=== PATIENT | female | born 1950 ===

== ENCOUNTER 2020-01-11 13:10 | Outpatient (REF) | payer MEDICARE, SELFPAY ==
[2020-01-11 13:39] LABS: Total Volume 24 Hour Urine 1875 mL
[2020-01-11 14:39] LABS: Creatinine, mg/dL 53.92
[2020-01-12 22:46] LABS: Calcium, 24 Hr Urine 158 mg/24 h; Calcium/Creatinine Ratio 158 mg/g creat (30-275); Creatinine 24Hr Urine 0.99 g/24 h (0.50-2.15)
== END 2020-01-11 13:11 | disposition home or self-care (01) ==
LOC: HO.LNP 13:10
PROVIDERS: Visit Provider Internal Medicine
DX: E21.3 Hyperparathyroidism, unspecified (principal); E55.9 Vitamin D deficiency, unspecified; E83.52 Hypercalcemia
CPT/HCPCS: 82340; 82570

== ENCOUNTER 2020-02-06 11:54 | Outpatient (REF) | payer MEDICARE, SELFPAY ==
--- NOTE | 2020-02-06 11:59 | MM_ITS ---
EXAMINATION: MM SCREENING DIGITAL BREAST TOMOSYNTHESIS, BILATERAL CLINICAL INFORMATION: Screening. Asymptomatic. The lifetime risk of breast cancer based on the Tyrer-Cuzick Model is 2.6%. COMPARISON: Mammography: January 31, 2019 and studies dating back to October 01, 2011 TECHNIQUE: Digital breast tomosynthesis is performed in both the craniocaudal and mediolateral oblique views along with computer-aided detection (CAD). Synthesized 2D images are generated from the tomosynthesis. FINDINGS: There are scattered areas of fibroglandular density (ACR BI-RADS breast composition Category b). There are no significant masses, abnormal calcifications, or other abnormalities. MM/MM tomosynthesis screening BI IMPRESSION: There are no significant changes from prior study. ASSESSMENT: BI-RADS 1: Negative RECOMMENDATION: Routine annual mammography screening. This patient's information was entered into a reminder system with a target due date for their next mammogram.
== END 2020-02-06 11:55 | disposition home or self-care (01) ==
LOC: HO.MAMMO 11:54
PROVIDERS: Visit Provider Internal Medicine
DX: Z12.31 Encounter for screening mammogram for malignant neoplasm of breast (principal)
CPT/HCPCS: 77063; 77067

== ENCOUNTER → 2020-03-20 09:55 | Outpatient (BNVA) | payer MEDICARE, SELFPAY | PROVIDERS: PCP Internal Medicine; Visit Provider Internal Medicine | DX: C73 Malignant neoplasm of thyroid gland (principal); E20.9 Hypoparathyroidism, unspecified; E55.9 Vitamin D deficiency, unspecified; Z79.4 Long term (current) use of insulin; Z79.899 Other long term (current) drug therapy | CPT/HCPCS: Q3014 ==

== ENCOUNTER 2020-04-08 13:31 | Outpatient (REF) | payer MEDICARE, SELFPAY ==
[2020-04-08 15:00] LABS: Albumin Level 4.4 g/dL (3.5-5.0); Calcium 8.3 mg/dL (8.4-10.2); Estimated Glomerular Filt Rate 56; Phosphorus 3.9 mg/dL (2.7-4.5)
[2020-04-08 15:27] LABS: Vitamin D 25-OH Total 59.3 ng/mL (>30)
[2020-04-09 18:33] LABS: Calcium (PTHI) 8.6 mg/dL (8.6-10.4); PTHI 12 pg/mL (14-64)
== END 2020-04-08 13:32 | disposition home or self-care (01) ==
LOC: HO.LAB 13:31
PROVIDERS: PCP Internal Medicine; Visit Provider Internal Medicine
DX: E55.9 Vitamin D deficiency, unspecified (principal); E20.9 Hypoparathyroidism, unspecified
CPT/HCPCS: 82040; 82306; 82310; 82565; 83970; 84100

== ENCOUNTER → 2020-04-10 09:38 | Outpatient (BNVA) | payer MEDICARE, SELFPAY | PROVIDERS: PCP Internal Medicine; Visit Provider Internal Medicine | DX: E20.9 Hypoparathyroidism, unspecified (principal); C73 Malignant neoplasm of thyroid gland; E55.9 Vitamin D deficiency, unspecified; F17.200 Nicotine dependence, unspecified, uncomplicated; Z71.6 Tobacco abuse counseling | CPT/HCPCS: Q3014 ==

== ENCOUNTER 2020-04-15 10:11 | Outpatient (REF) | payer MEDICARE, SELFPAY ==
[2020-04-15 11:19] LABS: Albumin Level 4.4 g/dL (3.5-5.0); Calcium 8.4 mg/dL (8.4-10.2)
[2020-04-16 17:28] LABS: Calcium (PTHI) 9.1 mg/dL (8.6-10.4); PTHI 16 pg/mL (14-64)
== END 2020-04-15 10:12 | disposition home or self-care (01) ==
LOC: HO.LAB 10:11
PROVIDERS: PCP Internal Medicine; Visit Provider Internal Medicine
DX: E20.9 Hypoparathyroidism, unspecified (principal)
CPT/HCPCS: 36415; 82040; 82310; 83970

== ENCOUNTER → 2020-04-16 11:41 | Outpatient (BNVA) | payer MEDICARE, SELFPAY | PROVIDERS: PCP Internal Medicine; Visit Provider Internal Medicine | DX: Z13.89 Encounter for screening for other disorder (principal) | CPT/HCPCS: Q3014 ==

== ENCOUNTER 2020-04-24 10:16 | Outpatient (REF) | payer MEDICARE, SELFPAY ==
[2020-04-24 11:53] LABS: Albumin Level 4.7 g/dL (3.5-5.0)
[2020-04-24 12:20] LABS: Free T4 (Free Thyroxine) 0.94 ng/dL (0.71-1.85); Thyroid Stimulating Hormone 9.24 uIU/mL (0.32-4.0)
[2020-04-25 16:52] LABS: Calcium (PTHI) 9.2 mg/dL (8.6-10.4); PTHI 12 pg/mL (14-64)
== END 2020-04-24 10:17 | disposition home or self-care (01) ==
LOC: HO.LAB 10:16
PROVIDERS: PCP Internal Medicine; Visit Provider Internal Medicine
DX: E89.0 Postprocedural hypothyroidism (principal); E20.9 Hypoparathyroidism, unspecified
CPT/HCPCS: 36415; 82040; 82310; 83970; 84100; 84439; 84443

== ENCOUNTER 2020-05-06 12:33 | Outpatient (REF) | payer MEDICARE, SELFPAY ==
[2020-05-06 14:57] LABS: Albumin Level 4.4 g/dL (3.5-5.0); Calcium 8.7 mg/dL (8.4-10.2)
[2020-05-07 15:52] LABS: Calcium (PTHI) 8.5 mg/dL (8.6-10.4); PTHI 14 pg/mL (14-64)
== END 2020-05-06 12:34 | disposition home or self-care (01) ==
LOC: HO.LAB 12:33
PROVIDERS: PCP Internal Medicine; Visit Provider Internal Medicine
DX: E20.9 Hypoparathyroidism, unspecified (principal); E89.0 Postprocedural hypothyroidism; E55.9 Vitamin D deficiency, unspecified
CPT/HCPCS: 36415; 82040; 82310; 83970

== ENCOUNTER 2020-05-13 10:00 | Outpatient (REF) | payer MEDICARE, SELFPAY ==
[2020-05-13 10:58] LABS: Albumin Level 4.5 g/dL (3.5-5.0); Calcium 8.7 mg/dL (8.4-10.2)
[2020-05-14 13:32] LABS: Calcium (PTHI) 8.8 mg/dL (8.6-10.4); PTHI 16 pg/mL (14-64)
== END 2020-05-13 10:01 | disposition home or self-care (01) ==
LOC: HO.LAB 10:00
PROVIDERS: PCP Internal Medicine; Visit Provider Internal Medicine
DX: E20.9 Hypoparathyroidism, unspecified (principal)
CPT/HCPCS: 36415; 82040; 82310; 83970

== ENCOUNTER 2020-05-16 07:27 | Day surgery (SDC) | payer MEDICARE, SELFPAY ==
--- NOTE | 2020-05-14 14:37 | HO.ANESPROP2 ---
Documented by User: Jamila Alma 05/14/20 14:41 HPI - Anesthesia Eval Consult details Narrative: 70yo F for Upper Endoscopy and Colonoscopy Chronic opioids PMFSH Past Medical History Medical History Arthritis Diabetes GERD (gastroesophageal reflux disease) History of back pain History of diverticulosis Hyperlipidemia Hypertension Hypoparathyroidism Postoperative hypothyroidism Smoker Thyroid cancer Vitamin D deficiency Family History Family History Father Diabetes Hypertension Mother Diabetes Hypertension Surgical History Surgical History History of carpal tunnel surgery of right wrist History of thyroid surgery Hx of bladder repair surgery Hx of cholecystectomy Hx of colonoscopy Hx of hemorrhoidectomy Hx of hysterectomy with oophorectomy Social History Social History Are you a primary direct care counselor to a significant other at home: No Do you presently have visiting nurse or other home services: No Smoking Status: Current every day smoker Packs Per Day: 0.5 Cigarettes Per Day: 10.0 Years Smoked: 40 Smoked in Last 30 Days: Yes Patient Interested in Nicotine Replacement: No Patient Given Instructions on How to Stop Smoking: Yes Date Education Initiated: 05/12/20 Use of substances other than those prescribed or required for medical reasons: No Have you been hit, kicked, punched, or otherwise hurt by someone within the past year? If so, by whom?: No Advance Directives: No Advance Directives Information Provided: No Advance Directives on File: No Recently lost weight without trying: No Meds Allergies Allergy/AdvReac Type Severity Reaction Status Date / Time metformin Allergy Unknown diarrhea Verified 04/16/20 13:08 Home Medications Medication Instructions Recorded Confirmed Type atorvastatin 20 mg tablet 20 mg PO DAILY 03/20/20 05/12/20 History blood sugar diagnostic #10 ea 03/20/20 04/16/20 History fluticasone propionate 50 1 - 2 spray INTRANASAL DAILY PRN 03/20/20 05/12/20 History mcg/actuation nasal spray,suspension hydrochlorothiazide 25 mg tablet 25 mg PO DAILY 03/20/20 05/12/20 History moexipril 15 mg tablet 15 mg PO DAILY 03/20/20 05/12/20 History omeprazole 20 mg capsule,delayed 20 mg PO DAILY 03/20/20 05/12/20 History release oxycodone-acetaminophen 5 mg-325 1 tab PO Q6H PRN 03/20/20 05/16/20 History mg tablet sennosides 8.6 mg tablet [id number]? mg PO Q12H PRN 03/20/20 05/12/20 History verapamil 300 mg capsule 24hr 300 mg PO BEDTIME 03/20/20 05/12/[address],ext.release calcium citrate 250 mg 1 tab PO TID 04/10/20 05/12/20 History calcium-vitamin D3 5 mcg (200 unit) tablet insulin glargine 100 unit/mL 74 unit SUBCUT QPM ml 04/10/20 05/16/20 History subcutaneous solution zolpidem 1 tab PO DAILY 05/12/20 05/12/20 History Aspirin Childrens 81 DAILY 05/16/20 History Fish Oil 1,000 BID 05/16/20 History Exam Exam Date and Time: May 14, 2020 1437 Height,Weight and Vital Signs: Height 54 ft Weight 63.049 kg Pertinent Lab Results Pertinent Lab Results: Laboratory Tests 12/01/19 01/09/20 04/08/20 14:35 14:53 13:40 WBC 16.3 H Hgb 15.0 Hct 43.7 Plt Count 228 Sodium 138 Potassium 3.9 Chloride 105 BUN 17 H Creatinine 0.97 Laboratory Tests 04/24/20 05/06/20 05/13/20 10:30 13:58 10:20 Calcium 8.7 8.7 TSH 9.24 H Free T4 0.94 PTH Intact Calcium (PTH Intact) 05/13/20 10:20 Calcium TSH Free T4 PTH Intact 16 Calcium (PTH Intact) 8.8 Assessment and Plan Assessment Anesthesia Assessment: Chart Reviewed Documented by User: Ras Shell MD 05/16/20 08:23 [facility] Past Medical History Medical History Arthritis Diabetes GERD (gastroesophageal reflux disease) History of back pain History of diverticulosis Hyperlipidemia Hypertension Hypoparathyroidism Postoperative hypothyroidism Smoker Thyroid cancer Vitamin D deficiency Family History Family History Father Diabetes Hypertension Mother Diabetes Hypertension Surgical History Surgical History History of carpal tunnel surgery of right wrist History of thyroid surgery Hx of bladder repair surgery Hx of cholecystectomy Hx of colonoscopy Hx of hemorrhoidectomy Hx of hysterectomy with oophorectomy Social History Social History Are you a primary direct care counselor to a significant other at home: No Do you presently have visiting nurse or other home services: No Smoking Status: Current every day smoker Packs Per Day: 0.5 Cigarettes Per Day: 10.0 Years Smoked: 40 Smoked in Last 30 Days: Yes Patient Interested in Nicotine Replacement: No Patient Given Instructions on How to Stop Smoking: Yes Date Education Initiated: 05/12/20 Use of substances other than those prescribed or required for medical reasons: No Have you been hit, kicked, punched, or otherwise hurt by someone within the past year? If so, by whom?: No Advance Directives: No Advance Directives Information Provided: No Advance Directives on File: No Recently lost weight without trying: No Meds Allergies Allergy/AdvReac Type Severity Reaction Status Date / Time metformin Allergy Unknown diarrhea Verified 04/16/20 13:08 Home Medications Medication Instructions Recorded Confirmed Type atorvastatin 20 mg tablet 20 mg PO DAILY 03/20/20 05/12/20 History blood sugar diagnostic #10 ea 03/20/20 04/16/20 History fluticasone propionate 50 1 - 2 spray INTRANASAL DAILY PRN 03/20/20 05/12/20 History mcg/actuation nasal spray,suspension hydrochlorothiazide 25 mg tablet 25 mg PO DAILY 03/20/20 05/12/20 History moexipril 15 mg tablet 15 mg PO DAILY 03/20/20 05/12/20 History omeprazole 20 mg capsule,delayed 20 mg PO DAILY 03/20/20 05/12/20 History release oxycodone-acetaminophen 5 mg-325 1 tab PO Q6H PRN 03/20/20 05/16/20 History mg tablet sennosides 8.6 mg tablet [id number]? mg PO Q12H PRN 03/20/20 05/12/20 History verapamil 300 mg capsule 24hr 300 mg PO BEDTIME 03/20/20 05/12/[address],ext.release calcium citrate 250 mg 1 tab PO TID 04/10/20 05/12/20 History calcium-vitamin D3 5 mcg (200 unit) tablet insulin glargine 100 unit/mL 74 unit SUBCUT QPM ml 04/10/20 05/16/20 History subcutaneous solution zolpidem 1 tab PO DAILY 05/12/20 05/12/20 History Aspirin Childrens 81 DAILY 05/16/20 History Fish Oil 1,000 BID 05/16/20 History Assessment and Plan Assessment Anesthesia Assessment: Anesthesia Plan Discussed and Chart Reviewed Final Anesthetic Review NPO: Yes ASA Class: II Final Preanesthetic Review: No Changes in Pt Med Stat, Meds/Allgs Chart Reviewed, Consent Obtained/Reviewed and Anes Risks/Benef Reviewed Patient Risk: Intermediate Procedure Risk: Low Anesthetic Plan Disposition: Standard PACU
[2020-05-16 07:54] VITALS: BP 138/71; PULSE 74; RESP 16; TEMP 36.2; O2SAT 97
[2020-05-16 08:02] LABS: Glucose, Whole Blood 166 mg/dL (60-115)
[2020-05-16] MEDS: Lactated Ringers 1,000 ML 100 ML IVCONT (08:04)
[2020-05-16 09:32] VITALS: BP 83/48; PULSE 71; RESP 18; TEMP 36.8; O2SAT 99
--- NOTE | 2020-05-16 09:39 | PM.OP ---
Brief Operative Note Date of Service: 05/16/20 Pre-op diagnosis: GERD, Screening Post-op diagnosis: other (Hiatal hernia, ? gastric polyp, colon polyp) Procedure: EGD with biopsies and Colonoscopy to the cecum with snare polypectomy Surgeon: Jesus Lacey Anesthesia: MAC Estimated blood loss (mL): 3.0 Pathology: other (A. EG Junction at 35cm B. Gastric antrum, R/O polyp C. Polyp at 15cm) Condition: stable Disposition: PACU
[2020-05-16 09:45] VITALS: BP 90/53; PULSE 62; RESP 16; TEMP 36.8; O2SAT 99
--- NOTE | 2020-05-16 09:57 | HO.POSTANES ---
Post Anesthesia Evaluation Post Anesthesia Evaluation Vital Signs: Vital Signs Temp Pulse Resp BP Pulse Ox 05/16/20 09:45 98.2 F 62 16 90/53 L 99 05/16/20 09:32 98.2 F 71 18 83/48 L 99 05/16/20 07:54 97.1 F 74 16 138/71 97 Anesthesia: Monitored Mental Status: Awake Pain Control: Satisfactory Nausea/Vomiting: None Hydration: Adequate Anesthesia-Related Issues: No Anes. Related Issues
--- NOTE | 2020-05-16 10:04 | OP_ITS ---
SURGEON: Jesus Lacey MD INDICATIONS: The patient presents for evaluation of gastroesophageal reflux, personal history of tubular adenoma of the colon, and colorectal cancer screening. Full consent has been obtained from her for this, including risks of bleeding and perforation. PREOPERATIVE DIAGNOSIS: POSTOPERATIVE DIAGNOSIS: PROCEDURE PERFORMED: Esophagogastroduodenoscopy with biopsies and colonoscopy to the cecum with snare polypectomy. ESTIMATED BLOOD LOSS: COMPLICATIONS: ANESTHESIA: Monitored anesthesia care. ASSISTANTS: SPECIMENS: PREOPERATIVE DIAGNOSES: Gastroesophageal reflux, colorectal cancer screening, and personal history of tubular adenoma of the colon. POSTOPERATIVE DIAGNOSES: Gastroesophageal reflux, colorectal cancer screening, and personal history of tubular adenoma of the colon, hiatal hernia, question of gastric polyp, colon polyp, diverticulosis and internal hemorrhoids. DESCRIPTION OF PROCEDURE: The patient was placed in the left lateral decubitus position. The Olympus video gastroscope was passed in the posterior oropharynx and upper esophagus under direct vision. The scope was passed slowly into the distal esophagus. The gastroesophageal junction appeared at 35 cm. There was some slight irregularity consistent with reflux, but no definitive evidence of Gamez's esophagus. There was no esophagitis. There was a small hiatal hernia. The scope was advanced to pylorus and duodenum cannulated the descending portion. The duodenum including the bulb was carefully inspected and appeared normal without mass or ulceration. The scope was withdrawn back in the stomach. The gastric antrum and body appeared normal other than a very questionable area in the gastric antrum along the greater curvature raising a suspicion of an approximately 12 mm polyp. Biopsies were obtained. The scope was retroflexed visualizing the proximal stomach carefully, which appeared normal, without any sign of mass or ulceration. The scope was straightened. Scope was withdrawn back into the esophagus. Biopsies were obtained at the EG junction at 35 cm. Proximal to this, the esophageal mucosa appeared normal. The scope was withdrawn from the patient. She was turned around for colonoscopy. The digital rectal exam revealed no abnormalities. The Olympus video pediatric colonoscope was entered into the rectum and advanced easily to the cecum. Once in the cecum, I did identify normal-appearing cecal pouch with appendiceal orifice and a normal-appearing ileocecal valve. The entire cecum and ileocecal valve appeared normal. The scope was slowly withdrawn assessing all mucosal surfaces carefully. Preparation for the most part was very good, although there were some small areas of liquid and semi-solid stool, which were irrigated and suctioned away as best as possible. At 15 cm, was an approximately 8 mm polyp on a short stalk, which was snared and recovered by suction. The polypectomy site appeared clean, without any sign of residual polyp nor bleeding. I did not visualize any other polyps, colitis, nor angiodysplasia. There was a moderate amount of sigmoid diverticulosis. In the rectum, scope was retroflexed visualizing internal hemorrhoids, but no other pathology. The rectal mucosa appeared normal. The scope was straightened out and withdrawn from the patient. She tolerated both procedures well and was returned to recovery area in stable condition. IMPRESSION: 1. Small colon polyp, status post snare polypectomy. 2. Diverticulosis. 3. Internal hemorrhoids. 4. Hiatal hernia. 5. Rule out gastric polyp. PLAN: The results of the biopsies will be checked. I would recommend a repeat colonoscopy in 5 years. She was advised not to use any aspirin nor NSAIDs for 1 week. She will continue her omeprazole. She will otherwise see me on a p.r.n. basis. If the gastric polyp happens to show anything such as adenoma, then we would need to repeat the endoscopy. If Helicobacter pylori is present on the gastric biopsies, I would not necessarily treat that and she is otherwise asymptomatic. MD MARJAN Torrez/JESUS / [id number]
== END 2020-05-16 10:25 | disposition home or self-care (01) ==
PROVIDERS: PCP Internal Medicine; Visit Provider Internal Medicine
PROC: (CPT 45385; principal; 2020-05-16 08:30)
DX: Z12.11 Encounter for screening for malignant neoplasm of colon (principal); K63.5 Polyp of colon; K57.30 Diverticulosis of large intestine without perforation or abscess without bleeding; K64.8 Other hemorrhoids; Z86.010 Personal history of colon polyps; K21.9 Gastro-esophageal reflux disease without esophagitis; K44.9 Diaphragmatic hernia without obstruction or gangrene; I10 Essential (primary) hypertension; E11.9 Type 2 diabetes mellitus without complications; Z79.4 Long term (current) use of insulin; Z79.899 Other long term (current) drug therapy; Z80.0 Family history of malignant neoplasm of digestive organs
CPT/HCPCS: 45385; 43239; 82947; 88305; 88342

== ENCOUNTER 2020-07-04 13:15 | Outpatient (REF) | payer MEDICARE, SELFPAY ==
[2020-07-04 14:39] LABS: Albumin Level 4.4 g/dL (3.5-5.0); Calcium 8.5 mg/dL (8.4-10.2)
[2020-07-04 15:06] LABS: Vitamin D 25-OH Total 41.2 ng/mL (>30)
[2020-07-08 17:37] LABS: Calcium (PTHI) 8.7 mg/dL (8.6-10.4); PTHI 12 pg/mL (14-64)
== END 2020-07-04 13:16 | disposition home or self-care (01) ==
LOC: HO.LAB 13:15
PROVIDERS: PCP Internal Medicine; Visit Provider Internal Medicine
DX: E20.9 Hypoparathyroidism, unspecified (principal); E55.9 Vitamin D deficiency, unspecified
CPT/HCPCS: 36415; 82040; 82306; 82310; 83970

== ENCOUNTER 2020-07-07 09:04 | Outpatient (REF) | payer MEDICARE, SELFPAY ==
[2020-07-07 16:28] LABS: Albumin Level 4.5 g/dL (3.5-5.0); Calcium 8.8 mg/dL (8.4-10.2); Estimated Glomerular Filt Rate > 60; Phosphorus 4.3 mg/dL (2.7-4.5)
[2020-07-07 17:32] LABS: Free T4 (Free Thyroxine) 1.18 ng/dL (0.71-1.85); Vitamin D 25-OH Total 43.6 ng/mL (>30)
[2020-07-08 17:37] LABS: PTHI 15 pg/mL (14-64)
[2020-07-08 17:57] LABS: Thyroglobulin 0.2 ng/mL; Thyroglobulin Antibodies 1 IU/mL (< or = 1)
== END 2020-07-07 09:05 | disposition home or self-care (01) ==
LOC: HO.LAB 09:04
PROVIDERS: PCP Internal Medicine; Visit Provider Internal Medicine
DX: C73 Malignant neoplasm of thyroid gland (principal); E55.9 Vitamin D deficiency, unspecified; E87.6 Hypokalemia; E20.9 Hypoparathyroidism, unspecified
CPT/HCPCS: 36415; 82040; 82306; 82310; 82565; 83970; 84100; 84432; 84439; 84443; 86800; Q3014

== ENCOUNTER → 2020-09-01 09:03 | Outpatient (BNVA) | payer MEDICARE, SELFPAY | PROVIDERS: PCP Internal Medicine; Visit Provider Internal Medicine | CPT/HCPCS: Q3014 ==

== ENCOUNTER 2020-09-11 12:48 | Outpatient (REF) | payer MEDICARE, SELFPAY ==
[2020-09-11 14:33] LABS: Albumin Level 4.1 g/dL (3.5-5.0); Calcium 8.5 mg/dL (8.4-10.2); Estimated Glomerular Filt Rate > 60; Phosphorus 3.8 mg/dL (2.7-4.5)
[2020-09-11 15:05] LABS: Free T4 (Free Thyroxine) 1.14 ng/dL (0.71-1.85); Thyroid Stimulating Hormone 1.06 uIU/mL (0.32-4.0); Vitamin D 25-OH Total 41.5 ng/mL (>30)
[2020-09-12 18:56] LABS: Calcium (PTHI) 8.4 mg/dL (8.6-10.4); PTHI 13 pg/mL (14-64); Thyroglobulin Antibodies 1 IU/mL (< or = 1)
[2020-09-15 06:32] LABS: Thyroglobulin Antibody <1 IU/mL (<=1); Thyroglobulin Level 0.2 ng/mL
== END 2020-09-11 12:49 | disposition home or self-care (01) ==
LOC: HO.LAB 12:48
PROVIDERS: PCP Internal Medicine; Visit Provider Internal Medicine
DX: E20.9 Hypoparathyroidism, unspecified (principal); C73 Malignant neoplasm of thyroid gland; E55.9 Vitamin D deficiency, unspecified
CPT/HCPCS: 36415; 82040; 82306; 82310; 82565; 83970; 84100; 84432; 84439; 84443; 86800

== ENCOUNTER 2020-09-26 07:01 | Outpatient (REF) | payer MEDICARE, SELFPAY ==
[2020-09-26 07:47] LABS: MANUAL DIFF FLAG NO
[2020-09-26 07:53] LABS: Basophils Absolute Auto 0.1 X10*3/uL (0.0-0.2); Basophils Percent Auto 0.7 % (0-2); Eosinophils Absolute Auto 0.4 X10*3/uL (0.0-0.4); Eosinophils Percent Auto 3.9 % (0-4); Hematocrit 42.2 % (37-47); Imm Gran Abs Auto 0.07 X10*3/uL (0.00-0.03); Imm Gran Pct Auto 0.7 % (0.0-0.4); Lymphocytes Absolute Auto 2.4 X10*3/uL (1.2-4.9); Lymphocytes Percent Auto 25.1 % (20-40); Mean Corpuscular HGB Conc 33.2 g/dl (31.0-35.0); Mean Corpuscular Hemoglobin 30.8 pg (27.0-33.0); Mean Corpuscular Volume 92.7 fL (80-98); Mean Platelet Volume 12.2 fL (9.4-12.3); Monocytes Absolute Auto 0.8 X10*3/uL (0.1-1.2); Monocytes Percent Auto 8.2 % (2-11); Neutrophils Absolute Auto 5.9 X10*3/uL (2.0-8.3); Neutrophils Percent Auto 61.4 % (45-73); Platelet Count 207 X10*3/uL (160-400); Red Blood Count 4.55 X10*6/uL (4.20-5.50); Red Cell Distribution Width 15.9 % (11.0-16.0); White Blood Count 9.6 X10*3/uL (4.8-10.8)
[2020-09-26 08:03] LABS: Albumin Level 4.5 g/dL (3.5-5.0); Calcium 8.7 mg/dL (8.4-10.2)
[2020-09-26 08:08] LABS: Creatinine Urine 108.14 mg/dL; Microalbum/Creatinine Ratio Ur 7.3 ug/mg cr
[2020-09-26 08:11] LABS: Anion Gap 15 (12-20); Blood Urea Nitrogen 22 mg/dL (9-16); Calcium 8.6 mg/dL (8.4-10.2); Carbon Dioxide 27 mmol/L (22-29); Chloride 104 mmol/L (96-108); Cholesterol 122 mg/dL; Estimated Glomerular Filt Rate > 60; Glucose Random 132 mg/dL (60-115); HDL Cholesterol 40 mg/dL; LDL Cholesterol Calculated 58 mg/dl; Potassium 3.9 mmol/L (3.3-5.1); Sodium 142 mmol/L (135-145); Triglycerides 122 mg/dL
[2020-09-30 09:36] LABS: Calcium (PTHI) 8.7 mg/dL (8.6-10.4); PTHI 16 pg/mL (14-64)
== END 2020-09-26 07:02 | disposition home or self-care (01) ==
LOC: HO.LAB 07:01
PROVIDERS: Absent Provider Internal Medicine; PCP Internal Medicine; Visit Provider Internal Medicine
DX: I10 Essential (primary) hypertension (principal); E20.9 Hypoparathyroidism, unspecified; C73 Malignant neoplasm of thyroid gland; E11.9 Type 2 diabetes mellitus without complications
CPT/HCPCS: 36415; 80048; 80061; 82040; 82043; 82310; 83970; 85025

== ENCOUNTER → 2020-10-27 08:51 | Outpatient (BNVA) | payer MEDICARE, SELFPAY | PROVIDERS: PCP Internal Medicine; Visit Provider Internal Medicine | DX: C73 Malignant neoplasm of thyroid gland (principal) | CPT/HCPCS: 96372; J3240 ==

== ENCOUNTER → 2020-10-28 08:57 | Outpatient (BNVA) | payer MEDICARE, SELFPAY | PROVIDERS: PCP Internal Medicine; Visit Provider Internal Medicine Endocrinology, Diabetes & Metabolism | DX: C73 Malignant neoplasm of thyroid gland (principal) | CPT/HCPCS: 96372; J3240 ==

== ENCOUNTER 2020-10-29 07:01 | Outpatient (REF) | payer MEDICARE, SELFPAY ==
[2020-10-29 08:22] LABS: Thyroid Stimulating Hormone > 100.00 uIU/mL (0.32-4.0)
[2020-10-30 10:03] LABS: Thyroglobulin 0.4 ng/mL; Thyroglobulin Antibodies <1 IU/mL (< or = 1)
== END 2020-10-29 07:02 | disposition home or self-care (01) ==
LOC: HO.LAB 07:01
PROVIDERS: PCP Internal Medicine; Visit Provider Internal Medicine
DX: Z13.89 Encounter for screening for other disorder (principal)
CPT/HCPCS: 36415; 84432; 84443; 86800

== ENCOUNTER 2020-10-29 07:04 | Outpatient (REF) | payer MEDICARE, SELFPAY | END 2020-10-29 07:05 | disposition home or self-care (01) | LOC: HO.LAB 07:04 | PROVIDERS: PCP Internal Medicine; Visit Provider Internal Medicine | DX: Z20.822 Contact with and (suspected) exposure to COVID-19 (principal) | CPT/HCPCS: 36415; 84432; 84443; 86800; C9803; U0003; U0005 ==

== ENCOUNTER 2020-10-31 06:31 | Outpatient (REF) | payer MEDICARE, SELFPAY ==
[2020-10-31 08:18] LABS: Thyroid Stimulating Hormone 23.84 uIU/mL (0.32-4.0)
[2020-11-01 10:02] LABS: Thyroglobulin 0.4 ng/mL; Thyroglobulin Antibodies 1 IU/mL (< or = 1)
== END 2020-10-31 06:32 | disposition home or self-care (01) ==
LOC: HO.LAB 06:31
PROVIDERS: PCP Internal Medicine; Visit Provider Internal Medicine
DX: Z85.850 Personal history of malignant neoplasm of thyroid (principal)
CPT/HCPCS: 36415; 84432; 84443; 86800

== ENCOUNTER 2020-11-03 10:52 | Outpatient (REF) | payer MEDICARE, SELFPAY ==
[2020-11-03 12:31] LABS: Alanine Aminotransferase 18 U/L (0-31); Albumin Level 4.4 g/dL (3.5-5.0); Alkaline Phosphatase 79 U/L (39-117); Anion Gap 13 (12-20); Aspartate Amino Transferase 20 U/L (5-31); Bilirubin Total 0.7 mg/dL (0.0-1.0); Blood Urea Nitrogen 24 mg/dL (9-16); Calcium 8.9 mg/dL (8.4-10.2); Carbon Dioxide 27 mmol/L (22-29); Chloride 104 mmol/L (96-108); Estimated Glomerular Filt Rate > 60; Glucose Random 192 mg/dL (60-115); Phosphorus 4.4 mg/dL (2.7-4.5); Potassium 3.9 mmol/L (3.3-5.1); Sodium 140 mmol/L (135-145); Total Protein 7.2 g/dL (6.5-8.0)
[2020-11-03 12:54] LABS: Free T4 (Free Thyroxine) 1.13 ng/dL (0.71-1.85); Thyroid Stimulating Hormone 2.14 uIU/mL (0.32-4.0); Vitamin D 25-OH Total 43.2 ng/mL (>30)
[2020-11-04 13:31] LABS: PTHI 17 pg/mL (14-64)
== END 2020-11-03 10:53 | disposition home or self-care (01) ==
LOC: HO.LAB 10:52
PROVIDERS: PCP Internal Medicine; Visit Provider Internal Medicine
DX: E20.9 Hypoparathyroidism, unspecified (principal); C73 Malignant neoplasm of thyroid gland; E55.9 Vitamin D deficiency, unspecified; E89.0 Postprocedural hypothyroidism; Z85.850 Personal history of malignant neoplasm of thyroid
CPT/HCPCS: 36415; 80053; 82306; 83970; 84100; 84439; 84443; 99212

== ENCOUNTER 2020-12-12 14:23 | Outpatient (REF) | payer MEDICARE, SELFPAY ==
[2020-12-12 15:58] LABS: Free T4 (Free Thyroxine) 1.37 ng/dL (0.71-1.85); Thyroid Stimulating Hormone 0.19 uIU/mL (0.32-4.0)
== END 2020-12-12 14:24 | disposition home or self-care (01) ==
LOC: HO.LAB 14:23
PROVIDERS: PCP Internal Medicine; Visit Provider Internal Medicine
DX: Z85.850 Personal history of malignant neoplasm of thyroid (principal)
CPT/HCPCS: 36415; 84439; 84443

== ENCOUNTER 2021-02-02 10:11 | Outpatient (REF) | payer MEDICARE, SELFPAY ==
[2021-02-02 11:26] LABS: Free T4 (Free Thyroxine) 1.16 ng/dL (0.71-1.85); Thyroid Stimulating Hormone 1.06 uIU/mL (0.32-4.0)
== END 2021-02-02 10:12 | disposition home or self-care (01) ==
LOC: HO.LAB 10:11
PROVIDERS: PCP Internal Medicine; Visit Provider Internal Medicine
DX: E89.0 Postprocedural hypothyroidism (principal)
CPT/HCPCS: 36415; 84439; 84443

== ENCOUNTER 2021-07-22 14:08 | Outpatient (REF) | payer MEDICARE, SELFPAY ==
--- NOTE | ~2021-07-22 | MM_ITS ---
EXAMINATION: MM SCREENING DIGITAL BREAST TOMOSYNTHESIS, BILATERAL CLINICAL INFORMATION: Screening. Asymptomatic. The lifetime risk of breast cancer based on the Tyrer-Cuzick Model is 2%. COMPARISON: Mammography: 02/06/2020, 01/31/2019, 01/26/2018 TECHNIQUE: Digital breast tomosynthesis is performed in both the craniocaudal and mediolateral oblique views along with computer-aided detection (CAD). Synthesized 2D images are generated from the tomosynthesis. FINDINGS: There are scattered areas of fibroglandular density (ACR BI-RADS breast composition Category b). There are no significant masses, abnormal calcifications, or other abnormalities. Parenchymal pattern is similar to prior studies. The axilla and skin contours are unremarkable. MM/MM tomosynthesis screening BI IMPRESSION: No mammographic evidence of malignancy. ASSESSMENT: BI-RADS 1: Negative RECOMMENDATION: Routine annual mammography screening. This patient's information was entered into a reminder system with a target due date for their next mammogram.
== END 2021-07-22 14:09 | disposition home or self-care (01) ==
LOC: HO.MAMMO 14:08
PROVIDERS: Visit Provider Internal Medicine
DX: Z12.31 Encounter for screening mammogram for malignant neoplasm of breast (principal)
CPT/HCPCS: 77063; 77067

== ENCOUNTER 2021-07-23 06:41 | Outpatient (REF) | payer MEDICARE, SELFPAY ==
[2021-07-23 06:59] LABS: MANUAL DIFF FLAG NO
[2021-07-23 07:32] LABS: Basophils Absolute Auto 0.1 X10*3/uL (0.0-0.2); Basophils Percent Auto 0.6 % (0-2); Eosinophils Absolute Auto 0.3 X10*3/uL (0.0-0.4); Eosinophils Percent Auto 2.4 % (0-4); Hematocrit 38.7 % (37.0-47.0); Hemoglobin 12.8 g/dl (12.0-16.0); Imm Gran Abs Auto 0.06 X10*3/uL (0.00-0.03); Imm Gran Pct Auto 0.6 % (0.0-0.4); Lymphocytes Absolute Auto 2.7 X10*3/uL (1.2-4.9); Lymphocytes Percent Auto 26.5 % (20-40); Mean Corpuscular HGB Conc 33.1 g/dl (31.0-35.0); Mean Corpuscular Hemoglobin 30.5 pg (27.0-33.0); Mean Corpuscular Volume 92.4 fL (80.0-98.0); Mean Platelet Volume 12.7 fL (9.4-12.3); Monocytes Absolute Auto 0.6 X10*3/uL (0.1-1.2); Monocytes Percent Auto 6.2 % (2-11); Neutrophils Absolute Auto 6.5 x10*3/uL (2.0-8.3); Neutrophils Percent Auto 63.7 % (45-73); Platelet Count 225 X10*3/uL (160-400); Red Blood Count 4.19 X10*6/uL (4.20-5.50); Red Cell Distribution Width 15.8 % (11.0-16.0); White Blood Count 10.3 X10*3/uL (4.8-10.8)
[2021-07-23 08:04] LABS: Alanine Aminotransferase 28 U/L (0-31); Alkaline Phosphatase 80 U/L (39-117); Anion Gap 13 (12-20); Aspartate Amino Transferase 22 U/L (5-31); Bilirubin Total 0.7 mg/dL (0.0-1.0); Blood Urea Nitrogen 22 mg/dL (9-16); Calcium 8.5 mg/dL (8.4-10.2); Carbon Dioxide 26 mmol/L (22-29); Chloride 103 mmol/L (96-108); Cholesterol 151 mg/dL; Estimated Glomerular Filt Rate > 60; Glucose Random 208 mg/dL (60-115); HDL Cholesterol 28 mg/dL; Potassium 3.7 mmol/L (3.3-5.1); Sodium 138 mmol/L (135-145); Total Protein 6.6 g/dL (6.5-8.0); Triglycerides 491 mg/dL
[2021-07-23 08:10] LABS: HIV AB/AG Nonreactive (Nonreactive); HIV Num 1 0.04 S/CO (0.00-0.99)
[2021-07-23 08:11] LABS: ~Hepatitis C Antibody Nonreactive (Nonreactive)
[2021-07-23 08:13] LABS: Lactate Dehydrogenase 243 U/L (122-220); Thyroid Stimulating Hormone 0.44 uIU/mL (0.32-4.0)
[2021-07-23 08:16] LABS: Erythrocyte Sedimentation Rate 7 MM/HR (0-20)
[2021-07-23 14:28] LABS: Appearance Urine CLOUDY; Color Urine YELLOW; Glucose Urine UA NEG (NEG); Leukocyte Esterase Urine 3+ (NEG); Nitrite Urine NEG (NEG); Specific Gravity - Urine 1.025 (1.005-1.025); Urine Blood NEG (NEG); Urine Ketones 5 MG/DL (NEG); Urine Protein TRACE MG/DL (NEG-TRACE)
[2021-07-23 15:06] LABS: Squamous Epithelial Cell Urine 4+ /LPF
[2021-07-23 15:26] LABS: Bacteria Urine 1+ /LPF
== END 2021-07-23 06:42 | disposition home or self-care (01) ==
LOC: HO.LAB 06:41
PROVIDERS: PCP Internal Medicine; Visit Provider Internal Medicine
DX: Z11.4 Encounter for screening for human immunodeficiency virus [HIV] (principal); E20.8 Other hypoparathyroidism; R63.4 Abnormal weight loss
CPT/HCPCS: 36415; 80053; 80061; 81001; 83615; 84439; 84443; 85025; 85652; 86803; 87389

== ENCOUNTER 2021-07-24 12:42 | Outpatient (REF) | payer MEDICARE, SELFPAY ==
--- NOTE | ~2021-07-24 | CT_ITS ---
EXAMINATION: CT CHEST SCREENING CLINICAL INFORMATION: Current smoker. 1 ppd. 61.235 kg. 20 + pack years. COMPARISON: 11/07/2019 TECHNIQUE: Multidetector volumetric CT imaging of the chest is performed without contrast using low-dose technique. Additional 2-D coronal and sagittal reformatted images and axial 3-D maximum intensity projection (MIP) images are generated on the CT workstation. This CT examination was performed using dose optimization techniques as appropriate, variously including the following: *Automated exposure control *Adjustment of mA and/or kV according to patient size (this includes techniques or standardized protocols for targeted exams where dose is matched to indication/reason for exam; i.e. extremities or head) *Use of iterative reconstruction technique DLP: 44 mGy-cm FINDINGS: LUNGS: 2 mm subpleural left upper lobe nodule is unchanged (4:193 compare prior 4:190). 2 mm pleural-based nodule in the right lower lobe along the major fissure is unchanged (4:251 compare prior 4:259). No new or worrisome lung nodule is seen. MEDIASTINUM: The mediastinum is unremarkable. PLEURA: There is no pleural effusion. No pleural mass or thickening. AXILLA: No lymphadenopathy. UPPER ABDOMEN: Status post cholecystectomy. OSSEOUS STRUCTURES: Unremarkable. CT/CT lung screening IMPRESSION: Two tiny lung nodules stable in appearance. ASSESSMENT: Lung-RADS category 2: Benign RECOMMENDATION: Routine annual low-dose CT screening in 12 months. Fleischner guidelines were followed.
== END 2021-07-24 12:43 | disposition home or self-care (01) ==
LOC: HO.CT 12:42
PROVIDERS: Visit Provider Physician Assistant Medical
DX: Z12.2 Encounter for screening for malignant neoplasm of respiratory organs (principal); Z87.891 Personal history of nicotine dependence
CPT/HCPCS: 71271

== ENCOUNTER 2021-09-10 10:42 | Outpatient (REF) | payer MEDICARE, SELFPAY ==
[2021-09-10 10:55] LABS: MANUAL DIFF FLAG NO
[2021-09-10 11:25] LABS: Basophils Absolute Auto 0.1 X10*3/uL (0.0-0.2); Basophils Percent Auto 0.8 % (0-2); Eosinophils Absolute Auto 0.4 X10*3/uL (0.0-0.4); Eosinophils Percent Auto 3.9 % (0-4); Hematocrit 38.6 % (37.0-47.0); Imm Gran Abs Auto 0.08 X10*3/uL (0.00-0.03); Imm Gran Pct Auto 0.8 % (0.0-0.4); Lymphocytes Absolute Auto 2.3 X10*3/uL (1.2-4.9); Lymphocytes Percent Auto 22.6 % (20-40); Mean Corpuscular HGB Conc 33.7 g/dl (31.0-35.0); Mean Corpuscular Hemoglobin 30.7 pg (27.0-33.0); Mean Platelet Volume 12.7 fL (9.4-12.3); Monocytes Absolute Auto 0.7 X10*3/uL (0.1-1.2); Monocytes Percent Auto 6.4 % (2-11); Neutrophils Absolute Auto 6.7 x10*3/uL (2.0-8.3); Neutrophils Percent Auto 65.5 % (45-73); Platelet Count 217 X10*3/uL (160-400); Red Blood Count 4.24 X10*6/uL (4.20-5.50); Red Cell Distribution Width 15.7 % (11.0-16.0); White Blood Count 10.2 X10*3/uL (4.8-10.8)
[2021-09-10 11:51] LABS: Lactate Dehydrogenase 292 U/L (122-220)
[2021-09-11 16:11] LABS: Blood Urea Nitrogen 16 mg/dL (9-16); Estimated Glomerular Filt Rate > 60
== END 2021-09-10 10:43 | disposition home or self-care (01) ==
LOC: HO.LAB 10:42
PROVIDERS: PCP Internal Medicine; Visit Provider Internal Medicine
DX: R10.32 Left lower quadrant pain (principal); R63.4 Abnormal weight loss
CPT/HCPCS: 36415; 82565; 83615; 84520; 85025

== ENCOUNTER 2021-10-30 14:47 | Outpatient (REF) | payer MEDICARE, SELFPAY ==
[2021-10-30 15:39] LABS: Blood Urea Nitrogen 16 mg/dL (9-16); Estimated Glomerular Filt Rate > 60
[2021-10-30 15:42] LABS: Alanine Aminotransferase 30 U/L (0-31); Albumin Level 4.5 g/dL (3.5-5.0); Alkaline Phosphatase 92 U/L (39-117); Anion Gap 15 (12-20); Aspartate Amino Transferase 26 U/L (5-31); Bilirubin Total 0.8 mg/dL (0.0-1.0); Blood Urea Nitrogen 16 mg/dL (9-16); Calcium 8.5 mg/dL (8.4-10.2); Carbon Dioxide 24 mmol/L (22-29); Chloride 100 mmol/L (96-108); Estimated Glomerular Filt Rate > 60; Glucose Random 231 mg/dL (60-115); Phosphorus 4.2 mg/dL (2.7-4.5); Potassium 3.8 mmol/L (3.3-5.1); Sodium 135 mmol/L (135-145); Total Protein 7.2 g/dL (6.5-8.0)
[2021-10-30 16:03] LABS: Free T4 (Free Thyroxine) 1.39 ng/dL (0.71-1.85); Thyroid Stimulating Hormone 0.05 uIU/mL (0.32-4.0); Vitamin D 25-OH Total 45.2 ng/mL (>30)
[2021-11-02 16:32] LABS: Thyroglobulin <0.1 ng/mL; Thyroglobulin Antibodies <1 IU/mL (< or = 1)
[2021-11-03 15:52] LABS: Calcium (PTHI) 8.4 mg/dL (8.6-10.4); PTHI 27 pg/mL (16-77)
== END 2021-10-30 14:48 | disposition home or self-care (01) ==
LOC: HO.LAB 14:47
PROVIDERS: Absent Provider Internal Medicine; PCP Internal Medicine; Visit Provider Internal Medicine
DX: E20.9 Hypoparathyroidism, unspecified (principal); E55.9 Vitamin D deficiency, unspecified; R10.32 Left lower quadrant pain; Z85.850 Personal history of malignant neoplasm of thyroid
CPT/HCPCS: 36415; 80053; 82306; 82565; 83970; 84100; 84432; 84439; 84443; 84520; 86800

== ENCOUNTER → 2021-11-04 14:29 | Outpatient (BNVA) | payer MEDICARE, SELFPAY | PROVIDERS: PCP Internal Medicine; Visit Provider Internal Medicine | DX: C73 Malignant neoplasm of thyroid gland (principal); E20.9 Hypoparathyroidism, unspecified; E55.9 Vitamin D deficiency, unspecified; E89.0 Postprocedural hypothyroidism; Z79.899 Other long term (current) drug therapy | CPT/HCPCS: 99212 ==

== ENCOUNTER 2021-11-06 07:40 | Outpatient (REF) | payer MEDICARE, SELFPAY ==
--- NOTE | ~2021-11-06 | CT_ITS ---
EXAMINATION: CT ABDOMEN AND PELVIS WITH CONTRAST CLINICAL INFORMATION: Diverticulosis. Left lower quadrant pain. COMPARISON: Previous CT of the abdomen and pelvis November 2019 TECHNIQUE: Multidetector volumetric images were obtained from the superior aspect of the liver through the pubic symphysis following administration 85 mL of Omnipaque 350 intravenous contrast. Sagittal and coronal reformatted images were obtained on the technologist's workstation. Oral contrast: Yes This CT examination was performed using dose optimization techniques as appropriate, variously including the following: *Automated exposure control *Adjustment of mA and/or kV according to patient size (this includes techniques or standardized protocols for targeted exams where dose is matched to indication/reason for exam; i.e. extremities or head) *Use of iterative reconstruction technique DLP: 281 mGy-cm FINDINGS: LUNG BASES: The visualized lung bases are unremarkable. LIVER, GALLBLADDER, AND BILIARY TREE: The liver is normal in size, shape and attenuation. There is a small probable cyst in the peripheral left lobe measuring 5 mm axial image 13 series 3 and central left lobe axial image 15 series 3. There is increased enhancement in the peripheral right lobe for example axial image 26 series 3. This is similar to previous exams and again may be related to a small shunt. There is mild intrahepatic extrahepatic biliary duct dilatation. This is similar to previous exams and probably related to postcholecystectomy. PANCREAS: Unremarkable. SPLEEN: Unremarkable. ADRENAL GLANDS: Unremarkable. KIDNEYS AND URETERS: There are small bilateral low-attenuation renal lesions. These are too small to definitively characterize but probably represent small cysts. BLADDER: Unremarkable. GASTROINTESTINAL TRACT: There is diverticulosis of the colon. No evidence of diverticulitis is seen. On large bowel is otherwise unremarkable. The appendix is normal. There may be fold thickening of the stomach. ABDOMINAL WALL: No significant hernia is appreciated. LYMPH NODES: Normal. VASCULAR: There is evidence of atherosclerotic disease. PELVIC VISCERA: Unremarkable. OSSEOUS STRUCTURES: There are degenerative changes of the spine. CT/CT abdomen pelvis w con IMPRESSION: Diverticulosis. No evidence of diverticulitis. Probable liver and bilateral renal cysts. Mild intrahepatic extrahepatic biliary duct dilatation that is stable from previous exams and may be normal postcholecystectomy. Question fold thickening of the stomach. Fleischner guidelines were followed.
[2021-11-06] MEDS: iohexoL 350 MG/ML 100 ML INFUS..BTL IV (10:19)
[2021-11-06] MEDS: Barium Sulfate Oral (Mocha) 450 ML ORAL.SUSP 900 ML PO (10:21)
== END 2021-11-06 07:41 | disposition home or self-care (01) ==
LOC: HO.CT 07:40
PROVIDERS: PCP Internal Medicine; Visit Provider Internal Medicine
DX: Z13.89 Encounter for screening for other disorder (principal)
CPT/HCPCS: 74177; Q9967

== ENCOUNTER 2021-11-06 10:02 | Outpatient (REF) | payer MEDICARE, SELFPAY ==
[2021-11-06 11:05] LABS: COVID-19 Test Negative (Negative); IDNOW Serial# 08D9AD1C
== END 2021-11-06 10:03 | disposition home or self-care (01) ==
LOC: HO.LAB 10:02
PROVIDERS: Visit Provider Internal Medicine
DX: Z20.822 Contact with and (suspected) exposure to COVID-19 (principal)
CPT/HCPCS: 74177; 87635; C9803; Q9967

== ENCOUNTER 2021-11-09 09:00 | Outpatient (RCR) | payer MEDICARE, SELFPAY | END 2021-11-09 10:11 | disposition home or self-care (01) | LOC: HO.PT 09:00 | PROVIDERS: PCP Internal Medicine; Visit Provider Internal Medicine | DX: M54.50 Low back pain, unspecified (principal) | CPT/HCPCS: 97110; 97140; 97161 ==

== ENCOUNTER 2021-12-15 13:21 | Outpatient (REF) | payer MEDICARE, SELFPAY ==
[2021-12-15 15:14] LABS: Albumin Level 4.5 g/dL (3.5-5.0); Calcium 8.7 mg/dL (8.4-10.2); Phosphorus 4.4 mg/dL (2.7-4.5)
[2021-12-15 15:29] LABS: Free T4 (Free Thyroxine) 1.26 ng/dL (0.71-1.85); Thyroid Stimulating Hormone 0.62 uIU/mL (0.32-4.0); Vitamin D 25-OH Total 52.1 ng/mL (>30)
[2021-12-16 14:46] LABS: Calcium (PTHI) 8.9 mg/dL (8.6-10.4); PTHI 16 pg/mL (16-77)
[2021-12-16 17:21] LABS: Thyroglobulin <0.1 ng/mL; Thyroglobulin Antibodies <1 IU/mL (< or = 1)
== END 2021-12-15 13:22 | disposition home or self-care (01) ==
LOC: HO.LAB 13:21
PROVIDERS: PCP Internal Medicine; Visit Provider Internal Medicine
DX: E89.0 Postprocedural hypothyroidism (principal); E55.9 Vitamin D deficiency, unspecified
CPT/HCPCS: 36415; 82040; 82306; 82310; 83970; 84100; 84432; 84439; 84443; 86800

== ENCOUNTER 2022-03-22 14:19 | Outpatient (REF) | payer MEDICARE, SELFPAY ==
--- NOTE | ~2022-03-22 | US_ITS ---
EXAMINATION: US SOFT TISSUE HEAD/NECK CLINICAL INFORMATION: Personal history of malignant neoplasm of thyroid. COMPARISON: US-guided thyroid biopsy 12/27/2019. Ultrasound thyroid 10/02/2019. CT soft tissue neck with contrast 08/22/2019. TECHNIQUE: Linear transducer grayscale and color Doppler examination of the thyroid bed and surrounding soft tissue. FINDINGS: Bilateral neck lymph nodes are normal in size and morphology without cortical thickening. US/US soft tiss head and/or neck IMPRESSION: 1. Bilateral neck lymph nodes are normal in size and morphology without cortical thickening.
== END 2022-03-22 14:20 | disposition home or self-care (01) ==
LOC: HO.US 14:19
PROVIDERS: Visit Provider Internal Medicine
DX: Z85.850 Personal history of malignant neoplasm of thyroid (principal)
CPT/HCPCS: 76536

== ENCOUNTER 2022-08-13 13:55 | Outpatient (REF) | payer MEDICARE, SELFPAY ==
--- NOTE | ~2022-08-13 | CT_ITS ---
EXAMINATION: CT CHEST SCREENING CLINICAL INFORMATION: Nicotine dependance, cigarettes, uncomplicated. COMPARISON: CT lung screening of 07/30/2021. TECHNIQUE: Multidetector volumetric CT imaging of the chest is performed without contrast using low dose technique. Additional 2D coronal and sagittal reformatted images and axial 3D maximum intensity projection (MIP) images are generated on the CT workstation. This CT examination was performed using dose optimization techniques as appropriate, variously including the following: *Automated exposure control *Adjustment of mA and/or kV according to patient size (this includes techniques or standardized protocols for targeted exams where dose is matched to indication/reason for exam; i.e. extremities or head) *Use of iterative reconstruction technique DLP: 39 mGy-cm FINDINGS: LUNGS: Again visualized is a 2 mm subpleural nodule left upper lobe 194/6, 2 mm pleural-based nodule in the right lower lobe along the major fissure, axial image 260/6. No additional nodule seen. There are mild atelectatic changes right middle lobe. The lungs are expanded and clear of acute pneumonic consolidation. MEDIASTINUM: The thyroid lobes are unremarkable. The central trachea and the bronchi are widely patent. Heart size and the great vessels are normal caliber. Small shotty lymph nodes seen in the precarinal and pretracheal space. There is no pericardial effusion. CORONARY ARTERY CALCIFICATION: None visualized on this study. PLEURA: There is no pleural effusion. No pleural mass or thickening. AXILLA: Small shotty lymph nodes are seen in bilateral axilla. The chest wall is unremarkable. UPPER ABDOMEN: Visualized liver, spleen, pancreas and bilateral adrenal glands unremarkable. The gallbladder has been removed. OSSEOUS STRUCTURES: No aggressive lytic or sclerotic process seen. There is mild ventral spondylosis mid dorsal spine. No aggressive lytic or sclerotic process seen. CT/CT lung screening IMPRESSION: Stable bilateral pulmonary nodules. No new nodules seen. ASSESSMENT: Lung-RADS category 2: Benign. RECOMMENDATION: Low dose annual CT chest.
== END 2022-08-13 13:56 | disposition home or self-care (01) ==
LOC: HO.CT 13:55
PROVIDERS: PCP Internal Medicine; Visit Provider Physician Assistant Medical
DX: Z12.2 Encounter for screening for malignant neoplasm of respiratory organs (principal); F17.210 Nicotine dependence, cigarettes, uncomplicated
CPT/HCPCS: 71271

== ENCOUNTER 2022-08-26 14:36 | Outpatient (REF) | payer MEDICARE, SELFPAY ==
--- NOTE | ~2022-08-26 | XR_ITS ---
EXAMINATION: XR LUMBOSACRAL SPINE WITH OBLIQUES CLINICAL INFORMATION: Back pain. COMPARISON: CT abdomen and pelvis 11/06/2021 TECHNIQUE: Lumbar spine is imaged in 6 views including oblique projections. FINDINGS: There is normal lumbar segmentation with 5 nonrib-bearing lumbar vertebrae of normal height and normal lumbar lordosis. There is no vertebral compression, visible fracture, spondylolisthesis, destructive process. There are degenerative disc changes at L2-L3 with disc narrowing and anterior vertebral spurring. Facet degeneration is present at L5-S1. Borderline posterior vertebral spurring L4-L5 without disc narrowing. Oblique views show no spondylolysis. The SI joints and visualized sacrum are unremarkable. XR/XR lumbar spine 4V min IMPRESSION: - Degenerative disc changes L2-L3. Facet degenerative changes L5-S1. - No vertebral compression, spondylolisthesis, or spondylolysis.
== END 2022-08-26 14:37 | disposition home or self-care (01) ==
LOC: HO.HHCX 14:36
PROVIDERS: Visit Provider Internal Medicine
DX: M54.50 Low back pain, unspecified (principal)
CPT/HCPCS: 72110

== ENCOUNTER 2022-08-27 06:50 | Outpatient (REF) | payer MEDICARE, SELFPAY ==
[2022-08-27 07:16] LABS: MANUAL DIFF FLAG NO
[2022-08-27 07:28] LABS: Basophils Absolute Auto 0.1 X10*3/uL (0.0-0.2); Basophils Percent Auto 0.7 % (0-2); Eosinophils Absolute Auto 0.3 X10*3/uL (0.0-0.4); Eosinophils Percent Auto 2.8 % (0-4); Hemoglobin 13.4 g/dl (12.0-16.0); Imm Gran Abs Auto 0.06 X10*3/uL (0.00-0.03); Imm Gran Pct Auto 0.6 % (0.0-0.4); Lymphocytes Absolute Auto 2.6 X10*3/uL (1.2-4.9); Lymphocytes Percent Auto 26.2 % (20-40); Mean Corpuscular HGB Conc 33.5 g/dl (31.0-35.0); Mean Corpuscular Hemoglobin 31.4 pg (27.0-33.0); Mean Corpuscular Volume 93.7 fL (80.0-98.0); Mean Platelet Volume 12.3 fL (9.4-12.3); Monocytes Absolute Auto 0.7 X10*3/uL (0.1-1.2); Monocytes Percent Auto 6.7 % (2-11); Neutrophils Absolute Auto 6.2 x10*3/uL (2.0-8.3); Platelet Count 215 X10*3/uL (160-400); Red Blood Count 4.27 X10*6/uL (4.20-5.50); Red Cell Distribution Width 15.6 % (11.0-16.0); White Blood Count 9.9 X10*3/uL (4.8-10.8)
[2022-08-27 08:01] LABS: Alanine Aminotransferase 26 U/L (0-31); Albumin Level 4.1 g/dL (3.5-5.0); Alkaline Phosphatase 71 U/L (39-117); Anion Gap 12 (12-20); Aspartate Amino Transferase 22 U/L (5-31); Bilirubin Direct 0.2 mg/dL (0.0-0.5); Bilirubin Total 0.9 mg/dL (0.0-1.0); Blood Urea Nitrogen 15 mg/dL (9-16); Calcium 8.5 mg/dL (8.4-10.2); Carbon Dioxide 28 mmol/L (22-29); Chloride 108 mmol/L (96-108); Cholesterol 115 mg/dL; Estimated Glomerular Filt Rate > 60; Glucose Random 108 mg/dL (60-115); HDL Cholesterol 35 mg/dL; LDL Cholesterol Calculated 61 mg/dl; Phosphorus 4.2 mg/dL (2.7-4.5); Potassium 3.5 mmol/L (3.3-5.1); Sodium 144 mmol/L (135-145); Total Protein 6.5 g/dL (6.5-8.0); Triglycerides 96 mg/dL
[2022-08-27 08:06] LABS: Albumin Level 4.2 g/dL (3.5-5.0); Calcium 8.6 mg/dL (8.4-10.2)
[2022-08-27 08:17] LABS: TSH reflex Free T4 3.66 uIU/mL (0.32-4.0); Thyroid Stimulating Hormone 3.66 uIU/mL (0.32-4.0)
[2022-08-27 09:02] LABS: Creatinine Urine 111.31 mg/dL; Microalbum/Creatinine Ratio Ur 10.7 ug/mg cr
[2022-08-27 10:28] LABS: Reflex LDLD? No
[2022-08-30 15:54] LABS: Calcium (PTHI) 8.6 mg/dL (8.6-10.4); PTHI 12 pg/mL (16-77)
[2022-08-30 17:39] LABS: Thyroglobulin Antibodies 1 IU/mL (< or = 1)
[2022-09-05 09:46] LABS: Other Ref Test - Misc SEE COMMENTS
== END 2022-08-27 06:51 | disposition home or self-care (01) ==
LOC: HO.LAB 06:50
PROVIDERS: Absent Provider Internal Medicine; PCP Internal Medicine; Visit Provider Internal Medicine
DX: E11.9 Type 2 diabetes mellitus without complications (principal); E55.9 Vitamin D deficiency, unspecified; E20.9 Hypoparathyroidism, unspecified; Z79.4 Long term (current) use of insulin; Z85.850 Personal history of malignant neoplasm of thyroid
CPT/HCPCS: 36415; 80048; 80061; 80076; 82040; 82043; 82306; 82310; 83970; 84100; 84432; 84443; 85025; 86800

== ENCOUNTER → 2022-08-30 10:57 | Outpatient (BNVA) | payer MEDICARE, SELFPAY | PROVIDERS: PCP Internal Medicine; Visit Provider Internal Medicine | DX: C73 Malignant neoplasm of thyroid gland (principal); E89.2 Postprocedural hypoparathyroidism; E55.9 Vitamin D deficiency, unspecified; E89.0 Postprocedural hypothyroidism; Z79.899 Other long term (current) drug therapy | CPT/HCPCS: 99212 ==

== ENCOUNTER 2022-09-16 09:30 | Outpatient (REF) | payer MEDICARE, SELFPAY ==
--- NOTE | ~2022-09-16 | MM_ITS ---
EXAMINATION: MM SCREENING DIGITAL BREAST TOMOSYNTHESIS, BILATERAL CLINICAL INFORMATION: Screening. Asymptomatic. The lifetime risk of breast cancer based on the Tyrer-Cuzick Model is under 5%. COMPARISON: Mammography: 07/22/2021, 02/06/2020, 01/31/2019, 01/26/2018, 01/10/2017 TECHNIQUE: Digital breast tomosynthesis is performed in both the craniocaudal and mediolateral oblique views along with computer-aided detection (CAD). Synthesized 2D images are generated from the tomosynthesis. FINDINGS: There are scattered areas of fibroglandular density (ACR BI-RADS breast composition Category b). There are no significant masses, abnormal calcifications, or other abnormalities. There are scattered minor bilateral asymmetries similar to prior studies. No developing density or architectural abnormality. The axilla and skin contours are unremarkable. MM/MM tomosynthesis screening BI IMPRESSION: No mammographic evidence of malignancy. ASSESSMENT: BI-RADS 2: Benign RECOMMENDATION: Routine annual mammography screening. This patient's information was entered into a reminder system with a target due date for their next mammogram.
== END 2022-09-16 09:31 | disposition home or self-care (01) ==
LOC: HO.MAMMO 09:30
PROVIDERS: PCP Internal Medicine; Visit Provider Internal Medicine
DX: Z12.31 Encounter for screening mammogram for malignant neoplasm of breast (principal)
CPT/HCPCS: 77063; 77067

== ENCOUNTER 2022-12-28 12:28 | Outpatient (REF) | payer MEDICARE, SELFPAY ==
[2022-12-28 16:07] LABS: Alanine Aminotransferase 24 U/L (0-31); Albumin Level 4.1 g/dL (3.5-5.0); Alkaline Phosphatase 82 U/L (39-117); Anion Gap 13 (12-20); Aspartate Amino Transferase 20 U/L (5-31); Bilirubin Total 0.7 mg/dL (0.0-1.0); Blood Urea Nitrogen 17 mg/dL (9-16); Calcium 8.5 mg/dL (8.4-10.2); Carbon Dioxide 26 mmol/L (22-29); Chloride 106 mmol/L (96-108); Estimated Glomerular Filt Rate > 60; Glucose Random 170 mg/dL (60-115); Phosphorus 4.3 mg/dL (2.7-4.5); Potassium 3.5 mmol/L (3.3-5.1); Sodium 141 mmol/L (135-145); Total Protein 6.9 g/dL (6.5-8.0)
[2022-12-28 16:13] LABS: Free T4 (Free Thyroxine) 1.17 ng/dL (0.71-1.85); Thyroid Stimulating Hormone 0.04 uIU/mL (0.32-4.0); Vitamin D 25-OH Total 40.8 ng/mL (>30)
[2022-12-29 17:58] LABS: Calcium (PTHI) 8.4 mg/dL (8.6-10.4); PTHI 11 pg/mL (16-77)
[2022-12-31 05:39] LABS: Thyroglobulin Antibody <1 IU/mL (<=1); Thyroglobulin Level <0.1 ng/mL
== END 2022-12-28 12:29 | disposition home or self-care (01) ==
LOC: HO.LAB 12:28
PROVIDERS: PCP Internal Medicine; Visit Provider Internal Medicine
DX: E20.9 Hypoparathyroidism, unspecified (principal); E89.0 Postprocedural hypothyroidism; E55.9 Vitamin D deficiency, unspecified; Z85.850 Personal history of malignant neoplasm of thyroid
CPT/HCPCS: 36415; 80053; 82306; 83970; 84100; 84432; 84439; 84443; 86800

== ENCOUNTER 2023-02-01 08:53 | Outpatient (REF) | payer MEDICARE, SELFPAY ==
--- NOTE | ~2023-02-01 | CT_ITS ---
EXAMINATION: CT ABDOMEN AND PELVIS WITH CONTRAST CLINICAL INFORMATION: 73-year-old female with severe lower abdominal pain COMPARISON: 11/06/2021 TECHNIQUE: Multidetector volumetric images were obtained from the superior aspect of the liver through the pubic symphysis following administration 85 mL of Omnipaque 350 intravenous contrast. Oral contrast was administered. This CT examination was performed using dose optimization techniques as appropriate, variously including the following: *Automated exposure control *Adjustment of mA and/or kV according to patient size (this includes techniques or standardized protocols for targeted exams where dose is matched to indication/reason for exam; i.e. extremities or head) *Use of iterative reconstruction technique DLP: 274 mGy-cm FINDINGS: LUNG BASES: The visualized lung bases are unremarkable. LIVER, GALLBLADDER, AND BILIARY TREE: The liver is normal in size, shape, and attenuation. There are a few very small low-attenuation lesions in the left lobe of the liver most likely cysts, too small to characterize and very mild intrahepatic biliary dilatation. No focal hepatic lesion or biliary ductal dilatation is present. Gallbladder is surgically absent. PANCREAS: Unremarkable. SPLEEN: Spleen is mildly enlarged measuring 13 cm. ADRENAL GLANDS: Unremarkable. KIDNEYS AND URETERS: The kidneys are normal in size, shape, and attenuation. No hydronephrosis, hydroureter, or calculi seen. No perinephric stranding. BLADDER: Unremarkable. . GASTROINTESTINAL TRACT: The small and large bowel are unremarkable except of diverticulosis in the sigmoid colon without diverticulitis. The appendix is unremarkable. ABDOMINAL WALL: No significant hernia is appreciated. LYMPH NODES: Normal. VASCULAR: Unremarkable. PELVIC VISCERA: Patient is status post hysterectomy. OSSEOUS STRUCTURES: Unremarkable. CT/CT abdomen pelvis w IV con IMPRESSION: No explanation for severe lower abdominal pain. Diverticulosis without diverticulitis. Status post cholecystectomy and hysterectomy. Fleischner guidelines were followed.
[2023-02-01] MEDS: Barium Sulfate Oral (Berry) 450 ML ORAL.SUSP 900 ML PO (11:19)
[2023-02-01] MEDS: iohexoL 350 MG/ML 100 ML INFUS..BTL IV (11:20)
[2023-02-01 12:25] LABS: Creatinine POC 0.5 mg/dL (0.5-1.4); GFR POC 60
== END 2023-02-01 08:54 | disposition home or self-care (01) ==
LOC: HO.CT 08:53
PROVIDERS: PCP Internal Medicine; Visit Provider Internal Medicine
DX: R10.30 Lower abdominal pain, unspecified (principal)
CPT/HCPCS: 74177; 82565; Q9967

== ENCOUNTER 2023-02-15 12:13 | Outpatient (REF) | payer MEDICARE, SELFPAY ==
[2023-02-15 14:31] LABS: Free T4 (Free Thyroxine) 1.22 ng/dL (0.71-1.85); Thyroid Stimulating Hormone 0.15 uIU/mL (0.32-4.0)
== END 2023-02-15 12:14 | disposition home or self-care (01) ==
LOC: HO.LAB 12:13
PROVIDERS: Visit Provider Internal Medicine Endocrinology, Diabetes & Metabolism
DX: C73 Malignant neoplasm of thyroid gland (principal)
CPT/HCPCS: 36415; 84439; 84443

== ENCOUNTER 2023-02-23 14:58 | Outpatient (AMB) | payer MEDICARE, SELFPAY ==
[2023-02-23 14:59] VITALS: BP 112/68; PULSE 74; BMI 21.9
--- NOTE | 2023-02-23 14:59 | A.OFFVIS_ITS ---
Intake Vital Signs 02/23/23 14:59 Height 5 ft 4 in Weight 127 lb 13.89 oz BMI 21.9 BP 112/68 Blood Pressure Location Lt brachial Position Sitting Pulse 74 Pulse Source Pulse Oximeter Intake Visit Reasons: F/Up thyroid cancer/LVM Intake Note: Patient present today for Thyroid cancer follow up visit. 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 Accompanied by: Self / Same As Patient Allergies metformin Allergy (Unknown, Verified 08/30/22 11:01) diarrhea Medication List - Last Reconciled 02/23/23 by Jesus Nguyen MD amitriptyline 25 mg PO BEDTIME [Aspirin Childrens 81 DAILY] atorvastatin 20 mg PO DAILY blood sugar diagnostic As directed calcium citrate-vitamin D3 250 mg-5 mcg (200 unit) 1 tab PO TID [Fish Oil 1,000 BID] hydrochlorothiazide 25 mg PO DAILY insulin glargine 74 units subcut QPM levothyroxine 125 mcg PO .qod 30 days levothyroxine 137 mcg PO .qod 30 days moexipril 15 mg PO DAILY omeprazole 20 mg PO DAILY verapamil ER 300 mg PO BEDTIME HPI HPI Comments History of Present Illness Details 72 YO F with PMHx T2DM who is seen in F/U for Papillary Thyroid cancer, 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 [id number]. She also has postsurgical hypoparathyroidism which has since resolved. Earlier in 2019 she noticed a lump on the R side of the neck that was bothersome to her. This prompted her PCP to order a CT scan of the neck. This revealed a multinodular thyroid. She then was ordered for a dedicated Thyroid US 10/02/2019 which revealed multiple bilateral thyroid nodules. She was subsequently referred to Endocrinology. She underwent FNA biopsy of the RUP 1.6 cm nodule 12/27/2019 with cytology suspicious for papillary thyroid cancer (bethesda category V). She undwerwent a total thyroidectomy 03/10/2020 with official surgical path revealing a 1.4 cm focus of papillary thyroid cancer. There was no angio or lymphatic invasion identified. 0/1 lymph nodes positive for metastatic thyroid cancer. She was started on Levothyroxine postoperatively, and remains on 137 mcg PO daily. alt with 125 ug She underwent a thyrogen stimulated WBS with labs. 10/29/2020 TSH ?100 with TG 0.4 and negative TG antibodies. WBS revealed only physiologic uptake. She unfortunately had removal of 2 parathyroid glands at the time of surgery and has had postoperative hypoparathyroidism. She was started on Calcitriol 0.25 mcg PO daily, but this was stopped soon after. She is also taking Calcium citrate 650 mg 1 tabs BID. Labs reveal Calcium normal. She does report some paresthesias, but otherwise reports feeling well. US Head and Neck: 03/22/2022 FINDINGS: Bilateral neck lymph nodes are normal in size and morphology without cortical thickening. Labs: Laboratory Tests 12/15/21 12/15/21 08/27/22 13:54 13:54 07:14 Albumin 25-OH Vitamin D To cathy TSH 3.66 Thyroglobulin <0.1 L PTH Intact 16 Calcium (PTH Intac t) 8.9 Thyroglobulin Anti body <1 08/27/22 07:14 Albumin 4.2 25-OH Vitamin D To cathy 46.0 TSH Thyroglobulin PTH Intact Calcium (PTH Intac t) Thyroglobulin Anti body PFSH Medical History Arthritis Diabetes GERD (gastroesophageal reflux disease) History of back pain History of diverticulosis History of thyroid cancer Hyperlipidemia Hypertension Hypoparathyroidism Nicotine dependence, cigarettes, uncomplicated Postoperative hypothyroidism Thyroid cancer Vitamin D deficiency Surgical History History of carpal tunnel surgery of right wrist Hx of bladder repair surgery Hx of cholecystectomy Hx of colonoscopy Hx of hemorrhoidectomy Hx of hysterectomy with oophorectomy Hx of thyroidectomy Family History Father Diabetes Hypertension Mother Hypertension Diabetes Social History Are you a primary transition of care specialist to a significant other at home: No Do you presently have visiting nurse or other home services: No Patient Tobacco Use Status: Current everyday Tobacco user Cigarette Packs Per Day: 0.5 Cigarettes Per Day: 10.0 Years Smoked: 40 Physical Exam Const Other: Healed scar status post thyroidectomy. Assessment & Plan Assessment & Plan (1) History of thyroid cancer: Code(s): Z85.850 - Personal history of malignant neoplasm of thyroid Plan: This 73-year-old female with a history of 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 [id number].. She is currently replaced on 137 mcg alt with 125 levothyroxine.. She appears clinically euthyroid but TSH is slightly suppressed. And thyroglobulin is undetectable With decrease levothyroxine to 125 mcg recheck TSH and free T4 in 6 weeks time with goal of keeping TSH in low normal range. Could consider repeating neck ultrasound and thyroglobulin in 1 year Orders: Orders Thyroid Stimulating Hormone 6 Weeks Z85.850 - Personal history of malignant neoplasm of thyroid Free T4 (Free Thyroxine) 6 Weeks Z85.850 - Personal history of malignant neoplasm of thyroid Medications: Changed From levothyroxine Alternate 112 mcg 125 micrograms 125 mcg PO .qod 30 days 14 tabs 5RF To levothyroxine Alternate 112 mcg 125 micrograms 125 mcg PO DAILY 90 days 90 tabs 4RF Discontinued levothyroxine Discontinued Reason: Doctor's Order 137 mcg PO .qod 30 days 14 tabs 3RF E55.9 - Vitamin D deficiency, unspecified Coding Level of Care Code Est Pt Level 3 (40123) Diagnoses History of thyroid cancer Z85.850
== END 2023-02-23 15:43 | disposition home or self-care (01) ==
PROVIDERS: PCP Internal Medicine; Visit Provider Internal Medicine Endocrinology, Diabetes & Metabolism
DX: Z85.850 Personal history of malignant neoplasm of thyroid (principal)
CPT/HCPCS: 99213

== ENCOUNTER → 2023-02-23 14:58 | Outpatient (BNVA) | payer MEDICARE, SELFPAY | PROVIDERS: PCP Internal Medicine; Visit Provider Internal Medicine Endocrinology, Diabetes & Metabolism | DX: Z85.850 Personal history of malignant neoplasm of thyroid (principal) | CPT/HCPCS: 99212 ==

== ENCOUNTER 2023-04-08 09:48 | Outpatient (REF) | payer MEDICARE, SELFPAY ==
[2023-04-08 12:34] LABS: Free T4 (Free Thyroxine) 1.14 ng/dL (0.71-1.85); Thyroid Stimulating Hormone 1.22 uIU/mL (0.32-4.0)
== END 2023-04-08 09:49 | disposition home or self-care (01) ==
LOC: HO.LAB 09:48
PROVIDERS: PCP Internal Medicine; Visit Provider Internal Medicine Endocrinology, Diabetes & Metabolism
DX: Z85.850 Personal history of malignant neoplasm of thyroid (principal)
CPT/HCPCS: 36415; 84439; 84443

== ENCOUNTER 2023-06-20 11:40 | Outpatient (REF) | payer MEDICARE, SELFPAY ==
--- NOTE | ~2023-06-20 | XR_ITS ---
EXAMINATION: XR CHEST CLINICAL INFORMATION: Cough for one week. History of cigarette smoking. COMPARISON: CXR from 10/10/2017. Chest CT from 08/13/2022. TECHNIQUE: 2 views of the chest were obtained. FINDINGS: Lungs are well expanded and clear. The airway richard appear to be slightly accentuated in this patient with underlying chronic emphysematous disease. No acute findings. No evidence of pulmonary consolidation or pleural effusion. Cardiac silhouette is normal in size. There is atherosclerotic calcification of the aorta. The hilar contours are normal. The visualized bones are intact. Cholecystectomy clips in the right upper quadrant of the abdomen. XR/XR chest 2V IMPRESSION: No evidence of pneumonia.
== END 2023-06-20 11:41 | disposition home or self-care (01) ==
LOC: HO.HHCX 11:40
PROVIDERS: Visit Provider Internal Medicine
DX: R05.1 Acute cough (principal); F17.200 Nicotine dependence, unspecified, uncomplicated
CPT/HCPCS: 71046

== ENCOUNTER 2023-08-30 09:20 | Outpatient (REF) | payer MEDICARE, SELFPAY ==
[2023-08-30 10:50] LABS: Free T4 (Free Thyroxine) 1.17 ng/dL (0.71-1.85); Thyroid Stimulating Hormone 0.83 uIU/mL (0.32-4.0)
[2023-08-31 18:13] LABS: Thyroglobulin <0.1 ng/mL
== END 2023-08-30 09:21 | disposition home or self-care (01) ==
LOC: HO.LAB 09:20
PROVIDERS: PCP Internal Medicine; Visit Provider Internal Medicine Endocrinology, Diabetes & Metabolism
DX: C73 Malignant neoplasm of thyroid gland (principal)
CPT/HCPCS: 36415; 84432; 84439; 84443

== ENCOUNTER 2023-09-01 09:55 | Outpatient (REF) | payer MEDICARE, SELFPAY ==
--- NOTE | ~2023-09-01 | XR_ITS ---
EXAMINATION: XR HIP, RIGHT CLINICAL INFORMATION: Hip pain COMPARISON: None available. TECHNIQUE: Two views of the right hip. FINDINGS: Anatomic alignment. Mild hip joint space loss. No acute fracture or dislocation. Visualized in the pelvis is intact. No suspicious soft tissue calcification. XR/XR hip RT min 2V IMPRESSION: Mild right hip arthritis.
== END 2023-09-01 09:56 | disposition home or self-care (01) ==
LOC: HO.HHCX 09:55
PROVIDERS: Visit Provider Internal Medicine
DX: M25.551 Pain in right hip (principal)
CPT/HCPCS: 73502

== ENCOUNTER 2023-09-06 08:20 | Outpatient (AMB) | payer MEDICARE, SELFPAY ==
[2023-09-06 08:27] VITALS: BP 120/62; PULSE 80; BMI 22.4
--- NOTE | 2023-09-06 08:27 | A.OFFVIS_ITS ---
Vital Signs 09/06/23 08:27 Height 5 ft 4 in Weight 130 lb 11.746 oz BMI 22.4 BP 120/62 Blood Pressure Location Lt brachial Position Sitting Pulse 80 Pulse Source Pulse Oximeter Intake Visit Reasons: F/Up thyroid cancer Intake Note: Patient presents today for Thyroid Cancer follow up. 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 Accompanied by: Self / Same As Patient Allergies metformin Allergy (Unknown, Verified 09/06/23 08:31) diarrhea Medication List - Last Reconciled 09/06/23 by Jesus Nguyen MD amitriptyline 25 mg PO BEDTIME [Aspirin Childrens 81 DAILY] atorvastatin 20 mg PO DAILY blood sugar diagnostic As directed calcium citrate-vitamin D3 250 mg-5 mcg (200 unit) 1 tab PO TID [Fish Oil 1,000 BID] hydrochlorothiazide 25 mg PO DAILY insulin glargine 74 units subcut QPM levothyroxine 125 mcg PO DAILY moexipril 15 mg PO DAILY omeprazole 20 mg PO DAILY verapamil ER 300 mg PO BEDTIME HPI Comments Details: 73 YO F with PMHx T2DM who is seen in F/U for Papillary Thyroid cancer, 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 [id number]. She also has postsurgical hypoparathyroidism which has since resolved. Earlier in 2019 she noticed a lump on the R side of the neck that was b othersome to her. This prompted her PCP to order a CT scan of the neck. This revealed a multinodular thyroid. She then was ordered for a dedicated Thyroid US 10/02/2019 which revealed multiple bilateral thyroid nodules. She was subsequently referred to Endocrinology. She underwent FNA biopsy of the RUP 1.6 cm nodule 12/27/2019 with cytology suspicious for papillary thyroid cancer (bethesda category V). She undwerwent a total thyroidectomy 03/10/2020 with official surgical path revealing a 1.4 cm focus of papillary thyroid cancer. There was no angio or lymphatic invasion identified. 0/1 lymph nodes positive for metastatic thyroid cancer. She was started on Levothyroxine postoperatively, and remains on 137 mcg PO daily. alt with 125 ug She underwent a thyrogen stimulated WBS with labs. 10/29/2020 TSH ?100 with TG 0.4 and negative TG antibodies. WBS revealed only physiologic uptake. She unfortunately had removal of 2 parathyroid glands at the time of surgery and has had postoperative hypoparathyroidism. She was started on Calcitriol 0.25 mcg PO daily, but this was stopped soon after. She is also taking Calcium citrate 650 mg 1 tabs BID. Labs reveal Calcium normal. She does report some paresthesias, but otherwise reports feeling well. US Head and Neck: 03/22/2022 FINDINGS: Bilateral neck lymph nodes are normal in size and morphology without cortical thickening. Labs: Laboratory Tests 12/15/21 12/15/21 08/27/22 13:54 13:54 07:14 Albumin 25-OH Vitamin D Total TSH 3.66 Thyroglobulin <0.1 L PTH Intact 16 Calcium (PTH Intact) 8.9 Thyroglobulin Antibody <1 08/27/22 07:14 Albumin 4.2 25-OH Vitamin D Total 46.0 TSH Thyroglobulin PTH Intact Calcium (PTH Intact) Thyroglobulin Antibody [facility] Medical History (Updated 08/29/23 @ 14:27 by Cherelle Nguyen PA-C) Nicotine dependence, cigarettes, uncomplicated History of thyroid cancer GERD (gastroesophageal reflux disease) History of back pain Hyperlipidemia Arthritis History of diverticulosis Hypertension Diabetes Postoperative hypothyroidism Vitamin D deficiency Hypoparathyroidism Thyroid cancer Surgical History Hx of thyroidectomy History of carpal tunnel surgery of right wrist Hx of bladder repair surgery Hx of colonoscopy Hx of cholecystectomy Hx of hemorrhoidectomy Hx of hysterectomy with oophorectomy Family History Father Diabetes Hypertension Mother Hypertension Diabetes Social History Are you a primary primary health care nurse to a significant other at home: No Do you presently have visiting nurse or other home services: No Patient Tobacco Use Status: Current everyday Tobacco user Cigarette Packs Per Day: 0.5 Cigarettes Per Day: 10.0 Years Smoked: 40 Physical Exam Const Other: Healed scar status post thyroidectomy. Assessment & Plan Assessment & Plan (1) History of thyroid cancer: Code(s): Z85.850 - Personal history of malignant neoplasm of thyroid Category: Medical Plan: This 73-year-old female with a history of 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 [id number].. She is currently replaced on 137 mcg alt with 125 levothyroxine.. She appears clinically and biochemically euthyroid And thyroglobulin is undetectable Will repeat neck ultrasound. Otherwise continue current management Coding Level of Care Code Est Pt Level 3 (76031) Diagnoses History of thyroid cancer Z85.850
== END 2023-09-06 08:38 | disposition home or self-care (01) ==
PROVIDERS: PCP Internal Medicine; Visit Provider Internal Medicine Endocrinology, Diabetes & Metabolism
DX: Z85.850 Personal history of malignant neoplasm of thyroid (principal)
CPT/HCPCS: 99213

== ENCOUNTER → 2023-09-06 08:20 | Outpatient (BNVA) | payer MEDICARE, SELFPAY | PROVIDERS: PCP Internal Medicine; Visit Provider Internal Medicine Endocrinology, Diabetes & Metabolism | DX: Z85.850 Personal history of malignant neoplasm of thyroid (principal) | CPT/HCPCS: 99212 ==

== ENCOUNTER 2023-09-15 12:33 | Outpatient (REF) | payer MEDICARE, SELFPAY ==
--- NOTE | ~2023-09-15 | US_ITS ---
EXAMINATION: US SOFT TISSUE NECK CLINICAL INFORMATION: Malignant neoplasm of thyroid status post thyroidectomy. COMPARISON: None available. TECHNIQUE: Ultrasound of the neck soft tissues is performed with high-frequency walls-scale imaging and color Doppler. FINDINGS: THYROID BED: Prior thyroidectomy. No residual thyroid tissue demonstrated in the thyroid bed. No cystic or solid nodules demonstrated in the thyroid bed. RIGHT NECK SOFT TISSUES: Scattered architecturally normal nodes are present. The nodes show normal fatty hilus, normal cortical thickness, and no cystic change or calcification. No abnormal color flow. The largest nodes are as follows: Level IB: 0.6 x 0.5 x 0.5 cm. Round in appearance (abnormal). Level IB: 1.5 x 0.6 x 0.7 cm. Normal jacqueline architecture. Level IB: 0.9 x 0.2 x 0.6 cm (previously 0.7 x 0.5 x 0.4). Normal jacqueline architecture. LEFT NECK SOFT TISSUES: Scattered architecturally normal nodes are present. The nodes show normal fatty hilus, normal cortical thickness, and no cystic change or calcification. No abnormal color flow. The largest nodes are as follows: Level IV: 1.4 x 0.5 x 0.8 cm (previously 1.3 x 0.4 x 0.6). Normal jacqueline architecture. Level VB: 0.7 x 0.5 x 0.5 cm. Abnormal in appearance with absent charity, round shape and some cystic changes. US/US soft tiss head and/or neck IMPRESSION: 1. Status post thyroidectomy with no residual thyroid tissue or nodules in the thyroid bed. 2. Bilateral cervical nodes are present. Some of these are abnormal in appearance as described above. Percutaneous ultrasound-guided biopsy can be considered if warranted.
== END 2023-09-15 12:34 | disposition home or self-care (01) ==
LOC: HO.US 12:33
PROVIDERS: PCP Internal Medicine; Visit Provider Internal Medicine Endocrinology, Diabetes & Metabolism
DX: C73 Malignant neoplasm of thyroid gland (principal)
CPT/HCPCS: 76536

== ENCOUNTER 2023-09-19 09:38 | Outpatient (REF) | payer MEDICARE, SELFPAY | END 2023-09-19 09:39 | disposition home or self-care (01) | LOC: HO.MAMMO 09:38 | PROVIDERS: PCP Internal Medicine; Visit Provider Internal Medicine | DX: Z12.31 Encounter for screening mammogram for malignant neoplasm of breast (principal) | CPT/HCPCS: 77063; 77067 ==

== ENCOUNTER → 2023-09-19 09:45 | Outpatient (BNV) | payer MEDICARE, SELFPAY | PROVIDERS: PCP Internal Medicine; Visit Provider Radiology Diagnostic Radiology | DX: Z12.31 Encounter for screening mammogram for malignant neoplasm of breast (principal) | CPT/HCPCS: 77063; 77067 ==

== ENCOUNTER 2023-10-10 16:16 | Outpatient (REF) | payer MEDICARE, SELFPAY ==
--- NOTE | ~2023-10-10 | CT_ITS ---
EXAMINATION: CT LOW-DOSE SCREENING CHEST WITHOUT CONTRAST CLINICAL INFORMATION: Nicotine dependence, cigarettes, uncomplicated. The patient is a current smoker with a 50 pack-year history of smoking. COMPARISON: Multiple prior CT scans of the chest, the most recent of which is dated 08/13/2022 and the most remote of which is dated 09/08/2018. TECHNIQUE: Multidetector volumetric CT imaging of the chest is performed on a Siemens SOMATOM Definition scanner without contrast using low dose technique. Additional 2D coronal and sagittal reformatted images and axial 3D maximum intensity projection (MIP) images are generated on the CT workstation. This CT examination was performed using dose optimization techniques as appropriate, variously including the following: *Automated exposure control. *Adjustment of mA and/or kV according to patient size (this includes techniques or standardized protocols for targeted exams where dose is matched to indication/reason for exam; i.e. extremities or head). *Use of iterative reconstruction technique. TOTAL EXAM DLP: 34 mGy-cm CTDIvol: 1.13 mGy FINDINGS: PULMONARY NODULES: No suspicious pulmonary nodules. A couple of 2 mm micronodules are unchanged. LUNGS: Lungs bilaterally symmetrically expanded. There is mild emphysema and bronchial thickening. No effusion or pneumothorax. Central airways patent. MEDIASTINUM: No mediastinal, hilar or axillary adenopathy or free fluid collection. CORONARY ARTERY CALCIFICATION: None visualized on this study. THYROID GLAND: Thyroid is poorly seen, if present. CARDIOVASCULAR STRUCTURES: Aortic and heart size normal. No pericardial effusion. CHEST WALL/AXILLA: Unremarkable. UPPER ABDOMEN: Spleen is mildly enlarged at 12.9 cm. Status post cholecystectomy. Included portions of the solid organs in the upper abdomen otherwise unremarkable on noncontrast imaging. OSSEOUS STRUCTURES: No suspicious focal findings. CT/CT lung screening IMPRESSION: 1. No evidence of pulmonary malignancy. 2. Mild emphysema and bronchial thickening. 3. Mild splenomegaly. ASSESSMENT: 1. Lung-RADS Category 2: Benign appearance or behavior of nodules. N/A. 2. Lung-RADS Category S: Negative. There are no clinically significant or potentially clinically significant findings not related to the lungs requiring urgent additional evaluation. RECOMMENDATION: Continued routine annual low-dose CT lung screening in 1 year is recommended. An order for CT CHEST LOW DOSE CANCER SCREENING ([id number]) can be placed.
== END 2023-10-10 16:17 | disposition home or self-care (01) ==
LOC: HO.CT 16:16
PROVIDERS: PCP Internal Medicine; Visit Provider Physician Assistant Medical
DX: Z12.2 Encounter for screening for malignant neoplasm of respiratory organs (principal); F17.210 Nicotine dependence, cigarettes, uncomplicated
CPT/HCPCS: 71271

== ENCOUNTER 2023-12-27 15:13 | Outpatient (REF) | payer MEDICARE, SELFPAY ==
[2023-12-27 17:56] LABS: Albumin Level 4.4 g/dL (3.5-5.0); Calcium 8.4 mg/dL (8.4-10.2)
[2023-12-27 18:19] LABS: Free T4 (Free Thyroxine) 1.03 ng/dL (0.71-1.85); Thyroid Stimulating Hormone 1.91 uIU/mL (0.32-4.0)
[2023-12-28 05:40] LABS: Parathyroid Hormone Intact 25.2 pg/mL (8.7-77.1)
[2023-12-29 07:02] LABS: Thyroglobulin <0.1 ng/mL; Thyroglobulin Antibodies <1 IU/mL (< or = 1)
[2023-12-31 18:39] LABS: Thyroglobulin Antibody <1 IU/mL (<=1); Thyroglobulin Level <0.1 ng/mL
== END 2023-12-27 15:14 | disposition home or self-care (01) ==
LOC: HO.LAB 15:13
PROVIDERS: PCP Internal Medicine; Visit Provider Student in an Organized Health Care Education/Training Program
DX: C73 Malignant neoplasm of thyroid gland (principal); E20.9 Hypoparathyroidism, unspecified; E11.9 Type 2 diabetes mellitus without complications; E89.0 Postprocedural hypothyroidism
CPT/HCPCS: 36415; 82040; 82310; 83970; 84432; 84439; 84443; 86800; 99212

== ENCOUNTER 2023-12-27 15:13 | Outpatient (AMB) | payer MEDICARE, SELFPAY ==
[2023-12-27 15:15] VITALS: BP 112/66; PULSE 71; BMI 20.7
--- NOTE | 2023-12-27 15:15 | MHC.OFFVIS ---
Vital Signs 12/27/23 15:15 Height 5 ft 4 in Weight 120 lb 5.958 oz BMI 20.7 BP 112/66 Blood Pressure Location Lt brachial Position Sitting Pulse 71 Pulse Source Pulse Oximeter Intake Visit Reasons: Thyroid Cancer Intake Note: Patient present today for thyroid cancer office visit. Industrial Rehabilitation Consultant Required: No Accompanied by: Self / Same As Patient Allergies metformin Allergy (Unknown, Verified 12/27/23 15:25) diarrhea Medication List - Last Reconciled 12/27/23 by Agata Maier MD amitriptyline 25 mg PO BEDTIME [Aspirin Childrens 81 DAILY] atorvastatin 20 mg PO DAILY blood sugar diagnostic As directed calcium citrate-vitamin D3 250 mg-5 mcg (200 unit) 1 tab PO TID [Fish Oil 1,000 BID] hydrochlorothiazide 25 mg PO DAILY insulin glargine 74 units subcut QPM levothyroxine 125 mcg PO DAILY moexipril 15 mg PO DAILY omeprazole 20 mg PO DAILY verapamil ER 300 mg PO BEDTIME HPI Comments Details: 73-year-old female with past medical history significant for type 2 diabetes, papillary thyroid cancer with a 1.4 cm focus with no angio or lymphatic invasion, АЛЕКСАНДР initial low risk of recurrence, AJCC stage I (pT1b N0 MX), who is currently АЛЕКСАНДР indeterminate response to therapy coming in today for follow up for thyroid cancer. She was previously following with Dr. Morales and then subsequently saw Dr. Nguyen, last visit August 2023. History of PTC in detail 2019: Noticed a lump on the right side of the neck, prompted primary care physician to order a CT scan of the neck which showed multinodular thyroid 10/02/2019 ultrasound thyroid revealed multiple bilateral thyroid nodules 12/27/2019: FNA right upper pole nodule 1.6 cm nodule resulted as suspicious for papillary thyroid cancer ([place] category 5) 03/10/2020: Total thyroidectomy with pathology showing 1.4 cm focus of PTC. No angio or lymphatic invasion. 0/1 lymph nodes positive for metastatic thyroid cancer. AJCC stage I, pT1b N0 MX. Unfortunately had removal of 2 parathyroid glands during the surgery with development of postoperative hypoparathyroidism with subsequently resolved. 10/29/2020: Whole-body scan showed physiologic uptake. TSH 100, TG 0.4, TG antibody negative 03/22/2022: Ultrasound neck showed bilateral neck lymph nodes which were normal in size and morphology without any cortical thickening 09/2023: Ultrasound neck showed right level 1B lymph node which is round in appearance measuring 0.6 cm, other level 1B lymph nodes that are normal in appearance. Also showed left level 4 lymph node measuring 1.4 cm, normal in appearance, and a 0.7 cm level 5 b lymph node, which has some cystic changes and absent charity. Patient denies any compressive symptoms. She is currently on levothyroxine 125 mcg daily. Takes it appropriately. He is adherent to therapy. Reporting loose stools, lost 10 lbs in the last few months. reports intermittent palpitations. Most recent labs from August 2023 showed TSH of 0.83, with free T4 of 1.17, non stimulated TG remains undetectable, with negative TG antibody. Review of systems Constitutional: no fevers, chills HEENT: no changes in vision Cardiac: No chest pain, discomfort , has intermittent palpitations. Pulmonary: No SOB GI:loose stools Physical exam General: sitting comfortably in no acute distress HEENT: normocephalic/atraumatic, moist oral mucosa Neck: supple, symmetrical, no palpable lymph nodes or masses , no dorsocervical or supraclavicular fat pads Cardiac: normal heart sounds Pulm: normal breath sounds B/L, no added breath sounds Abd: not distended, no tenderness Extremities: no edema, no signs of myxedema Neuro: AAO x3, Speech: normal, no facial droop, moving all 4 extremities [facility] Medical History (Updated 08/29/23 @ 14:27 by Cherelle Nguyen PA-C) Nicotine dependence, cigarettes, uncomplicated History of thyroid cancer GERD (gastroesophageal reflux disease) History of back pain Hyperlipidemia Arthritis History of diverticulosis Hypertension Diabetes Postoperative hypothyroidism Vitamin D deficiency Hypoparathyroidism Thyroid cancer Surgical History Hx of thyroidectomy History of carpal tunnel surgery of right wrist Hx of bladder repair surgery Hx of colonoscopy Hx of cholecystectomy Hx of hemorrhoidectomy Hx of hysterectomy with oophorectomy Family History Father Diabetes Hypertension Mother Hypertension Diabetes Social History Are you a primary care clinician to a significant other at home: No Do you presently have visiting nurse or other home services: No Patient Tobacco Use Status: Current everyday Tobacco user Cigarette Packs Per Day: 0.5 Cigarettes Per Day: 10.0 Years Smoked: 40 Physical Exam Vital Signs: Last Vital Signs Pulse 71 12/27/23 15:15 BP 112/66 12/27/23 15:15 BMI result Body Mass Index 20.7 Results Reviewed Results Reviewed: Laboratory Tests 12/19/19 01/09/20 04/24/20 11:32 14:53 10:30 Calcium Albumin 25-OH Vitamin D Total Free T4 1.09 0.94 TSH Total T3 113.1 TSH 3rd Generation 0.64 0.54 Thyroglobulin PTH Intact Calcium (PTH Intact) 07/07/20 09/11/20 09/26/20 14:50 12:08 07:20 Calcium Albumin 4.1 4.5 25-OH Vitamin D Total Free T4 1.18 1.14 TSH 2.70 1.06 Total T3 TSH 3rd Generation Thyroglobulin 0.2 L 0.2 H PTH Intact Calcium (PTH Intact) 10/29/20 10/31/20 11/03/20 07:10 06:35 11:44 Calcium Albumin 4.4 25-OH Vitamin D Total Free T4 1.13 TSH > 100.00 H 23.84 H 2.14 Total T3 TSH 3rd Generation Thyroglobulin 0.4 L 0.4 L PTH Intact Calcium (PTH Intact) 12/12/20 02/02/21 07/23/21 14:36 10:25 06:58 Calcium 8.5 Albumin 4.0 25-OH Vitamin D Total Free T4 1.37 1.16 1.10 TSH 0.19 L 1.06 0.44 Total T3 TSH 3rd Generation Thyroglobulin PTH Intact Calcium (PTH Intact) 10/30/21 12/15/21 08/27/22 15:02 13:54 07:14 Calcium 8.5 8.7 Albumin 4.5 4.5 4.1 25-OH Vitamin D Total 46.0 Free T4 1.39 1.26 TSH 0.05 L 0.62 Total T3 TSH 3rd Generation Thyroglobulin <0.1 L <0.1 L PTH Intact 27 16 Calcium (PTH Intact) 8.9 08/27/22 08/27/22 12/28/22 07:14 07:14 12:35 Calcium 8.5 8.6 8.5 Albumin 4.2 4.1 25-OH Vitamin D Total 40.8 Free T4 1.17 TSH 3.66 0.04 L Total T3 TSH 3rd Generation Thyroglobulin <0.1 PTH Intact 12 L 11 L Calcium (PTH Intact) 8.6 8.4 L 02/15/23 04/08/23 08/30/23 12:57 10:55 09:36 Calcium Albumin 25-OH Vitamin D Total Free T4 1.22 1.14 1.17 TSH 0.15 L 1.22 0.83 Total T3 TSH 3rd Generation Thyroglobulin <0.1 L PTH Intact Calcium (PTH Intact) US SOFT TISSUE NECK 10/02 I reviewed the images myself, and agree with the normal appearance of all the lymph nodes except the level 5B 1 which is round, without a hilar CLINICAL INFORMATION: Malignant neoplasm of thyroid status post thyroidectomy. COMPARISON: None available. TECHNIQUE: Ultrasound of the neck soft tissues is performed with high-frequency walls-scale imaging and color Doppler. FINDINGS: THYROID BED: Prior thyroidectomy. No residual thyroid tissue demonstrated in the thyroid bed. No cystic or solid nodules demonstrated in the thyroid bed. RIGHT NECK SOFT TISSUES: Scattered architecturally normal nodes are present. The nodes show normal fatty hilus, normal cortical thickness, and no cystic change or calcification. No abnormal color flow. The largest nodes are as follows: Level IB: 0.6 x 0.5 x 0.5 cm. Round in appearance (abnormal). Level IB: 1.5 x 0.6 x 0.7 cm. Normal jacqueline architecture. Level IB: 0.9 x 0.2 x 0.6 cm (previously 0.7 x 0.5 x 0.4). Normal jacqueline architecture. LEFT NECK SOFT TISSUES: Scattered architecturally normal nodes are present. The nodes show normal fatty hilus, normal cortical thickness, and no cystic change or calcification. No abnormal color flow. The largest nodes are as follows: Level IV: 1.4 x 0.5 x 0.8 cm (previously 1.3 x 0.4 x 0.6). Normal jacqueline architecture. Level VB: 0.7 x 0.5 x 0.5 cm. Abnormal in appearance with absent charity, round shape and some cystic changes. US/US soft tiss head and/or neck IMPRESSION: 1. Status post thyroidectomy with no residual thyroid tissue or nodules in the thyroid bed. 2. Bilateral cervical nodes are present. Some of these are abnormal in appearance as described above. Percutaneous ultrasound-guided biopsy can be considered if warranted. US SOFT TISSUE HEAD/NECK 04/01 CLINICAL INFORMATION: Personal history of malignant neoplasm of thyroid. COMPARISON: US-guided thyroid biopsy 12/27/2019. Ultrasound thyroid 10/02/2019. CT soft tissue neck with contrast 08/22/2019. TECHNIQUE: Linear transducer grayscale and color Doppler examination of the thyroid bed and surrounding soft tissue. FINDINGS: Bilateral neck lymph nodes are normal in size and morphology without cortical thickening. US/US soft tiss head and/or neck IMPRESSION: 1. Bilateral neck lymph nodes are normal in size and morphology without cortical thickening. Assessment & Plan Assessment & Plan (1) History of thyroid cancer: Code(s): Z85.850 - Personal history of malignant neoplasm of thyroid Category: Medical Plan: 73-year-old female with past medical history significant for type 2 diabetes, papillary thyroid cancer with a 1.4 cm focus with no angio or lymphatic invasion, АЛЕКСАНДР initial low risk of recurrence, AJCC stage I (pT1b N0 MX), who is currently АЛЕКСАНДР indeterminate response to therapy . She had a whole-body scan in 2020 which did not show any abnormal uptake, her stimulated TG with TSH of 100, was 0.4 with negative TG antibody. Subsequently she has also had ultrasound of the neck, which did not show any concerning findings up until September 2023 when she was noted to have a level 5B lymph node measuring 0.7 cm, which did not have a normal hilum, was cystic in appearance, circular. Hence we would classify her as АЛЕКСАНДР indeterminate response to therapy. At this time the lymph node is not sizable, I will repeat her ultrasound in March 2024 which would be 6 months from the last 1 to see if this lymph node is enlarged or resolved. If it is sizable at that time, we could consider biopsy. We could also consider repeating a whole-body scan with a stimulated thyroglobulin if lymph nodes appear suspicious. Her non stimulated TG remains undetectable with last labs from August 2023. She is currently on levothyroxine 125 mcg daily. Her TSH from August 2023 was 0.83. Goal TSH is 0.1-0.5 based on indeterminate response to therapy. I would like to increase her levothyroxine to 137 mcg daily but prior to doing that since she does have some possible symptoms of hyperthyroidism we will repeat her thyroid function testing 1st. In indeterminate response, 15% to 20% we will have structural disease identified during follow-up, however in the remainder of the nonspecific changes are either stable or resolved, less than 1% have disease specific Plan: -ordered TSH, free T4, TG and TG antibodies for now -goal TSH 0.1-0.5 -continue levothyroxine 125 mcg daily -repeat ultrasound ordered for March 2024 plan for follow up in 04/2024 (2) Postoperative hypothyroidism: Code(s): E89.0 - Postprocedural hypothyroidism Category: Medical Plan: She is currently on levothyroxine 125 mcg daily. Her TSH from August 2023 was 0.83. Goal TSH is 0.1-0.5 based on indeterminate response to therapy. I would like to increase her levothyroxine to 137 mcg daily but prior to doing that since she does have some possible symptoms of hyperthyroidism we will repeat her thyroid function testing 1st. Plan: -ordered TSH, free T4, TG and TG antibodies for now -goal TSH 0.1-0.5 -continue levothyroxine 125 mcg daily Plan I spent 30 minutes in reviewing the record, seeing the patient and documenting in the medical record. Orders: Orders Thyroid Stimulating Hormone Today C73 - Malignant neoplasm of thyroid gland, E89.0 - Postprocedural hypothyroidism Thyroglobulin Today C73 - Malignant neoplasm of thyroid gland, E89.0 - Postprocedural hypothyroidism Thyroglobulin Antibodies Today C73 - Malignant neoplasm of thyroid gland, E89.0 - Postprocedural hypothyroidism Thyroglobulin Tumor Marker Today C73 - Malignant neoplasm of thyroid gland, E89.0 - Postprocedural hypothyroidism Free T4 (Free Thyroxine) Today C73 - Malignant neoplasm of thyroid gland, E89.0 - Postprocedural hypothyroidism Calcium Today E20.9 - Hypoparathyroidism, unspecified Albumin Level Today E20.9 - Hypoparathyroidism, unspecified Parathyroid Hormone Intact Today E20.9 - Hypoparathyroidism, unspecified US soft tiss head and/or neck 03/12/24 C73 - Malignant neoplasm of thyroid gland Patient Instructions: Do blood work now We will call you with results Do ultrasound in March 2024 and follow up with me in April 2024 Coding Level of Care Code Est Pt Level 4 (45109) Complex EM visit Add On G2211 Diagnoses History of thyroid cancer Z85.850 Postoperative hypothyroidism E89.0 Time Spent (min) 30
== END 2023-12-27 16:01 | disposition home or self-care (01) ==
PROVIDERS: PCP Internal Medicine; Visit Provider Student in an Organized Health Care Education/Training Program
DX: Z85.850 Personal history of malignant neoplasm of thyroid (principal); E89.0 Postprocedural hypothyroidism
CPT/HCPCS: 99214; G2211

== ENCOUNTER 2024-01-03 14:31 | Outpatient (REF) | payer MEDICARE, SELFPAY ==
--- NOTE | ~2024-01-03 | XR_ITS ---
EXAMINATION: Bilateral shoulder series CLINICAL INFORMATION: Bilateral shoulder pain COMPARISON: X-ray of the right shoulder November 2019 TECHNIQUE: 4 views of each shoulder FINDINGS: Right shoulder: There is mild osteoarthritis of the acromioclavicular joint unchanged. Mild osteoarthritis of glenohumeral joint unchanged. Surrounding bones and soft tissues unremarkable. Left shoulder: Mild osteoarthritis of the acromioclavicular joint. Glenohumeral joint: Normal. Surrounding soft tissues unremarkable. XR/XR shoulder LT min 2V IMPRESSION: RIGHT SHOULDER: Mild osteoarthritis of the acromioclavicular joint and glenohumeral joint unchanged. LEFT SHOULDER: Mild osteoarthritis of the acromioclavicular joint.. Electronically signed by: Yayo Joy MD 01/03/2024 04:07 PM EDT RP
--- NOTE | ~2024-01-03 | XR_ITS ---
EXAMINATION: Bilateral shoulder series CLINICAL INFORMATION: Bilateral shoulder pain COMPARISON: X-ray of the right shoulder November 2019 TECHNIQUE: 4 views of each shoulder FINDINGS: Right shoulder: There is mild osteoarthritis of the acromioclavicular joint unchanged. Mild osteoarthritis of glenohumeral joint unchanged. Surrounding bones and soft tissues unremarkable. Left shoulder: Mild osteoarthritis of the acromioclavicular joint. Glenohumeral joint: Normal. Surrounding soft tissues unremarkable. XR/XR shoulder RT min 2V IMPRESSION: RIGHT SHOULDER: Mild osteoarthritis of the acromioclavicular joint and glenohumeral joint unchanged. LEFT SHOULDER: Mild osteoarthritis of the acromioclavicular joint.. Electronically signed by: Yayo Joy MD 01/03/2024 04:07 PM EDT RP
== END 2024-01-03 14:32 | disposition home or self-care (01) ==
LOC: HO.HHCX 14:31
PROVIDERS: Visit Provider Internal Medicine
DX: M25.511 Pain in right shoulder (principal); M25.512 Pain in left shoulder
CPT/HCPCS: 73030

== ENCOUNTER 2024-02-29 11:50 | Outpatient (REF) | payer MEDICARE, SELFPAY ==
[2024-02-29 13:02] LABS: Free T4 (Free Thyroxine) 1.31 ng/dL (0.71-1.85); Thyroid Stimulating Hormone 0.19 uIU/mL (0.32-4.0)
== END 2024-02-29 11:51 | disposition home or self-care (01) ==
LOC: HO.LAB 11:50
PROVIDERS: PCP Internal Medicine; Visit Provider Student in an Organized Health Care Education/Training Program
DX: Z85.850 Personal history of malignant neoplasm of thyroid (principal); E89.0 Postprocedural hypothyroidism
CPT/HCPCS: 36415; 84439; 84443

== ENCOUNTER 2024-03-12 12:58 | Outpatient (REF) | payer MEDICARE, SELFPAY | END 2024-03-12 12:59 | disposition home or self-care (01) | LOC: HO.US 12:58 | PROVIDERS: PCP Internal Medicine; Visit Provider Student in an Organized Health Care Education/Training Program | DX: C73 Malignant neoplasm of thyroid gland (principal) | CPT/HCPCS: 76536 ==

== ENCOUNTER → 2024-03-12 13:00 | Outpatient (BNV) | payer MEDICARE, SELFPAY | PROVIDERS: PCP Internal Medicine; Visit Provider Radiology Diagnostic Radiology | DX: C73 Malignant neoplasm of thyroid gland (principal) | CPT/HCPCS: 76536 ==

== ENCOUNTER 2024-04-25 13:14 | Outpatient (AMB) | payer MEDICARE, SELFPAY ==
[2024-04-25 13:16] VITALS: BP 140/78; PULSE 61; BMI 22.1
--- NOTE | 2024-04-25 13:16 | A.OFFVIS_ITS ---
Vital Signs 3 04/25/24 13:16 Height 5 ft 4 in Weight 128 lb 11.999 oz BMI 22.1 BP 140/78 H Blood Pressure Location Lt brachial Position Sitting Pulse 61 Pulse Source Pulse Oximeter Intake Visit Reasons: Thyroid Cancer Intake Note: Patient present today for Thyroid Cancer office visit. Wood Box Maker Required: No Accompanied by: Self / Same As Patient Allergies metformin Allergy (Unknown, Verified 04/25/24 13:21) diarrhea HPI Comments Details: 73-year-old female with past medical history significant for type 2 diabetes, papillary thyroid cancer with a 1.4 cm focus with no angio or lymphatic invasion, АЛЕКСАНДР initial low risk of recurrence, AJCC stage I (pT1b N0 MX), who is currently АЛЕКСАНДР indeterminate response to therapy coming in today for follow up for thyroid cancer. She was previously following with Dr. Morales and then subsequently saw Dr. Nguyen, last visit August 2023. History of PTC in detail 2019: Noticed a lump on the right side of the neck, prompted primary care physician to order a CT scan of the neck which showed multinodular thyroid 10/02/2019 ultrasound thyroid revealed multiple bilateral thyroid nodules 12/27/2019: FNA right upper pole nodule 1.6 cm nodule resulted as suspicious for papillary thyroid cancer ([facility] category 5) 03/10/2020: Total thyroidectomy with pathology showing 1.4 cm focus of PTC. No angio or lymphatic invasion. 0/1 lymph nodes positive for metastatic thyroid cancer. AJCC stage I, pT1b N0 MX. Unfortunately had removal of 2 parathyroid glands during the surgery with development of postoperative hypoparathyroidism with subsequently resolved. 10/29/2020: Whole-body scan showed physiologic uptake. TSH 100, TG 0.4, TG antibody negative 03/22/2022: Ultrasound neck showed bilateral neck lymph nodes which were normal in size and morphology without any cortical thickening August 2023 showed TSH of 0.83, with free T4 of 1.17, non stimulated TG remains undetectable, with negative TG antibody. 09/2023: Ultrasound neck showed right level 1B lymph node which is round in appearance measuring 0.6 cm, other level 1B lymph nodes that are normal in appearance. Also showed left level 4 lymph node measuring 1.4 cm, normal in appearance, and a 0.7 cm level 5 b lymph node, which has some cystic changes and absent charity. Interval history 12/27/2023: Labs showed TSH of 1.91, free T4 1.03, thyroglobulin less than 0.1, TG antibody undetectable 12/27/2023: Levothyroxine increased to 137 mcg daily from 125 mcg daily -02/29/2024: Repeat labs showed TSH of 0.19, free T4 1.3 03/12/2024: Ultrasound neck, I reviewed the images myself which shows more slowly normal-appearing bilateral lymph nodes, a left round cystic lymph node measuring 4 X 4 X 4 mm without the hilum which is reported to be at the level 4. When I reviewed the images, this appears to me to be the same lymph node that was previously reported at level 5B in September 2023 with measurements of 7 X 5 X 4 mm. Given this is smaller in size this is reassuring. Currenlty having a viral URI. Continues to smoke smokes about a pack per day . Patient denies any compressive symptoms. She is currently on levothyroxine 137 mcg daily. Takes it appropriately. She is adherent to therapy. Reporting loose stools which is chronic, gained back 8 lbs, , denies palpitations and tremors. Review of systems Constitutional: no fevers, chills HEENT: no changes in vision Cardiac: No chest pain, discomfort , has intermittent palpitations. Pulmonary: No SOB GI:loose stools Physical exam General: sitting comfortably in no acute distress HEENT: normocephalic/atraumatic, moist oral mucosa Neck: supple, symmetrical, no palpable lymph nodes or masses , no dorsocervical or supraclavicular fat pads Cardiac: normal heart sounds Pulm: normal breath sounds B/L, no added breath sounds Abd: not distended, no tenderness Extremities: no edema, no signs of myxedema Neuro: AAO x3, Speech: normal, no facial droop, moving all 4 extremities Laboratory Tests 12/19/19 01/09/20 04/24/20 11:32 14:53 10:30 Calcium Albumin 25-OH Vitamin D Total Free T4 1.09 0.94 TSH Total T3 113.1 TSH 3rd Generation 0.64 0.54 Thyroglobulin PTH Intact Calcium (PTH Intact) Thyroglobulin Antibody 07/07/20 09/11/20 09/26/20 14:50 12:08 07:20 Calcium Albumin 4.1 4.5 25-OH Vitamin D Total Free T4 1.18 1.14 TSH 2.70 1.06 Total T3 TSH 3rd Generation Thyroglobulin 0.2 L 0.2 H PTH Intact Calcium (PTH Intact) Thyroglobulin Antibody 10/29/20 10/31/20 11/03/20 07:10 06:35 11:44 Calcium Albumin 4.4 25-OH Vitamin D Total Free T4 1.13 TSH > 100.00 H 23.84 H 2.14 Total T3 TSH 3rd Generation Thyroglobulin 0.4 L 0.4 L PTH Intact Calcium (PTH Intact) Thyroglobulin Antibody 12/12/20 02/02/21 07/23/21 14:36 10:25 06:58 Calcium 8.5 Albumin 4.0 25-OH Vitamin D Total Free T4 1.37 1.16 1.10 TSH 0.19 L 1.06 0.44 Total T3 TSH 3rd Generation Thyroglobulin PTH Intact Calcium (PTH Intact) Thyroglobulin Antibody 10/30/21 12/15/21 08/27/22 15:02 13:54 07:14 Calcium 8.5 8.7 Albumin 4.5 4.5 4.1 25-OH Vitamin D Total 46.0 Free T4 1.39 1.26 TSH 0.05 L 0.62 Total T3 TSH 3rd Generation Thyroglobulin <0.1 L <0.1 L PTH Intact 27 16 Calcium (PTH Intact) 8.9 Thyroglobulin Antibody 08/27/22 08/27/22 12/28/22 07:14 07:14 12:35 Calcium 8.5 8.6 8.5 Albumin 4.2 4.1 25-OH Vitamin D Total 40.8 Free T4 1.17 TSH 3.66 0.04 L Total T3 TSH 3rd Generation Thyroglobulin <0.1 PTH Intact 12 L 11 L Calcium (PTH Intact) 8.6 8.4 L Thyroglobulin Antibody <1 02/15/23 04/08/23 08/30/23 12:57 10:55 09:36 Calcium Albumin 25-OH Vitamin D Total Free T4 1.22 1.14 1.17 TSH 0.15 L 1.22 0.83 Total T3 TSH 3rd Generation Thyroglobulin <0.1 L PTH Intact Calcium (PTH Intact) Thyroglobulin Antibody 12/27/23 02/29/24 16:16 12:07 Calcium 8.4 Albumin 4.4 25-OH Vitamin D Total Free T4 1.03 1.31 TSH 1.91 0.19 L Total T3 TSH 3rd Generation Thyroglobulin <0.1 PTH Intact 25.2 Calcium (PTH Intact) Thyroglobulin Antibody <1 EXAMINATION: US HEAD NECK SOFT 03/12/24 HISTORY: C73 - Malignant neoplasm of thyroid gland COMPARISON: Comparison is made with the prior examination dated 09/15/2023. FINDINGS: Sonographic examination of the soft tissues of the neck was performed. The patient is status post thyroidectomy. No residual thyroid tissue is identified in the thyroid bed. Multiple normal appearing lymph nodes are identified in the neck as described below: Right level III lymph node measuring 9 x 4 x 8 mm Right level VA lymph node measuring 6 x 3 x 5 mm Left level II lymph node measuring 7 x 4 x 14 mm Left level IV lymph node measuring 8 x 3 x 6 mm Left level VB lymph node measuring 4 x 4 by 4 mm. There is an abnormal appearing left level IV lymph node measuring 4 x 4 x 4 mm which is round, without a discernible hilum. US/US soft tiss head and/or neck IMPRESSION: No mass or residual tissue is seen in the thyroid bed. Multiple normal-appearing lymph nodes are identified. There is one abnormal left level IV lymph node measuring 4 mm which is round, without a discernible hilum. This appears amenable to ultrasound-guided fine-needle aspiration, if desired. US SOFT TISSUE NECK 10/02 I reviewed the images myself, and agree with the normal appearance of all the lymph nodes except the level 5B 1 which is round, without a hilar CLINICAL INFORMATION: Malignant neoplasm of thyroid status post thyroidectomy. COMPARISON: None available. TECHNIQUE: Ultrasound of the neck soft tissues is performed with high-frequency walls-scale imaging and color Doppler. FINDINGS: THYROID BED: Prior thyroidectomy. No residual thyroid tissue demonstrated in the thyroid bed. No cystic or solid nodules demonstrated in the thyroid bed. RIGHT NECK SOFT TISSUES: Scattered architecturally normal nodes are present. The nodes show normal fatty hilus, normal cortical thickness, and no cystic change or calcification. No abnormal color flow. The largest nodes are as follows: Level IB: 0.6 x 0.5 x 0.5 cm. Round in appearance (abnormal). Level IB: 1.5 x 0.6 x 0.7 cm. Normal jacqueline architecture. Level IB: 0.9 x 0.2 x 0.6 cm (previously 0.7 x 0.5 x 0.4). Normal jacqueline architecture. LEFT NECK SOFT TISSUES: Scattered architecturally normal nodes are present. The nodes show normal fatty hilus, normal cortical thickness, and no cystic change or calcification. No abnormal color flow. The largest nodes are as follows: Level IV: 1.4 x 0.5 x 0.8 cm (previously 1.3 x 0.4 x 0.6). Normal jacqueline architecture. Level VB: 0.7 x 0.5 x 0.5 cm. Abnormal in appearance with absent charity, round shape and some cystic changes. US/US soft tiss head and/or neck IMPRESSION: 1. Status post thyroidectomy with no residual thyroid tissue or nodules in the thyroid bed. 2. Bilateral cervical nodes are present. Some of these are abnormal in appearance as described above. Percutaneous ultrasound-guided biopsy can be considered if warranted. US SOFT TISSUE HEAD/NECK 04/01 CLINICAL INFORMATION: Personal history of malignant neoplasm of thyroid. COMPARISON: US-guided thyroid biopsy 12/27/2019. Ultrasound thyroid 10/02/2019. CT soft tissue neck with contrast 08/22/2019. TECHNIQUE: Linear transducer grayscale and color Doppler examination of the thyroid bed and surrounding soft tissue. FINDINGS: Bilateral neck lymph nodes are normal in size and morphology without cortical thickening. US/US soft tiss head and/or neck IMPRESSION: 1. Bilateral neck lymph nodes are normal in size and morphology without cortical thickening. [facility] Medical History (Updated 08/29/23 @ 14:27 by Cherelle Nguyen PA-C) Nicotine dependence, cigarettes, uncomplicated History of thyroid cancer GERD (gastroesophageal reflux disease) History of back pain Hyperlipidemia Arthritis History of diverticulosis Hypertension Diabetes Postoperative hypothyroidism Vitamin D deficiency Hypoparathyroidism Thyroid cancer Surgical History Hx of thyroidectomy History of carpal tunnel surgery of right wrist Hx of bladder repair surgery Hx of colonoscopy Hx of cholecystectomy Hx of hemorrhoidectomy Hx of hysterectomy with oophorectomy Family History Father Diabetes Hypertension Mother Hypertension Diabetes Social History Are you a primary home care and home health aides teacher to a significant other at home: No Do you presently have visiting nurse or other home services: No Patient Tobacco Use Status: Current everyday Tobacco user Cigarette Packs Per Day: 0.5 Cigarettes Per Day: 10.0 Years Smoked: 40 Physical Exam Vital Signs: Last Vital Signs Pulse 61 04/25/24 13:16 BP 140/78 H 04/25/24 13:16 BMI result Body Mass Index 22.1 Assessment & Plan Assessment & Plan (1) History of thyroid cancer: Code(s): Z85.850 - Personal history of malignant neoplasm of thyroid Category: Medical Plan: 73-year-old female with past medical history significant for type 2 diabetes, papillary thyroid cancer with a 1.4 cm focus with no angio or lymphatic invasion, АЛЕКСАНДР initial low risk of recurrence, AJCC stage I (pT1b N0 MX), who is currently АЛЕКСАНДР indeterminate response to therapy . She had a whole-body scan in 2020 which did not show any abnormal uptake, her stimulated TG with TSH of 100, was 0.4 with negative TG antibody. Subsequently she has also had ultrasound of the neck, which did not show any concerning findings up until September 2023 when she was noted to have a level 5B lymph node measuring 0.7 cm, which did not have a normal hilum, was cystic in appearance, circular. Repeated Ultrasound neck March 2024, I reviewed the images myself which shows more slowly normal- appearing bilateral lymph nodes, a left round cystic lymph node measuring 4 X 4 X 4 mm without the hilum which is reported to be at the level 4. When I reviewed the images, this appears to me to be the same lymph node that was previously reported at level 5B in September 2023 with measurements of 7 X 5 X 4 mm. Given this is smaller in size this is reassuring. We will watch this for now. We will plan to repeat an ultrasound in 6 months which will be sometime around September 2024. She is going for vacation that time menses were be back in October or November 2024. Her non stimulated TG remains undetectable with last labs from December 2023. She is currently on levothyroxine 137 mcg daily. Goal TSH is 0.1-0.5 based on indeterminate response to therapy. In indeterminate response, 15% to 20% we will have structural disease identified during follow-up, however in the remainder of the nonspecific changes are either stable or resolved, less than 1% have disease specific Plan: -ordered TSH, free T4, TG and TG antibodies for October 2024 -goal TSH 0.1-0.5 -continue levothyroxine 137 mcg daily -repeat ultrasound ordered for October 2024 plan for follow up in 11/2024 (2) Postoperative hypothyroidism: Code(s): E89.0 - Postprocedural hypothyroidism Category: Medical Plan: She is currently on levothyroxine 137 mcg daily. Goal TSH is 0.1-0.5 based on indeterminate response to therapy. Plan: -ordered TSH, free T4, TG and TG antibodies next for October 2024 -goal TSH 0.1-0.5 -continue levothyroxine 137 mcg daily Plan I spent 30 minutes in reviewing the record, seeing the patient and documenting in the medical record. Orders: Orders 2 Thyroid Stimulating Hormone 6 Months E89.0 - Postprocedural hypothyroidism, Z85.850 - Personal history of malignant neoplasm of thyroid Thyroglobulin 6 Months E89.0 - Postprocedural hypothyroidism, Z85.850 - Personal history of malignant neoplasm of thyroid Thyroglobulin Antibodies 6 Months E89.0 - Postprocedural hypothyroidism, Z85.850 - Personal history of malignant neoplasm of thyroid Thyroglobulin Tumor Marker 6 Months E89.0 - Postprocedural hypothyroidism, Z85.850 - Personal history of malignant neoplasm of thyroid Free T4 (Free Thyroxine) 6 Months E89.0 - Postprocedural hypothyroidism, Z85.850 - Personal history of malignant neoplasm of thyroid US soft tiss head and/or neck 7 Months E89.0 - Postprocedural hypothyroidism, Z85.850 - Personal history of malignant neoplasm of thyroid Medications: Refilled 2 levothyroxine (Synthroid) 137 mcg PO DAILY 30 tabs 9RF Patient Instructions: Continue levothyroxine 137 mcg daily Do blood work October 2024 Do Us thyroid end October or beginning November 2024 Follow up end November 2024 Coding Level of Care Code Est Pt Level 4 (51588) Complex EM visit Add On G2211 Diagnoses History of thyroid cancer Z85.850 Postoperative hypothyroidism E89.0 Time Spent (min) 30
== END 2024-04-25 14:06 | disposition home or self-care (01) ==
PROVIDERS: PCP Internal Medicine; Visit Provider Student in an Organized Health Care Education/Training Program
DX: Z85.850 Personal history of malignant neoplasm of thyroid (principal); E89.0 Postprocedural hypothyroidism
CPT/HCPCS: 99214; G2211

== ENCOUNTER → 2024-04-25 13:14 | Outpatient (BNVA) | payer MEDICARE, SELFPAY | PROVIDERS: PCP Internal Medicine; Visit Provider Student in an Organized Health Care Education/Training Program | DX: E11.9 Type 2 diabetes mellitus without complications (principal); E89.0 Postprocedural hypothyroidism; Z85.850 Personal history of malignant neoplasm of thyroid | CPT/HCPCS: 99212 ==

== ENCOUNTER 2024-04-27 09:31 | Outpatient (REF) | payer MEDICARE, SELFPAY ==
[2024-04-27 11:15] LABS: Albumin Level 4.2 g/dL (3.5-5.0); Alkaline Phosphatase 88 U/L (39-117); Anion Gap 11 (12-20); Aspartate Amino Transferase 42 U/L (5-31); Bilirubin Total 0.9 mg/dL (0.0-1.0); Blood Urea Nitrogen 19 mg/dL (9-16); Calcium 8.4 mg/dL (8.4-10.2); Carbon Dioxide 26 mmol/L (22-29); Chloride 107 mmol/L (96-108); Cholesterol 107 mg/dL (<200); Estimated Glomerular Filt Rate > 60; Glucose Random 126 mg/dL (60-115); HDL Cholesterol 30 mg/dL (>40); LDL Cholesterol Calculated 23 mg/dL (<100); Potassium 3.4 mmol/L (3.3-5.1); Sodium 141 mmol/L (135-145); Total Protein 7.6 g/dL (6.5-8.0); Triglycerides 273 mg/dL (<150)
[2024-04-27 11:30] LABS: Alanine Aminotransferase 28 U/L (0-31)
[2024-04-27 11:33] LABS: Creatinine Urine 77.61 mg/dL; Microalbum/Creatinine Ratio Ur 11.5 ug/mg cr (<30)
== END 2024-04-27 09:32 | disposition home or self-care (01) ==
LOC: HO.LAB 09:31
PROVIDERS: PCP Internal Medicine; Visit Provider Internal Medicine
DX: E11.9 Type 2 diabetes mellitus without complications (principal); I10 Essential (primary) hypertension; E78.2 Mixed hyperlipidemia; Z79.4 Long term (current) use of insulin
CPT/HCPCS: 36415; 80053; 80061; 82043; 82570

== ENCOUNTER 2024-10-15 08:50 | Outpatient (REF) | payer MEDICARE, SELFPAY ==
--- NOTE | ~2024-10-15 | MM_ITS ---
EXAMINATION: MM SCREENING DIGITAL BREAST TOMOSYNTHESIS, BILATERAL CLINICAL INFORMATION: Screening. Asymptomatic. COMPARISON: Mammography: Comparison is made with available priors TECHNIQUE: Digital breast mammography with tomosynthesis is performed in both the craniocaudal and mediolateral oblique views along with computer-aided detection (CAD). FINDINGS: There are scattered areas of fibroglandular density (ACR BI-RADS breast composition Category b). There are no significant masses, abnormal calcifications, or other abnormalities. MM/MM tomosynthesis screening BI IMPRESSION: No mammographic evidence of malignancy. ASSESSMENT: BI-RADS BI-RADS 1 - Negative RECOMMENDATION: Routine annual mammography screening. 1 year F/U This examination should not preclude the clinical evaluation of a suspicious palpable abnormality. This patient's information was entered into a reminder system with a target due date for their next mammogram. Electronically signed by: Nely Humphries DO 10/24/2024 09:00 PM EDDustin
--- OUTSIDE RECORDS SUMMARY | 2024-10-15 09:03 | XMS_ITS | Patient Health Record ---
Author Organization [facility] Address [address] [place] [address] Care Team Providers Care First Front Ventilator Name Role Phone Stefani Guardado MD, Dharmesh Primary Care Provide r Unavailable Jesus Lacey Unavailable [phone] Allergies Allergen (clinical drug ingredient) Drug/Non Drug Allergy documented on EMR Reaction Allergy Type Onset Date Status metformin Metformin HCl gi issues Drug Allergy Act bouchra Reason For Referral No Information Medications Medication SIG (Take, Route, Frequency, Duration) Notes Start Date End Date Status Fish Oil 500 MG 1 capsule Orally Twi ce a day for 30 day(s) Active Aspirin 81 81 MG 1 tablet Orally Once a day for 30 day(s) Active Dicyclomine HCl 10 MG 1 or 2 capsules Or ally Every 6 hours as needed for lower abdominal cramps and discomfort for 30 day(s) 02/15/2023 Active Atorvastatin Calcium 20 MG TK 1 T PO QD Oral for 90 Active Lantus 100 UNIT/ML ADMINISTER 74 UNITS UNDER THE SKIN 1 TIME Subcutaneous for 40 Active Omeprazole 20 MG 1 capsule 30 minutes before morning meal Orally Once a day for 30 day(s) Active Levothyroxine Sodium 100 MCG TAKE 1 TABL ET BY MOUTH EVERY DAY Oral for 30 Active Vitamin C 500 MG as directed Orally Active Probiotic 1-250 BILLION-MG as directed O rally once a day Active Multivitamin Adult A ctive Verapamil HCl ER 300 MG TK 1 C PO QD HS Oral for 90 Active hydroCHLOROthiazide 25 MG TK 1 T PO QD O ral for 90 Active Calcitriol 0.25 MCG TAKE ONE CAPSULE BY MOUTH EVERY DAY Oral for 10 Active Moexipril HCl 15 MG TAKE 1 TABLET BY NICO TH EVERY DAY Oral for 90 Active Immunizations Vaccine Route Administration Date Status Comme nts Influenza Unknown 12/11/2019 Administered Social History Tobacco Use: Social History Observation Description Date Details (start date - stop date) Current Smoker NA - NA Tobacco Use/Smoking Question Answer Notes Patient is a current smoker How often do you smoke cigarettes? every day How many cigarettes a day do you smoke? 21-30 Alcohol Screen Question Answer Notes Did you have a drink contain ing alcohol in the past year? Yes How often did you have a dri nk containing alcohol in the past year? Never (0 point) How many drinks did you have on a typical day when you were drinking in the past year? 1 or 2 drinks (0 point) How often did you have 6 or more drinks on one occasion in the past year? Never (0 point) Points 0 Interpretation Negative Section Notes: Nonsmoker > 10 yrs; no sig a lcohol Smoker 1/2-1 ppd; no sig alc ohol Smoker 1/2-1 ppd; no sig alc ohol Problems Problem Type SNOMED Code ICD Code Onset Dates Problem Status W/U Status Risk Notes Problem Screening for malignant neoplasm of colon (608347377) Encounter for screening for malignant neoplasm of colon (Z12.11) Active confirmed Problem History of adenomatous polyp of colon (298305861) History of adenomatous polyp of colon (Z86.010) Active confirmed Problem Diverticular disease of colon (955573241) Diverticulosis (K57.90) Active confirmed Problem 450697977 Gastroesophageal reflux disease without esophagitis (K21.9) Active confirmed Problem Gastroesophageal reflux disease (054811780) GERD (gastroesophageal reflux disease) (K21.9) Active confirmed Problem 24807708 Irritable bowel syndrome with both constipation and diarrhea (K58.2) Active confirmed Plan Of Treatment Future Test Test Name Order Date UPPER GI ENDOSCOPY 04/24/2020 COLONOSCOPY 04/24/2020 Insurance Providers Payer Name Payer Address Payer Phone Subscriber Number Group Number Insured Name Patient Relationship to Insured Coverage Start Date Coverage End Date MEDICARE OF [place] [address] [place] [id number] AYDE GOULD Self - patient is the insured MED[employer] ATT[employer] CLAIMS [address] [place] [address] [id number] AYDE GOULD Self - patient is the insured Medical (General) History Medical History History ICD Code IDDM Hypertension Tubular adenomas removed in [address] Samson; colonoscopy in 04/2015 with hyperplastic polyps-Dr. Samson Denies DE,CVA,Lung disease,renal disease Diverticulosis-Rx'd with ant ibiotics in 12/2019 for ? diverticulitis-had a neg. CT in 11/2019; descending colon diverticulitis [place] [address] scan Back pain Hyperlipidemia Arthritis Thyroid cancer 02/2020-complete thyroide ctomy Colonoscopy in May of 2020 with onl y a hyperplastic polyp removed GERD-upper endoscopy in 2020 with a small hiatal hernia, but no significant esophagitis, Gamez's esophagus, nor H. pylori Surgical History Surgery Date(Month/Year) Hysterectomy and right oopherectomy Hemorrhoidectomy [facility] Thyroidectomy as above 02/2020 Right carpal tunnel
--- OUTSIDE RECORDS SUMMARY | 2024-10-15 09:03 | XMS_ITS | Encounter Summary ---
Author Organization [facility] Address [address] [facility] [address] [place] [address] Care Team Providers Care Glove Turner Name Role Phone Dharmesh Lentz MD Primary Care Provide r Reason for Visit * Reason Onset Date Comments Med Refill 10/07/2023 Encounter Details Date Type Department Care Team ([facility] st Contact Info) Description 10/07/2023 Telephone [facility] [address] [place] [address] Dharmesh Lentz MD [address] [place] [address] Med Refill Social History Tobacco Use Types Packs/Day Years Used Date Smoking Tobacco: Every Day Cigarettes Passive Smoke Exposure: Current Smokeless Tobacco: Never Depression Answer Date Recorded Patient Health Questionnaire-9 Score 2 09/01/2023 Patient Health Questionnaire-9 Score 2 09/01/2023 Last PHQ-9: Questionnaire Data Not on file 0 09/01/2023 Housing Stability Answer Date Recorded What is your housing situation today? I have azar sullivan 09/01/[address] you li ve. Do you have problems with any of the following? None of the above 09/01/2023 Food Insecurity Answer Date Recorded Within the past 12 months, y ou worried that your food would run out before you got money to buy more: Never True 09/01/2023 Within the past 12 months,th e food you bought just didn't last and you didn't have enough money to get more: Never True Transportation Answer Date Recorded In the past 12 months, has l ack of transportation kept you from medical appts, meetings, work or from getting things needed for daily living? No 09/01/2023 Utilities Answer Date Recorded In the past 12 months, has t he electric, gas, oil or water company threatened to shut off services in your home? No 09/01/2023 Depression Answer Date Recorded Patient Health Questionnaire-2 Score 0 09/01/2023 Comments Unknown Sex and Gender Information Value Date Recorded Sex Assigned at Female 02/08/2022 10:17 AM EDT Legal Sex Female 10:17 AM EDT Gender Identity Female 02/08/2022 10:17 AM EDT Sexual Orientation Straight 02/08/2022 10 :17 AM EDT documented as of this encounter Miscellaneous Notes * Telephone Encounter - Millie Westbrook LPN - 10/07/2023 11:49 AM EDT Medication was sent to [facility] #[id number] on 09/01/23 with 1 refill. * Telephone Encounter - Carlton Hoffmann - 10/07/2023 11:46 AM EDT TC from pt requesting medication refill. Medications needing refill: naproxen (Naprosyn) 500 MG tablet To be sent to: [facility] #[id number] documented in this encounter Plan of Treatment Not on file documented as of this encounter Visit Diagnoses Not on filedocumented in this encounter Additional Health Concerns Assessment Noted Time PHQ-9 Depression Total Score: 2 09/01/19 9:16 AM EDT documented as of this encounter Care Teams Glove Turner Relationship Specialty Start Date End Date Dharmesh Lentz MD [address] [place] [id number] PCP - General Internal Medicine 11/22/13 documented as of this encounter
== END 2024-10-15 08:51 | disposition home or self-care (01) ==
LOC: HO.MAMMO 08:50
PROVIDERS: PCP Internal Medicine; Visit Provider Internal Medicine
DX: Z12.31 Encounter for screening mammogram for malignant neoplasm of breast (principal)
CPT/HCPCS: 77063; 77067

== ENCOUNTER → 2024-10-15 09:15 | Outpatient (BNV) | payer MEDICARE, SELFPAY | PROVIDERS: PCP Internal Medicine; Visit Provider Internal Medicine | DX: Z12.31 Encounter for screening mammogram for malignant neoplasm of breast (principal) | CPT/HCPCS: 77063; 77067 ==

== ENCOUNTER 2024-11-22 12:55 | Outpatient (REF) | payer MEDICARE, SELFPAY ==
--- NOTE | ~2024-11-22 | US_ITS ---
US HEAD NECK SOFT TISSUE COMPARISON: Ultrasound of the head and neck on March 12, 2024 HISTORY: Z85.850 - Personal history of malignant neoplasm of thyroid. Status post thyroidectomy in February 2020. According to the technologist notes, it was difficult to directly compare with the prior ultrasound study. FINDINGS: Multiple normal-appearing neck lymph nodes as follows: Level IA midline: 0.9 x 0.4 x 0.7 cm Right level II: 1.3 x 0.3 x 0.5 cm and 0.7 x 0.3 x 0.5 cm Right level III: 1.5 x 0.4 x 0.7 cm Left level II: 1.3 x 0.4 x 0.4 cm and 0.4 x 0.3 x 0.3 cm Previously seen abnormal appearing left level IV round lymph node could not be seen on today's survey. US/US soft tiss head and/or neck IMPRESSION: 1. Multiple bilateral normal appearing neck lymph nodes as described above. 2. Previously seen right left level IV round lymph node could not be seen on today's survey. Electronically signed by: Dion Pedroza MD 11/22/2024 02:28 PM EDT
--- OUTSIDE RECORDS SUMMARY | 2024-11-22 13:40 | XMS_ITS | Encounter Summary ---
Author Organization [facility] Address [address] [facility] [address] [place] [address] Care Team Providers Care Basin Finish Operator Tig Welder Name Role Phone Dharmesh Lentz MD Primary Care Provide r Reason for Visit * Reason Onset Date Comments Med Refill 10/07/2023 Encounter Details Date Type Department Care Team ([facility] st Contact Info) Description 10/07/2023 Telephone [facility] [address] [place] [address] Dharmesh Lentz MD [address] [place] [address] Med Refill Social History Tobacco Use Types [...] 11:49 AM EDT Medication was sent to [id number] on 09/01/23 with 1 refill. * Telephone Encounter - Carlton Hoffmann - 10/07/2023 11:46 AM EDT TC from pt requesting medication refill. Medications needing refill: naproxen (Naprosyn) 500 MG tablet To be sent to: [id number] documented in this encounter Plan of Treatment Upcoming Encounters Date Type Department Care Team (Late st Contact Info) Description 12/20/2024 11:30 AM EDT Office Visit [facility] [address] [place] [address] Dharmesh Lentz MD [address] [place], [place] [phone] documented as of this encounter Visit Diagnoses Not on filedocumented in this encounter Additional Health Concerns Assessment Noted Time PHQ-9 Depression Total Score: 2 05/23/20 24 9:16 AM EDT documented as of this encounter Care Teams Basin Finish Operator Tig Welder Relationship Specialty Start Date End Date Dharmesh Lentz MD [address] [place] [address] PCP - General Internal Medicine 11/22/13 documented as of this encounter
--- OUTSIDE RECORDS SUMMARY | 2024-11-22 13:41 | XMS_ITS | Patient Health Record ---
Author Organization [facility] Address [address] [place] [address] Care Team Providers Care Alterations Sewer Name Role Phone Stefani Guardado MD, Dharmesh Primary Care Provide r Unavailable Jesus Lacey Unavailable [phone] Allergies Allergen (clinical drug ingredient) Drug/Non Drug [...] Problem Screening for malignant neoplasm of colon (282219158) Encounter for screening for malignant neoplasm of colon (Z12.11) Active confirmed Problem History of adenomatous polyp of colon (482496355) History of adenomatous polyp of colon (Z86.010) Active confirmed Problem Diverticular disease of colon (785951481) Diverticulosis (K57.90) Active confirmed Problem 115781529 Gastroesophageal reflux disease without esophagitis (K21.9) Active confirmed Problem Gastroesophageal reflux disease (573465223) GERD (gastroesophageal reflux disease) (K21.9) Active confirmed Problem 55616575 Irritable bowel syndrome with both constipation and diarrhea (K58.2) Active confirmed Plan Of Treatment Future Test Test Name Order Date UPPER GI ENDOSCOPY 04/24/2020 COLONOSCOPY 04/24/2020 Insurance Providers Payer Name Payer Address Payer Phone Subscriber Number Group Number Insured Name Patient Relationship to Insured Coverage Start Date Coverage End Date MEDICARE OF [place] [address] [place] [address] [phone] [id number] AYDE GOULD Self - patient is the insured [employer] ATT[employer] CLAIMS [address] [place] [address] [id number] AYDE GOULD Self - patient is the insured Medical (General) History Medical History History ICD Code IDDM Hypertension Tubular adenomas removed in [address] Samson; colonoscopy in 04/2015 with hyperplastic polyps-Dr. Samson Denies [place],CVA,Lung disease,renal disease Diverticulosis-Rx'd with ant ibiotics in [...]
== END 2024-11-22 12:56 | disposition home or self-care (01) ==
LOC: HO.US 12:55
PROVIDERS: PCP Internal Medicine; Visit Provider Student in an Organized Health Care Education/Training Program
DX: E89.0 Postprocedural hypothyroidism (principal); Z85.850 Personal history of malignant neoplasm of thyroid
CPT/HCPCS: 76536

== ENCOUNTER → 2024-11-22 12:57 | Outpatient (BNV) | payer MEDICARE, SELFPAY | PROVIDERS: PCP Internal Medicine; Visit Provider Radiology Body Imaging | DX: Z85.850 Personal history of malignant neoplasm of thyroid (principal) | CPT/HCPCS: 76536 ==

== ENCOUNTER 2024-11-30 14:34 | Outpatient (REF) | payer MEDICARE, SELFPAY ==
--- OUTSIDE RECORDS SUMMARY | 2024-11-30 14:37 | XMS_ITS | Patient Health Record ---
Author Organization [facility] Address [address] [place] [address] Care Team Providers Care Central Office Supervisor Name Role Phone Stefani Guardado MD, Dharmesh Primary Care Provide r Unavailable Jesus Lacey Unavailable [phone] Allergies Allergen (clinical drug ingredient) Drug/Non Drug [...] Problem Screening for malignant neoplasm of colon (154077898) Encounter for screening for malignant neoplasm of colon (Z12.11) Active confirmed Problem History of adenomatous polyp of colon (473243185) History of adenomatous polyp of colon (Z86.010) Active confirmed Problem Diverticular disease of colon (362252498) Diverticulosis (K57.90) Active confirmed Problem 488955588 Gastroesophageal reflux disease without esophagitis (K21.9) Active confirmed Problem Gastroesophageal reflux disease (023151330) GERD (gastroesophageal reflux disease) (K21.9) Active confirmed Problem 39577564 Irritable bowel syndrome with both constipation and diarrhea (K58.2) Active confirmed Plan Of Treatment Future Test Test Name Order Date UPPER GI ENDOSCOPY 04/24/2020 COLONOSCOPY 04/24/2020 Insurance Providers Payer Name Payer Address Payer Phone Subscriber Number Group Number Insured Name Patient Relationship to Insured Coverage Start Date Coverage End Date MEDICARE OF [place] [address] [place] [address] [id number] AYDE GOULD Self - patient is the insured MED[employer] ATT[employer] CLAIMS [address] [place] [address] [phone] [id number] AYDE GOULD Self - patient is the insured Medical (General) History Medical History History ICD Code IDDM Hypertension Tubular adenomas removed in [address] Samson; colonoscopy in 04/2015 with hyperplastic polyps-Dr. Samson Denies [place],CVA,Lung disease,renal disease Diverticulosis-Rx'd with ant ibiotics in [...]
[2024-11-30 16:48] LABS: Free T4 (Free Thyroxine) 1.32 ng/dL (0.71-1.85); Thyroid Stimulating Hormone 0.04 uIU/mL (0.32-4.0)
[2024-12-03 19:18] LABS: Thyroglobulin Antibodies <1 IU/mL (< or = 1)
[2024-12-04 19:29] LABS: Thyroglobulin <0.1 ng/mL
== END 2024-11-30 14:35 | disposition home or self-care (01) ==
LOC: HO.LAB 14:34
PROVIDERS: PCP Internal Medicine; Visit Provider Student in an Organized Health Care Education/Training Program
DX: E89.0 Postprocedural hypothyroidism (principal); Z85.850 Personal history of malignant neoplasm of thyroid
CPT/HCPCS: 36415; 84432; 84439; 84443; 86800

== ENCOUNTER 2024-12-06 10:48 | Outpatient (AMB) | payer MEDICARE, SELFPAY ==
[2024-12-06 10:50] VITALS: BP 130/68; PULSE 68; O2SAT 98; BMI 21.6
--- NOTE | 2024-12-06 10:50 | A.OFFVIS_ITS ---
Vital Signs 3 12/06/24 10:50 Height 5 ft 4 in Weight 125 lb 10.616 oz BMI 21.6 BP 130/68 Blood Pressure Location Lt brachial Position Sitting Pulse 68 Pulse Source Pulse Oximeter Pulse Oximetry (%) 98 Oxygen Delivery Method Room Air Intake Visit Reasons: Thyroid cancer Intake Note: Patient present today for Thyroid cancer office visit. Fountain Brush Assembler Required: No Accompanied by: Self / Same As Patient Allergies metformin Allergy (Unknown, Verified 12/06/24 10:53) diarrhea Medication List - Last Reconciled 12/06/24 by Agata Maier MD [Aspirin Childrens 81 DAILY] atorvastatin 20 mg PO DAILY blood sugar diagnostic As directed calcium citrate-vitamin D3 250 mg-5 mcg (200 unit) 1 tab PO TID enalapril maleate 10 mg PO DAILY [Fish Oil 1,000 BID] hydrochlorothiazide 25 mg PO DAILY insulin glargine 74 units subcut QPM levothyroxine (Synthroid) 137 mcg PO DAILY omeprazole 20 mg PO DAILY verapamil ER 300 mg PO BEDTIME HPI Comments Details: 73-year-old female with past medical history significant for type 2 diabetes, papillary thyroid cancer status post total thyroidectomy 03/10/2020 with a 1.4 cm focus with no angio or lymphatic invasion, АЛЕКСАНДР initial low risk of recurrence, AJCC stage I (pT1b N0 MX), who is currently АЛЕКСАНДР excellent response to therapy coming in today for follow up for thyroid cancer. History of PTC in detail 2019: Noticed a lump on the right side of the neck, prompted primary care physician to order a CT scan of the neck which showed multinodular thyroid 10/02/2019 ultrasound thyroid revealed multiple bilateral thyroid nodules 12/27/2019: FNA right upper pole nodule 1.6 cm nodule resulted as suspicious for papillary thyroid cancer (Alta category 5) 03/10/2020: Total thyroidectomy with pathology showing 1.4 cm focus of PTC. No angio or lymphatic invasion. 0/1 lymph nodes positive for metastatic thyroid cancer. AJCC stage I, pT1b N0 MX. Unfortunately had removal of 2 parathyroid glands during the surgery with development of postoperative hypoparathyroidism with subsequently resolved. 10/29/2020: Whole-body scan showed physiologic uptake. TSH 100, TG 0.4, TG antibody negative 03/22/2022: Ultrasound neck showed bilateral neck lymph nodes which were normal in size and morphology without any cortical thickening August 2023 showed TSH of 0.83, with free T4 of 1.17, non stimulated TG remains undetectable, with negative TG antibody. 09/2023: Ultrasound neck showed right level 1B lymph node which is round in appearance measuring 0.6 cm, other level 1B lymph nodes that are normal in appearance. Also showed left level 4 lymph node measuring 1.4 cm, normal in appearance, and a 0.7 cm level 5 b lymph node, which has some cystic changes and absent charity. 12/27/2023: Labs showed TSH of 1.91, free T4 1.03, thyroglobulin less than 0.1, TG antibody undetectable 12/27/2023: Levothyroxine increased to 137 mcg daily from 125 mcg daily -02/29/2024: Repeat labs showed TSH of 0.19, free T4 1.3 03/12/2024: Ultrasound neck, I reviewed the images myself which shows more slowly normal-appearing bilateral lymph nodes, a left round cystic lymph node measuring 4 X 4 X 4 mm without the hilum which is reported to be at the level 4. When I reviewed the images, this appears to me to be the same lymph node that was previously reported at level 5B in September 2023 with measurements of 7 X 5 X 4 mm. Given this is smaller in size this is reassuring. Interval history 11/22/24: Ultrasound neck showed normal-appearing lymph nodes bilaterally. The previously abnormal left level 4 lymph node could not be visualized. 11/30/2024: TSH 0.04, free T4 1.32, TG less than 0.1, TG antibody less than 1 Patient denies any compressive symptoms. She is currently on levothyroxine 137 mcg daily. Takes it appropriately. She is adherent to therapy. Reporting loose stools which is chronic, gained back 8 lbs, , denies palpitations and tremors. Physical exam General: sitting comfortably in no acute distress HEENT: normocephalic/atraumatic, moist oral mucosa Neck: supple, symmetrical, no palpable lymph nodes or masses , no dorsocervical or supraclavicular fat pads Cardiac: normal heart sounds Pulm: normal breath sounds B/L, no added breath sounds Abd: not distended, no tenderness Extremities: no edema, no signs of myxedema Neuro: AAO x3, Speech: normal, no facial droop, moving all 4 extremities Laboratory Tests 12/19/19 01/09/20 04/24/20 11:32 14:53 10:30 Calcium Albumin 25-OH Vitamin D Total Free T4 1.09 0.94 TSH Total T3 113.1 TSH 3rd Generation 0.64 0.54 Thyroglobulin PTH Intact Calcium (PTH Intact) Thyroglobulin Antibody 07/07/20 09/11/20 09/26/20 14:50 12:08 07:20 Calcium Albumin 4.1 4.5 25-OH Vitamin D Total Free T4 1.18 1.14 TSH 2.70 1.06 Total T3 TSH 3rd Generation Thyroglobulin 0.2 L 0.2 H PTH Intact Calcium (PTH Intact) Thyroglobulin Antibody 10/29/20 10/31/20 11/03/20 07:10 06:35 11:44 Calcium Albumin 4.4 25-OH Vitamin D Total Free T4 1.13 TSH > 100.00 H 23.84 H 2.14 Total T3 TSH 3rd Generation Thyroglobulin 0.4 L 0.4 L PTH Intact Calcium (PTH Intact) Thyroglobulin Antibody 12/12/20 02/02/21 07/23/21 14:36 10:25 06:58 Calcium 8.5 Albumin 4.0 25-OH Vitamin D Total Free T4 1.37 1.16 1.10 TSH 0.19 L 1.06 0.44 Total T3 TSH 3rd Generation Thyroglobulin PTH Intact Calcium (PTH Intact) Thyroglobulin Antibody 10/30/21 12/15/21 08/27/22 15:02 13:54 07:14 Calcium 8.5 8.7 Albumin 4.5 4.5 4.1 25-OH Vitamin D Total 46.0 Free T4 1.39 1.26 TSH 0.05 L 0.62 Total T3 TSH 3rd Generation Thyroglobulin <0.1 L <0.1 L PTH Intact 27 16 Calcium (PTH Intact) 8.9 Thyroglobulin Antibody 08/27/22 08/27/22 12/28/22 07:14 07:14 12:35 Calcium 8.5 8.6 8.5 Albumin 4.2 4.1 25-OH Vitamin D Total 40.8 Free T4 1.17 TSH 3.66 0.04 L Total T3 TSH 3rd Generation Thyroglobulin <0.1 PTH Intact 12 L 11 L Calcium (PTH Intact) 8.6 8.4 L Thyroglobulin Antibody <1 02/15/23 04/08/23 08/30/23 12:57 10:55 09:36 Calcium Albumin 25-OH Vitamin D Total Free T4 1.22 1.14 1.17 TSH 0.15 L 1.22 0.83 Total T3 TSH 3rd Generation Thyroglobulin <0.1 L PTH Intact Calcium (PTH Intact) Thyroglobulin Antibody 12/27/23 02/29/24 16:16 12:07 Calcium 8.4 Albumin 4.4 25-OH Vitamin D Total Free T4 1.03 1.31 TSH 1.91 0.19 L Total T3 TSH 3rd Generation Thyroglobulin <0.1 PTH Intact 25.2 Calcium (PTH Intact) Thyroglobulin Antibody <1 Laboratory Tests 11/30/24 11/30/24 14:43 14:44 TSH 0.04 L Free T4 1.32 Thyroglobulin <0.1 L Thyroglobulin Antibody <1 US HEAD NECK SOFT TISSUE 11/22/24 COMPARISON: Ultrasound of the head and neck on March 12, 2024 HISTORY: Z85.850 - Personal history of malignant neoplasm of thyroid. Status post thyroidectomy in February 2020. According to the technologist notes, it was difficult to directly compare with the prior ultrasound study. FINDINGS: Multiple normal-appearing neck lymph nodes as follows: Level IA midline: 0.9 x 0.4 x 0.7 cm Right level II: 1.3 x 0.3 x 0.5 cm and 0.7 x 0.3 x 0.5 cm Right level III: 1.5 x 0.4 x 0.7 cm Left level II: 1.3 x 0.4 x 0.4 cm and 0.4 x 0.3 x 0.3 cm Previously seen abnormal appearing left level IV round lymph node could not be seen on today's survey. US/US soft tiss head and/or neck IMPRESSION: 1. Multiple bilateral normal appearing neck lymph nodes as described above. 2. Previously seen right left level IV round lymph node could not be seen on today's survey. Electronically signed by: Dion Pedroza MD 11/22/2024 02:28 PM EDT RP EXAMINATION: US HEAD NECK SOFT 03/12/24 HISTORY: C73 - Malignant neoplasm of thyroid gland COMPARISON: Comparison is made with the prior examination dated 09/15/2023. FINDINGS: Sonographic examination of the soft tissues of the neck was performed. The patient is status post thyroidectomy. No residual thyroid tissue is identified in the thyroid bed. Multiple normal appearing lymph nodes are identified in the neck as described below: Right level III lymph node measuring 9 x 4 x 8 mm Right level VA lymph node measuring 6 x 3 x 5 mm Left level II lymph node measuring 7 x 4 x 14 mm Left level IV lymph node measuring 8 x 3 x 6 mm Left level VB lymph node measuring 4 x 4 by 4 mm. There is an abnormal appearing left level IV lymph node measuring 4 x 4 x 4 mm which is round, without a discernible hilum. US/US soft tiss head and/or neck IMPRESSION: No mass or residual tissue is seen in the thyroid bed. Multiple normal-appearing lymph nodes are identified. There is one abnormal left level IV lymph node measuring 4 mm which is round, without a discernible hilum. This appears amenable to ultrasound-guided fine-needle aspiration, if desired. US SOFT TISSUE NECK 10/02 I reviewed the images myself, and agree with the normal appearance of all the lymph nodes except the level 5B 1 which is round, without a hilar CLINICAL INFORMATION: Malignant neoplasm of thyroid status post thyroidectomy. COMPARISON: None available. TECHNIQUE: Ultrasound of the neck soft tissues is performed with high-frequency walls-scale imaging and color Doppler. FINDINGS: THYROID BED: Prior thyroidectomy. No residual thyroid tissue demonstrated in the thyroid bed. No cystic or solid nodules demonstrated in the thyroid bed. RIGHT NECK SOFT TISSUES: Scattered architecturally normal nodes are present. The nodes show normal fatty hilus, normal cortical thickness, and no cystic change or calcification. No abnormal color flow. The largest nodes are as follows: Level IB: 0.6 x 0.5 x 0.5 cm. Round in appearance (abnormal). Level IB: 1.5 x 0.6 x 0.7 cm. Normal jacqueline architecture. Level IB: 0.9 x 0.2 x 0.6 cm (previously 0.7 x 0.5 x 0.4). Normal jacqueline architecture. LEFT NECK SOFT TISSUES: Scattered architecturally normal nodes are present. The nodes show normal fatty hilus, normal cortical thickness, and no cystic change or calcification. No abnormal color flow. The largest nodes are as follows: Level IV: 1.4 x 0.5 x 0.8 cm (previously 1.3 x 0.4 x 0.6). Normal jacqueline architecture. Level VB: 0.7 x 0.5 x 0.5 cm. Abnormal in appearance with absent charity, round shape and some cystic changes. US/US soft tiss head and/or neck IMPRESSION: 1. Status post thyroidectomy with no residual thyroid tissue or nodules in the thyroid bed. 2. Bilateral cervical nodes are present. Some of these are abnormal in appearance as described above. Percutaneous ultrasound-guided biopsy can be considered if warranted. US SOFT TISSUE HEAD/NECK 04/01 CLINICAL INFORMATION: Personal history of malignant neoplasm of thyroid. COMPARISON: US-guided thyroid biopsy 12/27/2019. Ultrasound thyroid 10/02/2019. CT soft tissue neck with contrast 08/22/2019. TECHNIQUE: Linear transducer grayscale and color Doppler examination of the thyroid bed and surrounding soft tissue. FINDINGS: Bilateral neck lymph nodes are normal in size and morphology without cortical thickening. US/US soft tiss head and/or neck IMPRESSION: 1. Bilateral neck lymph nodes are normal in size and morphology without cortical thickening. [facility] Medical History (Updated 08/29/23 @ 14:27 by Cherelle Nguyen PA-C) Nicotine dependence, cigarettes, uncomplicated History of thyroid cancer GERD (gastroesophageal reflux disease) History of back pain Hyperlipidemia Arthritis History of diverticulosis Hypertension Diabetes Postoperative hypothyroidism Vitamin D deficiency Hypoparathyroidism Thyroid cancer Surgical History Hx of thyroidectomy History of carpal tunnel surgery of right wrist Hx of bladder repair surgery Hx of colonoscopy Hx of cholecystectomy Hx of hemorrhoidectomy Hx of hysterectomy with oophorectomy Family History Father Diabetes Hypertension Mother Hypertension Diabetes Social History Are you a primary insurance healthcare consultant to a significant other at home: No Do you presently have visiting nurse or other home services: No Patient Tobacco Use Status: Current everyday Tobacco user Cigarette Packs Per Day: 0.5 Cigarettes Per Day: 10.0 Years Smoked: 40 Physical Exam Vital Signs: Last Vital Signs Pulse 68 12/06/24 10:50 BP 130/68 12/06/24 10:50 Pulse Ox 98 12/06/24 10:50 Oxygen Delivery Method Room Air 12/06/24 10:50 BMI result Body Mass Index 21.6 Assessment & Plan Assessment & Plan (1) History of thyroid cancer: Code(s): Z85.850 - Personal history of malignant neoplasm of thyroid Category: Medical Plan: 73-year-old female with past medical history significant for type 2 diabetes, papillary thyroid cancer status post total thyroidectomy 03/10/2020 with a 1.4 cm focus with no angio or lymphatic invasion, АЛЕКСАНДР initial low risk of recurrence, AJCC stage I (pT1b N0 MX), who is currently АЛЕКСАНДР excellent response to therapy . She had a whole-body scan in 2020 which did not show any abnormal uptake, her stimulated TG with TSH of 100, was 0.4 with negative TG antibody. Subsequently she has also had ultrasound of the neck, which did not show any concerning findings up until September 2023 when she was noted to have a level 5B lymph node measuring 0.7 cm, which did not have a normal hilum, was cystic in appearance, circular. Repeated Ultrasound neck March 2024, I reviewed the images myself which shows more slowly normal-appearing bilateral lymph nodes, a left round cystic lymph node measuring 4 X 4 X 4 mm without the hilum which is reported to be at the level 4. When I reviewed the images, this appears to me to be the same lymph node that was previously reported at level 5B in September 2023 with measurements of 7 X 5 X 4 mm. Given this was smaller in size this is reassuring. This time most recent ultrasound done November 2024 shows normal-appearing lymph nodes. The abnormal left level 4 lymph node not visualized anymore. 11/30/2024: TSH 0.04, free T4 1.32, TG less than 0.1, TG antibody less than 1 She is currently on levothyroxine 137 mcg daily. Based on normal ultrasound findings and undetectable TG levels, we can liberalize her TSH to be between 0.5-2 with considering her АЛЕКСАНДР excellent response to therapy. Plan: -reduce levothyroxine to 125 mcg daily -ordered TSH, free T4, to be done in 6 weeks -goal TSH 0.5-2 -next tumor markers would be due prior to follow up in November 2025 -we will plan to space the ultrasound by 2 years so think about doing it in November 2026 (2) Postoperative hypothyroidism: Code(s): E89.0 - Postprocedural hypothyroidism Category: Medical Plan: 11/30/2024: TSH 0.04, free T4 1.32, TG less than 0.1, TG antibody less than 1 She is currently on levothyroxine 137 mcg daily. Based on normal ultrasound findings and undetectable TG levels, we can liberalize her TSH to be between 0.5-2 with considering her АЛЕКСАНДР excellent response to therapy. Plan: -reduce levothyroxine to 125 mcg daily -ordered TSH, free T4, to be done in 6 weeks -goal TSH 0.5-2 Plan I spent 30 minutes in reviewing the record, seeing the patient and documenting in the medical record. Orders: Orders 2 Free T4 (Free Thyroxine) 6 Weeks E89.0 - Postprocedural hypothyroidism, Z85.850 - Personal history of malignant neoplasm of thyroid Thyroid Stimulating Hormone 6 Weeks E89.0 - Postprocedural hypothyroidism, Z85.850 - Personal history of malignant neoplasm of thyroid Medications: New 2 levothyroxine (Synthroid) 125 mcg PO DAILY 30 tabs 7RF Discontinued 2 levothyroxine (Synthroid) Discontinued Reason: Doctor's Order 137 mcg PO DAILY 30 tabs 9RF Patient Instructions: Reduce levothyroxine to 125 mcg daily Do blood work in 6 weeks ,we will reach out with results Follow up in November 2025 Coding Level of Care Code Est Pt Level 4 (70722) Complex EM visit Add On G2211 Diagnoses History of thyroid cancer Z85.850 Postoperative hypothyroidism E89.0 Time Spent (min) 30
--- OUTSIDE RECORDS SUMMARY | 2024-12-06 12:17 | XMS_ITS | Encounter Summary ---
Author Organization [employer] Address [address] [facility] [address] [place] [address] Care Team Providers Care Premium Representative Name Role Phone Dharmesh Lentz MD Primary Care Provide r Encounter Details Date Type Department Care Team (Late st Contact Info) Description 08/12/2022 Abstract [facility] [address] [place] [id number] Dharmesh Lentz MD [address] [place] [address] [phone] Social History Tobacco Use Types Packs/Day Years Used Date Smoking Tobacco: Never Assessed Comments Unknown Sex and Gender Information Value Date Recorded Sex Assigned at Female 02/08/2022 10:17 AM EDT Legal Sex Female 10:17 AM EDT Gender Identity Female 02/08/2022 10:17 AM EDT Sexual Orientation Straight 02/08/2022 10 :17 AM EDT documented as of this encounter Plan of Treatment Upcoming Encounters Date Type Department Care Team (Late st Contact Info) Description 12/20/2024 11:30 AM EDT Office Visit [facility] [address] [place] [address] [phone] Dharmesh Lentz MD [address] [place], [place] [phone] documented as of this encounter Procedures Procedure Name Priority Date/Time Associated Diagnosis Comments HM COLONOSCOPY Routine 05/16/2020 documented in this encounter Results * Colonoscopy (05/16/2020) Colonoscopy Normal Normal 05/16/2020 Diamond Levin - 05/16/2020 8:51 AM EST Recommended 5 year follow up us Historical Provider [facility] Edited Result - Final documented in this encounter Visit Diagnoses Not on filedocumented in this encounter Care Teams Premium Representative Relationship Specialty Start Date End Date Dharmesh Lentz MD [address] [place] [id number] PCP - General Internal Medicine 11/22/13 documented as of this encounter
--- OUTSIDE RECORDS SUMMARY | 2024-12-06 12:17 | XMS_ITS | Clinical Summary ---
Author Organization [employer] Address [address] [place] [address] Care Team Providers Care Payroll Technician Name Role Phone Dharmesh Lentz MD Primary Care Provide r Allergies Active Allergy Reactions Criticality Noted Date Comments Metformin 11/15/2011 Other reaction(s): severe diarrhea Medications FreeStyle lancetsIndication s:Type 2 diabetes mellitus without complication, with long-term current use of insulin (CMS/[facility]) Use 3 times a day 100 each 11 022 Active omega-3 (Fish Oil) 500 MG capsule 2 times daily. Activ e Ascorbic Acid (Vitamin C) 500 MG capsule as directed Active aspirin (ASPIR) 81 MG EC tablet daily. 014 Active Diclofenac Sodium 1 % gelIndications:Ri ght hip pain Apply BID right hip or affected area 50 g 024 Active hydroCHLOROthiazi de (HYDRODiuril) 25 MG tablet TAKE 1 TABLET(25 MG) BY MOUTH DAILY 90 tablet 1 025 Active insulin glargine (Basaglar KwikPen) 100 UNIT/ML penIndications:Ty pe 2 diabetes mellitus without complication, with long-term current use of insulin (CMS/[facility]) Inject 74 Units under the skin at bedtime. 27 mL 3 025 Active verapamil ER (Verelan PM) 300 MG 24 hr capsuleIndication s:Primary hypertension TAKE 1 CAPSULE(300 MG) BY MOUTH AT BEDTIME. DO NOT CRUSH OR CHEW 90 capsule 1 025 Active naproxen (Naprosyn) 500 MG tabletIndications :Chronic neck pain TAKE 1 TABLET BY MOUTH TWICE DAILY WITH FOOD NEEDED FOR PAIN 30 tablet 3 025 Active glucose blood (FREESTYLE LITE) test stripIndications: Type 2 diabetes mellitus without complication, unspecified whether nursing home insulin use ([facility]) apply 1 unit by intradermal route 3 times every day 150 each 11 025 Active omeprazole (PriLOSEC) [address] capsuleIndication s:Gastroesophagea l reflux disease without esophagitis Take 1 capsule (20 mg) by mouth before breakfast. Do not crush or chew.TAKE 1 CAPSULE(20 MG) BY MOUTH IN THE MORNING. DO NOT CRUSH OR CHEW 90 capsule 1 025 Active atorvastatin (Lipitor) 20 MG tabletIndications :Mixed hyperlipidemia TAKE 1 TABLET(20 MG) BY MOUTH IN THE MORNING 90 tablet 1 025 Active enalapril (Vasotec) 5 MG tabletIndications :Primary hypertension Take 1 tablet (5 mg) by mouth Once per day. 30 tablet 6 025 2025 Active atorvastatin (Lipitor) 20 MG tabletIndications :Mixed hyperlipidemia TAKE 1 TABLET(20 MG) BY MOUTH IN THE MORNING 90 tablet 1 025 2024 Discontinued enalapril (Vasotec) 5 MG tabletIndications :Primary hypertension Take 1 tablet (5 mg) by mouth Once per day. 30 tablet 6 025 2024 Discontinued(R eorder (will not trigger notification to Pharmacy)) Active Problems Problem Noted Date Diagnosed Date Irritable bowel syndrome wit h both constipation and diarrhea 10/23/2024 Fractured dental mu-ism with loss of materi al 03/01/2024 Generalized gingival recession 02/07/2024 Unspecified lesions of oral mucosa 02/07/2024 Bilateral shoulder pain 01/03/2024 Assessment & Plan (01/03/2024 1:42 PM EDT): Pt with c/o bilateral shoulder pain x 1 month. Pt reports heavy lifting with groceries Right hip pain 09/01/2023 Assessment & Plan (01/03/2024 1:40 PM EDT): Patient with previous c/o new onset of right sided hip pain, intensity 8/10 radiates to her right leg and foot. Only associated with walking. No Hx of trauma. Pt unable to walk more than 2 blocks Etiology ? Plain films right hip showed mild hip arthritis Declines PT eval due to inability to keep the appointments referred to Ortho. Pt tells me she did not go because the pain went away completely Assessment & Plan (09/01/2023 9:52 AM EDT): Patient with c/o new onset of right sided hip pain, intensity 8/10 radiates to her right leg and foot. Only associated with walking. No Hx of trauma. Pt unable to walk more than 2 blocks Etiology ? Plan: Plain films right hip, Declines PT eval due to inability to keep the appointments will refer to Ortho Lower abdominal pain 12/30/2022 Assessment & Plan (02/22/2023 2:49 PM EST): Patient with previous c/o intermittent lower abdominal pain, when severe 10/10 radiates to her epigastrium. Associated with diarrhea. No nausea no vomiting, no melena Pt has a hx of diverticulosis and diverticulitis. CT/CT abdomen pelvis w IV contrast showed 01/2023 IMPRESSION: No explanation for severe lower abdominal pain. Diverticulosis without diverticulitis. Status post cholecystectomy and hysterectomy. Pt was seen by Dr. Lacey 02/15/2023. He is concerned about IBS, recommended Metamucil Assessment & Plan (12/30/2022 1:16 PM EDT): Patient with c/o intermittent lower abdominal pain, when severe 10/10 radiates to her epigastrium. Associated with diarrhea. No nausea no vomiting, no melena Pt has a hx of diverticulosis and diverticulitis. Plan: Gastroenterology referral Primary insomnia 08/26/2022 Assessment & Plan (08/26/2022 12:55 PM EDT): Pt with insomnia, sleeping no more than 4 hours at a time Had tried sleep hygiene habits and Trazodone with no good results Pt was switched to Rozerem 8 mg po qhs with no benefit Now on Zolpidem 10 mg po qhs doing well as of today Chronic neck pain 08/26/2022 Assessment & Plan (08/26/2022 12:57 PM EDT): Pt is here for f/u Pt initially described the pain as radiating to her left side of her head as a shooting pain at times. Initial work up included an x-ray of her C-spine showed: Cervical spondylosis and foraminal impingement on the left at C5 and C6. Given this i had recommended an MRI of the C-Spine.This was done on 10/13/2014 and showed: mild cervical spondylosis mild narrowing of the right C4 and left C6 Lab work included Initial work up included an CHAMP, CBC w/diff, General Chem Profile, Random, Sed rate and Urinalysis. She was seen at [facility], they recommended to start with PT and may recommend injections or further imaging if need be. Her Rheumatoid factor was elevated and I recommended an evaluation by a vision specialist Dr Dodson who she saw pt c/o bilateral arm numbness and intermittent weakness. High concern for cervical radiculopathy. I recommended to go back to [facility] for f/u . She was seen and underwent cervical facet injections with good results Acquired vascular malformation of liver 08/27/19 Assessment & Plan (09/01/2023 9:19 AM EDT): While undergoing an evaluation to r/o nephrolithiasis pt had a CT of her abdomen and pelvis on 08/17/2012 that showed: Unclear the significant of this finding . On exam no evidence of jaundice. Most recent blood work from 01/26/2012 showed no hyperbilirubinemia. Pt was referred to a GI specialist (Dr Lacey) to evaluate this ? need further imaging or work up as well as to comment on the significance of this finding. Pt was seen on 03/06/2013 Dr Lacey thought this was an incidental finding and likely congenital and no further work up or imaging was recommended. She was also seen at [facility] on 10/30/2012 and they recommended she be seen by Surgeon (Dr Espino) who saw pt on 11/06/2012 and was unsure as to what the clinical significance of this would be but he was going to review the exam with the radiologist at [facility] and was going to get back to the pt after that. Assessment & Plan (08/26/2022 12:58 PM EDT): While undergoing an evaluation to r/o nephrolithiasis pt had a CT of her abdomen and pelvis on 08/17/2012 that showed: Unclear the significant of this finding . On exam no evidence of jaundice. Most recent blood work from 01/26/2012 showed no hyperbilirubinemia. Pt was referred to a GI specialist (Dr Lacey) to evaluate this ? need further imaging or work up as well as to comment on the significance of this finding. Pt was seen on 03/06/2013 Dr Lacey thought this was an incidental finding and likely congenital and no further work up or imaging was recommended. She was also seen at [facility] on 10/30/2012 and they recommended she be seen by Surgeon (Dr Espino) who saw pt on 11/06/2012 and was unsure as to what the clinical significance of this would be but he was going to review the exam with the radiologist at [facility] and was going to get back to the pt after that. Preventative health care 08/26/2022 Assessment & Plan (01/03/2024 1:31 PM EDT): Mammogram: 09/19/2023 was negative. Pap Smear: 03/13/2010 s/p Hysterectomy Colonoscopy: 05/16/2020 Dr Lacey showed colon polyp and diverticulosis Assessment & Plan (02/22/2023 2:46 PM EST): Mammogram: 09/16/2022 was negative. Pap Smear: 03/13/2010 s/p Hysterectomy Colonoscopy: 05/16/2020 Dr Lacey showed colon polyp and diverticulosis Assessment & Plan (08/26/2022 1:01 PM EDT): Mammogram: 07/24/2021 was negative. Pap Smear: 03/13/2010 s/p Hysterectomy Colonoscopy: 05/16/2020 Dr Lacey showed colon polyp and diverticulosis Acute right-sided low back pain without sciatica 08/26/2022 Assessment & Plan (12/30/2022 12:55 PM EDT): Pt here for a follow up Last visit presented with new onset of right sided low back pain initially was 10/10, subsequently down to 5/10 No radiation. She denies any injury Exam back then was unremarkable I ordered Plain films of LS spine showed: Degenerative disc changes L2-L3. Facet degenerative changes L5-S1. No vertebral compression, spondylolisthesis, or spondylolysis. Assessment & Plan (08/26/2022 2:01 PM EDT): Pt with new onset of right sided low back pain initially was 10/10, now down to 5/10 No radiation. She denies any injury Exam unremarkable Plan: Plain films of LS spine f/u if no improvement might need PT Multinodular goiter 08/20/2022 Malignant tumor of thyroid gland 08/20/2022 Assessment & Plan (04/03/2024 10:18 AM EST): Previously pt was found to have incidental finding on neck CT of thyroid nodules Underwent thyroid US showed: 1. Homogeneous thyroid parenchyma with normal vascularity. 2. Multiple bilateral thyroid nodules. The largest is on the right measuring up to 1.6 cm with heterogeneous parenchyma, smooth margins, calcifications, and Doppler detectable vascular flow. Pt was seen by Endocrinology underwent FNA that was suspicious for papillary thyroid carcinoma Pt is now s/p total thyroidectomy 03/10/2020. she was started on Levothyroxine postoperatively and remains on 137 mcg PO daily. 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 she was on calcitriol buit this was stopped soon after. Repeat US 10/08/2023 showed: IMPRESSION: 1. Status post thyroidectomy with no residual thyroid tissue or nodules in the thyroid bed. 2. Bilateral cervical nodes are present. Some of these are abnormal in appearance as described above. Percutaneous ultrasound-guided biopsy can be considered if warranted. Pt will continue to follow with Endocrinology. Last seen by Dr. Nguyen 12/27/2023 He recommended to repeat US in March and increase Levothyroxine to 137 mcg once he has results of TFTs Assessment & Plan (01/03/2024 1:33 PM EDT): Previously pt was found to have incidental finding on neck CT of thyroid nodules Underwent thyroid US showed: 1. Homogeneous thyroid parenchyma with normal vascularity. 2. Multiple bilateral thyroid nodules. The largest is on the right measuring up to 1.6 cm with heterogeneous parenchyma, smooth margins, calcifications, and Doppler detectable vascular flow. Pt was seen by Endocrinology underwent FNA that was suspicious for papillary thyroid carcinoma Pt is now s/p total thyroidectomy 03/10/2020. she was started on Levothyroxine postoperatively and remains on 137 mcg PO daily. 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 she was on calcitriol buit this was stopped soon after. Repeat US 10/08/2023 showed: IMPRESSION: 1. Status post thyroidectomy with no residual thyroid tissue or nodules in the thyroid bed. 2. Bilateral cervical nodes are present. Some of these are abnormal in appearance as described above. Percutaneous ultrasound-guided biopsy can be considered if warranted. Pt will continue to follow with Endocrinology. Last seen by Dr. Nguyen 12/27/2023 He recommended to increase Levothyroxine to 137 mcg Assessment & Plan (09/01/2023 9:14 AM EDT): Previously pt was found to have incidental finding on neck CT of thyroid nodules Underwent thyroid US showed: 1. Homogeneous thyroid parenchyma with normal vascularity. 2. Multiple bilateral thyroid nodules. The largest is on the right measuring up to 1.6 cm with heterogeneous parenchyma, smooth margins, calcifications, and Doppler detectable vascular flow. Pt was seen by Endocrinology underwent FNA that was suspicious for papillary thyroid carcinoma Pt is now s/p total thyroidectomy 03/10/2020. she was started on Levothyroxine postoperatively and remains on 137 mcg PO daily. 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 she was on calcitriol buit this was stopped soon after. Pt will continue to follow with Endocrinology. Last seen 02/23/2023. He recommended to alternate Levothyroxine 112 to 125mcg Assessment & Plan (02/22/2023 2:45 PM EST): Previously pt was found to have incidental finding on neck CT of thyroid nodules Underwent thyroid US showed: 1. Homogeneous thyroid parenchyma with normal vascularity. 2. Multiple bilateral thyroid nodules. The largest is on the right measuring up to 1.6 cm with heterogeneous parenchyma, smooth margins, calcifications, and Doppler detectable vascular flow. Pt was seen by Endocrinology underwent FNA that was suspicious for papillary thyroid carcinoma Pt is now s/p total thyroidectomy 03/10/2020. she was started on Levothyroxine postoperatively and remains on 137 mcg PO daily. 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 she was on calcitriol buit this was stopped soon after. Pt will continue to follow with Endocrinology. Last seen 08/30/2022, has a follow up tomorrow 02/23/2023 Assessment & Plan (12/30/2022 12:58 PM EDT): Previously pt was found to have incidental finding on neck CT of thyroid nodules Underwent thyroid US showed: 1. Homogeneous thyroid parenchyma with normal vascularity. 2. Multiple bilateral thyroid nodules. The largest is on the right measuring up to 1.6 cm with heterogeneous parenchyma, smooth margins, calcifications, and Doppler detectable vascular flow. Pt was seen by Endocrinology underwent FNA that was suspicious for papillary thyroid carcinoma Pt is now s/p total thyroidectomy 03/10/2020. she was started on Levothyroxine postoperatively and remains on 137 mcg PO daily. 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 she was on calcitriol buit this was stopped soon after. Pt will continue to follow with Endocrinology. Last seen 08/30/2022 Assessment & Plan (08/26/2022 12:52 PM EDT): Previously pt was found to have incidental finding on neck CT of thyroid nodules Underwent thyroid US showed: 1. Homogeneous thyroid parenchyma with normal vascularity. 2. Multiple bilateral thyroid nodules. The largest is on the right measuring up to 1.6 cm with heterogeneous parenchyma, smooth margins, calcifications, and Doppler detectable vascular flow. Pt was seen by Endocrinology underwent FNA that was suspicious for papillary thyroid carcinoma Pt is now s/p total thyroidectomy 03/10/2020. she was started on Levothyroxine postoperatively and remains on 137 mcg PO daily. Pathology showed: Papillary thyroid cancer 1.4 cm with no angio or lymphatic invasion, [id number], she unfortunately had removal of 2 parathyroid glands at the time of the surgery and also has post surgical hypoparathyroidism . she was on calcitriol buit this was stopped soon after. Pt will continue to follow with Endocrinology. Hypoparathyroidism 08/20/2022 Assessment & Plan (09/01/2023 9:15 AM EDT): No longer on Calcitriol, this was as a result of Total Thyroidectomy TFTs \12/28/2022 on Levothyroxine 112 mcg alternating with 125 mcg PO daily. lowered by Endocrinology, last seen with dr Nguyen 02/23/2023 Assessment & Plan (12/30/2022 1:24 PM EDT): No longer on Calcitriol, this was as a result of Total Thyroidectomy TFTs \12/28/2022 on Levothyroxine 137 mcg alternating with 125 mcg PO daily. lowered by Endocrinology has appointment with dr Nguyen 02/23/2023 Assessment & Plan (08/26/2022 12:50 PM EDT): No longer on Calcitriol, this was as a result of Total Thyroidectomy TFTs 07/23/2021 wnl on [id number] mcg PO daily. lowered by Endocrinology Smoker 08/15/2018 Assessment & Plan (01/03/2024 1:31 PM EDT): Pt still smoking, she has smoked for over 20 years. Pt currently smoking 1/2 ppd. Low dose screening CT 10/10/2023 showed: IMPRESSION: 1. No evidence of pulmonary malignancy. 2. Mild emphysema and bronchial thickening. 3. Mild splenomegaly. Assessment & Plan (09/01/2023 9:44 AM EDT): Pt still smoking, she has smoked for over 20 years. Pt currently smoking 1/2 ppd. Low dose screening CT 08/13/2022 showed stable bilateral pulmonary nodules Assessment & Plan (08/26/2022 12:54 PM EDT): Pt still smoking, she has smoked for over 20 years. Pt currently smoking 1 ppd. Low dose screening CT 08/13/2022 showed stable bilateral pulmonary nodules Carpal tunnel syndrome 01/28/2015 Diverticular disease 01/12/2012 Assessment & Plan (08/26/2022 12:59 PM EDT): Pt currently not complaining with Hx of diverticulosis and diverticulitis in the past, on exam tenderness over her LLQ. CBC, ESR, Normal CT of her abdomen and pelvis to r/o acute diverticulitis was negative 11/06/2021 Type 2 diabetes mellitus 08/25/2011 Assessment & Plan (04/03/2024 10:56 AM EST): Pt is here for a f/u visit A1c 04/03/2024: 6.4 She is on a regimen of: Lantus 74 units sc q pm. Off Actos. Pt developed diarrhea even with a low dose of Metformin of 2 tabs po q pm. Eye exam was last done on: 01/21/2020 Microalbumin checked on: 09/26/2020 was: 8 Pt on an ARB. Foot check risk of zero Pt reports compliance with Asa 81 mg po daily. For now I have recommended to continue current regimen Pt advised to: adhere to diabetic diet check your blood sugars regularly check your feet on a daily basis Assessment & Plan (01/03/2024 1:35 PM EDT): Pt is here for a f/u visit A1c 01/03/2024: 6.4 She is on a regimen of: Lantus 74 units sc q pm. Off Actos. Pt developed diarrhea even with a low dose of Metformin of 2 tabs po q pm. Eye exam was last done on: 01/21/2020 Microalbumin checked on: 09/26/2020 was: 8 Pt on an ARB. Foot check risk of zero Pt reports compliance with Asa 81 mg po daily. For now I have recommended to continue current regimen Pt advised to: adhere to diabetic diet check your blood sugars regularly check your feet on a daily basis Assessment & Plan (09/01/2023 9:18 AM EDT): Pt is here for a f/u visit A1c 09/01/2023: 6.9 from 7.4 She is on a regimen of: Lantus 74 units sc q pm. Off Actos. Pt developed diarrhea even with a low dose of Metformin of 2 tabs po q pm. Eye exam was last done on: 01/21/2020 Microalbumin checked on: 09/26/2020 was: 8 Pt on an ARB. Foot check risk of zero Pt reports compliance with Asa 81 mg po daily. For now I have recommended to continue current regimen Pt advised to: adhere to diabetic diet check your blood sugars regularly check your feet on a daily basis Assessment & Plan (02/22/2023 2:57 PM EST): Pt is here for a f/u visit A1c higher that previous one Pt tells me she knows she has been eating bad She is on a regimen of: Lantus 74 units sc q pm. Off Actos. Pt developed diarrhea even with a low dose of Metformin of 2 tabs po q pm. Hgb A1c on 02/22/2023 was 7.4 Eye exam was last done on: 01/21/2020 Microalbumin checked on: 09/26/2020 was: 8 Pt on an ARB. Foot check risk of zero Pt reports compliance with Asa 81 mg po daily. For now I have recommended to continue current regimen Pt advised to: adhere to diabetic diet check your blood sugars regularly check your feet on a daily basis Assessment & Plan (12/30/2022 12:52 PM EDT): Pt is here for a f/u visit DM remains controlled She is on a regimen of: Lantus 74 units sc q pm. Off Actos. Pt developed diarrhea even with a low dose of Metformin of 2 tabs po q pm. Hgb A1c on 08/26/2022 was 6.5 Eye exam was last done on: 01/21/2020 Microalbumin checked on: 09/26/2020 was: 8 Pt on an ARB. Foot check risk of zero Pt reports compliance with Asa 81 mg po daily. For now I have recommended to continue current regimen Pt advised to: adhere to diabetic diet check your blood sugars regularly check your feet on a daily basis Assessment & Plan (08/26/2022 1:29 PM EDT): Pt is here for a f/u visit DM remains controlled She is on a regimen of: Lantus 74 units sc q pm. Off Actos. Pt developed diarrhea even with a low dose of Metformin of 2 tabs po q pm. Hgb A1c on 08/26/2022 was 6.5 Eye exam was last done on: 01/21/2020 Microalbumin checked on: 09/26/2020 was: 8 Pt on an ARB. Foot check risk of zero Pt reports compliance with Asa 81 mg po daily. For now I have recommended to continue current regimen Pt advised to: adhere to diabetic diet check your blood sugars regularly check your feet on a daily basis Allergic rhinitis 08/25/2011 Osteopenia 06/09/2009 Tubular adenoma 09/14/2006 Hypertension 04/[birth year]/1959 Assessment & Plan (04/03/2024 10:29 AM EST): Pt here for a f/u BP controlled She is on a regimen of: Enalapril 5 mg po daily, Verelan PM 300 mg po q pm and Hctz 25 mg po daily Most recent electrolytes, Bun and Creatinine done on: Lab Results Component Value Date NA 141 12/28/2022 NA 144 08/27/2022 K 3.5 12/28/2022 K 3.5 08/27/2022 CL 106 12/28/2022 CL 108 08/27/2022 BUN 17 (H) 12/28/2022 BUN 15 08/27/2022 CREATININE 0.5 02/01/2023 CREATININE 0.79 12/28/2022 were wnl. Will repeat. patient advised to adhere to a low sodium diet, encouraged about medication compliance, counseled about weight loss Plan: Continue current regimen Follow up with me in 4 months Assessment & Plan (01/03/2024 1:52 PM EDT): Pt here for a f/u BP slightly up due to Moexipril on back order She is on a regimen of: Moexipril 15 mg po daily, Verelan PM 300 mg po q pm and Hctz 25 mg po daily Most recent electrolytes, Bun and Creatinine done on: December 2022 were wnl. Will repeat. patient advised to adhere to a low sodium diet, encouraged about medication compliance, counseled about weight loss Plan: DC Univasc. Start Enalapril 5 mg po daily. Follow up with RN in 1 month and if BP elevated will increase enalapril to 10 mg . Follow up with me in 3 months Assessment & Plan (09/01/2023 9:50 AM EDT): Pt here for a f/u BP slightly up pt did not take her meds this morning. She is on a regimen of: Moexipril 15 mg po daily, Verelan PM 300 mg po q pm and Hctz 25 mg po daily Most recent electrolytes, Bun and Creatinine done on: 12/28/2022 were wnl. Will repeat. patient advised to adhere to a low sodium diet, encouraged about medication compliance, counseled about weight loss Plan: continue current regimen Assessment & Plan (12/30/2022 12:50 PM EDT): Pt here for a f/u BP controlled She is on a regimen of: Moexipril 15 mg po daily, Verelan PM 300 mg po q pm and Hctz 25 mg po daily Most recent electrolytes, Bun and Creatinine done on: 12/28/2022 were wnl. patient advised to adhere to a low sodium diet, encouraged about medication compliance, counseled about weight loss Plan: continue current regimen Assessment & Plan (08/26/2022 1:30 PM EDT): Pt here for a f/u BP controlled She is on a regimen of: Moexipril 15 mg po daily, Verelan PM 300 mg po q pm and Hctz 25 mg po daily Most recent electrolytes, Bun and Creatinine done on: 10/30/2021 were wnl. Will repeat patient advised to adhere to a low sodium diet, encouraged about medication compliance, counseled about weight loss Plan: continue current regimen Hyperlipidemia 04/11/1961 Assessment & Plan (04/03/2024 10:27 AM EST): Patient with elevated lipids. Most recent lipid profile from: Lab Results Component Value Date TRIG 96 08/27/2022 CHOL 115 08/27/2022 LDLCHOLCAL 61 08/27/2022 HDL 35 08/27/2022 08/27/2022 shows a total cholesterol of: 115 triglycerides of: 96 HDL of: 35 and LDL 61 Currently on a regimen of: Atorvastatin 20 mg po daily. and Fish Oil 1000 mg po TID Plan: Continue with current regimen. Repeat Lipid profile advised to try to adhere to a low cholesterol diet, counseled and educated about diet Assessment & Plan (09/01/2023 9:13 AM EDT): Patient with elevated lipids. Most recent lipid profile from: 08/27/2022 shows a total cholesterol of: 115 triglycerides of: 96 HDL of: 35 and LDL 61 Currently on a regimen of: Atorvastatin 20 mg po daily. and Fish Oil 1000 mg po TID Plan: Continue with current regimen. Repeat Lipid profile advised to try to adhere to a low cholesterol diet, counseled and educated about diet Assessment & Plan (12/30/2022 12:53 PM EDT): Patient with elevated lipids. Most recent lipid profile from: 08/27/2022 shows a total cholesterol of: 115 triglycerides of: 96 HDL of: 35 and LDL 61 Currently on a regimen of: Atorvastatin 20 mg po daily. and Fish Oil 1000 mg po TID Plan: Continue with current regimen advised to try to adhere to a low cholesterol diet, counseled and educated about diet Assessment & Plan (08/26/2022 12:49 PM EDT): Patient with elevated lipids. Most recent lipid profile from: 07/23/2021 shows a total cholesterol of: 151 triglycerides of: 491 HDL of: 28 and LDL TNP due to high trigs Currently on a regimen of: Atorvastatin 20 mg po daily. and Fish Oil 1000 mg po TID Plan: Repeat Lipid profile prior to next visit advised to try to adhere to a low cholesterol diet, counseled and educated about diet Gastroesophageal reflux disease 04/11/1961 Resolved Problems Problem Noted Date Diagnosed Date Resolved Date Dental calculus 02/07/2024 10/23/2024 Acute cough 09/01/2023 10/23/2024 Assessment & Plan (09/01/2023 9:51 AM EDT): Dry, Intermittent Discussed need to quit smoking Pt requesting a refill of Guaifenesin Pt in the contemplative stage Robitussin sent Pt already enrolled in low dose CT scan, last one 08/2022 Depressive disorder 04/11/1961 10/24/19 25 Assessment & Plan (02/22/2023 2:56 PM EST): Mild, mainly manifested by insomnia, pt tells me she has tried Elavil from her with good results Discussed potential side effects Plan: Start Elavil 25 mg po qhs Encounters Date Type Department Care Team Description 11/30/2024 Orders Only GENERIC EXTERNAL DATA DEPARTMENT Provider, Generic External Data 11/22/2024 Orders Only [facility] External Provider, [facility] 11/13/2024 Refill [facility] [address] [place] [address] Dharmesh Lentz MD Primary hypertension 11/08/2024 9:45 AM EDT Office Visit [facility] [address] [place] [phone] Camilla Campbell MD Chronic pain of both shoulders (Primary Dx) 11/08/2024 Travel 11/06/2024 1:15 PM EDT Office Visit [facility] [address] [place] [phone] Carlota House MD Chronic pain of both shoulders (Primary Dx) 11/06/2024 Refill [facility] [address] [place] [phone] Dharmesh Lentz MD Mixed hyperlipidemia 11/06/2024 Travel 11/05/2024 9:45 AM EDT Office Visit [facility] [address] [place] [phone] Camilla Campbell MD Chronic pain of both shoulders (Primary Dx) 11/05/2024 Travel 11/01/2024 9:15 AM EDT Office Visit [facility] [address] [facility] [place] [address] Camilla Campbell MD Chronic pain of both shoulders (Primary Dx) 11/01/2024 Travel 10/31/2024 Refill [facility] [address] [facility] [place] [address] Kenzie Jett ANP Type 2 diabetes mellitus without complication, unspecified whether nursing home insulin use ([facility]); Gastroesophageal reflux disease without esophagitis 10/30/2024 9:15 AM EDT Office Visit [facility] [address] [facility] [place] [address] Camilla Campbell MD Chronic pain of both shoulders (Primary Dx) 10/30/2024 Travel 10/29/2024 9:45 AM EDT Office Visit [facility] [address] [place] [address] Camilla Campbell MD Chronic pain of both shoulders (Primary Dx) 10/29/2024 Travel 10/25/2024 9:45 AM EDT Office Visit [facility] [address] [place] [address] Camilla Campbell MD Chronic pain of both shoulders (Primary Dx) 10/25/2024 Travel 10/23/2024 1:30 PM EDT Office Visit [facility] [address] [place] [address] Carlota House MD Chronic pain of both shoulders (Primary Dx) 10/23/2024 Travel 10/22/2024 9:00 AM EDT Office Visit [facility] [address] [place] [address] Camilla Campbell MD Chronic pain of both shoulders (Primary Dx) 10/22/2024 Travel 10/18/2024 9:15 AM EDT Office Visit [facility] [address] [facility] [place] [address] Camilla Campbell MD Chronic pain of both shoulders (Primary Dx) 10/18/2024 Travel 10/17/2024 Refill [facility] [address] [place] [address] Dharmesh Lentz MD Chronic neck pain 10/15/2024 Orders Only [facility] [address] [place] [address] Dharmesh Lentz MD 10/01/2024 Refill [facility] [address] [place] [address] Dharmesh Lentz MD Primary hypertension from Last 3 Months Immunizations Immunization Administration Dates Next Due Influenza High-dose Quadriva lent Preservative Free 12/30/2022,01/20/2021 Influenza Quadrivalent Adjuvanted 01/27/2020 Influenza injectable quadriv alent IIV4 with preservative 01/28/2015 Influenza injectable quadriv alent preservative free 12/29/2021,03/30/2016 Influenza, High Dose Seasona l, Preservative Free 01/03/2024,02/22/2019,01/11/2017 Influenza, IIV3, injectable 12/11/2019, 4 Influenza, Split (incl. angel fied surface antigen) 01/04/2013,01/12/2012 Pneumococcal Conjugate PCV 13 06/17/2016 Pneumococcal Polysaccharide PPSV23 09/19/2013 TD (adult), 2 Lf tetanus tox oid, preservative free, adsorbed 09/17/2011 Tdap 12/29/2021 Tetanus Toxoid, Unspecified 09/17/2011 Zoster, Recombinant 05/03/2023,12/30/2022 Zoster, live 04/24/2015 Social History Tobacco Use Types Packs/Day Years Used Date Smoking Tobacco: Every Day Cigarettes Passive Smoke Exposure: Current Smokeless Tobacco: Never Tobacco Cessation:Ready to Q uit: Not Asked; Counseling Given: Not Answered Depression Answer Date Recorded Patient Health Questionnaire-9 [...] Recorded Patient Health Questionnaire-2 Score 0 09/01/2023 Internet Access Answer Date Recorded Internet Access Q1 Yes 12/27/2023 Internet Access Q2 Not on file 12/27/2023 Comments Unknown Sex and Gender Information Value Date Recorded Sex Assigned at Female 02/08/2022 10:17 AM EDT Legal Sex Female 10:17 AM EDT Gender Identity Female 02/08/2022 10:17 AM EDT Sexual Orientation Straight 02/08/2022 10 :17 AM EDT Last Filed Vital Signs Vital Sign Reading Time Taken Comments Blood Pressure 136/74 04/03/2024 10:14 AM EST Pulse 70 04/03/2024 10:14 AM EST Temperature 36.8 C (98.2 F) 04/03/2024 10:14 AM EST Respiratory Rate 20 04/03/2024 10:14 AM EST Oxygen Saturation 98% 02/03/2024 9:31 AM EDT Inhaled Oxygen Concentration - - Weight 59.2 kg (130 lb 9.6 oz) 04/03/2024 10:14 AM EST Height 162.6 cm (5' 4 ) 04/03/2024 10:14 AM EST Body Mass Index 22.42 04/03/2024 10:14 AM EST Plan of Treatment Upcoming Encounters Date Type Department Care Team (Late st Contact Info) Description 12/20/2024 11:30 AM EDT Office Visit [facility] [address] [place], [place] [phone] Dharmesh Lentz MD [address] [place] [address] Health Maintenance Due Date Last Done Comments Diabetes: Foot Exam 01/24/1958 Eye Exam 01/24/1958 Hepatitis A Vaccines (1 of 2 - Risk 2-dose series) 01/24/1967 Hepatitis B Vaccines (1 of 3 - Risk 3-dose series) 2008 RSV Patients and Patients Aged 60 years or older (1 - 1-dose 75+ series) 01/24/2023 COVID-19 Vaccine ( - season) 2023 07/03/2020, 06/05/2020 Dental Oral Exam 08/08/2024 02/07/2024, , 08/03/2011, Additional history exists Dental Prophylaxis 08/08/2024 02/07/2024, 1 05/12/2013, 08/13/2013, Additional history exists Depression Screening 08/31/2024 09/01/2023, 09/01/19 SDOH Screening 08/31/2024 09/01/2023 Diabetes: Hemoglobin A1C 10/02/2024 024, 01/03/2024, 09/01/2023, Additional history exists Influenza Vaccine (#1) 2024 , 12/30/2022, 12/29/2021, Additional history exists Dental X-Ray: Bitewings 02/07/2025 02/07/20 24, 01/29/2013, 08/03/2011, Additional history exists Alcohol/Substance Use Screening 04/03/2025 04/03/2024 Diabetes: Urine Protein Screening 04/27/2025 04/27/2024, 08/27/2022, 09/26/2020 Lipid Panel 04/27/2025 04/27/2024, 08/09, 07/23/2021, Additional history exists Mammogram 10/15/2025 10/15/2024, 09/09, 09/16/2022, Additional history exists Tobacco Screening 11/06/2025 11/06/2024 Dental X-Ray: Full Mouth 02/07/2027 02/07/2024, 04/2009 DTaP/Tdap/Td Vaccines (2 - Td or Tdap) 12/30/2031 12/29/2021, 09/17/2011, 09/17/2011 Pneumococcal Vaccine: 50+ Years Completed 06/17/2016, 09/19/2013 Colonoscopy Discontinued 05/16/2020 Colorectal Cancer Screening Discontinued Hepatitis C Screening Completed 07/23/2021 Zoster Vaccines Completed 05/03/2023, 12/11, 04/24/2015 CT Colonography Discontinued FIT DNA/Cologuard Discontinued FIT Discontinued FOBT Discontinued HIB Vaccines Aged Out No longer eligi ble based on patient's age to complete this topic HPV Vaccines Aged Out No longer eligi ble based on patient's age to complete this topic IPV Vaccines Aged Out No longer eligi ble based on patient's age to complete this topic Meningococcal B Vaccine Aged Out No l onger eligible based on patient's age to complete this topic Meningococcal Vaccine Aged Out No marika vinnie eligible based on patient's age to complete this topic RSV under 20 months Aged Out No longe r eligible based on patient's age to complete this topic Rotavirus Vaccines Aged Out No longer eligible based on patient's age to complete this topic Sigmoidoscopy Discontinued Procedures Procedure Name Priority Date/Time Associated Diagnosis Comments TSH Routine 11/30/2024 2:44 PM EDT T4, FREE Routine 11/30/2024 2:44 PM EDT THYROGLOBULIN, LC/MS/MS Routine 11/30/2024 2:43 PM EDT THYROGLOBULIN ANTIBODIES Routine 11/30/2024 2:43 PM EDT THYROGLOBULIN, TUMOR MARKER W/REFLEX Routine 11/30/2024 2:43 PM EDT US HEAD NECK SOFT TISSUE Routine 11/22/2024 1:07 PM EDT BI MAMMOGRAM SCREENING TOMOSYNTHESIS BILATERAL Routine 10/15/2024 8:55 AM EDT LIPID PANEL, STANDARD Routine 04/27/2024 9:56 AM EST Mixed hyperlipidemia ALBUMIN, RANDOM URINE W/CREATININE Routine 04/27/2024 9:54 AM EST Type 2 diabetes mellitus without complication, with long-term current use of insulin ([facility]) POCT GLYCATED HEMOGLOBIN, TOTAL Routine 04/03/2024 10:42 AM EST Type 2 diabetes mellitus without complication, with long-term current use of insulin ([facility]) PROPHYLAXIS - ADULT Routine 02/07/2024 9 :00 AM EDT Dental calculus Generalized gingival recession INTRAORAL - COMPLETE SERIES OF RADIOGRAPHIC IMAGES Routine 02/07/2024 9:00 AM EDT Dental calculus Generalized gingival recession PERIODIC ORAL EVALUATION - ESTABLISHED PATIENT Routine 02/07/2024 9:00 AM EDT ZZZ HISTORICAL HEPATITIS C ANTIBODY RFLX Routine 07/23/2021 6:58 AM EDT HM COLONOSCOPY Routine 05/16/2020 from Last 3 Months or Most Recently Relevant to Health Maintenance Results * (ABNORMAL) TSH (11/30/2024 2:44 PM EDT) Thyroid Stimulating Hormone 0.04(L) 0.32 - 4.0 uIU/mL [facility] Comment:TSH 3rd Generation ( [facility]) 11/30/2024 2:44 PM EDT 11/30/2024 2:44 PM EDT us Generic External Data Provider LAB BLOOD ORDERAB LES Final Result [facility] [address] [place] [phone] * T4, Free (11/30/2024 2:44 PM EDT) Free T4 (Free Thyroxine) 1.32 0.71 - 1.85 ng/dL [facility] 11/30/2024 2:44 PM EDT 11/30/2024 2:44 PM EDT us Generic External Data Provider LAB BLOOD ORDERAB LES Final Result Performing Organization Address City/[facility]/ZIP Co de Phone Number [facility] [address] [place] [phone] * (ABNORMAL) Thyroglobulin, LC/MS/MS (11/30/2024 2:43 PM EDT) Thyroglobulin, LC/MS/MS <0.1(A) ng/mL [facility] Comment:Reference Range: Int act Thyroid 2.8-40.9 Athyrotic <0.1 Note: Abnormal flagging is based on the reference interval for patients with intact thyroid.This test was performed using the [employer] Coulterchemiluminescent method. Values obtained fromdifferent assay methods cannot be usedinterchangeably. Thyroglobulin levels, regardlessof value, should not be interpreted as absoluteevidence of the presence or absence of disease. Thyroglobulin Comment See Below [facility] Comment:Thyroglobulin antibo dies (TGAB) interfere withthyroglobulin (TG) assays; therefore, TGAB assayshould always be performed in conjunction with aTG assay.For additional information, please refer tohttp://education.Quantivo/faq/PHB231(This link is being provided for informational/educational purposes only.)THIS TEST WAS PERFORMED AT:[facility] [place] [id number] GUIDRY MD 11/30/2024 2:43 PM EDT 11/30/2024 2:43 PM EDT us Generic External Data Provider LAB BLOOD ORDERAB LES Final Result [facility] [address] [place] [phone] * Thyroblobulin, Tumor Marker w/Reflex (11/30/2024 2:43 PM EDT) Thyroglobulin Antibody <1 <=1 IU/mL [facility] Comment:This Thyroglobulin a ntibody test was performedusing the [employer] [place] Chemiluminescent method.Values obtained from different assay methods cannot beused interchangeably. Thyroglobulin antibody levels,regardless of value, should not be interpreted asabsolute evidence of the presence or absence ofdisease. Thyroglobulin, LC/MS/MS TNP [facility] Thyroglobulin Level <0.1 ng/mL [facility] Comment:Reference Range: Ath yrotic: <0.1 ng/mLReference range applies to differentiated thyroidcancer patients following treatment. The presence ofmeasurable thyroglobulin indicates the presence ofthyroglobulin-producing thyroid tissue. Clinicalcorrelation is advised.This Thyroglobulin test was performed using theHealthQx Chemiluminescent method. Valuesobtained from different assay methods cannot beused interchangeably. Thyroglobulin levels, regardlessof value, should not be interpreted as absoluteevidence of the presence or absence of disease.THIS TEST WAS PERFORMED AT:[id number] [place] [address]PDTAMDNWENDY CANO MD,PHD 11/30/2024 2:43 PM EDT 11/30/2024 2:43 PM EDT Generic External Data Provider LAB BLOOD ORDERAB LES Final Result Performing Organization Address [facility] Co de Phone Number [facility] [address] [place] [phone] * Thyroglobulin Antibodies (11/30/2024 2:43 PM EDT) Thyroglobulin Antibodies <1 < or = 1 IU/mL [facility] Comment:THIS TEST WAS PERFOR MED AT:[facility] [address] [phone] GUIDRY MD 11/30/2024 2:43 PM EDT 11/30/2024 2:43 PM EDT us Generic External Data Provider LAB BLOOD ORDERAB LES Final Result Performing Organization Address City/[facility]/ZIP Co de Phone Number [facility] [address] [place] [phone] * US Head Neck Soft Tissue (11/22/2024 1:07 PM EDT) Anatomical Region Laterality Modality Head, Neck Ultrasound 11/22/2024 1:07 PM EDT Narrative 11/22/2024 2:31 PM EDT [address] [address] Ultrasound Report Signed Patient: Zeina Ramírez MR#: [id number] : 1950 Acct:[id number] Age/Sex: 74 / F ADM Date: 11/22/24 Loc: HO.US Attending Dr: Agata Maier MD Ordering Physician: Agata Maier MD Date of Service: 11/22/24 Procedure(s): US soft tiss head and/or neck Accession Number(s): [id number] cc: Dharmesh Luther MD; Agata Maier MD US HEAD NECK SOFT TISSUE COMPARISON: Ultrasound of the head and neck on March 12, 2024 HISTORY: Z85.850 - Personal history of malignant neoplasm of thyroid. Status post thyroidectomy in February 2020. According to the technologist notes, it was difficult to directly compare with the prior ultrasound study. FINDINGS: Multiple normal-appearing neck lymph nodes as follows: Level IA midline: 0.9 x 0.4 x 0.7 cm Right level II: 1.3 x 0.3 x 0.5 cm and 0.7 x 0.3 x 0.5 cm Right level III: 1.5 x 0.4 x 0.7 cm Left level II: 1.3 x 0.4 x 0.4 cm and 0.4 x 0.3 x 0.3 cm Previously seen abnormal appearing left level IV round lymph node could not be seen on today's survey. US/US soft tiss head and/or neck IMPRESSION: 1. Multiple bilateral normal appearing neck lymph nodes as described above. 2. Previously seen right left level IV round lymph node could not be seen on today's survey. Electronically signed by: Dion Pedroza MD 11/22/2024 02:28 PM EDT RP Dictated By: Dion Pedroza MD Signed By: <Electronically signed by Dion Pedroza MD in OV> 11/22/24 1428 DD/ 1307 TD/TT: 11/22/24 1315 Brake Shoe Rebuilder: Procedure Note Donotuseinterpreter, Image - 11/22/[address] [address] Ultrasound Report Signed Patient: Adonis RamírezR#: [id number] : 8Acct:[id number] Age/Sex: 74 / FADM Date: 11/22/24 Loc: HO.US Attending Dr: Agata Maier MD Ordering Physician: Agata Maier MD Date of Service: 11/22/24 Procedure(s): US soft tiss head and/or neck Accession Number(s): [id number] cc: Dharmesh Luther MD; Agata Maier MD US HEAD NECK SOFT TISSUE COMPARISON: Ultrasound of the head and neck on March 12, 2024 HISTORY: Z85.850 - Personal history of malignant neoplasm of thyroid. Status post thyroidectomy in February 2020. According to the technologist notes, it was difficult to directly compare with the prior ultrasound study. FINDINGS: Multiple normal-appearing neck lymph nodes as follows: Level IA midline: 0.9 x 0.4 x 0.7 cm Right level II: 1.3 x 0.3 x 0.5 cm and 0.7 x 0.3 x 0.5 cm Right level III: 1.5 x 0.4 x 0.7 cm Left level II: 1.3 x 0.4 x 0.4 cm and 0.4 x 0.3 x 0.3 cm Previously seen abnormal appearing left level IV round lymph node could not be seen on today's survey. US/US soft tiss head and/or neck IMPRESSION: 1. Multiple bilateral normal appearing neck lymph nodes as described above. 2. Previously seen right left level IV round lymph node could not be seen on today's survey. Electronically signed by: Dion Pedroza MD 11/22/2024 02:28 PM EDT Dictated By: Dion Pedroza MD Signed By: <Electronically signed by Dion Pedroza MD in OV> 11/22/24 1428 DD/ 1307 TD/TT: 11/22/24 1315 Brake Shoe Rebuilder: us [facility] External Provider IMG US PROCEDURES Final Result * BI Mammogram Screening Tomosynthesis Bilateral (10/15/2024 8:55 AM EDT) Anatomical Region Laterality Modality Breast Bilateral Mammography 10/15/2024 8:55 AM EDT Narrative 10/24/2024 9:03 PM EDT [address] [place] [address] Mammography Report Signed Patient: Zeina Ramírez MR#: [id number] : 1950 Acct:[id number] Age/Sex: 74 / F ADM Date: 10/15/24 Loc: HO.MAMMO Attending Dr: Dharmesh Luther MD Ordering Physician: Dharmesh Luther MD Resu lts: 1Negative Date of Service: 10/15/24 Follow Up: 1 Year From Orig ina Mammogram Procedure(s): MM tomosynthesis screening BI Accession Number(s): [id number] cc: Dharmesh Luther MD EXAMINATION: MM SCREENING DIGITAL BREAST TOMOSYNTHESIS, BILATERAL CLINICAL INFORMATION: Screening. Asymptomatic. COMPARISON: Mammography: Comparison is made with available priors TECHNIQUE: Digital breast mammography with tomosynthesis is performed in both the craniocaudal and mediolateral oblique views along with computer-aided detection (CAD). FINDINGS: There are scattered areas of fibroglandular density (ACR BI-RADS breast composition Category b). There are no significant masses, abnormal calcifications, or other abnormalities. MM/MM tomosynthesis screening BI IMPRESSION: No mammographic evidence of malignancy. ASSESSMENT: BI-RADS BI-RADS 1 - Negative RECOMMENDATION: Routine annual mammography screening. 1 year F/U This examination should not preclude the clinical evaluation of a suspicious palpable abnormality. This patient's information was entered into a reminder system with a target due date for their next mammogram. Electronically signed by: Nely Humphries DO 10/24/2024 09:00 PM EDT RP Dictated By: Nely Humphries DO Signed By: <Electronically signed by Nely Humphries DO in OV> 10/24/24 2100 DD/ 0855 TD/TT: 10/15/24 0910 Brake Shoe Rebuilder: Procedure Note Donotuseinterpreter, Image - [facility] [address] [place] [address] Mammography Report Signed Patient: Taylor Ramírez#: [id number] : 8Acct:[id number] Age/Sex: 74 / FADM Date: 10/15/24 Loc: HO.MAMMO Attending Dr: Dharmesh Luther MD Ordering Physician: Dharmesh Luther MDResu lts: 1Negative Date of Service: 10/15/24Follow Up: 1 Year From Orig inal Mammogram Procedure(s): MM tomosynthesis screening BI Accession Number(s): [id number] cc: Dharmesh Luther MD EXAMINATION: MM SCREENING DIGITAL BREAST TOMOSYNTHESIS, BILATERAL CLINICAL INFORMATION: Screening. Asymptomatic. COMPARISON: Mammography: Comparison is made with available priors TECHNIQUE: Digital breast mammography with tomosynthesis is performed in both the craniocaudal and mediolateral oblique views along with computer-aided detection (CAD). FINDINGS: There are scattered areas of fibroglandular density (ACR BI-RADS breast composition Category b). There are no significant masses, abnormal calcifications, or other abnormalities. MM/MM tomosynthesis screening BI IMPRESSION: No mammographic evidence of malignancy. ASSESSMENT: BI-RADS BI-RADS 1 - Negative RECOMMENDATION: Routine annual mammography screening. 1 year F/U This examination should not preclude the clinical evaluation of a suspicious palpable abnormality. This patient's information was entered into a reminder system with a target due date for their next mammogram. Electronically signed by: Nely Humphries DO 10/24/2024 09:00 PM EDT Dictated By: Nely Humphries DO Signed By: <Electronically signed by Nely Humphries DO in OV> 10/24/24 2100 DD/ 0855 TD/TT: 10/15/24 0910 Brake Shoe Rebuilder: Dharmesh Guardado MD IMG BI PROCEDURES Maximilian noel Result - Final * (ABNORMAL) Lipid Panel, Standard (04/27/2024 9:56 AM EST) Triglycerides 273(H) <150 mg/dL [facility] Comment:Desirable Triglyceri de: less than 150 mg/dLBorderline High Triglyceride 150-199 mg/dLHigh Triglyceride: 200-499 mg/dLVery High Triglyceride: greater than or equal to 5OO mg/dL Cholesterol 107 <200 mg/dL [facility] Comment:Desirable Cholestero l: less than 200 mg/dLBorderline High Cholesterol: 200-239 mg/dLHigh Cholesterol: greater than 239 mg/dL LDL Cholesterol Calculated 23 <100 mg/dL [facility] Comment:Desirable LDL: less than 100 mg/dLNear Optimal/Above Optimal LDL: 110- 129 mg/dLBorderline High LDL: 130-159 mg/dLHigh LDL: 160-189 mg/dLVery High LDL: greater than or equal to 190 mg/dL HDL Cholesterol 30(L) >40 mg/dL [facility] Comment:Desirable HDL: great er than 40 mg/dL Note: This HDL assay may give artificially low results in patients with liver disease. Blood Venous blood specimen / Unknown 04/27/2024 9:56 AM EST 04/27/2024 9:56 AM EST Dharmesh Guardado MD LAB BLOOD ORDERABLES Final Result [facility] [address] [place] [phone] * Albumin, Random Urine W/Creatinine (04/27/2024 9:54 AM EST) Creatinine, Urine 77.61 mg/dL [facility] Microalbumin Urine 9.0 mg/L [facility] Microalbum Creatinine Ratio Ur 11.5 <30 ug/mg cr [facility] Comment:Albumin/Creatinine R atio Reference Ranges: Normal: < 30 ug/mg creatinine Microalbuminuria: 30 - 300 ug/mg creatinineClinical Albuminuria: > 300 ug/mg creatinine Urine (Urine, Random) 04/27/2024 9:54 AM EST 04/27/2024 10:39 AM EST Dharmesh Guardado MD LAB URINE ORDERABLES Final Result [facility] [address] [place] [phone] * (ABNORMAL) POCT HGB A1C (04/03/2024 10:42 AM EST) Hemoglobin A1C 6.4(A) 4.0 - 6.0 % QC Media Lot # [id number] Lot# Expiration Date Blood 04/03/2024 10:4 2 AM EST us Dharmesh Guardado MD POINT OF CARE TEST EN TER/EDIT ORDERABLES Final Result * HEPATITIS C ANTIBODY RFLX (07/23/2021 6:58 AM EDT) Hepatitis C Antibody Nonreactive Nonreactive [facility] Comment: Antibodies to HCV not detected; does not exclude early acute HCV infection. 07/23/2021 6:58 AM EDT us Dharmesh Guardado MD HISTORICAL/NON ORDERA BLE LABS Final Result [facility] [address] [place] [address], * Colonoscopy (05/16/2020) Colonoscopy Normal Normal 05/16/2020 Diamond Levin - 05/16/2020 8:51 AM EST Recommended 5 year follow up us Historical Provider MD HEALTH MAINTENANCE Edited Result - Final from Last 3 Months or Most Recently Relevant to Health Maintenance Insurance MEDICARE Member Subscriber Plan / Payer (Ef fective 2022-Present) Name:Zeina Ramírez Member ID:[id number] Relation to Subscriber:Self Name:Zeina Ramírez Subscriber ID:[id number] Payer ID:STATE Group ID:Not on file Type:Medicare Address: [facility] [address] [address] [facility] MEDEX CARE Care Teams Payroll Technician Relationship Specialty Start Date End Date Dharmesh Lentz MD [address] [place] [phone] PCP - General Internal Medicine 11/22/13
--- OUTSIDE RECORDS SUMMARY | 2024-12-06 12:17 | XMS_ITS | Encounter Summary ---
Author Organization [employer] Address [address] [facility] [address] [place] [address] Care Team Providers Care Associate Web Developer Name Role Phone Dharmesh Lentz MD Primary Care Provide r Reason for Visit * Reason Onset Date Comments Med Refill 10/07/2023 Encounter Details Date Type Department Care Team ([facility] st Contact Info) Description 10/07/2023 Telephone [facility] MEDICINE [address] [place] [address] Dharmesh Lentz MD [address] [place] [address] Med Refill Social History Tobacco Use Types [...] 11:49 AM EDT Medication was sent to [facility] #[id number] on 09/01/23 with 1 refill. * Telephone Encounter - Carlton Hoffmann - 10/07/2023 11:46 AM EDT TC from pt requesting medication refill. Medications needing refill: naproxen (Naprosyn) 500 MG tablet To be sent to: [id number] documented in this encounter Plan of Treatment Upcoming Encounters Date Type Department Care Team (Late st Contact Info) Description 12/20/2024 11:30 AM EDT Office Visit [facility] MED[facility]INE [address] [place] [address] Dharmesh Lentz MD [address] [place], [place] [phone] documented as of this encounter Visit Diagnoses Not on filedocumented in this encounter Additional Health Concerns Assessment Noted Time PHQ-9 Depression Total Score: 2 05/23/20 24 9:16 AM EDT documented as of this encounter Care Teams Associate Web Developer Relationship Specialty Start Date End Date Dharmesh Lentz MD [address] [place] [address] PCP - General Internal Medicine 11/22/13 documented as of this encounter
--- OUTSIDE RECORDS SUMMARY | 2024-12-06 12:17 | XMS_ITS | Encounter Summary ---
Author Organization [employer] Address 75 [facility] [address] [place] [address] Care Team Providers Care Shoemaking Finisher Name Role Phone Dharmesh Lentz MD Primary Care Provide r Reason for Visit * Reason Comments Med Refill Encounter Details Date Type Department Care Team (Late st Contact Info) Description 10/28/2022 Refill [facility] MED[facility] [address] [place] [phone] Maria Esther Case MD [address] [place] [address] Social History Tobacco Use Types Packs/Day Years Used Date Smoking Tobacco: Every Day Cigarettes Passive Smoke Exposure: Current Smokeless Tobacco: Never Depression Answer Date Recorded Patient Health Questionnaire-9 Score 6 08/26/2022 Depression Answer Date Recorded Patient Health Questionnaire-2 Score 1 08/26/2022 Comments Unknown Sex and Gender Information Value [...] Description 12/20/2024 11:30 AM EDT Office Visit [facility] [address] [place] [address] [phone] Dharmesh Lentz MD [address] [place], [place] [phone] documented as of this encounter Visit Diagnoses Not on filedocumented in this encounter Additional Health Concerns Assessment Noted Time PHQ-9 Depression Total Score: 6 08/27/19 23 1:26 PM EDT documented as of this encounter Care Teams Shoemaking Finisher Relationship Specialty Start Date End Date Dharmesh Lentz MD 230 [place] [address] PCP - General Internal Medicine 11/22/13 documented as of this encounter
--- OUTSIDE RECORDS SUMMARY | 2024-12-06 12:17 | XMS_ITS | Encounter Summary ---
Author Organization [employer] Address 75 [facility] [address] [address] Care Team Providers Care Network/Telecom Engineer Name Role Phone Dharmesh Lentz MD Primary Care Provide r Reason for Visit * Reason Comments Med Refill Encounter Details Date Type Department Care Team (Late st Contact Info) Description 09/02/2022 Refill [facility] MEDICINE [address] [place] [address] Dharmesh Lentz MD [address] [place] [address] Social History Tobacco Use Types Packs/Day Years [...] Orientation Straight 02/08/2022 10 :17 AM EDT COVID-19 Exposure Response Date Recorded In the last 10 days, have yo u been in contact with someone who was confirmed or suspected to have Coronavirus/COVID-19? No / Unsure 08/26/2022 1:02 PM EDT documented as of this encounter Plan of Treatment Upcoming Encounters Date Type Department Care Team (Late st Contact Info) Description 12/20/2024 11:30 AM EDT Office Visit [facility] [address] [facility] [place] [address] Dharmesh Lentz MD [address] [place] [address] documented as of this encounter Visit Diagnoses Not on filedocumented in this encounter Additional Health Concerns Assessment Noted Time PHQ-9 Depression Total Score: 6 08/27/19 23 1:26 PM EDT documented as of this encounter Care Teams Network/Telecom Engineer Relationship Specialty Start Date End Date Dharmesh Lentz MD [address] [facility] [place] [address] PCP - General Internal Medicine 11/22/13 documented as of this encounter
--- OUTSIDE RECORDS SUMMARY | 2024-12-06 12:18 | XMS_ITS | Encounter Summary ---
Author Organization [employer] Address [address] [facility] [address], [place] [address] Care Team Providers Care Open Pit Quarry Supervisor Name Role Phone Dharmesh Lentz MD Primary Care Provide r Reason for Visit * Reason Comments Med Refill Encounter Details Date Type Department Care Team (Late st Contact Info) Description 10/16/2022 Refill [facility] MED[facility]INE [address] [place] [address] Dharmesh Lentz MD [address] [place] [address] [phone] Social History Tobacco Use Types Packs/Day Years [...] 12/20/2024 11:30 AM EDT Office Visit [facility] [address] [place] [address] Dharmesh Lentz MD [address] [place] [address] documented as of this encounter Visit Diagnoses Not on filedocumented in this encounter Additional Health Concerns Assessment Noted Time PHQ-9 Depression Total Score: 6 08/27/19 23 1:26 PM EDT documented as of this encounter Care Teams Open Pit Quarry Supervisor Relationship Specialty Start Date End Date Dharmesh Lentz MD 230 [place] [address] PCP - General Internal Medicine 11/22/13 documented as of this encounter
--- OUTSIDE RECORDS SUMMARY | 2024-12-06 12:18 | XMS_ITS | Encounter Summary ---
Author Organization [employer] Address [address] [facility] [address] [place] [address] Care Team Providers Care Predatory Animal Hunter Name Role Phone Dharmesh Lentz MD Primary Care Provide r Reason for Visit * Reason Onset Date Comments Med Refill 05/01/2024 Encounter Details Date Type Department Care Team ([facility] st Contact Info) Description 05/01/2024 Telephone [facility] MEDICINE [address] [place] [address] Dharmesh Lentz MD [address] [place] [address] Med Refill Social History Tobacco Use Types [...] Telephone Encounter - Millie Westbrook LPN - 05/01/2024 8:22 AM EST Medication was sent to [facility] #[id number] on 04/03/24 #30 with 3 refills. * Telephone Encounter - Angelo Paris - 05/01/2024 8:12 AM EST TC from pt requesting medication refill. Medications needing refill : enalapril (Vasotec) 5 MG tablet To be sent to: [id number] - [place] - [address] [place] [address] AT [facility] documented in this encounter Plan of Treatment Upcoming Encounters Date Type Department Care Team (Late st Contact Info) Description 12/20/2024 11:30 AM EDT Office Visit [facility] MEDICINE [address] [place] [address] Dharmesh Lentz MD [address] [place] [address] documented as of this encounter Visit Diagnoses Not on filedocumented in this encounter Additional Health Concerns Assessment Noted Time PHQ-9 Depression Total Score: 2 09/01/19 24 9:16 AM EDT documented as of this encounter Care Teams Predatory Animal Hunter Relationship Specialty Start Date End Date Dharmesh Lentz MD [address] [place] [address] PCP - General Internal Medicine 11/22/13 documented as of this encounter
--- OUTSIDE RECORDS SUMMARY | 2024-12-06 12:18 | XMS_ITS | Encounter Summary ---
Author Organization [employer] Address [address] [facility] [address] [place] [address] Care Team Providers Care Sign Maintenance Name Role Phone Dharmesh Lentz MD Primary Care Provide r Reason for Visit * Reason Comments Med Refill Encounter Details Date Type Department Care Team ([facility] st Contact Info) Description 08/31/2022 Refill [facility] MEDICINE [address] [place] [address] Dharmesh Lentz MD [address] [place] [address] Social History Tobacco Use Types Packs/Day Years [...] PM EDT documented as of this encounter Miscellaneous Notes * Telephone Encounter - Magda Us RN - 09/01/2022 10:18 AM EDT ----- Message from Dharmesh Guardado MD sent at 08/31/2022 4:22 PM EDT ----- Please let patient know that her most recent blood work was unremarkable Her x-ray of the lumbar spine showed degenerative changes in her spine, but no vertebral compression fractures documented in this encounter Plan of Treatment Upcoming Encounters Date Type Department Care Team (Late st Contact Info) Description 12/20/2024 11:30 AM EDT Office Visit [facility] MEDICINE [address] [place] [address] Dharmesh Lentz MD [address] [place] [address] documented as of this encounter Visit Diagnoses Not on filedocumented in this encounter Additional Health Concerns Assessment Noted Time PHQ-9 Depression Total Score: 6 08/27/19 23 1:26 PM EDT documented as of this encounter Care Teams Sign Maintenance Relationship Specialty Start Date End Date Dharmesh Lentz MD [address] [place] [address] PCP - General Internal Medicine 11/22/13 documented as of this encounter
--- OUTSIDE RECORDS SUMMARY | 2024-12-06 12:18 | XMS_ITS | Patient Health Record ---
Author Organization [facility] Address [address] [place] [address] Care Team Providers Care Rounding Machine Tender Name Role Phone Stefani Guardado MD, Dharmesh Primary Care Provide r Unavailable Jesus Lacey Unavailable [phone] Allergies Allergen (clinical drug ingredient) Drug/Non Drug [...] Problem Screening for malignant neoplasm of colon (134023232) Encounter for screening for malignant neoplasm of colon (Z12.11) Active confirmed Problem History of adenomatous polyp of colon (006961690) History of adenomatous polyp of colon (Z86.010) Active confirmed Problem Diverticular disease of colon (398931058) Diverticulosis (K57.90) Active confirmed Problem 942160502 Gastroesophageal reflux disease without esophagitis (K21.9) Active confirmed Problem Gastroesophageal reflux disease (342582920) GERD (gastroesophageal reflux disease) (K21.9) Active confirmed Problem 85203240 Irritable bowel syndrome with both constipation and diarrhea (K58.2) Active confirmed Plan Of Treatment Future Test Test Name Order Date UPPER GI ENDOSCOPY 04/24/2020 COLONOSCOPY 04/24/2020 Insurance Providers Payer Name Payer Address Payer Phone Subscriber Number Group Number Insured Name Patient Relationship to Insured Coverage Start Date Coverage End Date MEDICARE OF [place] [address] [place] [address] [phone] [id number] AYDE GOULD Self - patient is the insured MED[employer] ATTN CLAIMS [address] [place] [address] [phone] [id number] AYDE GOULD Self - patient is the insured Medical (General) History Medical History History ICD Code IDDM Hypertension Tubular adenomas removed in [address] Samson; colonoscopy in 04/2015 with hyperplastic polyps-Dr. Samson Denies [place],CVA,Lung disease,renal disease Diverticulosis-Rx'd with ant ibiotics in [...]
--- OUTSIDE RECORDS SUMMARY | 2024-12-06 12:18 | XMS_ITS | Encounter Summary ---
Author Organization [employer] Address 75 [facility] [address] [place] [address] Care Team Providers Care Shore Working Supervisor Name Role Phone Dharmesh Lentz MD Primary Care Provide r Reason for Visit * Reason Onset Date Comments Prior Authorization 02/24/2023 Encounter Details Date Type Department Care Team ([facility] st Contact Info) Description 02/24/[address] [facility] MEDICINE [address] [place] [address] Dharmesh Lentz MD [address] [place] [address] Prior Authorization Social History Tobacco Use Types Packs/Day Years Used Date Smoking Tobacco: Every Day Cigarettes Passive Smoke Exposure: Current Smokeless Tobacco: Never Depression Answer Date Recorded Patient Health Questionnaire-9 Score 6 08/26/2022 Housing Stability Answer Date Recorded What is your housing situation today? I have azar sullivan 01/24/[address] you li ve. Do you have problems with any of the following? None of the above 01/24/2023 Food Insecurity Answer Date Recorded Within the past 12 months, y ou worried that your food would run out before you got money to buy more: Never True 01/24/2023 Within the past 12 months,th e food you bought just didn't last and you didn't have enough money to get more: Never True Transportation Answer Date Recorded In the past 12 months, has l ack of transportation kept you from medical appts, meetings, work or from getting things needed for daily living? No 01/24/2023 Utilities Answer Date Recorded In the past 12 months, has t he electric, gas, oil or water company threatened to shut off services in your home? No 01/24/2023 Depression Answer Date Recorded Patient Health Questionnaire-2 Score 1 08/26/2022 Comments Unknown Sex and Gender Information Value Date Recorded Sex Assigned at Female 02/08/2022 10:17 AM EDT Legal Sex Female 10:17 AM EDT Gender Identity Female 02/08/2022 10:17 AM EDT Sexual Orientation Straight 02/08/2022 10 :17 AM EDT documented as of this encounter Miscellaneous Notes * Telephone Encounter - Jake Guardado - 02/24/2023 10:48 AM EST Tc from patient requesting a prior authorization from PCP for amitriptyline (Elavil) 25 MG tablet. documented in this encounter Plan of Treatment Upcoming Encounters Date Type Department Care Team (Late st Contact Info) Description 12/20/2024 11:30 AM EDT Office Visit [facility] MEDICINE [address] [place] [address] Dharmesh Lentz MD [address] [place] [address] documented as of this encounter Visit Diagnoses Not on filedocumented in this encounter Additional Health Concerns Assessment Noted Time PHQ-9 Depression Total Score: 6 08/27/19 23 1:26 PM EDT documented as of this encounter Care Teams Shore Working Supervisor Relationship Specialty Start Date End Date Dharmesh Lentz MD [address] [place] [address] PCP - General Internal Medicine 11/22/13 documented as of this encounter
== END 2024-12-06 11:08 | disposition home or self-care (01) ==
LOC: HO.ENCR 10:49
PROVIDERS: PCP Internal Medicine; Visit Provider Student in an Organized Health Care Education/Training Program
DX: Z85.850 Personal history of malignant neoplasm of thyroid (principal); E89.0 Postprocedural hypothyroidism
CPT/HCPCS: 99214; G2211

== ENCOUNTER → 2024-12-06 10:48 | Outpatient (BNVA) | payer MEDICARE, SELFPAY | PROVIDERS: PCP Internal Medicine; Visit Provider Student in an Organized Health Care Education/Training Program | DX: E89.0 Postprocedural hypothyroidism (principal); Z85.850 Personal history of malignant neoplasm of thyroid | CPT/HCPCS: 99212 ==

== ENCOUNTER 2024-12-20 12:15 | Outpatient (REF) | payer MEDICARE, SELFPAY ==
--- NOTE | ~2024-12-20 | XR_ITS ---
EXAMINATION: XR HIP 2 OR MORE VIEWS RIGHT HISTORY: right sided low back pain and right hip pain COMPARISON: Comparison is made with the prior examination dated 08/29/2023. FINDINGS: Two views of the right hip are submitted. Osseous mineralization is normal. There is no fracture or dislocation. There is mild joint space narrowing. The soft tissues are unremarkable. XR/XR hip RT min 2V IMPRESSION: Mild joint space narrowing. Electronically signed by: Jesus Douglass MD 12/20/2024 12:51 PM EDT
--- NOTE | ~2024-12-20 | XR_ITS ---
EXAMINATION: XR LUMBOSACRAL SPINE CLINICAL INFORMATION: right sided low back pain and right hip pain COMPARISON: August 26, 2022 TECHNIQUE: Three views of the lumbosacral spine. FINDINGS: Surgical clips in right upper quadrant likely are present prior cholecystectomy. Moderate atherosclerotic ossifications are present in the distal abdominal aorta and common iliac arteries. There are 5 nonrib-bearing lumbar segment. Vertebral body height is preserved with compared to the prior. Mild disc space narrowing is noted at L1-2 and L2-3. Endplate osteophyte are present anteriorly at L2-3, L3-4, and posteriorly at L4-5. Facet sclerosis is seen at L4-5 and L5-S1. XR/XR lumbar spine 2-3V IMPRESSION: No acute abnormality. Multilevel degenerative changes, stable. Atherosclerotic disease. Electronically signed by: Tony Pimentel MD 12/20/2024 12:54 PM EDT
--- OUTSIDE RECORDS SUMMARY | 2024-12-20 11:30 | XMS_ITS | Encounter Summary ---
Author Organization [email or web address] Address [address] [facility] [address] [place] [address] Care Team Providers Care Pocket Secretary Assembler Name Role Phone Dharmesh Lentz MD Primary Care Provide r Reason for Referral * Consultation (Routine) - Pending Review Specialty Diagnoses / Procedures Referred By Contac t Referred To Contact Orthopaedic Surgery Diagnoses Right hip pain Dharmesh Lentz MD [address] [place] [address] Phone: tel: fax: Referral ID Status Reason Start Date Expiration Date Visits Requested Visits Authorized [id number] Pending Review Specialty Services Required 12/20/2024 12/20/2025 1 1 * Consultation (Routine) - Closed Specialty Diagnoses / Procedures Referred By Contbrianda t Referred To Contact Physical Therapy Diagnoses Right hip pain Acute right-sided low back pain without sciatica Dharmesh Lentz MD [address] [place] [address] Phone: tel: fax: [facility] Physical Therapy [address] [place], [place] Phone: tel: fax: Referral ID Status Reason Start Date Expiration Date V isits Requested Visits Authorized [id number] Closed Specialty Services Required 12/20/2024 12/20/2025 1 1 Reason for Visit * Reason Comments Follow-up HTN Encounter Details Date Type Department Care Team ([facility] st Contact Info) Description 12/20/2024 11:30 AM EDT Office Visit [facility] [address] [facility] [place] [address] Dharmesh Lentz MD [address] [place] [address] Type 2 diabetes mellitus without complication, with long-term current use of insulin (CMS/HCC) (Primary Dx); Primary hypertension; Mixed hyperlipidemia; Malignant tumor of thyroid gland (CMS/HCC); Acute right-sided low back pain without sciatica; Right hip pain; Preventative health care Social History Tobacco Use Types Packs/Day Years Used Date Smoking Tobacco: Every Day Cigarettes Passive Smoke Exposure: Current Smokeless Tobacco: Never Depression Answer Date Recorded Patient Health Questionnaire-9 Score 2 09/01/2023 Patient Health Questionnaire-9 Score 2 09/01/2023 Last PHQ-9: Questionnaire Data Not on file 0 09/01/2023 Housing Stability Answer Date Recorded What is your housing situation today? I have azar laurie 12/13/[address] you li ve. Do you have problems with any of the following? None of the above 12/13/2024 Food Insecurity Answer Date Recorded Within the past 12 months, y ou worried that your food would run out before you got money to buy more: Never True 12/13/2024 Within the past 12 months,th e food you bought just didn't last and you didn't have enough money to get more: Never True 07/2024 Transportation Answer Date Recorded In the past 12 months, has l ack of transportation kept you from medical appts, meetings, work or from getting things needed for daily living? No 12/13/2024 Utilities Answer Date Recorded In the past 12 months, has t he electric, gas, oil or water company threatened to shut off services in your home? No 12/13/2024 Depression Answer Date Recorded Patient Health Questionnaire-2 [...] AM EDT documented as of this encounter Last Filed Vital Signs Vital Sign Reading Time Taken Comments Blood Pressure 130/62 12/20/2024 11:32 AM EDT Pulse 74 12/20/2024 11:32 AM EDT Temperature 37.2 C (98.9 F) 12/20/2024 11:32 AM EDT Respiratory Rate 20 12/20/2024 11:32 AM EDT Oxygen Saturation 98% 12/20/2024 11:32 AM EDT Inhaled Oxygen Concentration - - Weight 57.4 kg (126 lb 9.6 oz) 12/20/2024 11:32 AM EDT Height 162.6 cm (5' 4 ) 12/20/2024 11:32 AM EDT Body Mass Index 21.73 12/20/2024 11:32 AM EDT documented in this encounter Progress Notes * Dharmesh Guardado MD - 12/20/2024 11:30 AM EDT SUBJECTIVE Zeina Ramírez is a 74 y.o. female who presents for Follow-up (HTN). Zeina Ramírez, 74 years Fatigue and Weakness - Reports feeling tired and lacking energy for several weeks prior to visit - Pushes herself to complete daily activities despite fatigue - Describes decreased flexibility compared to previous years - Appetite has decreased with age, now eats less than before Right Hip and Leg Discomfort - Discomfort in right hip for several weeks, described as a sensation rather than pain - Discomfort radiates from right hip down to the back of the right knee - Symptoms are intermittent, not constant - Previous similar episode in August 2023, with pain radiating from back to hip and lower area, resolved spontaneously without follow-up - History of right hip arthritis noted in imaging from August 2022 - Receives massages for relief - Uses naproxen and Tylenol as needed for pain - Has notes and instructions from prior physical therapy sessions, performs exercises at home during severe episodes - Reports decreased flexibility compared to previous years Misc - Reports receiving influenza and respiratory syndrome vaccines in August 2024 - Recent normal mammogram performed two months ago Diabetes She presents for her follow-up diabetic visit. She has type 2 diabetes mellitus. Pertinent negatives for hypoglycemia include no headaches. Pertinent negatives for diabetes include no chest pain. Hypertension This is a chronic problem. Pertinent negatives include no chest pain, headaches or shortness of breath. Review of Systems Constitutional: Negative for fever. HENT: Negative for sore throat. Respiratory: Negative for cough and shortness of breath. Cardiovascular: Negative for chest pain. Gastrointestinal: Negative for abdominal pain. Neurological: Negative for headaches. Allergies[1] OBJECTIVE Vitals: 12/20/24 1132 BP: 130/62 BP Location: Left arm Patient Position: Sitting BP Cuff Size: Adult Pulse: 74 Resp: 20 Temp: 98.9 ??F (37.2 ??C) TempSrc: Oral SpO2: 98% Weight: 126 lb 9.6 oz (57.4 kg) Height: 5' 4 (1.626 m) Physical Exam Vitals reviewed. Constitutional: Appearance: Normal appearance. HENT: Head: Normocephalic and atraumatic. Right Ear: External ear normal. Left Ear: External ear normal. Nose: Nose normal. Mouth/Throat: Mouth: Mucous membranes are moist. Eyes: Conjunctiva/sclera: Conjunctivae normal. Cardiovascular: Rate and Rhythm: Normal rate and regular rhythm. Pulmonary: Effort: Pulmonary effort is normal. Breath sounds: Normal breath sounds. Musculoskeletal: Lumbar back: Spasms present. Right lower leg: Normal. Left lower leg: Normal. Skin: General: Skin is warm. Neurological: Mental Status: She is alert. Mental status is at baseline. Assessment/Plan Problem List Items Addressed This Visit Type 2 diabetes mellitus ([facility]) - Primary Pt is here for a f/u visit A1c 12/20/2024: 6.8 She is on a regimen of: Lantus [...] check your feet on a daily basis Relevant Orders CBC auto differential Comprehensive Metabolic Panel POCT glucose manually resulted (Completed) POCT glycosylated hemoglobin (Hgb A1c) (Completed) Hypertension Pt here for a f/u BP controlled She is on a regimen of: Enalapril 5 mg po daily, Verelan PM 300 mg po q pm and Hctz 25 mg po daily Most recent electrolytes, Bun and Creatinine done on: Lab Results Component Value Date NA 141 04/27/2024 NA 141 12/28/2022 K 3.4 04/27/2024 K 3.5 12/28/2022 CL 107 04/27/2024 CL 106 12/28/2022 BUN 19 (H) 04/27/2024 BUN 17 (H) 12/28/2022 CREATININE 0.73 04/27/2024 CREATININE 0.5 02/01/2023 were wnl. Will repeat. patient advised to adhere to a low sodium diet, encouraged about medication compliance, counseled about weight loss Plan: Continue current regimen Follow up with me in 4 months Relevant Medications hydroCHLOROthiazide (HYDRODiuril) 25 MG tablet Hyperlipidemia Patient with elevated lipids. Most recent lipid profile from: Lab Results Component Value Date TRIG 273 (H) 04/27/2024 TRIG 96 08/27/2022 CHOL 107 04/27/2024 CHOL 115 08/27/2022 LDLCHOLCAL 23 04/27/2024 LDLCHOLCAL 61 08/27/2022 HDL 30 (L) 04/27/2024 HDL 35 08/27/2022 Currently on a regimen of: Atorvastatin 20 mg po daily. and Fish Oil 1000 mg po TID Plan: Continue with current regimen. Repeat Lipid profile advised to try to adhere to a low cholesterol diet, counseled and educated about diet Relevant Orders Lipid Panel, Standard Malignant tumor of thyroid gland (CMS/HCC) Previously pt was found to have incidental [...] cm with no angio or lymphatic invasion, [id number], she unfortunately had removal of 2 parathyroid [...] continue to follow with Endocrinology. Last seen 11/30/2024 He recommended to continue Levothyroxine lowered to 125 mcg PO daily Acute right-sided low back pain without sciatica Pt here for a follow up Previously she had c/o right sided low back pain She denies any injury Exam back then was unremarkable Plain films of LS spine showed: Degenerative disc changes L2-L3. Facet degenerative changes L5-S1. No vertebral compression, spondylolisthesis, or spondylolysis. Today she describes the pain primarily around her right hip and into her posterior leg Suggestive of Sciatica Pt already taking NSAIDS. On exam she has full ROM Plan: Repeat plain films . Continue NSAIDS. PT evaluation 2 month f/u Relevant Orders XR Hip 2 or 3 Views Right (Completed) XR Lumbar Spine 2-3 Views (Completed) Referral to Physical Therapy Right hip pain Patient with recurrent right sided hip pain, radiates to her right leg and foot. Only associated with walking. No Hx of trauma. Previous work up included Plain films right hip showed mild hip arthritis . Today she is agreeable for a PT eval d Previously she was referred to Ortho. Pt told me she did not go because the pain went away completely. Given recurrence will update plain films, and refer back to PT, and will refer to Ortho 2 months follow up Relevant Orders XR Hip 2 or 3 Views Right (Completed) XR Lumbar Spine 2-3 Views (Completed) Referral to Physical Therapy Referral to Orthopaedic Surgery Preventative health care Mammogram: 10/15/2024 was negative. Pap Smear: 03/13/2010 s/p Hysterectomy Colonoscopy: 05/16/2020 Dr Lacey showed colon polyp and diverticulosis This note was drafted using [employer] technology. The patient/patient's guardian has been informed and has consented to the use of this technology: Yes Future Appointments Date Time Provider Department Center 02/21/2025 11:15 AM Dharmesh Guardado MD MEDICINE [facility] [1] Allergies Allergen Reactions Metformin Other reaction(s): severe diarrhea documented in this encounter Miscellaneous Notes * Assessment & Plan Note - Dharmesh Guardado MD - 12/20/2024 3:54 PM EDT Associated Problem(s): Acute right-sided low back pain without sciatica Pt here for a follow up Previously she had c/o right sided low back pain She denies any injury Exam back then was unremarkable Plain films of LS spine showed: Degenerative disc changes L2-L3. Facet degenerative changes L5-S1. No vertebral compression, spondylolisthesis, or spondylolysis. Today she describes the pain primarily around her right hip and into her posterior leg Suggestive of Sciatica Pt already taking NSAIDS. On exam she has full ROM Plan: Repeat plain films . Continue NSAIDS. PT evaluation 2 month f/u * Assessment & Plan Note - Dharmesh Guardado MD - 12/20/2024 12:02 PM EDT Associated Problem(s): Preventative health care Mammogram: 10/15/2024 was negative. Pap Smear: 03/13/2010 s/p Hysterectomy Colonoscopy: 05/16/2020 Dr Lacey showed colon polyp and diverticulosis * Assessment & Plan Note - Dharmesh Guardado MD - 12/20/2024 11:57 AM EDT Associated Problem(s): Right hip pain Patient with recurrent right sided hip pain, radiates to her right leg and foot. Only associated with walking. No Hx of trauma. Previous work up included Plain films right hip showed mild hip arthritis . Today she is agreeable for a PT eval d Previously she was referred to Ortho. Pt told me she did not go because the pain went away completely. Given recurrence will update plain films, and refer back to PT, and will refer to Ortho 2 months follow up * Assessment & Plan Note - Dharmesh Guardado MD - 12/20/2024 11:53 AM EDT Associated Problem(s): Hypertension Pt here for a f/u BP controlled She is on a regimen of: Enalapril 5 mg po daily, Verelan PM 300 mg po q pm and Hctz 25 mg po daily Most recent electrolytes, Bun and Creatinine done on: Lab Results Component Value Date NA 141 04/27/2024 NA 141 12/28/2022 K 3.4 04/27/2024 K 3.5 12/28/2022 CL 107 04/27/2024 CL 106 12/28/2022 BUN 19 (H) 04/27/2024 BUN 17 (H) 12/28/2022 CREATININE 0.73 04/27/2024 CREATININE 0.5 02/01/2023 were wnl. Will repeat. patient advised to adhere to a low sodium diet, encouraged about medication compliance, counseled about weight loss Plan: Continue current regimen Follow up with me in 4 months * Assessment & Plan Note - Dharmesh Guardado MD - 12/20/2024 11:52 AM EDT Associated Problem(s): Hyperlipidemia Patient with elevated lipids. Most recent lipid profile from: Lab Results Component Value Date TRIG 273 (H) 04/27/2024 TRIG 96 08/27/2022 CHOL 107 04/27/2024 CHOL 115 08/27/2022 LDLCHOLCAL 23 04/27/2024 LDLCHOLCAL 61 08/27/2022 HDL 30 (L) 04/27/2024 HDL 35 08/27/2022 Currently on a regimen of: Atorvastatin 20 mg po daily. and Fish Oil 1000 mg po TID Plan: Continue with current regimen. Repeat Lipid profile advised to try to adhere to a low cholesterol diet, counseled and educated about diet * Assessment & Plan Note - Dharmesh Guardado MD - 12/20/2024 11:52 AM EDT Associated Problem(s): Type 2 diabetes mellitus (CMS/HCC) Pt is here for a f/u visit A1c 12/20/2024: 6.8 She is on a regimen of: Lantus [...] check your feet on a daily basis * Assessment & Plan Note - Dharmesh Guardado MD - 12/20/2024 11:52 AM EDT Associated Problem(s): Malignant tumor of thyroid gland (CMS/HCC) Previously pt was found to have incidental [...] cm with no angio or lymphatic invasion, [id number], she unfortunately had removal of 2 parathyroid [...] continue to follow with Endocrinology. Last seen 11/30/2024 He recommended to continue Levothyroxine lowered to 125 mcg PO daily documented in this encounter Plan of Treatment Upcoming Encounters Date Type Department Care Team (Late st Contact Info) Description 02/21/2025 11:15 AM EST Office Visit [facility] [address] [place], [place] [id number] Dharmesh Lentz MD [address] [place] [address] Scheduled Orders Name Type Priority Associated Diagnoses Orde r Schedule CBC auto differential Lab Routine Type 2 diabetes mellitus without complication, with long-term current use of insulin (CMS/HCC) Expected: 12/20/2024 (Approximate), Expires: 12/20/2025 Lipid Panel, Standard Lab Routine Mixed hyperlipidemia Ordered: 12/20/2024 Comprehensive Metabolic Panel Lab Routine Type 2 diabetes mellitus without complication, with long-term current use of insulin (CMS/HCC) Ordered: 12/20/2024 Scheduled Referrals Name Type Priority Associated Diagnoses Order Schedule Referral to Physical Therapy Outpatient Referral Routine Right hip pain Acute right-sided low back pain without sciatica Expected: 12/20/2024 (Approximate), Expires: 12/20/2025 Referral to Orthopaedic Surgery Outpatient Referral Routine Right hip pain Expected: 12/20/2024 (Approximate), Expires: 12/20/2025 documented as of this encounter Procedures Procedure Name Priority Date/Time Associated Diagnosis Comments XR HIP 2 OR 3 VIEWS RIGHT Routine 12/20/2024 12:45 PM EDT Right hip pain Acute right-sided low back pain without sciatica XR LUMBAR SPINE 2-3 VIEWS Routine 12/20/2024 12:45 PM EDT Right hip pain Acute right-sided low back pain without sciatica POCT GLUCOSE Routine 12/20/2024 12:12 PM EDT Type 2 diabetes mellitus without complication, with long-term current use of insulin ([facility]) POCT GLYCOSYLATED HEMOGLOBIN (HGB A1C) Routine 12/20/2024 12:10 PM EDT Type 2 diabetes mellitus without complication, with long-term current use of insulin ([facility]) documented in this encounter Results * XR Lumbar Spine 2-3 Views (12/20/2024 12:45 PM EDT) Anatomical Region Laterality Modality Spine, L-spine Radiographic Rekha ging 12/20/2024 12:4 5 PM EDT Narrative 12/20/2024 12:56 PM EDT [address] [address] XRay Report Signed Patient: Zeina Ramírez MR#: [id number] : 1950 Acct:[id number] Age/Sex: 74 / F ADM Date: 12/20/24 Loc: HO.HHCX Attending Dr: Dharmesh Luther MD Ordering Physician: Dharmesh Luther MD Date of Service: 12/20/24 Procedure(s): XR lumbar spine 2-3V Accession Number(s): [id number] cc: Dharmesh Luther MD Reason for Exam: right sided low back pain and right hip pain EXAMINATION: XR LUMBOSACRAL SPINE CLINICAL INFORMATION: right sided low back pain and right hip pain COMPARISON: August 26, 2022 TECHNIQUE: Three views of the lumbosacral spine. FINDINGS: Surgical clips in right upper quadrant likely are present prior cholecystectomy. Moderate atherosclerotic ossifications are present in the distal abdominal aorta and common iliac arteries. There are 5 nonrib-bearing lumbar segment. Vertebral body height is preserved with compared to the prior. Mild disc space narrowing is noted at L1-2 and L2-3. Endplate osteophyte are present anteriorly at L2-3, L3-4, and posteriorly at L4-5. Facet sclerosis is seen at L4-5 and L5-S1. XR/XR lumbar spine 2-3V IMPRESSION: No acute abnormality. Multilevel degenerative changes, stable. Atherosclerotic disease. Electronically signed by: Tony Pimentel MD 12/20/2024 12:54 PM EDT RP Dictated By: Tony Pimentel MD Signed By: <Electronically signed by Tony Pimentel MD in OV> 12/20/24 1254 DD/ 1245 TD/TT: 12/20/24 1246 Director Of Manufacturing: Procedure Note Donotuseinterpreter, Image - 12/20/2024 [place] [address] XRay Report Signed Patient: Taylor Ramírez#: [id number] : 8Acct:[id number] Age/Sex: 74 / FADM Date: 12/20/24 Loc: HO.HHCX Attending Dr: Dharmesh Luther MD Ordering Physician: Dharmesh Luther MD Date of Service: 12/20/24 Procedure(s): XR lumbar spine 2-3V Accession Number(s): [id number] cc: Dharmesh Luther MD Reason for Exam: right sided low back pain and right hip pain EXAMINATION: XR LUMBOSACRAL SPINE CLINICAL INFORMATION: right sided low back pain and right hip pain COMPARISON: August 26, 2022 TECHNIQUE: Three views of the lumbosacral spine. FINDINGS: Surgical clips in right upper quadrant likely are present prior cholecystectomy. Moderate atherosclerotic ossifications are present in the distal abdominal aorta and common iliac arteries. There are 5 nonrib-bearing lumbar segment. Vertebral body height is preserved with compared to the prior. Mild disc space narrowing is noted at L1-2 and L2-3. Endplate osteophyte are present anteriorly at L2-3, L3-4, and posteriorly at L4-5. Facet sclerosis is seen at L4-5 and L5-S1. XR/XR lumbar spine 2-3V IMPRESSION: No acute abnormality. Multilevel degenerative changes, stable. Atherosclerotic disease. Electronically signed by: Tony Pimentel MD 12/20/2024 12:54 PM EDT Dictated By: Tony Pimentel MD Signed By: <Electronically signed by Tony Pmientel MD in OV> 12/20/24 1254 DD/ 1245 TD/TT: 12/20/24 1246 Director Of Manufacturing: Dharmesh Guardado MD IMG XR PROCEDURES Fin al Result * XR Hip 2 or 3 Views Right (12/20/2024 12:45 PM EDT) Anatomical Region Laterality Modality Lower Extremities, Hip Right Radiograp hic Imaging 12/20/2024 12:4 5 PM EDT Narrative 12/20/2024 12:54 PM EDT [address] [address] XRay Report Signed Patient: Zeina Ramírez MR#: [id number] : 1950 Acct:[id number] Age/Sex: 74 / F ADM Date: 12/20/24 Loc: HO.HHCX Attending Dr: Dharmesh Luther MD Ordering Physician: Dharmesh Luther MD Date of Service: 12/20/24 Procedure(s): XR hip RT min 2V Accession Number(s): [id number] cc: Dharmesh Luther MD Reason for Exam: right sided low back pain and right hip pain EXAMINATION: XR HIP 2 OR MORE VIEWS RIGHT HISTORY: right sided low back pain and right hip pain COMPARISON: Comparison is made with the prior examination dated 08/29/2023. FINDINGS: Two views of the right hip are submitted. Osseous mineralization is normal. There is no fracture or dislocation. There is mild joint space narrowing. The soft tissues are unremarkable. XR/XR hip RT min 2V IMPRESSION: Mild joint space narrowing. Electronically signed by: Jesus Douglass MD 12/20/2024 12:51 PM EDT RP Dictated By: Jesus Douglass MD Signed By: <Electronically signed by Jesus Douglass MD in OV> 12/20/24 1251 DD/ 1245 TD/TT: 12/20/24 1246 Director Of Manufacturing: Procedure Note Sadater, Image - 12/20/2024 [place] [address] XRay Report Signed Patient: Taylor Ramírez#: [id number] : 8Acct:[id number] Age/Sex: 74 / FADM Date: 12/20/24 Loc: HO.HHCX Attending Dr: Dharmesh Luther MD Ordering Physician: Dharmesh Luther MD Date of Service: 12/20/24 Procedure(s): XR hip RT min 2V Accession Number(s): [id number] cc: Dharmesh Luther MD Reason for Exam: right sided low back pain and right hip pain EXAMINATION: XR HIP 2 OR MORE VIEWS RIGHT HISTORY: right sided low back pain and right hip pain COMPARISON: Comparison is made with the prior examination dated 08/29/2023. FINDINGS: Two views of the right hip are submitted. Osseous mineralization is normal. There is no fracture or dislocation. There is mild joint space narrowing. The soft tissues are unremarkable. XR/XR hip RT min 2V IMPRESSION: Mild joint space narrowing. Electronically signed by: Jesus Douglass MD 12/20/2024 12:51 PM EDT RP Dictated By: Jesus Douglass MD Signed By: <Electronically signed by Jesus Douglass MD in OV> 12/20/24 1251 DD/ 1245 TD/TT: 12/20/24 1246 Director Of Manufacturing: Result [facility] Dharmesh Guardado MD IMG XR PROCEDURES Fin al Result * POCT glucose manually resulted (12/20/2024 12:12 PM EDT) Glucose Blood, POC 177 60 - 200 mg/dL QC Media Lot # [id number] Lot# Expiration Date 227,226 Blood Capillary blood specimen / Unknown 12/20/2024 12:12 PM EDT Result [facility] Dharmesh Guardado MD POINT OF CARE TEST EN TER/EDIT ORDERABLES Final Result * (ABNORMAL) POCT glycosylated hemoglobin (Hgb A1c) (12/20/2024 12:10 PM EDT) Hemoglobin A1C 6.8(A) 4.0 - 5.7 % QC Media Lot # [id number] Lot# Expiration Date [id number] Blood Capillary blood specimen / Unknown 12/20/2024 12:10 PM EDT Result [facility] Dharmesh Guardado MD POINT OF CARE TEST EN TER/EDIT ORDERABLES Final Result documented in this encounter Visit Diagnoses Diagnosis Type 2 diabetes mellitus without complication, with long-term current use of insulin (CMS/HCC)- Primary Primary hypertension Unspecified essential hypertension Mixed hyperlipidemia Malignant tumor of thyroid gland (CMS/HCC) Malignant neoplasm of thyroid gland Acute right-sided low back pain without sciatica Right hip pain Pain in joint, pelvic region and thigh Preventative health care Routine general medical examination at a health care facility documented in this encounter Additional Health Concerns Assessment Noted Time PHQ-9 Depression Total Score: 2 09/01/19 24 9:16 AM EDT documented as of this encounter Care Teams Pocket Secretary Assembler Relationship Specialty Start Date End Date Dharmesh Lentz MD [address] [place] [id number] PCP - General Internal Medicine 11/22/13 documented as of this encounter
--- OUTSIDE RECORDS SUMMARY | 2024-12-20 16:28 | XMS_ITS | Encounter Summary ---
Author Organization [employer] Address [address] [facility] [address] [place] [address] Care Team Providers Care Event Producer Name Role Phone Dharmesh Lentz MD Primary Care Provide r Encounter Details Date Type Department Care Team (Late st Contact Info) Description 12/19/2024 Telephone [facility] [address] [place] [address] Ana Maria Restrepo [place] Social History Tobacco Use Types Packs/Day Years [...] encounter Miscellaneous Notes * Telephone Encounter - Ana Maria Restrepo MA - 12/19/2024 11:22 AM EDT Chart Prep Labs: done Images: done Referrals: closed Vaccines due: Flu, Hep A, and RSV Screenings: eye exam and foot exam Overdue care gaps: PHQ-9 documented in this encounter Plan of Treatment Upcoming Encounters Date Type Department Care Team (Late st Contact Info) Description 02/21/2025 11:15 AM EST Office Visit [facility] [address] [place] [address] Dharmesh Lentz MD [address] [place] [address] documented as of this encounter Visit Diagnoses Not on filedocumented in this encounter Additional Health Concerns Assessment Noted Time PHQ-9 Depression Total Score: 2 09/01/19 24 9:16 AM EDT documented as of this encounter Care Teams Event Producer Relationship Specialty Start Date End Date Dharmesh Lentz MD [address] [place] [address] PCP - General Internal Medicine 11/22/13 documented as of this encounter
--- OUTSIDE RECORDS SUMMARY | 2024-12-20 16:28 | XMS_ITS | Encounter Summary ---
Author Organization [employer] Address [address] [facility] [address] [place] [address] Care Team Providers Care Shotgun Shell Assembly Machine Adjuster Name Role Phone Dharmesh Lentz MD Primary Care Provide r Reason for Visit * Reason Comments Med Refill Encounter Details Date Type Department Care Team ([facility] st Contact Info) Description 12/19/2024 Refill [facility] MED[facility] [address] [place] [address] Dharmesh Lentz MD [address] [place] [address] Mixed hyperlipidemia Social History Tobacco Use Types Packs/Day Years [...] Description 02/21/2025 11:15 AM EST Office Visit [facility] [address] [place] [address] Dharmesh Lentz MD [address] [place] [address] documented as of this encounter Visit Diagnoses Diagnosis Mixed hyperlipidemia documented in this encounter Additional Health Concerns Assessment Noted Time PHQ-9 Depression Total Score: 2 09/01/19 24 9:16 AM EDT documented as of this encounter Care Teams Shotgun Shell Assembly Machine Adjuster Relationship Specialty Start Date End Date Dharmesh Lentz MD [address] [place] [address] PCP - General Internal Medicine 11/22/13 documented as of this encounter
--- OUTSIDE RECORDS SUMMARY | 2024-12-20 16:28 | XMS_ITS | Encounter Summary ---
Author Organization [employer] Address [address] [facility] [address] [place] [address] Care Team Providers Care Box Stamper Name Role Phone Dharmesh Lentz MD Primary Care Provide r Reason for Visit * Reason Comments Med Refill Encounter Details Date Type Department Care Team ([facility] st Contact Info) Description 08/31/2022 Refill [facility] [address] [place] [address] Dharmesh Lentz MD [address] [place] [address] Social History Tobacco Use Types Packs/Day Years [...] Description 02/21/2025 11:15 AM EST Office Visit [facility] [address] [place] [address] Dharmesh Lentz MD [address] [place] [address] documented as of this encounter Visit Diagnoses Not on filedocumented in this encounter Additional Health Concerns Assessment Noted Time PHQ-9 Depression Total Score: 6 08/27/19 23 1:26 PM EDT documented as of this encounter Care Teams Box Stamper Relationship Specialty Start Date End Date Dharmesh Lentz MD [address] [place] [phone] PCP - General Internal Medicine 11/22/13 documented as of this encounter
--- OUTSIDE RECORDS SUMMARY | 2024-12-20 16:28 | XMS_ITS | Encounter Summary ---
Author Organization [employer] Address [address] [facility] [address] [place] [address] Care Team Providers Care Truck Loader And Unloader Name Role Phone Dharmesh Lentz MD Primary Care Provide r Reason for Visit * Reason Onset Date Comments Med Refill 10/07/2023 Encounter Details Date Type Department Care Team ([facility] st Contact Info) Description 10/07/2023 Telephone [facility] [address] [place] [address] Dharmesh Lentz MD [address] [place] [address] Med Refill Social History Tobacco Use Types [...] 11:49 AM EDT Medication was sent to [facility] #[id number] on 09/01/23 with 1 refill. * Telephone Encounter - Carlton Hoffmann - 10/07/2023 11:46 AM EDT TC from pt requesting medication refill. Medications needing refill: naproxen (Naprosyn) 500 MG tablet To be sent to: [facility] #[id number] documented in this encounter Plan of Treatment Upcoming Encounters Date Type Department Care Team (Late st Contact Info) Description 02/21/2025 11:15 AM EST Office Visit [facility] [address] [place] [address] Dharmesh Lentz MD [address] [place], [place] [phone] documented as of this encounter Visit Diagnoses Not on filedocumented in this encounter Additional Health Concerns Assessment Noted Time PHQ-9 Depression Total Score: 2 09/01/19 24 9:16 AM EDT documented as of this encounter Care Teams Truck Loader And Unloader Relationship Specialty Start Date End Date Dharmesh Lentz MD [address] [place] [address] PCP - General Internal Medicine 11/22/13 documented as of this encounter
--- OUTSIDE RECORDS SUMMARY | 2024-12-20 16:28 | XMS_ITS | Encounter Summary ---
Author Organization [employer] Address [address] [facility] [address] [place] [address] Care Team Providers Care Panelboard Assembler Name Role Phone Dharmesh Lentz MD Primary Care Provide r Reason for Visit * Reason Onset Date Comments Prior Authorization 02/24/2023 Encounter Details Date Type Department Care Team ([facility] st Contact Info) Description 02/24/2023 Telephone [facility] MED[facility] [address] [place] [address] Dharmesh Lentz MD [address] [place] [address] Prior Authorization Social History Tobacco Use Types [...] Description 02/21/2025 11:15 AM EST Office Visit [facility] MED[facility] [address] [place] [address] Dharmesh Lentz MD [address] [place] [address] documented as of this encounter Visit Diagnoses Not on filedocumented in this encounter Additional Health Concerns Assessment Noted Time PHQ-9 Depression Total Score: 6 08/27/19 23 1:26 PM EDT documented as of this encounter Care Teams Panelboard Assembler Relationship Specialty Start Date End Date Dharmesh Lentz MD [address] [place], [place] [phone] PCP - General Internal Medicine 11/22/13 documented as of this encounter
--- OUTSIDE RECORDS SUMMARY | 2024-12-20 16:28 | XMS_ITS | Encounter Summary ---
Author Organization [employer] Address [address] [facility] [address] [place] [address] Care Team Providers Care Male Infertility Specialist Name Role Phone Dharmesh Lentz MD Primary Care Provide r Reason for Visit * Reason Comments Med Refill Encounter Details Date Type Department Care Team (Late st Contact Info) Description 10/28/2022 Refill [facility] [address] [place] [phone] Maria Esther Case MD [address] [place] [phone] Social History Tobacco Use Types Packs/Day Years [...] AM EST Office Visit [facility] [address] [place] [phone] Dharmesh Lentz MD [address] [place], [place] [phone] documented as of this encounter Visit Diagnoses Not on filedocumented in this encounter Additional Health Concerns Assessment Noted Time PHQ-9 Depression Total Score: 6 08/27/19 23 1:26 PM EDT documented as of this encounter Care Teams Male Infertility Specialist Relationship Specialty Start Date End Date Dharmesh Lentz MD [address] [place] [address] PCP - General Internal Medicine 11/22/13 documented as of this encounter
--- OUTSIDE RECORDS SUMMARY | 2024-12-20 16:28 | XMS_ITS | Encounter Summary ---
Author Organization [employer] Address [address] [facility] [address] [place] [address] Care Team Providers Care Lab Courier Name Role Phone Dharmesh Lentz MD Primary Care Provide r Encounter Details Date Type Department Care Team (Late st Contact Info) Description 08/12/2022 Abstract [facility] MEDICINE [address] [place] [address] Dharmesh Lentz MD [address] [place] [phone] Social History Tobacco Use Types Packs/Day Years [...] Description 02/21/2025 11:15 AM EST Office Visit [facility] MEDICINE [address] [place] [phone] Dharmesh Lentz MD [address] [place], [place] [phone] documented as of this encounter Procedures Procedure Name Priority Date/Time Associated Diagnosis Comments HM COLONOSCOPY Routine 05/16/2020 documented in this encounter Results * Colonoscopy (05/16/2020) Colonoscopy Normal Normal 05/16/2020 Diamond Levin - 05/16/2020 8:51 AM EST Recommended 5 year follow up us Historical Provider [facility] Edited Result - Final documented in this encounter Visit Diagnoses Not on filedocumented in this encounter Care Teams Lab Courier Relationship Specialty Start Date End Date Dharmesh Lentz MD [address] [place] [address] PCP - General Internal Medicine 11/22/13 documented as of this encounter
--- OUTSIDE RECORDS SUMMARY | 2024-12-20 16:28 | XMS_ITS | Clinical Summary ---
Author Organization [employer] Address [address] [facility] [address] [place] [address] Care Team Providers Care Deli Cutter Slicer Name Role Phone Dharmesh Lentz MD Primary Care Provide r Allergies Active Allergy Reactions Criticality Noted Date Comments Metformin 11/15/2011 Other reaction(s): severe diarrhea Medications FreeStyle lancetsIndication s:Type 2 diabetes mellitus without complication, with long-term current use of insulin (CMS/[facility]) Use 3 times a day 100 each 11 022 Active omega-3 (Fish Oil) 500 MG capsule 2 times daily. Activ e Ascorbic Acid (Vitamin C) 500 MG capsule as directed Active aspirin (ASPIR) 81 MG EC tablet daily. 014 Active Diclofenac Sodium 1 % gelIndications:Ri ght hip pain Apply BID right hip or affected area 50 g 024 Active insulin glargine (Basaglar KwikPen) 100 UNIT/ML penIndications:Ty pe 2 diabetes mellitus without complication, with long-term current use of insulin (CMS/HCC) Inject 74 Units under the skin at [...] FOOD NEEDED FOR PAIN 30 tablet 3 07/10/2 025 Active glucose blood (FREESTYLE LITE) test stripIndications: Type 2 diabetes mellitus without complication, unspecified whether intermediate insulin use ([facility]) apply 1 unit by intradermal route 3 times every day 150 each 025 Active omeprazole (PriLOSEC) [address] [...] day. 30 tablet 6 025 2025 Active hydroCHLOROthiazi de (HYDRODiuril) 25 MG tabletIndications :Primary hypertension Take 1 tablet (25 mg) by mouth Once per day. 90 tablet 1 025 Active levothyroxine (Synthroid, Levoxyl) 125 MCG tablet Take 1 tablet by mouth Once per day. 025 Active hydroCHLOROthiazi de (HYDRODiuril) 25 MG tablet TAKE 1 TABLET(25 MG) BY MOUTH DAILY 90 tablet 1 025 2024 Discontinued(R eorder (will not trigger notification to Pharmacy)) Active Problems Problem Noted Date Diagnosed Date Irritable bowel syndrome wit h both constipation and diarrhea 10/23/2024 Fractured dental congregational with loss of materi al 03/01/2024 Generalized gingival recession 02/07/2024 Unspecified lesions of oral mucosa 02/07/2024 Bilateral shoulder pain 01/03/2024 Assessment & Plan (01/03/2024 1:42 PM EDT): Pt with c/o bilateral shoulder pain x 1 month. Pt reports heavy lifting with groceries Right hip pain 09/01/2023 Assessment & Plan (12/20/2024 4:03 PM EDT): Patient with recurrent right sided hip pain, [...] refer to Ortho 2 months follow up Assessment & Plan (01/03/2024 1:40 PM EDT): [...] rate and Urinalysis. She was seen at [facility], they recommended to start with PT and may recommend injections or further imaging if need be. Her Rheumatoid factor was elevated and I recommended an evaluation by a e commerce specialist Dr Dodson who she saw pt c/o bilateral arm numbness and intermittent weakness. High concern for cervical radiculopathy. I recommended to go back to [facility] for f/u . She was seen and [...] was recommended. She was also seen at [facility] Vascular surgery on 10/30/2012 and they recommended she be seen by Surgeon (Dr Espino) who saw pt on 11/06/2012 and was unsure as to what the clinical significance of this would be but he was going to review the exam with the radiologist at [facility] and was going to get back to [...] was recommended. She was also seen at [facility] Vascular surgery on 10/30/2012 and they recommended she be seen by Surgeon (Dr Espino) who saw pt on 11/06/2012 and was unsure as to what the clinical significance of this would be but he was going to review the exam with the radiologist at [facility] and was going to get back to the pt after that. Preventative health care 08/26/2022 Assessment & Plan (12/20/2024 12:02 PM EDT): Mammogram: 10/15/2024 was negative. Pap Smear: 03/13/2010 s/p Hysterectomy Colonoscopy: 05/16/2020 Dr Lacey showed colon polyp and diverticulosis Assessment & Plan (01/03/2024 1:31 PM EDT): [...] pain without sciatica 08/26/2022 Assessment & Plan (12/20/2024 3:54 PM EDT): Pt here for a follow up Previously [...] Continue NSAIDS. PT evaluation 2 month f/u Assessment & Plan (12/30/2022 12:55 PM EDT): [...] of thyroid gland 08/20/2022 Assessment & Plan (12/20/2024 3:47 PM EDT): Previously pt was found to [...] cm with no angio or lymphatic invasion, [id number], she unfortunately had removal of 2 parathyroid [...] Levothyroxine lowered to 125 mcg PO daily Assessment & Plan (04/03/2024 10:18 AM EST): [...] cm with no angio or lymphatic invasion, [id number], she unfortunately had removal of 2 parathyroid [...] follow with Endocrinology. Last seen by Dr. Ngueyn 12/27/2023 He recommended to repeat US in [...] cm with no angio or lymphatic invasion, [id number], she unfortunately had removal of 2 parathyroid [...] cm with no angio or lymphatic invasion, [id number], she unfortunately had removal of 2 parathyroid [...] cm with no angio or lymphatic invasion, [id number], she unfortunately had removal of 2 parathyroid [...] cm with no angio or lymphatic invasion, [id number], she unfortunately had removal of 2 parathyroid [...] cm with no angio or lymphatic invasion, [id number], she unfortunately had removal of 2 parathyroid [...] of Total Thyroidectomy TFTs 07/23/2021 wnl on [id number] mcg PO daily. lowered by Endocrinology Smoker [...] 2 diabetes mellitus 08/25/2011 Assessment & Plan (12/20/2024 4:01 PM EDT): Pt is here for a [...] on a daily basis Assessment & Plan (04/03/2024 10:56 AM EST): [...] adenoma 09/14/2006 Hypertension 04/11/1959 Assessment & Plan (12/20/2024 11:53 AM EDT): Pt here for a f/u [...] me in 4 months Assessment & Plan (04/03/2024 10:29 AM EST): [...] current regimen Hyperlipidemia 04/11/1959 Assessment & Plan (12/20/2024 3:51 PM EDT): Patient with elevated lipids. Most [...] and educated about diet Assessment & Plan (04/03/2024 10:27 AM EST): [...] last one 08/2022 Depressive disorder 04/11/1961 10/24/19 Assessment & Plan (02/22/2023 2:56 PM EST): Mild, mainly manifested by insomnia, pt tells me she has tried Elavil from her with good results Discussed potential side effects Plan: Start Elavil 25 mg po qhs Encounters Date Type Department Care Team Description 12/20/2024 11:30 AM EDT Office Visit [facility] [address] [place] [address] Dharmesh Lentz MD Type 2 diabetes mellitus without complication, with long-term current use of insulin (CMS/HCC) (Primary Dx); Primary hypertension; Mixed hyperlipidemia; Malignant tumor of thyroid gland (CMS/HCC); Acute right-sided low back pain without sciatica; Right hip pain; Preventative health care 12/20/2024 Travel 12/19/2024 Telephone [facility] [address] [place] [address] Ana Maria Restrepo [place] 12/19/2024 Refill [facility] [address] [facility] [place] [address] Dharmesh Lentz MD Mixed hyperlipidemia 12/13/2024 Patient Outreach [facility] [address] [place] [address] Dharmesh Lentz MD Pre-visit Planning (SDOH negative, Tobacco screening positive.) 11/30/2024 Orders Only GENERIC EXTERNAL DATA DEPARTMENT Provider, Generic External Data 11/22/2024 Orders Only [facility] External Provider, [facility] 11/13/2024 Refill [facility] [address] [place] [address] Dharmesh Lentz MD Primary hypertension 11/08/2024 9:45 AM EDT Office Visit [facility] [address] [facility] [place] [address] Camilla Campbell MD Chronic pain of both shoulders (Primary Dx) 11/08/2024 Travel 11/06/2024 1:15 PM EDT Office Visit [facility] [address] [facility] [place] [address] Carlota House MD Chronic pain of both shoulders (Primary Dx) 11/06/2024 Refill [facility] [address] [facility] [place] [address] Dharmesh Lentz MD Mixed hyperlipidemia 11/06/2024 Travel 11/05/2024 9:45 AM EDT Office Visit [facility] [address] [facility] [place] [address] Camilla Campbell MD Chronic pain of both shoulders (Primary Dx) 11/05/2024 Travel 11/01/2024 9:15 AM EDT Office Visit [facility] [address] [facility] [place] [address] Camilla Campbell MD Chronic pain of both shoulders (Primary Dx) 11/01/2024 Travel 10/31/2024 Refill [facility] [address] [facility] [place] [address] Kenzie Jett ANP Type 2 diabetes mellitus without complication, unspecified whether intermediate insulin use ([facility]); Gastroesophageal reflux disease without esophagitis 10/30/2024 9:15 AM EDT Office Visit [facility] [address] [place] [address] Camilla Campbell MD Chronic pain of both shoulders (Primary Dx) 10/30/2024 Travel 10/29/2024 9:45 AM EDT Office Visit [facility] [address] [place] [address] Camilla Campbell MD Chronic pain of both shoulders (Primary Dx) 10/29/2024 Travel 10/25/2024 9:45 AM EDT Office Visit [facility] [address] [place] [address] Camilla Campbell MD Chronic pain of both shoulders (Primary Dx) 10/25/2024 Travel 10/23/2024 1:30 PM EDT Office Visit [facility] [address] [place] [address] Carlota House MD Chronic pain of both shoulders (Primary Dx) 10/23/2024 Travel 10/22/2024 9:00 AM EDT Office Visit [facility] [address] [place] [address] Camilla Campbell MD Chronic pain of both shoulders (Primary Dx) 10/22/2024 Travel 10/18/2024 9:15 AM EDT Office Visit [facility] [place] [address] Camilla Campbell MD Chronic pain of both shoulders (Primary Dx) 10/18/2024 Travel 10/17/2024 Refill [facility] [address] [place] [address] Dharmesh Lentz MD Chronic neck pain 10/15/2024 Orders Only [facility] [address] [place] [address] Dharmesh Lentz MD 10/01/2024 Refill [facility] [address] [facility] [place] [address] Dharmesh Lentz MD Primary hypertension from Last [...] Mass Index 21.73 12/20/2024 11:32 AM EDT Plan of Treatment Upcoming Encounters Date Type Department Care Team (Late st Contact Info) Description 02/21/2025 11:15 AM EST Office Visit [facility] [address] [place] [address] Dharmesh Lentz MD [address] [place] [address] Health Maintenance Due Date Last Done Comments Diabetes: Foot Exam 01/24/1958 Eye Exam 01/24/1958 Hepatitis A Vaccines (1 of 2 - Risk 2-dose series) 01/24/1967 Hepatitis B Vaccines (1 of 3 - Risk 3-dose series) 2008 RSV Patients and Patients Aged 60 years or older (1 - 1-dose 75+ series) 01/24/2023 Dental Oral Exam 08/08/2024 02/07/2024, , 08/03/2011, Additional history exists Dental Prophylaxis 08/08/2024 02/07/2024, 1 05/12/2013, 08/13/2013, Additional history exists Depression Screening 08/31/2024 09/01/2023, 09/01/19 COVID-19 Vaccine ( season) 2024 07/03/2020, 06/05/2020 Influenza Vaccine (#1) 2024 , 12/30/2022, 12/29/2021, Additional history exists Dental X-Ray: Bitewings 02/07/2025 02/07/20 24, 01/29/2013, 08/03/2011, Additional history exists Alcohol/Substance Use Screening 04/03/2025 04/03/2024 Diabetes: Urine Protein Screening 04/27/2025 04/27/2024, 08/27/2022, 09/26/2020 Lipid Panel 04/27/2025 04/27/2024, 08/09, 07/23/2021, Additional history exists Diabetes: Hemoglobin A1C 06/19/2025 025, 04/03/2024, 01/03/2024, Additional history exists Mammogram 10/15/2025 10/15/2024, 09/09, 09/16/2022, Additional history exists SDOH Screening 12/13/2025 12/13/2024 Tobacco Screening 12/20/2025 12/20/2024 Dental X-Ray: Full Mouth 02/07/2027 02/07/2024, 0204/2009 DTaP/Tdap/Td Vaccines (2 - Td or Tdap) [...] Name Priority Date/Time Associated Diagnosis Comments XR LUMBAR SPINE 2-3 VIEWS Routine 12/20/2024 12:45 PM EDT Right hip pain Acute right-sided low back pain without sciatica XR HIP 2 OR 3 VIEWS RIGHT Routine 12/20/2024 12:45 PM EDT Right hip pain Acute right-sided low back pain without sciatica POCT GLUCOSE Routine 12/20/2024 12:12 PM EDT Type 2 diabetes mellitus without complication, with long-term current use of insulin ([facility]) POCT GLYCOSYLATED HEMOGLOBIN (HGB A1C) Routine 12/20/2024 12:10 PM EDT Type 2 diabetes mellitus without complication, with long-term current use of insulin ([facility]) TSH Routine 11/30/2024 2:44 PM EDT T4, [...] with long-term current use of insulin (CMS/HCC) PROPHYLAXIS - ADULT Routine 02/07/2024 9 :00 [...] Recently Relevant to Health Maintenance Results * XR Hip 2 or 3 Views Right (12/20/2024 12:45 PM EDT) Anatomical Region Laterality Modality Lower Extremities, Hip Right Radiograp hic Imaging 12/20/2024 12:4 5 PM EDT Narrative 12/20/2024 12:54 PM EDT [address] [address] XRay Report Signed Patient: Zeina Ramírez MR#: [id number] : 1950 Acct:[id number] Age/Sex: 74 / F ADM Date: 12/20/24 Loc: HO.HHCX Attending Dr: Dharmesh Luther MD Ordering Physician: Dharmesh Luther MD Date of Service: 12/20/24 Procedure(s): XR hip RT min 2V Accession Number(s): [id number] cc: hDarmesh Luther MD Reason for Exam: right sided [...] 12/20/24 1251 DD/ 1245 TD/TT: 12/20/24 1246 Fitter Machinist: Procedure Note Donotuseinterpreter, Image - 12/20/[address] [address] XRay Report Signed Patient: Taylor Ramírez#: [id number] : 8Acct:[id number] Age/Sex: 74 / FADM Date: 12/20/24 Loc: HO.HHCX Attending Dr: Dharmesh Luther MD Ordering Physician: Dharmesh Luther MD Date of Service: 12/20/24 Procedure(s): XR hip RT min 2V Accession Number(s): [id number] cc: Dharmesh Luther MD Reason for Exam: [...] 12/20/24 1251 DD/ 1245 TD/TT: 12/20/24 1246 Fitter Machinist: us Dharmesh Guardado MD IMG XR PROCEDURES Fin al Result * XR Lumbar Spine 2-3 Views (12/20/2024 12:45 PM EDT) Anatomical Region Laterality Modality Spine, L-spine Radiographic Rekha ging 12/20/2024 12:4 5 PM EDT Narrative 12/20/2024 12:56 [place] [address] XRay Report Signed Patient: Zeina Ramírez MR#: [id number] : 1950 Acct:[id number] Age/Sex: 74 / F ADM Date: 12/20/24 Loc: HO.HHCX Attending Dr: Dharmesh Luther MD Ordering Physician: Dharmesh Luther MD Date of Service: 12/20/24 Procedure(s): XR lumbar spine 2-3V Accession Number(s): [id number] cc: Dharmesh Luther MD Reason for Exam: [...] 12/20/24 1254 DD/ 1245 TD/TT: 12/20/24 1246 Fitter Machinist: Procedure Note Donotuseinterpreter, Image - 12/20/2024 [place] [address] XRay Report Signed Patient: Adonis RamírezR#: [id number] : 8Acct:[id number] Age/Sex: 74 / FADM Date: 12/20/24 Loc: HO.HHCX Attending Dr: Dharmesh Luther MD Ordering Physician: Dharmesh Luther MD Date of Service: 12/20/24 Procedure(s): XR lumbar spine 2-3V Accession Number(s): [id number] cc: Dharmesh Luther MD Reason for Exam: [...] 12/20/24 1254 DD/ 1245 TD/TT: 12/20/24 1246 Fitter Machinist: Dharmesh Guardado MD IMG XR PROCEDURES Fin al Result * POCT glucose manually resulted (12/20/2024 12:12 PM EDT) Pathologist [facility] Glucose Blood, POC 177 60 - 200 mg/dL QC Media Lot # [id number] Lot# Expiration Date 227,226 Blood Capillary blood specimen / Unknown 12/20/2024 12:12 PM EDT Dharmesh Guardado MD POINT OF CARE TEST EN TER/EDIT ORDERABLES Final Result * (ABNORMAL) POCT glycosylated hemoglobin (Hgb A1c) (12/20/2024 12:10 PM EDT) [facility] Hemoglobin A1C 6.8(A) 4.0 - 5.7 % QC Media Lot # [id number] Lot# Expiration Date [id number] Blood Capillary blood specimen / Unknown 12/20/2024 12:10 PM EDT Dharmesh Guardado MD POINT OF CARE TEST EN TER/EDIT ORDERABLES Final Result * (ABNORMAL) TSH (11/30/2024 2:44 PM EDT) Pathologist [facility] Thyroid Stimulating Hormone 0.04(L) 0.32 - 4.0 uIU/mL [facility] Comment:TSH 3rd Generation ( [employer]) 11/30/2024 2:44 PM EDT 11/30/2024 2:44 PM EDT Generic External Data Provider LAB BLOOD ORDERAB LES Final Result Performing Organization Address City/[facility]/ZIP Co de Phone Number [facility] [address] [place] [phone] * T4, Free (11/30/2024 2:44 PM EDT) Free T4 (Free Thyroxine) 1.32 0.71 - 1.85 ng/dL [facility] 11/30/2024 2:44 PM EDT 11/30/2024 2:44 PM EDT Generic External Data Provider LAB BLOOD ORDERAB LES Final Result Performing Organization Address [facility] Co de Phone Number [facility] [address] [place] [phone] * (ABNORMAL) Thyroglobulin, LC/MS/MS (11/30/2024 2:43 PM EDT) Pathologist [facility] Thyroglobulin, LC/MS/MS <0.1(A) ng/mL [facility] Comment:Reference Range: Int act Thyroid 2.8-40.9 Athyrotic <0.1 Note: Abnormal flagging is based on the reference interval for patients with intact thyroid.This test was performed using the [employer] Coulterchemiluminescent method. Values obtained fromdifferent assay methods cannot be usedinterchangeably. Thyroglobulin levels, regardlessof value, should not be interpreted as absoluteevidence of the presence or absence of disease. Thyroglobulin Comment See Below [facility] Comment:Thyroglobulin antibo dies (TGAB) interfere withthyroglobulin (TG) assays; therefore, TGAB assayshould always be performed in conjunction with aTG assay.For additional information, please refer tohttp://education.AktiVax/faq/ITZ543(This link is being provided for informational/educational purposes only.)THIS TEST WAS PERFORMED AT:[employer] [place] [phone] GUIDRY MD 11/30/2024 2:43 PM EDT 11/30/2024 2:43 PM EDT us Generic External Data Provider LAB BLOOD ORDERAB LES Final Result Performing Organization Address [facility]/ZIP Co de Phone Number [facility] [address] [place] [phone] * Thyroblobulin, Tumor Marker w/Reflex (11/30/2024 2:43 PM EDT) Thyroglobulin Antibody <1 <=1 IU/mL [facility] Comment:This Thyroglobulin a ntibody test was performedusing the [employer] Chemiluminescent method.Values obtained from different assay methods cannot beused interchangeably. Thyroglobulin antibody levels,regardless of value, should not be interpreted asabsolute evidence of the presence or absence ofdisease. Thyroglobulin, LC/MS/MS TNP [facility] Thyroglobulin Level <0.1 ng/mL [facility] Comment:Reference Range: Ath yrotic: <0.1 ng/mLReference range applies to differentiated thyroidcancer patients following treatment. The presence ofmeasurable thyroglobulin indicates the presence ofthyroglobulin-producing thyroid tissue. Clinicalcorrelation is advised.This Thyroglobulin test was performed using theRock[employer] Chemiluminescent method. Valuesobtained from different assay methods cannot beused interchangeably. Thyroglobulin levels, regardlessof value, should not be interpreted as absoluteevidence of the presence or absence of disease.THIS TEST WAS PERFORMED AT:[id number] [place] [phone] CANO MD,PHD 11/30/2024 2:43 PM EDT 11/30/2024 2:43 PM EDT Generic External Data Provider LAB BLOOD ORDERAB LES Final Result Performing Organization Address [facility]/ZIP Co de Phone Number [facility] [address] [place] [phone] * Thyroglobulin Antibodies (11/30/2024 2:43 PM EDT) Thyroglobulin Antibodies <1 < or = 1 IU/mL [facility] Comment:THIS TEST WAS PERFOR MED AT:[employer] [place] [phone] GUIDRY MD 11/30/2024 2:43 PM EDT 11/30/2024 2:43 PM EDT us Generic External Data Provider LAB BLOOD ORDERAB LES Final Result Performing Organization Address City/State/[facility] Co de Phone Number [facility] [address] [place] [phone] * US Head Neck Soft Tissue (11/22/2024 1:07 PM EDT) Anatomical Region Laterality Modality Head, Neck Ultrasound 11/22/2024 1:07 PM EDT Narrative 11/22/2024 2:31 PM EDT [address] [address] Ultrasound Report Signed Patient: Zeina Ramírez MR#: [id number] : 1950 Acct:[id number] Age/Sex: 74 / F ADM Date: 11/22/24 Loc: .US Attending Dr: Agata Maier MD Ordering Physician: gAata Maier MD Date of Service: 11/22/24 Procedure(s): US soft tiss head and/or neck Accession Number(s): [id number] cc: Dharmesh Luther MD; Agata Maier MD [...] 11/22/24 1428 DD/ 1307 TD/TT: 11/22/24 1315 Fitter Machinist: Procedure Note Donotuseinterpreter, Image - 11/22/2024 [place] [address] Ultrasound Report Signed Patient: Taylor Ramírez#: [id number] : 8Acct:[id number] Age/Sex: 74 / FADM Date: 11/22/24 Loc: HO.US Attending Dr: Agata Maier MD Ordering Physician: Agata Maier MD Date of Service: 11/22/24 Procedure(s): US soft tiss head and/or neck Accession Number(s): [id number] cc: Dharmesh Luther MD; Agata Maier MD [...] 11/22/24 1428 DD/ 1307 TD/TT: 11/22/24 1315 Fitter Machinist: [facility] External Provider IMG US PROCEDURES Final Result * BI Mammogram Screening Tomosynthesis Bilateral (10/15/2024 8:55 AM EDT) Anatomical Region Laterality Modality Breast Bilateral Mammography 10/15/2024 8:55 AM EDT Narrative 10/24/2024 9:03 PM EDT [address] [place] [address] Mammography Report Signed Patient: Zeina Ramírez MR#: [id number] : 1950 Acct:[id number] Age/Sex: 74 / F ADM Date: 10/15/24 Loc: BRISA Attending Dr: Dharmesh Luther MD Ordering Physician: Dharmesh Luther MD Resu lts: 1Negative Date of Service: 10/15/24 Follow Up: 1 Year From Orig inal Mammogram Procedure(s): MM tomosynthesis screening BI Accession Number(s): [id number] cc: Dharmesh Luther MD EXAMINATION: MM SCREENING [...] 10/24/24 2100 DD/ 0855 TD/TT: 10/15/24 0910 Fitter Machinist: Procedure Note Donotuseinterpreter, Image - 10/24/2024 [facility] [address] [place] [address] Mammography Report Signed Patient: Adonis RamírezR#: [id number] : 8Acct:[id number] Age/Sex: 74 / FADM Date: 10/15/24 Loc: CHIDI.JOSE RO Attending Dr: Dharmesh Luther MD Ordering Physician: Dharmesh Luther MDResu lts: 1Negative Date of Service: 10/15/24Follow Up: 1 Year From Orig inal Mammogram Procedure(s): MM tomosynthesis screening BI Accession Number(s): [id number] cc: Dharmesh Luther MD EXAMINATION: MM SCREENING [...] 10/24/24 2100 DD/ 0855 TD/TT: 10/15/24 0910 Fitter Machinist: Dharmesh Guardado MD IMG BI PROCEDURES Maximilian noel Result - Final * (ABNORMAL) Lipid Panel, Standard (04/27/2024 9:56 AM EST) Triglycerides 273(H) <150 mg/dL [facility] Comment:Desirable Triglyceri de: less than 150 mg/dLBorderline High Triglyceride 150-199 mg/dLHigh Triglyceride: 200-499 mg/dLVery High Triglyceride: greater than or equal to 5OO mg/dL Cholesterol 107 <200 mg/dL [facility] Comment:Desirable Cholestero l: less than 200 mg/dLBorderline High Cholesterol: 200-239 mg/dLHigh Cholesterol: greater than 239 mg/dL LDL Cholesterol Calculated 23 <100 mg/dL [facility] Comment:Desirable LDL: less than 100 mg/dLNear Optimal/Above Optimal LDL: 110- 129 mg/dLBorderline High LDL: 130-159 mg/dLHigh LDL: 160-189 mg/dLVery High LDL: greater than or equal to 190 mg/dL HDL Cholesterol 30(L) >40 mg/dL [facility] Comment:Desirable HDL: great er than 40 mg/dL Note: This HDL assay may give artificially low results in patients with liver disease. Blood Venous blood specimen / Unknown 04/27/2024 9:56 AM EST 04/27/2024 9:56 AM EST Dharmesh Guardado MD LAB BLOOD ORDERABLES Final Result Performing Organization Address [facility] Co de Phone Number [facility] [address] [place] [phone] * Albumin, Random Urine W/Creatinine (04/27/2024 9:54 AM EST) Creatinine, Urine 77.61 mg/dL [facility] Microalbumin Urine 9.0 mg/L [facility] Microalbum Creatinine Ratio Ur 11.5 <30 ug/mg cr [facility] Comment:Albumin/Creatinine R atio Reference Ranges: Normal: < 30 ug/mg creatinine Microalbuminuria: 30 - 300 ug/mg creatinineClinical Albuminuria: > 300 ug/mg creatinine Urine (Urine, Random) 04/27/2024 9:54 AM EST 04/27/2024 10:39 AM EST Dharmesh Guardado MD LAB URINE ORDERABLES Final Result Performing Organization Address [facility] Co de Phone Number [facility] [address] [place] [phone] * HEPATITIS C ANTIBODY RFLX (07/23/2021 6:58 AM EDT) Hepatitis C Antibody Nonreactive Nonreactive [facility] Comment: Antibodies to HCV not detected; does not exclude early acute HCV infection. 07/23/2021 6:58 AM EDT Dharmesh Guardado MD HISTORICAL/NON ORDERA BLE LABS Final Result [facility] [address] [place] [address], * Colonoscopy (05/16/2020) Colonoscopy Normal Normal 05/16/2020 Diamond Levin - 05/16/2020 8:51 AM EST Recommended 5 year follow up us Historical Provider HEALTH MAINTENANCE Edited Result - Final from Last 3 Months or Most Recently Relevant to Health Maintenance Insurance MEDICARE [facility] MEDEX CARE Care Teams Deli Cutter Slicer Relationship Specialty Start Date End Date Dharmesh Lentz MD [address] [place] [phone] PCP - General Internal Medicine 11/22/13
--- OUTSIDE RECORDS SUMMARY | 2024-12-20 16:28 | XMS_ITS | Encounter Summary ---
Author Organization [employer] Address 75 [facility] [address] [address] Care Team Providers Care Manager Operational Name Role Phone Dharmesh Lentz MD Primary Care Provide r Reason for Visit * Reason Comments Med Refill Encounter Details Date Type Department Care Team (Late st Contact Info) Description 10/16/2022 Refill [facility] [address] [place] [address] Dharmesh Lentz MD 230 [place], [place] [phone] Social History Tobacco Use Types Packs/Day Years [...] Description 02/21/2025 11:15 AM EST Office Visit [facility] [address] [place], [place] [phone] Dharmesh Lentz MD 230 [place] [address] documented as of this encounter Visit Diagnoses Not on filedocumented in this encounter Additional Health Concerns Assessment Noted Time PHQ-9 Depression Total Score: 6 08/27/19 23 1:26 PM EDT documented as of this encounter Care Teams Manager Operational Relationship Specialty Start Date End Date Dharmesh Lentz MD 230 [facility] [place] [address] PCP - General Internal Medicine 11/22/13 documented as of this encounter
--- OUTSIDE RECORDS SUMMARY | 2024-12-20 16:28 | XMS_ITS | Encounter Summary ---
Author Organization [employer] Address 75 [facility] 7[address] [place] [address] Care Team Providers Care Art Museum Aide Name Role Phone Dharmesh Lentz MD Primary Care Provide r Reason for Visit * Reason Comments Med Refill Encounter Details Date Type Department Care Team (Late st Contact Info) Description 09/02/2022 Refill [facility] 230 [place] [address] Dharmesh Lentz MD 230 [place] [address] Social History Tobacco Use Types Packs/Day Years [...] Description 02/21/2025 11:15 AM EST Office Visit [facility] 230 [facility] [place] [address] Dharmesh Lentz MD 230 [place] [address] documented as of this encounter Visit Diagnoses Not on filedocumented in this encounter Additional Health Concerns Assessment Noted Time PHQ-9 Depression Total Score: 6 08/27/19 23 1:26 PM EDT documented as of this encounter Care Teams Art Museum Aide Relationship Specialty Start Date End Date Dharmesh Lentz MD 230 [facility] [place] [address] PCP - General Internal Medicine 11/22/13 documented as of this encounter
--- OUTSIDE RECORDS SUMMARY | 2024-12-20 16:28 | XMS_ITS | Encounter Summary ---
Author Organization [employer] Address 75 [facility] 7t [place] [address] Care Team Providers Care Hair Assistant Name Role Phone Dharmesh Lentz MD Primary Care Provide r Encounter Details Date Type Department Care Team (Latest Contact Info) Description 12/20/2024 Travel Social History Tobacco Use Types Packs/Day Years [...] Description 02/21/2025 11:15 AM EST Office Visit [facility] 230 [place] [address] Dharmesh Lentz MD [address] [place] [address] documented as of this encounter Visit Diagnoses Not on filedocumented in this encounter Additional Health Concerns Assessment Noted Time PHQ-9 Depression Total Score: 2 09/01/19 24 9:16 AM EDT documented as of this encounter Care Teams Hair Assistant Relationship Specialty Start Date End Date Dharmesh Lentz MD [address] [place] [address] PCP - General Internal Medicine 11/22/13 documented as of this encounter
--- OUTSIDE RECORDS SUMMARY | 2024-12-20 16:28 | XMS_ITS | Patient Health Record ---
Author Organization [facility] Address [address] [place] [address] Care Team Providers Care Dishtank Operator Name Role Phone Stefani Guardado MD, Dharmesh Primary Care Provide r Unavailable Jesus Lacey Unavailable [phone] Allergies Allergen (clinical drug ingredient) Drug/Non Drug [...] Problem Screening for malignant neoplasm of colon (445202506) Encounter for screening for malignant neoplasm of colon (Z12.11) Active confirmed Problem History of adenomatous polyp of colon (073144094) History of adenomatous polyp of colon (Z86.010) Active confirmed Problem Diverticular disease of colon (139148055) Diverticulosis (K57.90) Active confirmed Problem 627909418 Gastroesophageal reflux disease without esophagitis (K21.9) Active confirmed Problem Gastroesophageal reflux disease (536890697) GERD (gastroesophageal reflux disease) (K21.9) Active confirmed Problem 33034774 Irritable bowel syndrome with both constipation and diarrhea (K58.2) Active confirmed Plan Of Treatment Future Test Test Name Order Date UPPER GI ENDOSCOPY 04/24/2020 COLONOSCOPY 04/24/2020 Insurance Providers Payer Name Payer Address Payer Phone Subscriber Number Group Number Insured Name Patient Relationship to Insured Coverage Start Date Coverage End Date MEDICARE OF [place] [address] [place] [id number] AYDE GOULD Self - patient is the insured MEDEX ATTN CLAIMS [address] [place] [address] [id number] AYDE GOULD Self - patient is the insured Medical (General) History Medical History History ICD Code IDDM Hypertension Tubular adenomas removed in [address] Samson; colonoscopy in 04/2015 with hyperplastic polyps-Dr. Samson Denies [place],CVA,Lung disease,renal disease Diverticulosis-Rx'd with ant ibiotics in [...]
--- OUTSIDE RECORDS SUMMARY | 2024-12-20 16:29 | XMS_ITS | Encounter Summary ---
Author Organization [employer] Address [address] [facility] 7[place] [address] Care Team Providers Care Gold Stamper Name Role Phone Dharmesh Lentz MD Primary Care Provide r Reason for Visit * Reason Onset Date Comments Med Refill 05/01/2024 Encounter Details Date Type Department Care Team ([facility] st Contact Info) Description 05/01/2024 Telephone [facility] MED[facility] 230 [place] [address] Dharmesh Lentz MD 230 [place] [address] Med Refill Social History Tobacco Use Types [...] 8:22 AM EST Medication was sent to [facility] #[id number] on 04/03/24 #30 with 3 refills. * Telephone Encounter - Angelo Parsi - 05/01/2024 8:12 AM EST TC from pt requesting medication refill. Medications needing refill : enalapril (Vasotec) 5 MG tablet To be sent to: [id number] - [place] - [address] [place] [address] AT [facility] documented in this encounter Plan of Treatment Upcoming Encounters Date Type Department Care Team (Late st Contact Info) Description 02/21/2025 11:15 AM EST Office Visit [facility] 230 [place] [address] Dharmesh Lentz MD 230 [place] [address] documented as of this encounter Visit Diagnoses Not on filedocumented in this encounter Additional Health Concerns Assessment Noted Time PHQ-9 Depression Total Score: 2 09/01/19 24 9:16 AM EDT documented as of this encounter Care Teams Gold Stamper Relationship Specialty Start Date End Date Dharmesh Lentz MD 230 [place] [address] PCP - General Internal Medicine 11/22/13 documented as of this encounter
== END 2024-12-20 12:16 | disposition home or self-care (01) ==
LOC: HO.HHCX 12:15
PROVIDERS: PCP Internal Medicine; Visit Provider Internal Medicine
DX: M25.551 Pain in right hip (principal); M54.50 Low back pain, unspecified
CPT/HCPCS: 72100; 73502

== ENCOUNTER → 2024-12-20 12:23 | Outpatient (BNV) | payer MEDICARE, SELFPAY | PROVIDERS: PCP Internal Medicine; Visit Provider Radiology Diagnostic Radiology | DX: M16.11 Unilateral primary osteoarthritis, right hip (principal) | CPT/HCPCS: 73502 ==

== ENCOUNTER 2024-12-24 07:13 | Outpatient (REF) | payer MEDICARE, SELFPAY ==
--- OUTSIDE RECORDS SUMMARY | 2024-12-20 11:30 | XMS_ITS | Encounter Summary ---
Author Organization [employer] Address [address] [facility] [address] [place] [address] Care Team Providers Care Chief Medical Director Name Role Phone Dharmesh Lentz MD Primary Care Provide r Reason for Referral * Consultation (Routine) - Authorized Specialty Diagnoses / Procedures Referred By Jalen t Referred To Contact Orthopaedic Surgery Diagnoses Right hip pain Dharmesh Lentz MD [address] [place] [address] Phone: tel: fax: [facility] Orthopedics [address] [place] [address] Phone: tel: Referral ID Status Reason Start Date Expiration Date Visits Requested Visits Authorized [id number] Authorized Specialty Services Required 12/20/2024 12/20/2025 1 1 * Consultation (Routine) - Closed Specialty Diagnoses / Procedures Referred By Contac t Referred To Contact Physical Therapy Diagnoses Right hip pain Acute right-sided low back pain without sciatica Dharmesh Lentz MD [address] [place] [address] Phone: tel: fax: [facility] Physical Therapy [address], [place] Phone: tel: fax: Referral ID Status Reason Start Date Expiration Date V isits Requested Visits Authorized [id number] Closed Specialty Services Required 12/20/2024 12/20/2025 1 1 Reason for Visit * Reason Comments Follow-up HTN Encounter Details Date Type Department Care Team ([facility] st Contact Info) Description 12/20/2024 11:30 AM EDT Office Visit [facility] MEDICINE [address] [place] [address] Dharmesh Lentz MD [address] [place] [address] Type 2 diabetes mellitus without complication, with [...] housing situation today? I have azar sullivan 12/13/[address] you li [...] Addressed This Visit Type 2 diabetes mellitus (CMS/HCC) - Primary Pt is here for a [...] cm with no angio or lymphatic invasion, [id number], she unfortunately had removal of 2 parathyroid [...] and diverticulosis This note was drafted using Ambient (AI) technology. The patient/patient's guardian has been informed and has consented to the use of this technology: Yes Future Appointments Date Time Provider Department Center 02/21/2025 11:15 AM Dharmesh Guardado MD MEDICINE [facility] [1] Allergies Allergen Reactions Metformin Other reaction(s): [...] Today she is agreeable for a PT leigh matute Previously she was referred to Ortho. Pt [...] cm with no angio or lymphatic invasion, [id number], she unfortunately had removal of 2 parathyroid [...] Description 02/21/2025 11:15 AM EST Office Visit [facility] MEDICINE [address] [place] [phone] Dharmesh Lentz MD [address] [place] [address] Scheduled Orders Name Type Priority Associated Diagnoses [...] complication, with long-term current use of insulin ([facility]) POCT GLYCOSYLATED HEMOGLOBIN (HGB A1C) Routine 12/20/2024 12:10 PM EDT Type 2 diabetes mellitus without complication, with long-term current use of insulin ([facility]) documented in this encounter Results * XR Lumbar Spine 2-3 Views (12/20/2024 12:45 PM EDT) Anatomical Region Laterality Modality Spine, L-spine Radiographic Rekha ging 12/20/2024 12:4 5 PM EDT Narrative 12/20/2024 12:56 [place] [address] XRay Report Signed Patient: Zeina Ramírez MR#: [id number] : 1950 Acct:[id number] Age/Sex: 74 / F ADM Date: 12/20/24 Loc: HO.HHCX Attending Dr: Dharmesh Luther MD Ordering Physician: Dharmesh Luther MD Date of Service: 12/20/24 Procedure(s): XR lumbar spine 2-3V Accession Number(s): [id number] cc: Dharmesh Luther MD Reason for Exam: [...] 12/20/24 1254 DD/ 1245 TD/TT: 12/20/24 1246 Evaluation Specialist: Procedure Note Donotuseinterpreter, Image - 12/20/2024 [place] [address] XRay Report Signed Patient: Taylor Ramírez#: [id number] : 8Acct:[id number] Age/Sex: 74 / FADM Date: 12/20/24 Loc: HO.HHCX Attending Dr: Dharmesh Luther MD Ordering Physician: Dharmesh Luther MD Date of Service: 12/20/24 Procedure(s): XR lumbar spine 2-3V Accession Number(s): [id number] cc: Dharmesh Luther MD Reason for Exam: [...] 12/20/24 1254 DD/ 1245 TD/TT: 12/20/24 1246 Evaluation Specialist: us Dharmesh Guardado MD IMG XR PROCEDURES Fin al Result * XR Hip 2 or 3 Views Right (12/20/2024 12:45 PM EDT) Anatomical Region Laterality Modality Lower Extremities, Hip Right Radiograp hic Imaging 12/20/2024 12:4 5 PM EDT Narrative 12/20/2024 12:54 [place] [address] XRay Report Signed Patient: Zeina Ramírez MR#: [id number] : 1950 Acct:[id number] Age/Sex: 74 / F ADM Date: 12/20/24 Loc: HO.HHCX Attending Dr: Dharmesh Luther MD Ordering Physician: Dharmesh Luther MD Date of Service: 12/20/24 Procedure(s): XR hip RT min 2V Accession Number(s): [id number] cc: Dharmesh Luther MD Reason for Exam: [...] 12/20/24 1251 DD/ 1245 TD/TT: 12/20/24 1246 Evaluation Specialist: Procedure Note Donotuseinterpreter, Image - 12/20/2024 [place] [address] XRay Report Signed Patient: Taylor Ramírez#: [id number] : 8Acct:[id number] Age/Sex: 74 / FADM Date: 12/20/24 Loc: HO.HHCX Attending Dr: Dharmesh Luther MD Ordering Physician: Dharmesh Luther MD Date of Service: 12/20/24 Procedure(s): XR hip RT min 2V Accession Number(s): [id number] cc: Dharmesh Luther MD Reason for Exam: [...] 12/20/24 1251 DD/ 1245 TD/TT: 12/20/24 1246 Evaluation Specialist: Dharmesh Guardado MD IMG XR PROCEDURES Fin al Result * POCT glucose manually resulted (12/20/2024 12:12 PM EDT) Glucose Blood, POC 177 60 - 200 mg/dL QC Media Lot # [id number] Lot# Expiration Date 227,226 Blood Capillary blood specimen / Unknown 12/20/2024 12:12 PM EDT Dharmesh Guardado MD POINT OF CARE TEST EN TER/EDIT ORDERABLES Final Result * (ABNORMAL) POCT glycosylated hemoglobin (Hgb A1c) (12/20/2024 12:10 PM EDT) Hemoglobin A1C 6.8(A) 4.0 - 5.7 % QC Media Lot # [id number] Lot# Expiration Date [id number] Blood Capillary blood specimen / Unknown 12/20/2024 12:10 PM EDT Dharmesh Guardado MD POINT OF CARE TEST [...] documented as of this encounter Care Teams Chief Medical Director Relationship Specialty Start Date End Date Dharmesh Lentz MD [address] [place] [address] PCP - General Internal Medicine 11/22/13 documented as of this encounter
--- OUTSIDE RECORDS SUMMARY | 2024-12-24 07:16 | XMS_ITS | Encounter Summary ---
Author Organization [employer] Address 75 [facility] 7[place] [address] Care Team Providers Care Outside Maintenance Worker Name Role Phone Dharmesh Lentz MD Primary Care Provide r Reason for Visit * Reason Onset Date Comments Med Refill 10/07/2023 Encounter Details Date Type Department Care Team ([facility] st Contact Info) Description 10/07/2023 Telephone [facility]ICINE 230 [place] [address] Dharmesh Lentz MD 230 [place] [address] Med Refill Social History Tobacco Use Types [...] 11:49 AM EDT Medication was sent to [facility] #[id number] on 09/01/23 with 1 refill. * Telephone Encounter - Carlton Hoffmann - 10/07/2023 11:46 AM EDT TC from pt requesting medication refill. Medications needing refill: naproxen (Naprosyn) 500 MG tablet To be sent to: [id number] documented in this encounter Plan of Treatment Upcoming Encounters Date Type Department Care Team (Late st Contact Info) Description 02/21/2025 11:15 AM EST Office Visit [facility] 230 [place] [address] Dharmesh Lentz MD 230 [place], [place] [phone] documented as of this encounter Visit Diagnoses Not on filedocumented in this encounter Additional Health Concerns Assessment Noted Time PHQ-9 Depression Total Score: 2 09/01/19 24 9:16 AM EDT documented as of this encounter Care Teams Outside Maintenance Worker Relationship Specialty Start Date End Date Dharmesh Lentz MD 230 [place] [address] PCP - General Internal Medicine 11/22/13 documented as of this encounter
--- OUTSIDE RECORDS SUMMARY | 2024-12-24 07:16 | XMS_ITS | Encounter Summary ---
Author Organization [employer] Address 75 [facility] 7t [place] [address] Care Team Providers Care Manufacturing Operations Manager Name Role Phone Dharmesh Lentz MD Primary Care Provide r Encounter Details Date Type Department Care Team (Late st Contact Info) Description 12/19/2024 Telephone [facility] 230 [place] [address] Ana Maria Restrepo [place] Social History Tobacco [...] Description 02/21/2025 11:15 AM EST Office Visit [facility] 230 [place] [address] Dharmesh Lentz MD 230 [place] [address] documented as of this encounter Visit Diagnoses Not on filedocumented in this encounter Additional Health Concerns Assessment Noted Time PHQ-9 Depression Total Score: 2 09/01/19 24 9:16 AM EDT documented as of this encounter Care Teams Manufacturing Operations Manager Relationship Specialty Start Date End Date Dharmesh Lentz MD [address] [place] [address] PCP - General Internal Medicine 11/22/13 documented as of this encounter
--- OUTSIDE RECORDS SUMMARY | 2024-12-24 07:16 | XMS_ITS | Encounter Summary ---
Author Organization [employer] Address 75 [facility] 7t [place] [address] Care Team Providers Care Filler Operator Name Role Phone Dharmesh Lentz MD Primary Care Provide r Reason for Visit * Reason Comments Med Refill Encounter Details Date Type Department Care Team ([facility] [place] st Contact Info) Description 12/19/2024 Refill [facility] 230 [place] [address] Dharmesh Lentz MD 230 [place] [address] Mixed hyperlipidemia Social History Tobacco Use Types [...] Description 02/21/2025 11:15 AM EST Office Visit [facility] 230 [place] [address] Dharmesh Lentz MD 230 [place] [address] documented as of this encounter Visit Diagnoses Diagnosis Mixed hyperlipidemia documented in this encounter Additional Health Concerns Assessment Noted Time PHQ-9 Depression Total Score: 2 09/01/19 24 9:16 AM EDT documented as of this encounter Care Teams Filler Operator Relationship Specialty Start Date End Date Dharmesh Lentz MD 230 [place] [address] PCP - General Internal Medicine 11/22/13 documented as of this encounter
--- OUTSIDE RECORDS SUMMARY | 2024-12-24 07:17 | XMS_ITS | Encounter Summary ---
Author Organization [employer] Address 75 [facility] 7[place] [address] Care Team Providers Care Bowling Ball Weigher And Packer Name Role Phone Dharmesh Lentz MD Primary Care Provide r Reason for Visit * Reason Comments Med Refill Encounter Details Date Type Department Care Team (Late st Contact Info) Description 09/02/2022 Refill [facility] 230 [place] [address] Dharmesh Lentz MD 230 [place] [address] Social History Tobacco Use Types Packs/Day Years [...] Description 02/21/2025 11:15 AM EST Office Visit [facility] [address] [facility] [place] [address] Dharmesh Lentz MD 230 [place] [address] documented as of this encounter Visit Diagnoses Not on filedocumented in this encounter Additional Health Concerns Assessment Noted Time PHQ-9 Depression Total Score: 6 08/27/19 23 1:26 PM EDT documented as of this encounter Care Teams Bowling Ball Weigher And Packer Relationship Specialty Start Date End Date Dharmesh Lentz MD [address] [facility] [place] [address] PCP - General Internal Medicine 11/22/13 documented as of this encounter
--- OUTSIDE RECORDS SUMMARY | 2024-12-24 07:17 | XMS_ITS | Encounter Summary ---
Author Organization [employer] Address 75 [facility] 7 [place] [address] Care Team Providers Care Drop Worker Name Role Phone Dharmesh Lentz MD Primary Care Provide r Encounter Details Date Type Department Care Team (Late st Contact Info) Description 08/12/2022 Abstract [facility] MEDICINE [address] [place] [address] Dharmesh Lentz MD [address] [place] [address] [phone] Social History Tobacco Use Types Packs/Day Years [...] 11:15 AM EST Office Visit [facility] [address] [place] [address] [phone] Dharmesh Lentz MD 230 [place], [place] [phone] documented as of this encounter Procedures Procedure Name Priority Date/Time Associated Diagnosis Comments HM COLONOSCOPY Routine 05/16/2020 documented in this encounter Results * Colonoscopy (05/16/2020) Colonoscopy Normal Normal 05/16/2020 Diamond Levin - 05/16/2020 8:51 AM EST Recommended 5 year follow up us Historical Provider [facility] Edited Result - Final documented in this encounter Visit Diagnoses Not on filedocumented in this encounter Care Teams Drop Worker Relationship Specialty Start Date End Date Dharmesh Lentz MD [address] [place] [address] PCP - General Internal Medicine 11/22/13 documented as of this encounter
--- OUTSIDE RECORDS SUMMARY | 2024-12-24 07:17 | XMS_ITS | Encounter Summary ---
Author Organization [employer] Address 75 [facility] 7t [place] [address] Care Team Providers Care Industrial Gas Service Helper Name Role Phone Dharmesh Lentz MD Primary [...] Description 02/21/2025 11:15 AM EST Office Visit [facility] 230 [place] [address] Dharmesh Lentz MD [address] [place] [address] documented as of this encounter Visit Diagnoses Not on filedocumented in this encounter Additional Health Concerns Assessment Noted Time PHQ-9 Depression Total Score: 2 09/01/19 24 9:16 AM EDT documented as of this encounter Care Teams Industrial Gas Service Helper Relationship Specialty Start Date End Date Dharmesh Lentz MD [address] [place] [address] PCP - General Internal Medicine 11/22/13 documented as of this encounter
--- OUTSIDE RECORDS SUMMARY | 2024-12-24 07:17 | XMS_ITS | Encounter Summary ---
Author Organization [employer] Address 75 [facility] 7 [place] [address] Care Team Providers Care Car Bracer Name Role Phone Dharmesh Lentz MD Primary Care Provide r Reason for Visit * Reason Onset Date Comments Prior Authorization 02/24/2023 Encounter Details Date Type Department Care Team ([facility] st Contact Info) Description 02/24/2023 Telephone [facility] MEDICINE 230 [place] [address] Dharmesh Lentz MD 230 [place] [address] Prior Authorization Social History Tobacco Use Types [...] Description 02/21/2025 11:15 AM EST Office Visit [facility] MEDICINE 230 [place] [address] Dharmesh Lentz MD 230 [place] [address] documented as of this encounter Visit Diagnoses Not on filedocumented in this encounter Additional Health Concerns Assessment Noted Time PHQ-9 Depression Total Score: 6 08/27/19 23 1:26 PM EDT documented as of this encounter Care Teams Car Bracer Relationship Specialty Start Date End Date Dharmesh Lentz MD 230 [place], [place] [phone] PCP - General Internal Medicine 11/22/13 documented as of this encounter
--- OUTSIDE RECORDS SUMMARY | 2024-12-24 07:17 | XMS_ITS | Patient Health Record ---
Author Organization [facility] Address [address] [place] [address] Care Team Providers Care Fire Extinguisher Charger Name Role Phone Stefani Guardado MD, Dharmesh Primary Care Provide r Unavailable Jesus Lacey Unavailable [phone] Allergies Allergen (clinical drug ingredient) Drug/Non Drug [...] Problem Screening for malignant neoplasm of colon (654184456) Encounter for screening for malignant neoplasm of colon (Z12.11) Active confirmed Problem History of adenomatous polyp of colon (136570326) History of adenomatous polyp of colon (Z86.010) Active confirmed Problem Diverticular disease of colon (020820992) Diverticulosis (K57.90) Active confirmed Problem 059865366 Gastroesophageal reflux disease without esophagitis (K21.9) Active confirmed Problem Gastroesophageal reflux disease (445043022) GERD (gastroesophageal reflux disease) (K21.9) Active confirmed Problem 06845117 Irritable bowel syndrome with both constipation and diarrhea (K58.2) Active confirmed Plan Of Treatment Future Test Test Name Order Date UPPER GI ENDOSCOPY 04/24/2020 COLONOSCOPY 04/24/2020 Insurance Providers Payer Name Payer Address Payer Phone Subscriber Number Group Number Insured Name Patient Relationship to Insured Coverage Start Date Coverage End Date MEDICARE OF [place] [address] [place] [address] [phone] [id number] AYDE GOULD Self - patient is the insured MEDEX ATTN CLAIMS [address] [place] [address] [id number] AYDE GOULD Self - patient is the insured Medical (General) History Medical History History ICD Code IDDM Hypertension Tubular adenomas removed in [address] Samson; colonoscopy in 04/2015 with hyperplastic polyps-Dr. Samson Denies [place],CVA,Lung disease,renal disease Diverticulosis-Rx'd with ant ibiotics in [...]
--- OUTSIDE RECORDS SUMMARY | 2024-12-24 07:17 | XMS_ITS | Encounter Summary ---
Author Organization [employer] Address 75 [facility] 7[place] [address] Care Team Providers Care Glassware Finisher Name Role Phone Dharmesh Lentz MD Primary Care Provide r Reason for Visit * Reason Comments Med Refill Encounter Details Date Type Department Care Team ([facility] st Contact Info) Description 08/31/2022 Refill [facility] MEDICINE 230 [place] [address] Dharmesh Lentz MD 230 [place] [address] Social History Tobacco Use Types Packs/Day Years [...] Description 02/21/2025 11:15 AM EST Office Visit [facility] MEDICINE [address] [place] [address] Dharmesh Lentz MD 230 [place] [address] documented as of this encounter Visit Diagnoses Not on filedocumented in this encounter Additional Health Concerns Assessment Noted Time PHQ-9 Depression Total Score: 6 08/27/19 23 1:26 PM EDT documented as of this encounter Care Teams Glassware Finisher Relationship Specialty Start Date End Date Dharmesh Lentz MD [address] [place] [address] PCP - General Internal Medicine 11/22/13 documented as of this encounter
--- OUTSIDE RECORDS SUMMARY | 2024-12-24 07:17 | XMS_ITS | Encounter Summary ---
Author Organization [employer] Address 75 [facility] 7 [place] [address] Care Team Providers Care Bowling Alley Attendant Name Role Phone Dharmesh Lentz MD Primary Care Provide r Reason for Visit * Reason Onset Date Comments Med Refill 05/01/2024 Encounter Details Date Type Department Care Team ([facility] st Contact Info) Description 05/01/2024 Telephone [facility] 230 [place] [address] Dharmesh Lentz MD 230 [place] [address] Med Refill Social History Tobacco Use Types [...] 8:22 AM EST Medication was sent to [facility] #[id number] on 04/03/24 #30 with 3 refills. * Telephone Encounter - Angelo Paris - 05/01/2024 8:12 AM EST TC from pt requesting medication refill. Medications needing refill : enalapril (Vasotec) 5 MG tablet To be sent to: [facility] #[id number] - [place] - [address] [place] [address] AT [facility] documented in this encounter Plan of Treatment Upcoming Encounters Date Type Department Care Team (Late st Contact Info) Description 02/21/2025 11:15 AM EST Office Visit [facility] 230 [place] [address] Dharmesh Lentz MD [address] [place] [address] documented as of this encounter Visit Diagnoses Not on filedocumented in this encounter Additional Health Concerns Assessment Noted Time PHQ-9 Depression Total Score: 2 09/01/19 24 9:16 AM EDT documented as of this encounter Care Teams Bowling Alley Attendant Relationship Specialty Start Date End Date Dharmesh Lentz MD 230 [place] [address] PCP - General Internal Medicine 11/22/13 documented as of this encounter
--- OUTSIDE RECORDS SUMMARY | 2024-12-24 07:17 | XMS_ITS | Encounter Summary ---
Author Organization [employer] Address 75 [facility] [address], [place] [address] Care Team Providers Care Side Piece Coverer Name Role Phone Dharmesh Lentz MD Primary Care Provide r Reason for Visit * Reason Comments Med Refill Encounter Details Date Type Department Care Team (Late st Contact Info) Description 10/16/2022 Refill [facility] [address] [place] [address] Dharmesh Lentz MD [address] [place], [place] [phone] Social History Tobacco Use Types Packs/Day Years [...] Description 02/21/2025 11:15 AM EST Office Visit [facility] [address] [place], [place] [phone] Dharmesh Lentz MD [address] [place] [address] documented as of this encounter Visit Diagnoses Not on filedocumented in this encounter Additional Health Concerns Assessment Noted Time PHQ-9 Depression Total Score: 6 08/27/19 23 1:26 PM EDT documented as of this encounter Care Teams Side Piece Coverer Relationship Specialty Start Date End Date Dharmesh Lentz MD 230 [facility] [place] [address] PCP - General Internal Medicine 11/22/13 documented as of this encounter
--- OUTSIDE RECORDS SUMMARY | 2024-12-24 07:17 | XMS_ITS | Encounter Summary ---
Author Organization [employer] Address 75 [facility] 7 [place] [address] Care Team Providers Care Foot Doctor Name Role Phone Dharmesh Lentz MD Primary Care Provide r Reason for Visit * Reason Comments Med Refill Encounter Details Date Type Department Care Team (Late st Contact Info) Description 10/28/[address] [facility] [address] [place] [phone] Maria Esther Case MD [address] [place] [phone] Social History Tobacco Use Types Packs/Day Years [...] Description 02/21/2025 11:15 AM EST Office Visit [facility] [address] [place] [address] [phone] Dharmesh Lentz MD [address] [place], [place] [phone] documented as of this encounter Visit Diagnoses Not on filedocumented in this encounter Additional Health Concerns Assessment Noted Time PHQ-9 Depression Total Score: 6 08/27/19 23 1:26 PM EDT documented as of this encounter Care Teams Foot Doctor Relationship Specialty Start Date End Date Dharmesh Lentz MD [address] [place] [address] PCP - General Internal Medicine 11/22/13 documented as of this encounter
--- OUTSIDE RECORDS SUMMARY | 2024-12-24 07:17 | XMS_ITS | Clinical Summary ---
Author Organization [employer] Address 75 [facility] 7t [place] [address] Care Team Providers Care Bulk Driver Name Role Phone Dharmesh Lentz MD Primary Care Provide r Allergies Active Allergy Reactions Criticality Noted Date Comments Metformin 11/15/2011 Other reaction(s): severe diarrhea Medications FreeStyle lancetsIndication s:Type 2 diabetes mellitus without complication, with long-term current use of insulin (CMS/[facility]) Use 3 times a day 100 each [...] 2 diabetes mellitus without complication, unspecified whether senior care insulin use ([facility]) apply 1 unit by intradermal route 3 [...] both constipation and diarrhea 10/23/2024 Fractured dental jehovah's witness with loss of materi al 03/01/2024 Generalized [...] rate and Urinalysis. She was seen at [facility], they recommended to start with PT and may recommend injections or further imaging if need be. Her Rheumatoid factor was elevated and I recommended an evaluation by a media center specialist Dr Dodson who she saw pt c/o bilateral arm numbness and intermittent weakness. High concern for cervical radiculopathy. I recommended to go back to [facility] for f/u . She was seen [...] was recommended. She was also seen at [facility] Vascular surgery on 10/30/2012 and they recommended she be seen by Surgeon (Dr Espino) who saw pt on 11/06/2012 and was unsure as to what the clinical significance of this would be but he was going to review the exam with the radiologist at [facility] and was going to get back to [...] was recommended. She was also seen at [facility] Vascular surgery on 10/30/2012 and they recommended she be seen by Surgeon (Dr Espino) who saw pt on 11/06/2012 and was unsure as to what the clinical significance of this would be but he was going to review the exam with the radiologist at [facility] and was going to get back to [...] cm with no angio or lymphatic invasion, [id number], she unfortunately had removal of 2 parathyroid [...] cm with no angio or lymphatic invasion, rM6qtJ6lMl, she unfortunately had removal of 2 parathyroid [...] cm with no angio or lymphatic invasion, bB4apA6qWh, she unfortunately had removal of 2 parathyroid [...] cm with no angio or lymphatic invasion, fB2flC0eFr, she unfortunately had removal of 2 parathyroid [...] cm with no angio or lymphatic invasion, mJ7bnM1qHo, she unfortunately had removal of 2 parathyroid [...] cm with no angio or lymphatic invasion, pH3stE5lQi, she unfortunately had removal of 2 parathyroid [...] cm with no angio or lymphatic invasion, yN7spB8fTv, she unfortunately had removal of 2 parathyroid [...] of Total Thyroidectomy TFTs 07/23/2021 wnl on Kpltfcoatcqdk451 mcg PO daily. lowered by Endocrinology Smoker [...] Description 12/20/2024 11:30 AM EDT Office Visit [facility] [address] [place] [address] Dharmesh Lentz MD Type 2 diabetes mellitus without complication, with long-term current use of insulin (CMS/HCC) (Primary Dx); Primary hypertension; Mixed hyperlipidemia; Malignant tumor of thyroid gland (CMS/HCC); Acute right-sided low back pain without sciatica; Right hip pain; Preventative health care 12/20/2024 Travel 12/19/2024 Telephone [facility] [address] [place] [address] Ana Maria Restrepo [place] 12/19/2024 Refill [facility] [address] [facility] [place] [address] Dharmesh Lentz MD Mixed hyperlipidemia 12/13/2024 Patient Outreach [facility] [address] [place] [address] Dharmesh Lentz MD Pre-visit Planning (SDOH negative, Tobacco screening positive.) 11/30/2024 Orders Only GENERIC EXTERNAL DATA DEPARTMENT Provider, Generic External Data 11/22/2024 Orders Only [facility] External Provider, [facility] 11/13/2024 Refill [facility] [address] [place] [address] Dharmesh Lentz MD Primary hypertension 11/08/2024 9:45 AM EDT Office Visit [facility] [address] [facility] [place] [address] Camilla Campbell MD Chronic pain of both shoulders (Primary Dx) 11/08/2024 Travel 11/06/2024 1:15 PM EDT Office Visit [facility] [address] [facility] [place] [address] Carlota House MD Chronic pain of both shoulders (Primary Dx) 11/06/2024 Refill [facility] [address] [place] [place] [address] Dharmesh Lentz MD Mixed hyperlipidemia 11/06/2024 Travel 11/05/2024 9:45 AM EDT Office Visit [facility] [address] [facility] [place] [address] Camilla Campbell MD Chronic pain of both shoulders (Primary Dx) 11/05/2024 Travel 11/01/2024 9:15 AM EDT Office Visit [facility] [address] [place] [place] [address] Camilla Campbell MD Chronic pain of both shoulders (Primary Dx) 11/01/2024 Travel 10/31/2024 Refill [facility] [address] [facility] [address] Kenzie Jett ANP Type 2 diabetes mellitus without complication, unspecified whether senior care insulin use ([facility]); Gastroesophageal reflux disease without esophagitis 10/30/2024 9:15 AM EDT Office Visit [facility] [address] [place] [address] Camilla Campbell MD Chronic pain of both shoulders (Primary Dx) 10/30/2024 Travel 10/29/2024 9:45 AM EDT Office Visit [facility] [address] [place] [address] Camilla Campbell MD Chronic pain of both shoulders (Primary Dx) 10/29/2024 Travel 10/25/2024 9:45 AM EDT Office Visit [facility] [address] [place] [address] Camilla Campbell MD Chronic pain of both shoulders (Primary Dx) 10/25/2024 Travel 10/23/2024 1:30 PM EDT Office Visit [facility] [address] [place] [address] Carlota House MD Chronic pain of both shoulders (Primary Dx) 10/23/2024 Travel 10/22/2024 9:00 AM EDT Office Visit [facility] [address] [place] [address] Camilla Campbell MD Chronic pain of both shoulders (Primary Dx) 10/22/2024 Travel 10/18/2024 9:15 AM EDT Office Visit [facility] [place] [address] Camilla Campbell MD Chronic pain of both shoulders (Primary Dx) 10/18/2024 Travel 10/17/2024 Refill [facility] [address] [place] [address] Dharmesh Lentz MD Chronic neck pain 10/15/2024 Orders Only [facility] [address] [place] [address] Dharmesh Lentz MD 10/01/2024 Refill [facility] [address] [place] [place] [address] Dharmesh Lentz MD Primary hypertension from Last [...] Description 02/21/2025 11:15 AM EST Office Visit [facility] [address] [place] [address] Dharmesh Lentz MD [address] [place] [address] Health Maintenance Due Date Last Done Comments [...] complication, with long-term current use of insulin ([facility]) POCT GLYCOSYLATED HEMOGLOBIN (HGB A1C) Routine 12/20/2024 12:10 PM EDT Type 2 diabetes mellitus without complication, with long-term current use of insulin ([facility]) TSH Routine 11/30/2024 2:44 PM EDT T4, [...] PM EDT Narrative 12/20/2024 12:54 PM EDT [address] [address] XRay Report Signed Patient: Zeina Ramírez MR#: [id number] : 1950 Acct:[id number] Age/Sex: 74 / F ADM Date: 12/20/24 Loc: HO.HHCX Attending Dr: Dharmesh Luther MD Ordering Physician: Dharmesh Luther MD Date of Service: 12/20/24 Procedure(s): XR hip RT min 2V Accession Number(s): [id number] cc: Dharmesh Luther MD Reason for Exam: [...] 12/20/24 1251 DD/ 1245 TD/TT: 12/20/24 1246 Medical Claims Analyst: Procedure Note Donotuseinterpreter, Image - 12/20/[address] [address] XRay Report Signed Patient: Taylor Ramírez#: [id number] : 8Acct:[id number] Age/Sex: 74 / FADM Date: 12/20/24 Loc: HO.HHCX Attending Dr: Dharmesh Luther MD Ordering Physician: Dharmesh Luther MD Date of Service: 12/20/24 Procedure(s): XR hip RT min 2V Accession Number(s): [id number] cc: Dharmesh Luther MD Reason for Exam: [...] 12/20/24 1251 DD/ 1245 TD/TT: 12/20/24 1246 Medical Claims Analyst: us Dharmesh Guardado MD IMG XR PROCEDURES Fin al Result * XR Lumbar Spine 2-3 Views (12/20/2024 12:45 PM EDT) Anatomical Region Laterality Modality Spine, L-spine Radiographic Rekha ging 12/20/2024 12:4 5 PM EDT Narrative 12/20/2024 12:56 [place] [address] XRay Report Signed Patient: Zeina Ramírez MR#: [id number] : 1950 Acct:[id number] Age/Sex: 74 / F ADM Date: 12/20/24 Loc: HO.HHCX Attending Dr: Dharmesh Luther MD Ordering Physician: Dharmesh Luther MD Date of Service: 12/20/24 Procedure(s): XR lumbar spine 2-3V Accession Number(s): [id number] cc: Dharmesh Luther MD Reason for Exam: [...] 12/20/24 1254 DD/ 1245 TD/TT: 12/20/24 1246 Medical Claims Analyst: Procedure Note Donotuseinterpreter, Image - 12/20/2024 [place] [address] XRay Report Signed Patient: Adonis RamírezR#: [id number] : 8Acct:[id number] Age/Sex: 74 / FADM Date: 12/20/24 Loc: HO.HHCX Attending Dr: Dharmesh Luther MD Ordering Physician: Dharmesh Luther MD Date of Service: 12/20/24 Procedure(s): XR lumbar spine 2-3V Accession Number(s): [id number] cc: Dharmesh Luther MD Reason for Exam: [...] 12/20/24 1254 DD/ 1245 TD/TT: 12/20/24 1246 Medical Claims Analyst: Dharmesh Guardado MD IMG XR PROCEDURES Fin al Result * POCT glucose manually resulted (12/20/2024 12:12 PM EDT) Pathologist [facility] Glucose Blood, POC 177 60 - 200 mg/dL QC Media Lot # [id number] Lot# Expiration Date 227,226 Blood Capillary blood specimen / Unknown 12/20/2024 12:12 PM EDT Dharmesh Guardado MD POINT OF CARE TEST EN TER/EDIT ORDERABLES Final Result * (ABNORMAL) POCT glycosylated hemoglobin (Hgb A1c) (12/20/2024 12:10 PM EDT) [facility] Hemoglobin A1C 6.8(A) 4.0 - 5.7 % QC Media Lot # [id number] Lot# Expiration Date [id number] Blood Capillary blood specimen / Unknown 12/20/2024 12:10 PM EDT Dharmesh Guardado MD POINT OF CARE TEST EN TER/EDIT ORDERABLES Final Result * (ABNORMAL) TSH (11/30/2024 2:44 PM EDT) Pathologist [facility] Thyroid Stimulating Hormone 0.04(L) 0.32 - 4.0 uIU/mL [facility] Comment:TSH 3rd Generation ( [facility]) 11/30/2024 2:44 PM EDT 11/30/2024 2:44 PM EDT Generic External Data Provider LAB BLOOD ORDERAB LES Final Result Performing Organization Address City/[facility]/ZIP Co de Phone Number [facility] [address] [place] [phone] * T4, Free (11/30/2024 2:44 PM EDT) Free T4 (Free Thyroxine) 1.32 0.71 - 1.85 ng/dL [facility] 11/30/2024 2:44 PM EDT 11/30/2024 2:44 PM EDT Generic External Data Provider LAB BLOOD ORDERAB LES Final Result Performing Organization Address [facility] Co de Phone Number [facility] [address] [place] [phone] * (ABNORMAL) Thyroglobulin, LC/MS/MS (11/30/2024 2:43 PM EDT) Pathologist [facility] Thyroglobulin, LC/MS/MS <0.1(A) ng/mL [facility] Comment:Reference Range: Int act Thyroid 2.8-40.9 Athyrotic <0.1 Note: Abnormal flagging is based on the reference interval for patients with intact thyroid.This test was performed using the [employer] Coulterchemiluminescent method. Values obtained fromdifferent assay methods cannot be usedinterchangeably. Thyroglobulin levels, regardlessof value, should not be interpreted as absoluteevidence of the presence or absence of disease. Thyroglobulin Comment See Below [facility] Comment:Thyroglobulin antibo dies (TGAB) interfere withthyroglobulin (TG) assays; therefore, TGAB assayshould always be performed in conjunction with aTG assay.For additional information, please refer tohttp://education.Veratect/faq/GDX263(This link is being provided for informational/educational purposes only.)THIS TEST WAS PERFORMED AT:[facility] [place] [id number] GUIDRY MD 11/30/2024 2:43 PM EDT 11/30/2024 2:43 PM EDT us Generic External Data Provider LAB BLOOD ORDERAB LES Final Result Performing Organization Address [facility]/ZIP Co de Phone Number [facility] [address] [place] [address] [phone] * Thyroblobulin, Tumor Marker w/Reflex (11/30/2024 2:43 PM EDT) Thyroglobulin Antibody <1 <=1 IU/mL [facility] Comment:This Thyroglobulin a ntibody test was performedusing the [employer] Chemiluminescent method.Values obtained from different assay methods cannot beused interchangeably. Thyroglobulin antibody levels,regardless of value, should not be interpreted asabsolute evidence of the presence or absence ofdisease. Thyroglobulin, LC/MS/MS TNP [facility] Thyroglobulin Level <0.1 ng/mL [facility] Comment:Reference Range: Ath yrotic: <0.1 ng/mLReference range applies to differentiated thyroidcancer patients following treatment. The presence ofmeasurable thyroglobulin indicates the presence ofthyroglobulin-producing thyroid tissue. Clinicalcorrelation is advised.This Thyroglobulin test was performed using the[employer] Chemiluminescent method. Valuesobtained from different assay methods cannot beused interchangeably. Thyroglobulin levels, regardlessof value, should not be interpreted as absoluteevidence of the presence or absence of disease.THIS TEST WAS PERFORMED AT:[employer]/[facility]ENTERGMZOTMKLO[address] [place] [id number] CANO MD,PHD 11/30/2024 2:43 PM EDT 11/30/2024 2:43 PM EDT Generic External Data Provider LAB BLOOD ORDERAB LES Final Result Performing Organization Address [facility]/ZIP Co de Phone Number [facility] [address] [place] [address] [phone] * Thyroglobulin Antibodies (11/30/2024 2:43 PM EDT) Thyroglobulin Antibodies <1 < or = 1 IU/mL [facility] Comment:THIS TEST WAS PERFOR MED AT:[facility] [place] [id number] GUIDRY MD 11/30/2024 2:43 PM EDT 11/30/2024 2:43 PM EDT us Generic External Data Provider LAB BLOOD ORDERAB LES Final Result Performing Organization Address City/State/[facility] Co de Phone Number [facility] [address] [place] [phone] * US Head Neck Soft Tissue (11/22/2024 1:07 PM EDT) Anatomical Region Laterality Modality Head, Neck Ultrasound 11/22/2024 1:07 PM EDT Narrative 11/22/2024 2:31 PM EDT [address] [address] Ultrasound Report Signed Patient: Zeina Ramírez MR#: [id number] : 1950 Acct:[id number] Age/Sex: 74 / F ADM Date: 11/22/24 Loc: .US Attending Dr: Agata Maier MD Ordering Physician: Agata Maier MD Date of Service: 11/22/24 Procedure(s): US soft tiss head and/or neck Accession Number(s): [id number] cc: Dharmesh Luther MD; Agata Maier MD [...] 11/22/24 1428 DD/ 1307 TD/TT: 11/22/24 1315 Medical Claims Analyst: Procedure Note Donotuseinterpreter, Image - 11/22/2024 [place] [address] Ultrasound Report Signed Patient: Taylor Ramírez#: [id number] : 8Acct:[id number] Age/Sex: 74 / FADM Date: 11/22/24 Loc: HO.US Attending Dr: Agata Maier MD Ordering Physician: Agata Maier MD Date of Service: 11/22/24 Procedure(s): US soft tiss head and/or neck Accession Number(s): [id number] cc: Dharmesh Luther MD; Agata Maier MD [...] 11/22/24 1428 DD/ 1307 TD/TT: 11/22/24 1315 Medical Claims Analyst: [facility] External Provider IMG US PROCEDURES Final Result * BI Mammogram Screening Tomosynthesis Bilateral (10/15/2024 8:55 AM EDT) Anatomical Region Laterality Modality Breast Bilateral Mammography 10/15/2024 8:55 AM EDT Narrative 10/24/2024 9:03 PM EDT [address] [place] [address] Mammography Report Signed Patient: Zeina Ramírez MR#: [id number] : 1950 Acct:[id number] Age/Sex: 74 / F ADM Date: 10/15/24 Loc: BRISA Attending Dr: Dharmesh Luther MD Ordering Physician: Dharmesh Luther MD Resu lts: 1Negative Date of Service: 10/15/24 Follow Up: 1 Year From Orig inal Mammogram Procedure(s): MM tomosynthesis screening BI Accession Number(s): [id number] cc: Dharmesh Luther MD EXAMINATION: MM SCREENING [...] 10/24/24 2100 DD/ 0855 TD/TT: 10/15/24 0910 Medical Claims Analyst: Procedure Note Donotuseinterpreter, Image - 10/24/2024 [facility] [address] [place] [address] Mammography Report Signed Patient: Adonis RamírezR#: [id number] : 8Acct:[id number] Age/Sex: 74 / FADM Date: 10/15/24 Loc: CHIDI.JOSE RO Attending Dr: Dharmesh Luther MD Ordering Physician: Dharmesh Luther MDResu lts: 1Negative Date of Service: 10/15/24Follow Up: 1 Year From Orig inal Mammogram Procedure(s): MM tomosynthesis screening BI Accession Number(s): [id number] cc: Dharmesh Luther MD EXAMINATION: MM SCREENING [...] 10/24/24 2100 DD/ 0855 TD/TT: 10/15/24 0910 Medical Claims Analyst: Dharmesh Guardado MD IMG BI PROCEDURES Maximilian noel Result - Final * (ABNORMAL) Lipid Panel, Standard (04/27/2024 9:56 AM EST) Triglycerides 273(H) <150 mg/dL [facility] Comment:Desirable Triglyceri de: less than 150 mg/dLBorderline High Triglyceride 150-199 mg/dLHigh Triglyceride: 200-499 mg/dLVery High Triglyceride: greater than or equal to 5OO mg/dL Cholesterol 107 <200 mg/dL [facility] Comment:Desirable Cholestero l: less than 200 mg/dLBorderline High Cholesterol: 200-239 mg/dLHigh Cholesterol: greater than 239 mg/dL LDL Cholesterol Calculated 23 <100 mg/dL [facility] Comment:Desirable LDL: less than 100 mg/dLNear Optimal/Above Optimal LDL: 110- 129 mg/dLBorderline High LDL: 130-159 mg/dLHigh LDL: 160-189 mg/dLVery High LDL: greater than or equal to 190 mg/dL HDL Cholesterol 30(L) >40 mg/dL [facility] Comment:Desirable HDL: great er than 40 mg/dL Note: This HDL assay may give artificially low results in patients with liver disease. Blood Venous blood specimen / Unknown 04/27/2024 9:56 AM EST 04/27/2024 9:56 AM EST Dharmesh Guardado MD LAB BLOOD ORDERABLES Final Result Performing Organization Address [facility] Co de Phone Number [facility] [address] [place] [phone] * Albumin, Random Urine W/Creatinine (04/27/2024 9:54 AM EST) Creatinine, Urine 77.61 mg/dL [facility] Microalbumin Urine 9.0 mg/L [facility] Microalbum Creatinine Ratio Ur 11.5 <30 ug/mg cr [facility] Comment:Albumin/Creatinine R atio Reference Ranges: Normal: < 30 ug/mg creatinine Microalbuminuria: 30 - 300 ug/mg creatinineClinical Albuminuria: > 300 ug/mg creatinine Urine (Urine, Random) 04/27/2024 9:54 AM EST 04/27/2024 10:39 AM EST Dharmesh Guardado MD LAB URINE ORDERABLES Final Result Performing Organization Address [facility] Co de Phone Number [facility] [address] [place] [phone] * HEPATITIS C ANTIBODY RFLX (07/23/2021 6:58 AM EDT) Hepatitis C Antibody Nonreactive Nonreactive [facility] Comment: Antibodies to HCV not detected; does not exclude early acute HCV infection. 07/23/2021 6:58 AM EDT Dharmesh Guardado MD HISTORICAL/NON ORDERA BLE LABS Final Result [facility] [address] [place] [address], * Colonoscopy (05/16/2020) Colonoscopy Normal Normal 05/16/2020 Diamond Levin - 05/16/2020 8:51 AM EST Recommended 5 year follow up us Historical Provider HEALTH MAINTENANCE Edited Result - Final from Last 3 Months or Most Recently Relevant to Health Maintenance Insurance [place] [id number] [facility] MEDEX CARE Care Teams Bulk Driver Relationship Specialty Start Date End Date Dharmesh Lentz MD [address] [place] [phone] PCP - General Internal Medicine 11/22/13
[2024-12-24 07:24] LABS: MANUAL DIFF FLAG NO
[2024-12-24 08:31] LABS: Hematocrit 38.1 % (37.0-47.0); Hemoglobin 12.7 g/dl (12.0-16.0); Imm Gran Abs Auto 0.04 X10*3/uL (0.00-0.03); Imm Gran Pct Auto 0.5 % (0.0-0.4); Lymphocytes Absolute Auto 2.5 X10*3/uL (1.2-4.9); Mean Corpuscular HGB Conc 33.3 g/dl (31.0-35.0); Mean Corpuscular Hemoglobin 31.2 pg (27.0-33.0); Mean Corpuscular Volume 93.6 fL (80.0-98.0); NRBC Abs Auto 0.000 X10*3/uL (0.0-0.012); NRBC Pct Auto 0.0 /100WBC (0.0-0.2); Platelet Count 213 X10*3/uL (160-400); Red Blood Count 4.07 X10*6/uL (4.20-5.50); White Blood Count 8.7 X10*3/uL (4.8-10.8)
[2024-12-24 08:53] LABS: Alanine Aminotransferase 26 U/L (0-31); Albumin Level 4.2 g/dL (3.5-5.0); Alkaline Phosphatase 77 U/L (39-117); Anion Gap 12 (12-20); Aspartate Amino Transferase 28 U/L (5-31); Blood Urea Nitrogen 16 mg/dL (9-16); Calcium 8.2 mg/dL (8.4-10.2); Carbon Dioxide 28 mmol/L (22-29); Chloride 107 mmol/L (96-108); Cholesterol 122 mg/dL (<200); Estimated Glomerular Filt Rate > 60; HDL Cholesterol 35 mg/dL (>40); Potassium 3.6 mmol/L (3.3-5.1); Sodium 143 mmol/L (135-145); Total Protein 6.8 g/dL (6.5-8.0); Triglycerides 150 mg/dL (<150)
== END 2024-12-24 07:14 | disposition home or self-care (01) ==
LOC: HO.LAB 07:13
PROVIDERS: PCP Internal Medicine; Visit Provider Internal Medicine
DX: E78.2 Mixed hyperlipidemia (principal); E11.9 Type 2 diabetes mellitus without complications; Z79.4 Long term (current) use of insulin
CPT/HCPCS: 36415; 80053; 80061; 85025

== ENCOUNTER 2024-12-28 15:15 | Outpatient (REF) | payer MEDICARE, SELFPAY ==
--- NOTE | ~2024-12-28 | CT_ITS ---
EXAMINATION: CT LUNG SCREENING HISTORY: F17.210 - Nicotine dependence, cigarettes, uncomplicated TECHNIQUE: Low dose axial images were obtained from the sternal notch to upper abdomen without IV contrast per standard departmental protocol. Sagittal and coronal reformatted images were also obtained and reviewed. One or more of the following techniques was used for dose reduction: Automated exposure control, adjustment of the mA and/or kV according to patient size, use of iterative reconstruction technique. DLP: 39 mGy-cm COMPARISON: Comparison is made with the prior examination dated 10/10/2023. FINDINGS: Lung nodules: Again seen are scattered 1-2 mm nodules at the lung apices. There is a triangular nodule along the right major fissure (series 4, image 74), compatible with an intrapulmonary lymph node. Emphysema: mild Coronary Calcification: none Aortic Arch Calcification: mild Potentially Significant Incidentals : none Additional Chest Findings: There is no pleural or pericardial effusion. No mediastinal or axillary lymphadenopathy is identified. Visualized upper abdomen: The visualized portions of the liver and adrenals have an unremarkable unenhanced appearance. The spleen is borderline enlarged. CT/CT lung screening IMPRESSION: No suspicious pulmonary nodules are identified. LUNG-RADS ASSESSMENT: Lung-RADS 2: Benign MANAGEMENT: Continue annual screening with LDCT in 12 months Category S: N/A Electronically signed by: Jesus Douglass MD 12/31/2024 07:21 AM EDT
--- OUTSIDE RECORDS SUMMARY | 2024-12-28 15:17 | XMS_ITS | Encounter Summary ---
Author Organization [employer] Address [address] [facility] [address] [place] [address] Care Team Providers Care Pulp Grinder Name Role Phone Dharmesh Lentz MD Primary Care Provide r Reason for Visit * Reason Comments Med Refill Encounter Details Date Type Department Care Team (Late st Contact Info) Description 10/28/2022 Refill [facility] [address] [place] [phone] Maria Esther Case MD [address] [place] [phone] Social History Tobacco Use Types Packs/Day Years [...] Description 02/21/2025 11:15 AM EST Office Visit [facility] [address] [place] [phone] Dharmesh Lentz MD [address] [place], [place] [phone] documented as of this encounter Visit Diagnoses Not on filedocumented in this encounter Additional Health Concerns Assessment Noted Time PHQ-9 Depression Total Score: 6 08/27/19 23 1:26 PM EDT documented as of this encounter Care Teams Pulp Grinder Relationship Specialty Start Date End Date Dharmesh Lentz MD [address] [place] [address] PCP - General Internal Medicine 11/22/13 documented as of this encounter
--- OUTSIDE RECORDS SUMMARY | 2024-12-28 15:17 | XMS_ITS | Clinical Summary ---
Author Organization [employer] Address [address] [place] [address] Care Team Providers Care [employer]ar[employer] Feather [employer] Name Role Phone Dharmesh Lentz MD Primary Care Provide r Allergies Active Allergy Reactions Criticality Noted Date Comments Metformin 11/15/2011 Other reaction(s): severe diarrhea Medications FreeStyle lancetsIndication s:Type 2 diabetes mellitus without complication, with long-term current use of insulin (CMS/[facility]) Use 3 times a day 100 [...] complication, unspecified whether senior care insulin use ([facility]) apply 1 unit by intradermal route [...] both constipation and diarrhea 10/23/2024 Fractured dental hindu with loss of materi al 03/01/2024 Generalized [...] rate and Urinalysis. She was seen at [facility], they recommended to start with PT and may recommend injections or further imaging if need be. Her Rheumatoid factor was elevated and I recommended an evaluation by a retail merchandising specialist Dr Dodson who she saw pt c/o bilateral arm numbness and intermittent weakness. High concern for cervical radiculopathy. I recommended to go back to [facility] for f/u . She was seen [...] was recommended. She was also seen at [facility] Vascular surgery on 10/30/2012 and they recommended she be seen by Surgeon (Dr Espino) who saw pt on 11/06/2012 and was unsure as to what the clinical significance of this would be but he was going to review the exam with the radiologist at [facility] and was going to get back to [...] was recommended. She was also seen at [facility] Vascular surgery on 10/30/2012 and they recommended she be seen by Surgeon (Dr Espino) who saw pt on 11/06/2012 and was unsure as to what the clinical significance of this would be but he was going to review the exam with the radiologist at [facility] and was going to get back to [...] cm with no angio or lymphatic invasion, [id number], she unfortunately had removal of 2 parathyroid [...] cm with no angio or lymphatic invasion, [id number], she unfortunately had removal of 2 parathyroid [...] cm with no angio or lymphatic invasion, [id number], she unfortunately had removal of 2 parathyroid [...] cm with no angio or lymphatic invasion, [id number], she unfortunately had removal of 2 parathyroid [...] cm with no angio or lymphatic invasion, [id number], she unfortunately had removal of 2 parathyroid [...] cm with no angio or lymphatic invasion, [id number], she unfortunately had removal of 2 parathyroid [...] cm with no angio or lymphatic invasion, [id number], she unfortunately had removal of 2 parathyroid [...] of Total Thyroidectomy TFTs 07/23/2021 wnl on [id number] mcg PO daily. lowered by Endocrinology Smoker [...] 11:30 AM EDT Office Visit [facility] [address] [place] [address] Dharmesh Lentz MD Type 2 diabetes mellitus without complication, with long-term current use of insulin (CMS/HCC) (Primary Dx); Primary hypertension; Mixed hyperlipidemia; Malignant tumor of thyroid gland (CMS/HCC); Acute right-sided low back pain without sciatica; Right hip pain; Preventative health care 12/20/2024 Travel 12/19/2024 Telephone [facility] WALK[facility] [address] [place] [address] Ana Maria Restrepo [place] 12/19/2024 Refill [facility] [address] [facility] [place] [address] Dharmesh Lentz MD Mixed hyperlipidemia 12/13/2024 Patient Outreach [facility] [address] [place] [address] Dharmesh Lentz MD Pre-visit Planning (SDOH negative, Tobacco screening positive.) 11/30/2024 Orders Only GENERIC EXTERNAL DATA DEPARTMENT Provider, Generic External Data 11/22/2024 Orders Only [facility] External Provider, [facility] 11/13/2024 Refill [facility] [address] [place] [address] Dharmesh Lentz MD Primary hypertension 11/08/2024 9:45 AM EDT Office Visit [facility] [address] [facility] [place] [address] Camilla Campbell MD Chronic pain of both shoulders (Primary Dx) 11/08/2024 Travel 11/06/2024 1:15 PM EDT Office Visit [facility] [address] [facility] [place] [address] Carlota House MD Chronic pain of both shoulders (Primary Dx) 11/06/2024 Refill [facility] [address] [facility] [place] [address] Dharmesh Lentz MD Mixed hyperlipidemia 11/06/2024 Travel 11/05/2024 9:45 AM EDT Office Visit [facility] [address] [facility] [place] [address] Camilla Campbell MD Chronic pain of both shoulders (Primary Dx) 11/05/2024 Travel 11/01/2024 9:15 AM EDT Office Visit [facility] [address] [facility] [place] [address] Camilla Campbell MD Chronic pain of both shoulders (Primary Dx) 11/01/2024 Travel 10/31/2024 Refill [facility] [address] [facility] [place] [address] Kenzie Jett ANP Type 2 diabetes mellitus without complication, unspecified whether senior care insulin use ([facility]); Gastroesophageal reflux disease without esophagitis 10/30/2024 9:15 AM EDT Office Visit [facility] [address] [place] [address] Camilla Campbell MD Chronic pain of both shoulders (Primary Dx) 10/30/2024 Travel 10/29/2024 9:45 AM EDT Office Visit [facility] [address] [place] [address] Camilla Campbell MD Chronic pain of both shoulders (Primary Dx) 10/29/2024 Travel 10/25/2024 9:45 AM EDT Office Visit [facility] [address] [place] [address] Camilla Campbell MD Chronic pain of both shoulders (Primary Dx) 10/25/2024 Travel 10/23/2024 1:30 PM EDT Office Visit [facility] [address] [place] [address] Carlota House MD Chronic pain of both shoulders (Primary Dx) 10/23/2024 Travel 10/22/2024 9:00 AM EDT Office Visit [facility] [address] [place] [address] Camilla Campbell MD Chronic pain of both shoulders (Primary Dx) 10/22/2024 Travel 10/18/2024 9:15 AM EDT Office Visit [facility] [place] [address] Camilla Campbell MD Chronic pain of both shoulders (Primary Dx) 10/18/2024 Travel 10/17/2024 Refill [facility] [address] [place] [address] Dharmesh Lentz MD Chronic neck pain 10/15/2024 Orders Only [facility] [address] [place] [address] Dharmesh Lentz MD 10/01/2024 Refill [facility] [address] [facility] [place] [address] Dharmesh Lentz MD Primary hypertension from Last [...] 11:15 AM EST Office Visit [facility] [address] [place] [address] Dharmesh Lentz MD [address] [place] [address] Health Maintenance Due Date Last Done Comments [...] Additional history exists Dental X-Ray: Bitewings 02/07/2025 02/07/20, 01/29/2013, 08/03/2011, Additional history exists Alcohol/Substance Use Screening 04/03/2025 04/03/2024 Diabetes: Urine Protein Screening 04/27/2025 04/27/2024, 08/27/2022, 09/26/2020 Diabetes: Hemoglobin A1C 06/19/2025 025, 04/03/2024, 01/03/2024, Additional history exists Mammogram 10/15/2025 10/15/2024, 09/09, 09/16/2022, Additional history exists SDOH Screening 12/13/2025 12/13/2024 Tobacco Screening 12/20/2025 12/20/2024 Lipid Panel 12/24/2025 12/24/2024, 04/11, 08/27/2022, Additional history exists Dental X-Ray: Full Mouth 02/07/2027 02/07/2024, 04/2009 [...] Procedure Name Priority Date/Time Associated Diagnosis Comments CBC WITH AUTO DIFFERENTIAL Routine 12/24/2024 7:22 AM EDT Type 2 diabetes mellitus without complication, with long-term current use of insulin (CMS/HCC) COMPREHENSIVE METABOLIC PANEL Routine 12/24/2024 7:22 AM EDT Type 2 diabetes mellitus without complication, with long-term current use of insulin (CMS/HCC) LIPID PANEL, STANDARD Routine 12/24/2024 7:22 AM EDT Mixed hyperlipidemia XR LUMBAR SPINE 2-3 VIEWS Routine 12/20/2024 12:45 PM EDT Right hip pain Acute right-sided low back pain without sciatica XR HIP 2 OR 3 VIEWS RIGHT Routine 12/20/2024 12:45 PM EDT Right hip pain Acute right-sided low back pain without sciatica POCT GLUCOSE Routine 12/20/2024 12:12 PM EDT Type 2 diabetes mellitus without complication, with long-term current use of insulin (CMS/HCC) POCT GLYCOSYLATED HEMOGLOBIN (HGB A1C) Routine 12/20/2024 12:10 PM EDT Type 2 diabetes mellitus without complication, with long-term current use of insulin (CMS/HCC) TSH Routine 11/30/2024 2:44 PM EDT T4, FREE Routine 11/30/2024 2:44 PM EDT THYROGLOBULIN, LC/MS/MS Routine 11/30/2024 2:43 PM EDT THYROGLOBULIN ANTIBODIES Routine 11/30/2024 2:43 PM EDT THYROGLOBULIN, TUMOR MARKER W/REFLEX Routine 11/30/2024 2:43 PM EDT US HEAD NECK SOFT TISSUE Routine 11/22/2024 1:07 PM EDT BI MAMMOGRAM SCREENING TOMOSYNTHESIS BILATERAL Routine 10/15/2024 8:55 AM EDT ALBUMIN, RANDOM URINE W/CREATININE Routine 04/27/2024 9:54 AM EST Type 2 diabetes mellitus without complication, with long-term current use of insulin ([facility]) PROPHYLAXIS - ADULT Routine 02/07/2024 9 :00 [...] Relevant to Health Maintenance Results * (ABNORMAL) CBC auto differential (12/24/2024 7:22 AM EDT) White Blood Count 8.7 4.8 - 10.8 X10*3/uL [facility] Red Blood Count 4.07(L) 4.20 - 5.50 X10*6/uL [facility] Hemoglobin 12.7 12.0 - 16.0 g/dl [facility] Hematocrit 38.1 37.0 - 47.0 % [facility] Mean Corpuscular Volume 93.6 80.0 - 98.0 fL [facility] Mean Corpuscular Hemoglobin 31.2 27.0 - 33.0 pg [facility] Mean Corpuscular HGB Conc 33.3 31.0 - 35.0 g/dl [facility] Red Cell Distribution Width 15.1 11.0 - 16.0 % [facility] Platelet Count 213 160 - 400 X10*3/uL [facility] Mean Platelet Volume 12.9(H) 9.4 - 12.3 fL [facility] Neutrophils Percent Auto 58.9 45 - 73 % [facility] Imm Gran Pct Auto 0.5(H) 0.0 - 0.4 % [facility] Lymphocytes Percent Auto 29.0 20 - 40 % [facility] Monocytes Percent Auto 6.9 2 - 11 % [facility] Eosinophils Percent Auto 3.7 0 - 4 % [facility] Basophils Percent Auto 1.0 0 - 2 % [facility] NRBC Pct Auto 0.0 0.0 - 0.2 /100WBC [facility] Neutrophils Absolute Auto 5.1 2.0 - 8.3 x10*3/uL [facility] Imm Gran Abs Auto 0.04(H) 0.00 - 0.03 X10*3/uL [facility] Lymphocytes Absolute Auto 2.5 1.2 - 4.9 X10*3/uL [facility] Monocytes Absolute Auto 0.6 0.1 - 1.2 X10*3/uL [facility] Eosinophils Absolute Auto 0.3 0.0 - 0.4 X10*3/uL [facility] Basophils Absolute Auto 0.1 0.0 - 0.2 X10*3/uL [facility] NRBC Abs Auto 0.000 0.0 - 0.012 X10*3/uL [facility] Blood Venous blood specimen / Unknown 12/24/2024 7:22 AM EDT 12/24/2024 7:22 AM EDT Dharmesh Guardado MD LAB BLOOD ORDERABLES Final Result Performing Organization Address City/[facility]/ZIP Co de Phone Number [facility] [address] [place] [address] [phone] * (ABNORMAL) Lipid Panel, Standard (12/24/2024 7:22 AM EDT) Triglycerides 150(H) <150 mg/dL [facility] Comment:Desirable Triglyceri de: less than 150 mg/dLBorderline High Triglyceride 150-199 mg/dLHigh Triglyceride: 200-499 mg/dLVery High Triglyceride: greater than or equal to 5OO mg/dL Cholesterol 122 <200 mg/dL [facility] Comment:Desirable Cholestero l: less than 200 mg/dLBorderline High Cholesterol: 200-239 mg/dLHigh Cholesterol: greater than 239 mg/dL LDL Cholesterol Calculated 57 <100 mg/dL [facility] Comment:Desirable LDL: less than 100 mg/dLNear Optimal/Above Optimal LDL: 110- 129 mg/dLBorderline High LDL: 130-159 mg/dLHigh LDL: 160-189 mg/dLVery High LDL: greater than or equal to 190 mg/dL HDL Cholesterol 35(L) >40 mg/dL [facility] Comment:Desirable HDL: great er than 40 mg/dL Note: This HDL assay may give artificially low results in patients with liver disease. Blood Venous blood specimen / Unknown 12/24/2024 7:22 AM EDT 12/24/2024 7:22 AM EDT Dharmesh Guardado MD LAB BLOOD ORDERABLES Final Result [facility] [address] [place] [address] [phone] * (ABNORMAL) Comprehensive Metabolic Panel (12/24/2024 7:22 AM EDT) Sodium 143 135 - 145 mmol/L [facility] Potassium 3.6 3.3 - 5.1 mmol/L [facility] Chloride 107 96 - 108 mmol/L [facility] Carbon Dioxide 28 22 - 29 mmol/L [facility] Anion Gap 12 12 - 20 [facility] Urea Nitrogen (BUN) 16 9 - 16 mg/dL [facility] Creatinine, Serum 0.75 0.5 - 1.4 mg/dL [facility] Estimated Glomerular Filt Rate >60 [facility] Comment:Chronic Kidney Disea se: Estimated GFR < 60 mL/min/1.71d1Buoify Kidney Disease: Estimated GFR < 15 mL/min/1.73m2 Glucose 115 60 - 115 mg/dL [facility] Calcium 8.2(L) 8.4 - 10.2 mg/dL [facility] Bilirubin, Total 0.7 0.0 - 1.0 mg/dL [facility] Aspartate Amino Transferase 28 5 - 31 U/L [facility] Alanine Aminotransferase 26 0 - 31 U/L [facility] Total Protein 6.8 6.5 - 8.0 g/dL [facility] Albumin Level 4.2 3.5 - 5.0 g/dL [facility] Alkaline Phosphatase 77 39 - 117 U/L [facility] Blood Venous blood specimen / Unknown 12/24/2024 7:22 AM EDT 12/24/2024 7:22 AM EDT us Dharmesh Guardado MD LAB BLOOD ORDERABLES Final Result [facility] [address] [place] [phone] [phone] * XR Hip 2 or 3 Views Right (12/20/2024 12:45 PM EDT) Anatomical Region Laterality Modality Lower Extremities, Hip Right Radiograp hic Imaging 12/20/2024 12:4 5 PM EDT Narrative 12/20/2024 12:54 PM EDT [facility] [address] [place] [address] XRay Report Signed Patient: Zeina Ramírez MR#: [id number] : 1950 Acct:[id number] Age/Sex: 74 / F ADM Date: 12/20/24 Loc: HO.HHX Attending Dr: Dharmesh Luther MD Ordering Physician: Dharmesh Luther MD Date of Service: 12/20/24 Procedure(s): XR hip RT min 2V Accession Number(s): [id number] cc: Dharmesh Luther MD Reason for Exam: [...] 12/20/24 1251 DD/ 1245 TD/TT: 12/20/24 1246 [employer] Pa[employer] Operator: Procedure Note Donotuseinterpreter, Image - 12/20/[address] [address] XRay Report Signed Patient: Eli RamírezsMR#: [id number] : 1950cct:[id number] Age/Sex: 74 / FADM Date: 12/20/24 Loc: CHIDI.HHX Attending Dr: Dharmesh Luther MD Ordering Physician: Dharmesh Luther MD Date of Service: 12/20/24 Procedure(s): XR hip RT min 2V Accession Number(s): [id number] cc: Dharmesh Luther MD Reason for Exam: [...] 12/20/24 1251 DD/ 1245 TD/TT: 12/20/24 1246 [employer] Paver Operator: us Dharmesh Guardado MD IMG XR PROCEDURES Fin al Result * XR Lumbar Spine 2-3 Views (12/20/2024 12:45 PM EDT) Anatomical Region Laterality Modality Spine, L-spine Radiographic Rekha ging 12/20/2024 12:4 5 PM EDT Narrative 12/20/2024 12:56 PM EDT [address] [address] XRay Report Signed Patient: Ziena Ramírez MR#: [id number] : 1950 Acct:[id number] Age/Sex: 74 / F ADM Date: 12/20/24 Loc: HO.HHCX Attending Dr: Dharmesh Luthre MD Ordering Physician: Dharmesh Luther MD Date of Service: 12/20/24 Procedure(s): XR lumbar spine 2-3V Accession Number(s): [id number] cc: Dharmesh Luther MD Reason for Exam: [...] 12/20/24 1254 DD/ 1245 TD/TT: 12/20/24 1246 [employer] Paver Operator: Procedure Note Donotuseinterpreter, Image - 12/20/[address] [address] XRay Report Signed Patient: Taylor Ramírez#: [id number] : 8Acct:[id number] Age/Sex: 74 / FADM Date: 12/20/24 Loc: HO.HHCX Attending Dr: Dharmesh Luther MD Ordering Physician: Dharmesh Luther MD Date of Service: 12/20/24 Procedure(s): XR lumbar spine 2-3V Accession Number(s): [id number] cc: Dharmesh Luther MD Reason for Exam: [...] 12/20/24 1254 DD/ 1245 TD/TT: 12/20/24 1246 [employer] Operator: Dharmesh Guardado MD IMG XR PROCEDURES Fin al Result * POCT glucose manually resulted (12/20/2024 12:12 PM EDT) Glucose Blood, POC 177 60 - 200 mg/dL QC Media Lot # [id number] Lot# Expiration Date , Blood Capillary blood specimen / Unknown 12/20/2024 12:12 PM EDT Dharmesh Guardado MD POINT OF CARE TEST EN TER/EDIT ORDERABLES Final Result * (ABNORMAL) POCT glycosylated hemoglobin (Hgb A1c) (12/20/2024 12:10 PM EDT) Hemoglobin A1C 6.8(A) 4.0 - 5.7 % QC Media Lot # [id number] Lot# Expiration Date 162,027 Blood Capillary blood specimen / Unknown 12/20/2024 12:10 PM EDT Dharmesh Guardado MD POINT OF CARE TEST EN TER/EDIT ORDERABLES Final Result * (ABNORMAL) TSH (11/30/2024 2:44 PM EDT) [facility] Thyroid Stimulating Hormone 0.04(L) 0.32 - 4.0 uIU/mL [facility] Comment:TSH 3rd Generation ( [facility]) 11/30/2024 2:44 PM EDT 11/30/2024 2:44 PM EDT Generic External Data Provider LAB BLOOD ORDERAB LES Final Result Performing Organization Address [facility] Co de Phone Number [facility] [address] [place] [phone] * T4, Free (11/30/2024 2:44 PM EDT) [facility] Free T4 (Free Thyroxine) 1.32 0.71 - 1.85 ng/dL [facility] 11/30/2024 2:44 PM EDT 11/30/2024 2:44 PM EDT Generic External Data Provider LAB BLOOD ORDERAB LES Final Result Performing Organization Address [facility] de Phone Number [facility] [address] [place] [phone] * (ABNORMAL) Thyroglobulin, LC/MS/MS (11/30/2024 2:43 PM EDT) [facility] Thyroglobulin, LC/MS/MS <0.1(A) ng/mL [facility] Comment:Reference Range: Int act Thyroid 2.8-40.9 Athyrotic <0.1 Note: Abnormal flagging is based on the reference interval for patients with intact thyroid.This test was performed using the Samson Coulterchemiluminescent method. Values obtained fromdifferent assay methods cannot be usedinterchangeably. Thyroglobulin levels, regardlessof value, should not be interpreted as absoluteevidence of the presence or absence of disease. Thyroglobulin Comment See Below [facility] Comment:Thyroglobulin antibo dies (TGAB) interfere withthyroglobulin (TG) assays; therefore, TGAB assayshould always be performed in conjunction with aTG assay.For additional information, please refer tohttp://education.[employer]/faq/DBH193(This link is being provided for informational/educational purposes only.)THIS TEST WAS PERFORMED AT:[facility] [place] [phone] GUIDRY MD 11/30/2024 2:43 PM EDT 11/30/2024 2:43 PM EDT us Generic External Data Provider LAB BLOOD ORDERAB LES Final Result [facility] [address] [place] [phone] * Thyroblobulin, Tumor Marker w/Reflex (11/30/2024 2:43 PM EDT) Thyroglobulin Antibody <1 <=1 IU/mL [facility] Comment:This Thyroglobulin a ntibody test was performedusing the StepUp Chemiluminescent method.Values obtained from different assay methods cannot beused interchangeably. Thyroglobulin antibody levels,regardless of value, should not be interpreted asabsolute evidence of the presence or absence ofdisease. Thyroglobulin, LC/MS/MS TNP [facility] Thyroglobulin Level <0.1 ng/mL [facility] Comment:Reference Range: Ath yrotic: <0.1 ng/mLReference range applies to differentiated thyroidcancer patients following treatment. The presence ofmeasurable thyroglobulin indicates the presence ofthyroglobulin-producing thyroid tissue. Clinicalcorrelation is advised.This Thyroglobulin test was performed using theStepUp Chemiluminescent method. Valuesobtained from different assay methods cannot beused interchangeably. Thyroglobulin levels, regardlessof value, should not be interpreted as absoluteevidence of the presence or absence of disease.THIS TEST WAS PERFORMED AT:[id number] [place] [phone] CANO MD,PHD 11/30/2024 2:43 PM EDT 11/30/2024 2:43 PM EDT us Generic External Data Provider LAB BLOOD ORDERAB LES Final Result Performing Organization Address [facility] de Phone Number [facility] [address] [place] [phone] * Thyroglobulin Antibodies (11/30/2024 2:43 PM EDT) Thyroglobulin Antibodies <1 < or = 1 IU/mL [facility] Comment:THIS TEST WAS PERFOR MED AT:[facility] [place] [phone] GUIDRY MD 11/30/2024 2:43 PM EDT 11/30/2024 2:43 PM EDT us Generic External Data Provider LAB BLOOD ORDERAB LES Final Result Performing Organization Address [facility] Co de Phone Number [facility] [address] [place] [phone] * US Head Neck Soft Tissue (11/22/2024 1:07 PM EDT) Anatomical Region Laterality Modality Head, Neck Ultrasound 11/22/2024 1:07 PM EDT Narrative 11/22/2024 2:31 PM EDT [address] [address] Ultrasound Report Signed Patient: Zeina Ramírez MR#: [id number] : 1950 Acct:[id number] Age/Sex: 74 / F ADM Date: 11/22/24 Loc: HO.US Attending Dr: Agata Maier MD Ordering Physician: Agata Maier MD Date of Service: 11/22/24 Procedure(s): US soft tiss head and/or neck Accession Number(s): [id number] cc: Dharmesh Luther MD; Agata Maier MD [...] 11/22/24 1428 DD/ 1307 TD/TT: 11/22/24 1315 [employer] Paver Operator: Procedure Note Donotuseinterpreter, Image - 11/22/[address] [address] Ultrasound Report Signed Patient: Taylor Ramírez#: [id number] : 8Acct:[id number] Age/Sex: 74 / FADM Date: 11/22/24 Loc: HO.US Attending Dr: Agata Maier MD Ordering Physician: Agata Maier MD Date of Service: 11/22/24 Procedure(s): US soft tiss head and/or neck Accession Number(s): [id number] cc: Dharmesh Luther MD; Agata Maier MD [...] 11/22/24 1428 DD/ 1307 TD/TT: 11/22/24 1315 [employer]top Paver Operator: [facility] External Provider IMG US PROCEDURES Final Result * BI Mammogram Screening Tomosynthesis Bilateral (10/15/2024 8:55 AM EDT) Anatomical Region Laterality Modality Breast Bilateral Mammography 10/15/2024 8:55 AM EDT Narrative 10/24/2024 9:03 PM EDT [facility] [address] [place] [address] Mammography Report Signed Patient: Zeina Ramírez MR#: [id number] : 1950 Acct:[id number] Age/Sex: 74 / F ADM Date: 10/15/24 Loc: MAMMO Attending Dr: Dharmesh Luther MD Ordering Physician: Dharmesh Luther MD Resu lts: 1Negative Date of Service: 10/15/24 Follow Up: 1 Year From Orig ina Mammogram Procedure(s): MM tomosynthesis screening BI Accession Number(s): [id number] cc: Dharmesh Luther MD EXAMINATION: MM SCREENING [...] 10/24/24 2100 DD/ 0855 TD/TT: 10/15/24 0910 [employer]top Paver Operator: Procedure Note Donotuseinterpreter, Image - 10/24/2024 [facility] [address] [place] [address] Mammography Report Signed Patient: Taylor Ramírez#: [id number] : 8Acct:[id number] Age/Sex: 74 / FADM Date: 10/15/24 Loc: MAMMO Attending Dr: Dharmesh Luther MD Ordering Physician: Dharmesh Luther MDResu lts: 1Negative Date of Service: 10/15/24Follow Up: 1 Year From Orig inal Mammogram Procedure(s): MM tomosynthesis screening BI Accession Number(s): [id number] cc: Dharmesh Luther MD EXAMINATION: MM SCREENING [...] 10/24/24 2100 DD/ 0855 TD/TT: 10/15/24 0910 [place] Operator: us Dharmesh Guardado MD IMG BI PROCEDURES Maximilian noel Result - Final * Albumin, Random Urine W/Creatinine (04/27/2024 9:54 AM EST) Creatinine, Urine 77.61 mg/dL [facility] Microalbumin Urine 9.0 mg/L [facility] Microalbum Creatinine Ratio Ur 11.5 <30 ug/mg cr [facility] Comment:Albumin/Creatinine R atio Reference Ranges: Normal: < 30 ug/mg creatinine Microalbuminuria: 30 - 300 ug/mg creatinineClinical Albuminuria: > 300 ug/mg creatinine Urine (Urine, Random) 04/27/2024 9:54 AM EST 04/27/2024 10:39 AM EST Dharmesh Guardado MD LAB URINE ORDERABLES Final Result [facility] [address] [place] [address] [phone] * HEPATITIS C ANTIBODY RFLX (07/23/2021 6:58 AM EDT) Hepatitis C Antibody Nonreactive Nonreactive [facility] Comment: Antibodies to HCV not detected; does not exclude early acute HCV infection. 07/23/2021 6:58 AM EDT Dharmesh Guardado MD HISTORICAL/NON ORDERA BLE LABS Final Result Performing Organization Address City/[facility] Co de Phone Number [facility] [address] [place] [address], * Hm Colonoscopy (05/16/2020) Colonoscopy Normal Normal 05/16/2020 Narrative Diamond Vidal - 05/16/2020 8:51 AM EST Recommended 5 year follow up Historical Provider HEALTH MAINTENANCE Edited Result - Final from Last 3 Months or Most Recently Relevant to Health Maintenance Insurance MEDICARE [facility] MEDEX CARE Care Teams Quarry Plug And Feather Driller Relationship Specialty Start Date End Date Dharmesh Lentz MD [address] [place] [phone] PCP - General Internal Medicine 11/22/13
--- OUTSIDE RECORDS SUMMARY | 2024-12-28 15:17 | XMS_ITS | Encounter Summary ---
Author Organization [employer] Address [address] [facility] [address] [place] [address] Care Team Providers Care Personal Banking Officer Name Role Phone Dharmesh Lentz MD Primary Care Provide r Encounter Details Date Type Department Care Team (Late st Contact Info) Description 08/12/2022 Abstract [facility] [address] [place] [phone] Dharmesh Lentz MD [address] [place] [address] [phone] Social History Tobacco Use Types Packs/Day Years [...] 02/21/2025 11:15 AM EST Office Visit [facility] [address] [place] [address] [phone] Dharmesh Lentz MD [address] [place], [place] [phone] documented as of this encounter Procedures Procedure Name Priority Date/Time Associated Diagnosis Comments HM COLONOSCOPY Routine 05/16/2020 documented in this encounter Results * Colonoscopy (05/16/2020) Colonoscopy Normal Normal 05/16/2020 Diamond Levin - 05/16/2020 8:51 AM EST Recommended 5 year follow up us Historical Provider [facility] Edited Result - Final documented in this encounter Visit Diagnoses Not on filedocumented in this encounter Care Teams Personal Banking Officer Relationship Specialty Start Date End Date Dharmesh Lentz MD [address] [place] [phone] PCP - General Internal Medicine 11/22/13 documented as of this encounter
--- OUTSIDE RECORDS SUMMARY | 2024-12-28 15:17 | XMS_ITS | Encounter Summary ---
Author Organization [employer] Address [address] [facility] [address], [place] [address] Care Team Providers Care Shank Turner Name Role Phone Dharmesh Lentz MD Primary Care Provide r Reason for Visit * Reason Comments Med Refill Encounter Details Date Type Department Care Team (Late st Contact Info) Description 10/16/2022 Refill [facility]INE [address] [place] [address] Dharmesh Lentz MD [address] [place], [place] [phone] Social History Tobacco Use Types Packs/Day Years [...] 11:15 AM EST Office Visit [facility]INE [address] [place], [place] [phone] Dharmesh Lentz MD [address] [place] [address] documented as of this encounter Visit Diagnoses Not on filedocumented in this encounter Additional Health Concerns Assessment Noted Time PHQ-9 Depression Total Score: 6 08/27/19 23 1:26 PM EDT documented as of this encounter Care Teams Shank Turner Relationship Specialty Start Date End Date Dharmesh Lentz MD [address] [facility] [place] [address] PCP - General Internal Medicine 11/22/13 documented as of this encounter
--- OUTSIDE RECORDS SUMMARY | 2024-12-28 15:17 | XMS_ITS | Encounter Summary ---
Author Organization [employer] Address [address] [facility] [address] [place] [address] Care Team Providers Care Group Fitness Assistant Department Head Name Role Phone Dharmesh Lentz MD Primary Care Provide r Reason for Visit * Reason Onset Date Comments Med Refill 05/01/2024 Encounter Details Date Type Department Care Team ([facility] st Contact Info) Description 05/01/2024 Telephone [facility] [address] [place] [address] Dharmesh Lentz MD [address] [place] [address] Med Refill Social History Tobacco Use Types [...] encounter Miscellaneous Notes * Telephone Encounter - Mlilie Westbrook LPN - 05/01/2024 8:22 AM EST Medication was sent to [facility] #[id number] on 04/03/24 #30 with 3 refills. * Telephone Encounter - Angelo Paris - 05/01/2024 8:12 AM EST TC from pt requesting medication refill. Medications needing refill : enalapril (Vasotec) 5 MG tablet To be sent to: [facility] #[id number] - [place] - [address] [place] [address] AT [facility] documented in this encounter Plan of Treatment Upcoming Encounters Date Type Department Care Team (Late st Contact Info) Description 02/21/2025 11:15 AM EST Office Visit [facility] [address] [place] [address] Dharmesh Lentz MD [address] [place] [address] documented as of this encounter Visit Diagnoses Not on filedocumented in this encounter Additional Health Concerns Assessment Noted Time PHQ-9 Depression Total Score: 2 09/01/19 24 9:16 AM EDT documented as of this encounter Care Teams Group Fitness Assistant Department Head Relationship Specialty Start Date End Date Dharmesh Lentz MD [address] [place] [address] PCP - General Internal Medicine 11/22/13 documented as of this encounter
--- OUTSIDE RECORDS SUMMARY | 2024-12-28 15:17 | XMS_ITS | Encounter Summary ---
Author Organization [employer] Address [address] [facility] [address] [place] [address] Care Team Providers Care Shactor Name Role Phone Dharmesh Lentz MD Primary Care Provide r Reason for Visit * Reason Comments Med Refill Encounter Details Date Type Department Care Team ([facility] st Contact Info) Description 08/31/2022 Refill [facility] [address] [place] [address] Dharmesh Lentz MD [address] [place] [address] Social History Tobacco Use Types Packs/Day Years [...] Description 02/21/2025 11:15 AM EST Office Visit [facility] [address] [place] [address] Dharmesh Lentz MD [address] [place] [address] documented as of this encounter Visit Diagnoses Not on filedocumented in this encounter Additional Health Concerns Assessment Noted Time PHQ-9 Depression Total Score: 6 08/27/19 23 1:26 PM EDT documented as of this encounter Care Teams Shactor Relationship Specialty Start Date End Date Dharmesh Lentz MD [address] [place] [phone] PCP - General Internal Medicine 11/22/13 documented as of this encounter
--- OUTSIDE RECORDS SUMMARY | 2024-12-28 15:17 | XMS_ITS | Encounter Summary ---
Author Organization [employer] Address 75 [facility] [address]t [place] [address] Care Team Providers Care Brush Holder Assembler Name Role Phone Dharmesh Lentz MD Primary Care Provide r Reason for Visit * Reason Comments Med Refill Encounter Details Date Type Department Care Team ([facility] st Contact Info) Description 12/19/[address] [facility] [address] [place] [address] Dharmesh Lentz MD [address] [place] [address] Mixed hyperlipidemia Social History Tobacco Use Types [...] EST Office Visit [facility] [address] [place] [address] Dharmesh Lentz MD [address] [place] [address] documented as of this encounter Visit Diagnoses Diagnosis Mixed hyperlipidemia documented in this encounter Additional Health Concerns Assessment Noted Time PHQ-9 Depression Total Score: 2 09/01/19 24 9:16 AM EDT documented as of this encounter Care Teams Brush Holder Assembler Relationship Specialty Start Date End Date Dharmesh Lentz MD [address] [place] [address] PCP - General Internal Medicine 11/22/13 documented as of this encounter
--- OUTSIDE RECORDS SUMMARY | 2024-12-28 15:17 | XMS_ITS | Encounter Summary ---
Author Organization [employer] Address [address] [facility] 7 [place] [address] Care Team Providers Care Neuro Urologist Name Role Phone Dharmesh Lentz MD Primary Care Provide r Reason for Visit * Reason Onset Date Comments Prior Authorization 02/24/2023 Encounter Details Date Type Department Care Team ([facility] st Contact Info) Description 02/24/2023 Telephone [facility]INE [address] [place] [address] Dharmesh Lentz MD [address] [place] [address] Prior Authorization Social History Tobacco Use Types [...] Description 02/21/2025 11:15 AM EST Office Visit [facility] [address] [place] [address] Dharmesh Lentz MD [address] [place] [address] documented as of this encounter Visit Diagnoses Not on filedocumented in this encounter Additional Health Concerns Assessment Noted Time PHQ-9 Depression Total Score: 6 08/27/19 23 1:26 PM EDT documented as of this encounter Care Teams Neuro Urologist Relationship Specialty Start Date End Date Dharmesh Lentz MD [address] [place], [place] [phone] PCP - General Internal Medicine 11/22/13 documented as of this encounter
--- OUTSIDE RECORDS SUMMARY | 2024-12-28 15:17 | XMS_ITS | Encounter Summary ---
Author Organization [employer] Address [address] [facility] [address] [place] [address] Care Team Providers Care Technical Staff Assistant Name Role Phone Dharmesh Lentz MD Primary Care Provide r Reason for Visit * Reason Onset Date Comments Med Refill 10/07/2023 Encounter Details Date Type Department Care Team ([facility] st Contact Info) Description 10/07/2023 Telephone [facility]ICINE [address] [place] [address] Dharmesh Lentz MD [address] [place] [address] Med Refill Social History Tobacco Use Types [...] 11:49 AM EDT Medication was sent to [facility] #[id number] on 09/01/23 with 1 refill. * Telephone Encounter - Carlton Hoffmann - 10/07/2023 11:46 AM EDT TC from pt requesting medication refill. Medications needing refill: naproxen (Naprosyn) 500 MG tablet To be sent to: [facility] #[id number] documented in this encounter Plan of Treatment Upcoming Encounters Date Type Department Care Team (Late st Contact Info) Description 02/21/2025 11:15 AM EST Office Visit [facility] [address] [place] [address] Dharmesh Lentz MD [address] [place], [place] [phone] documented as of this encounter Visit Diagnoses Not on filedocumented in this encounter Additional Health Concerns Assessment Noted Time PHQ-9 Depression Total Score: 2 09/01/19 24 9:16 AM EDT documented as of this encounter Care Teams Technical Staff Assistant Relationship Specialty Start Date End Date Dharmesh Lentz MD [address] [place] [address] PCP - General Internal Medicine 11/22/13 documented as of this encounter
--- OUTSIDE RECORDS SUMMARY | 2024-12-28 15:17 | XMS_ITS | Encounter Summary ---
Author Organization [employer] Address [address] [facility] [address] [place] [address] Care Team Providers Care Dial Brusher Name Role Phone Dharmesh Lentz MD Primary Care Provide r Reason for Visit * Reason Comments Med Refill Encounter Details Date Type Department Care Team (Late st Contact Info) Description 09/02/2022 Refill [facility]INE [address] [place] [address] Dharmesh Lentz MD [address] [place] [address] Social History Tobacco Use Types Packs/Day Years [...] Description 02/21/2025 11:15 AM EST Office Visit [facility] [address] [facility] [place] [address] Dharmesh Lentz MD [address] [place] [address] documented as of this encounter Visit Diagnoses Not on filedocumented in this encounter Additional Health Concerns Assessment Noted Time PHQ-9 Depression Total Score: 6 08/27/19 23 1:26 PM EDT documented as of this encounter Care Teams Dial Brusher Relationship Specialty Start Date End Date Dharmesh Lentz MD [address] [facility] [place] [address] PCP - General Internal Medicine 11/22/13 documented as of this encounter
== END 2024-12-28 15:16 | disposition home or self-care (01) ==
LOC: HO.CT 15:15
PROVIDERS: PCP Internal Medicine; Visit Provider Physician Assistant Medical
DX: Z12.2 Encounter for screening for malignant neoplasm of respiratory organs (principal); F17.210 Nicotine dependence, cigarettes, uncomplicated
CPT/HCPCS: 71271

== ENCOUNTER → 2024-12-28 15:18 | Outpatient (BNV) | payer MEDICARE, SELFPAY | PROVIDERS: PCP Internal Medicine; Visit Provider Radiology Diagnostic Radiology | DX: F17.210 Nicotine dependence, cigarettes, uncomplicated (principal) | CPT/HCPCS: 71271 ==

== ENCOUNTER 2025-01-14 14:40 | Outpatient (REF) | payer MEDICARE, SELFPAY ==
--- OUTSIDE RECORDS SUMMARY | 2025-01-14 13:00 | XMS_ITS | Encounter Summary ---
Author Organization [employer] Address [address] [facility] [address] [place] [address] Care Team Providers Care Butter Grader Name Role Phone Dharmesh Lentz MD Primary Care Provide r Reason for Referral * Consultation (Routine) - Authorized Specialty Diagnoses / Procedures Referred By Contac t Referred To Contact Audiology Diagnoses Encounter for hearing screening after failed hearing test Camilla Campbell MD [address] [place] [address] Phone: tel: fax: [facility] [address] [place] [address] Phone: tel: fax: Referral ID Status Reason Start Date Expiration Date Visits Requested Visits Authorized [id number] Authorized Specialty Services Required 01/14/2025 01/14/2026 1 1 Reason for Visit * Reason Comments Annual Wellness Encounter Details Date Type Department Care Team (Late st Contact Info) Description 01/14/2025 1:00 PM EDT Office Visit [facility] [address] [place] [address] Camilla Campbell MD [address] [place], [place] [phone] Need for vaccination (Primary Dx); Encounter for immunization; Encounter for hearing screening after failed hearing test Social History Tobacco Use Types Packs/Day Years Used Date Smoking Tobacco: Every Day Cigarettes Passive Smoke Exposure: Current Smokeless Tobacco: Never Tobacco Cessation:Ready to Q uit: No; Counseling Given: Yes Alcohol Use Standard Drinks/Week Comments Yes 0 (1 standard drink = 0.6 oz pur e alcohol) Socially 1-2 glasses per year. Depression Answer Date Recorded Patient Health Questionnaire-9 Score 8 01/14/2025 Patient Health Questionnaire-9 Score 8 01/14/2025 Last PHQ-9: Questionnaire Data Not on file 1 Housing Stability Answer Date Recorded What is [...] Date Recorded Patient Health Questionnaire-2 Score 0 01/14/2025 Internet Access Answer Date Recorded Internet Access [...] Sign Reading Time Taken Comments Blood Pressure 128/64 01/14/2025 1:19 PM EDT Pulse 74 01/14/2025 1:19 PM EDT Temperature - - Respiratory Rate - - Oxygen Saturation - - Inhaled Oxygen Concentration - - Weight 57.4 kg (126 lb 9.6 oz) 01/14/2025 1:19 P M EDT Height 162.6 cm (5' 4 ) 01/14/2025 1:19 PM EDT Body Mass Index 21.73 01/14/2025 1:19 PM EDT documented in this encounter Functional Status * Over the past 2 weeks, how often have you been bothered by any of the following problems? Question Answer Date of Assessment Author Patient Health Questionnaire -2 Score 0 01/14/2025 1:30 PM EDT Maci Duong RN * Little interest or pleasure in doing things Answer Date of Assessment Author Not at all 01/14/2025 1:30 PM EDT Maci Duong RN * Feeling down, depressed, or hopeless Answer Date of Assessment Author Not at all 01/14/2025 1:30 PM EDT Maci Duong RN * Trouble falling or staying asleep, or sleeping too much Answer Date of Assessment Author Nearly every day 01/14/2025 1:30 PM EDT Maci Duong RN * Feeling tired or having little energy Answer Date of Assessment Author Nearly every day 01/14/2025 1:30 PM EDT Maci Duong RN * Poor appetite or overeating Answer Date of Assessment Author More than half the days 01/14/2025 1:30 PM EDT Maci Jamison RN * Feeling bad about yourself - or that you are a failure or have let yourself or your family down Answer Date of Assessment Author Not at all 01/14/2025 1:30 PM EDT Maci Duong RN * Trouble concentrating on things, such as reading the newspaper or watching television Answer Date of Assessment Author Not at all 01/14/2025 1:30 PM EDT Maci Duong RN * Moving or speaking so slowly that other people could have noticed? Or the opposite - being so fidgety or restless that you have been moving around a lot more than usual. Answer Date of Assessment Author Not at all 01/14/2025 1:30 PM EDT Maci Duong RN * Thoughts that you would be better off or hurting yourself in some way Answer Date of Assessment Author Not at all 01/14/2025 1:30 PM EDT Maci Duong RN * Patient Health Questionnaire-9 Score Answer Date of Assessment Author 8 01/14/2025 1:30 PM EDT Maci Duong RN * How difficult have these problems made it for you to do your work, take care of things at home, or get along with other people? Answer Date of Assessment Author Not difficult at all 01/14/2025 1:30 PM EDT Maci Hardin RN documented as of this encounter Progress Notes * Camilla Campbell MD - 01/14/2025 1:00 PM EDT Subjective Patient ID: Zeina Ramírez is a 74 y.o. year old female who presents today for Medicare Annual Wellness Visit. Preferred language for medical information: Cook Islander Objective Vitals: 01/14/25 1319 BP: 128/64 BP Location: Left arm Patient Position: Sitting BP Cuff Size: Adult Pulse: 74 Weight: 126 lb 9.6 oz (57.4 kg) Height: 5' 4 (1.626 m) Hearing Screening 1000Hz 2000Hz 4000Hz Right ear 35 20 20 Left ear 30 20 30 Note: bilateral EAC's clear. Allergies[1] Current Medications[2] Immunization History Administered Date(s) Administered Influenza High-dose Quadrivalent Preservative Free 01/20/2021, 12/30/2022 Influenza Quadrivalent Adjuvanted 01/27/2020 Influenza injectable quadrivalent IIV4 with preservative 01/28/2015 Influenza injectable quadrivalent preservative free 03/30/2016, 12/29/2021 Influenza, High Dose Seasonal, Preservative Free 01/11/2017, 02/22/2019, 01/03/2024 Influenza, IIV3, injectable 01/03/2014, 12/11/2019 Influenza, Split (incl. purified surface antigen) 01/12/2012, 01/04/2013 Moderna Covid-19 Vaccine 12+ 06/05/2020, 07/03/2020 Pneumococcal Conjugate PCV 13 06/17/2016 Pneumococcal Polysaccharide PPSV23 09/19/2013 TD (adult), 2 Lf tetanus toxoid, preservative free, adsorbed 09/17/2011 Tdap 12/29/2021 Tetanus Toxoid, Unspecified 09/17/2011 Zoster, Recombinant 12/30/2022, 05/03/2023 Zoster, live 04/24/2015 Medical History[3] Surgical History[4] Family History[5] Tobacco Use History[6] Patient Health Questionnaire-9 Score: 8 (01/14/2025 1:30 PM) Patient Health Questionnaire-2 Score: 0 (01/14/2025 1:30 PM) Thoughts that you would be better off or hurting yourself in some way: Not at all (01/14/2025 1:30 PM) No data recorded Social Drivers of Health Tobacco Use: High Risk (01/14/2025) Tobacco Smoking Tobacco Use: Every Day Smokeless Tobacco Use: Never Passive Exposure: Current Alcohol Use: Not on file Food Insecurity: Low Risk (12/13/2024) Food Insecurity Within the past 12 months, you worried that your food would run out before you got money to buy more:: Never True Within the past 12 months,the food you bought just didn't last and you didn't have enough money to get more: : Never True Transportation Needs: Low Risk (12/13/2024) Transportation In the past 12 months, has lack of transportation kept you from medical appts, meetings, work or from getting things needed for daily living? : No Intimate Partner Violence: Not on file Depression: Mild depression (01/14/2025) Depression PHQ-9 Score: 8 Last PHQ-9: Flowsheet Data: 8 Last PHQ-9: Questionnaire Data: Not on file Housing Stability: Low Risk (12/13/2024) Housing Stability What is your housing situation today?: I have housing Think about the place you live. Do you have problems with any of the following? : None of the above Utilities: Low Risk (12/13/2024) Utilities In the past 12 months, has the electric, gas, oil or water company threatened to shut off services in your home? : No Internet Access: Low Risk (12/27/2023) Internet Access Internet Access Q1: Yes Internet Access Q2: Not on file Cognitive Assessment (Mini-Cog): [] Normal [] Abnormal Three Word Recall: 1 out of 3 Clock Drawin out of 2 Total Score: 3 out of 5 Mini-Cog sheet to be scanned into chart. Functional Assessment: Activities of Daily Living ([place] ADL) Bathing: independent Dressing: with partial assistance Toileting: independent Transferring: independent Continence: independent Feeding: independent SCHOOL PSYCHOMET[employer]: No Fall Risk Assessment: [] Low risk [] High risk Feels unsteady when standing or walking? No Worries about falling? No Has fallen in past year? No Number of falls? N/A Patient Care Team: Dharmesh Guardado MD as PCP - General (Internal Medicine) Advance Care Planning: Patient's current capacity: Full capacity Agent(s): Health Care Proxy paperwork is incomplete. [facility] Orders for Life-Sustaining Treatment (MOLST) is incomplete. Code Status: Assume Full Conversations being had with their daughter and is not ready to complete MOLST at this time. Assessment/Plan Health Maintenance Topic Date Due Diabetes: Foot Exam Never done Eye Exam Never done Hepatitis A Vaccines (1 of 2 - Risk 2-dose series) Never done Hepatitis B Vaccines (1 of 3 - Risk 3-dose series) Never done RSV Patients and Patients Aged 60 years or older (1 - 1-dose 75+ series) Never done Depression Screening 08/31/2024 Influenza Vaccine (1) 12/10/2024 COVID-19 Vaccine (3 - 2024- season) 2024 Alcohol/Substance Use Screening 04/03/2025 Diabetes: Urine Protein Screening 04/27/2025 Diabetes: Hemoglobin A1C 06/19/2025 Mammogram 10/15/2025 SDOH Screening 12/13/2025 Tobacco Screening 12/20/2025 Lipid Panel 12/24/2025 DTaP/Tdap/Td Vaccines (2 - Td or Tdap) 12/30/2031 Pneumococcal Vaccine: 50+ Years Completed Zoster Vaccines Completed Hepatitis C Screening Completed RSV under 20 months Aged Out HIB Vaccines Aged Out IPV Vaccines Aged Out Meningococcal Vaccine Aged Out Rotavirus Vaccines Aged Out HPV Vaccines Aged Out Meningococcal B Vaccine Aged Out Colorectal Cancer Screening Discontinued Patient refused the following health maintenance recommendations: none Problem List Items Addressed This Visit None Counseling/Education [x] Lung Cancer Screening Form Completed Yes [x] Self Reported Health Status Completed Yes [] Print After Visit Summary (AVS) [] Advance directives handout provided [] Schedule a visit to complete MOLST [] Fall risk identified: [] Work on strength/balance [] Stay hydrated [] Start daily vitamin D supplement [] Reduce home hazards (handout provided) [] High risk medications identified - schedule FU with PCP to discuss [x] Follow-up with PCP Yes Follow- up scheduled with Dr. Ko on 02/21/25. Maci Duong, RN I, Camilla Campbell, have met with the patient, reviewed the RN note and agree with the assessment & plan of care as documented above. Summary and recommendations Patient reminded of outstanding lab orders from April,. She will do these today. Patient is requesting refill of Naproxyn for back and knee pain. I informed her that she has some refills on last Rx sent. I also encouraged her to return to acupuncture. She has been referred to PT. Audiology referral made for failed hearing screen. Flu shot today. Follow up with Dr. Ko 02/21/25. Camilla Campbell MD [1] Allergies Allergen Reactions Metformin Other reaction(s): severe diarrhea [2] Current Outpatient Medications: Ascorbic Acid (Vitamin C) 500 MG capsule, as directed, Disp: , Rfl: aspirin (ASPIR) 81 MG EC tablet, daily., Disp: , Rfl: atorvastatin (Lipitor) 20 MG tablet, TAKE 1 TABLET(20 MG) BY MOUTH IN THE MORNING, Disp: 90 tablet,Rfl: 1 Diclofenac Sodium 1 % gel, Apply BID right hip or affected area, Disp: 50 g, Rfl: 0 enalapril (Vasotec) 5 MG tablet, Take 1 tablet (5 mg) by mouth Once per day., Disp: 30 tablet, Rfl:6 FreeStyle lancets, Use 3 times a day, Disp: 100 each, Rfl: 11 glucose blood (FREESTYLE LITE) test strip, apply 1 unit by intradermal route 3 times every day, Disp: 150 each, Rfl: 11 hydroCHLOROthiazide (HYDRODiuril) 25 MG tablet, Take 1 tablet (25 mg) by mouth Once per day., Disp:90 tablet, Rfl: 1 insulin glargine (Basaglar KwikPen) 100 UNIT/ML pen, Inject 74 Units under the skin at bedtime., Disp: 27 mL, Rfl: 3 levothyroxine (Synthroid, Levoxyl) 125 MCG tablet, Take 1 tablet by mouth Once per day., Disp: , Rfl: naproxen (Naprosyn) 500 MG tablet, TAKE 1 TABLET BY MOUTH TWICE DAILY WITH FOOD NEEDED FOR PAIN,Disp: 30 tablet, Rfl: 3 omega-3 (Fish Oil) 500 MG capsule, 2 times daily., Disp: , Rfl: omeprazole (PriLOSEC) [address] capsule, Take 1 capsule (20 mg) by mouth before breakfast. Do not crush or chew.TAKE 1 CAPSULE(20 MG) BY MOUTH IN THE MORNING. DO NOT CRUSH OR CHEW, Disp: 90 capsule, Rfl: 1 verapamil ER (Verelan PM) 300 MG 24 hr capsule, TAKE 1 CAPSULE(300 MG) BY MOUTH AT BEDTIME. DO NOT CRUSH OR CHEW, Disp: 90 capsule, Rfl: 1 [3] Past Medical History: Diagnosis Date Arthritis Diabetes mellitus (HCC) Disease of thyroid gland Hypertension Thyroid cancer (CMS/HCC) (HCC) Pt had thyroid removed in 2017 [4] Past Surgical History: Procedure Laterality Date CHOLECYSTECTOMY Right HEMORRHOID SURGERY Bilateral TOTAL ABDOMINAL HYSTERECTOMY [5] Family History Problem Relation Name Age of Onset Other (htn) Mother Diabetes Mother Diabetes Father Kidney failure Father Diabetes Sister Other (htn) Sister Cancer Daughter [6] Social History Tobacco Use Smoking Status Every Day Types: Cigarettes Passive exposure: Current Smokeless Tobacco Never documented in this encounter Plan of Treatment Upcoming Encounters Date Type Department Care Team (Late st Contact Info) Description 02/21/2025 11:15 AM EST Office Visit [facility] MEDICINE [address] [place] [address] Dharmesh Lentz MD [address] [place] [address] Scheduled Referrals Name Type Priority Associated Diagnoses Orde r Schedule Referral to Audiology Outpatient Referral Routine Encounter for hearing screening after failed hearing test Expected: 01/14/2025 (Approximate), Expires: 01/14/2026 documented as of this encounter Visit Diagnoses Diagnosis Need for vaccination- Primary Need for prophylactic vaccination and inoculation against unspecified single disease Encounter for immunization Encounter for hearing screening after failed hearing test documented in this encounter Additional Health Concerns Assessment Noted Time PHQ-9 Depression Total Score: 8 01/15/20 25 1:30 PM EDT documented as of this encounter Care Teams Butter Grader Relationship Specialty Start Date End Date Dharmesh Lentz MD [address] [place] [address] PCP - General Internal Medicine 11/22/13 documented as of this encounter
[2025-01-14 16:05] LABS: Alanine Aminotransferase 23 U/L (0-31); Albumin Level 4.6 g/dL (3.5-5.0); Alkaline Phosphatase 79 U/L (39-117); Anion Gap 12 (12-20); Aspartate Amino Transferase 30 U/L (5-31); Blood Urea Nitrogen 21 mg/dL (9-16); Calcium 8.7 mg/dL (8.4-10.2); Carbon Dioxide 26 mmol/L (22-29); Chloride 105 mmol/L (96-108); Cholesterol 136 mg/dL (<200); Estimated Glomerular Filt Rate > 60; HDL Cholesterol 39 mg/dL (>40); Potassium 3.4 mmol/L (3.3-5.1); Sodium 140 mmol/L (135-145); Total Protein 7.4 g/dL (6.5-8.0); Triglycerides 129 mg/dL (<150)
[2025-01-14 16:24] LABS: Free T4 (Free Thyroxine) 1.29 ng/dL (0.71-1.85); Thyroid Stimulating Hormone 0.07 uIU/mL (0.32-4.0)
--- OUTSIDE RECORDS SUMMARY | 2025-01-14 17:07 | XMS_ITS | Encounter Summary ---
Author Organization [employer] Address 75 [facility] [address] [place] [address] Care Team Providers Care Hand Kiss Setter Name Role Phone Dharmesh Lentz MD Primary Care Provide r Reason for Visit * Reason Onset Date Comments Med Refill 10/07/2023 Encounter Details Date Type Department Care Team ([facility] st Contact Info) Description 10/07/2023 Telephone [facility] MEDICINE [address] [place] [address] Dharmesh Lentz MD [address] [place] [address] Med Refill Social History Tobacco Use Types [...] 11:49 AM EDT Medication was sent to [id number] on 09/01/23 with 1 refill. * Telephone Encounter - Carlton Hoffmann - 10/07/2023 11:46 AM EDT TC from pt requesting medication refill. Medications needing refill: naproxen (Naprosyn) 500 MG tablet To be sent to: [id number] documented in this encounter Plan of Treatment Upcoming Encounters Date Type Department Care Team (Late st Contact Info) Description 02/21/2025 11:15 AM EST Office Visit [facility] MEDICINE [address] [place] [address] Dharmesh Lentz MD [address] [place], [place] [phone] documented as of this encounter Visit Diagnoses Not on filedocumented in this encounter Additional Health Concerns Assessment Noted Time PHQ-9 Depression Total Score: 2 09/01/19 24 9:16 AM EDT documented as of this encounter Care Teams Hand Kiss Setter Relationship Specialty Start Date End Date Dharmesh Lentz MD [address] [place] [address] PCP - General Internal Medicine 11/22/13 documented as of this encounter
--- OUTSIDE RECORDS SUMMARY | 2025-01-14 17:07 | XMS_ITS | Encounter Summary ---
Author Organization [employer] Address [address] [facility] [address] [place] [address] Care Team Providers Care Stave Grader Name Role Phone Dharmesh Lentz MD Primary Care Provide r Encounter Details Date Type Department Care Team (Latest Contact Info) Description 01/10/2025 Travel Social History Tobacco Use Types Packs/Day [...] AM EST Office Visit [facility] MED[facility]INE [address] [place] [address] Dharmesh Lentz MD [address] [place] [address] documented as of this encounter Visit Diagnoses Not on filedocumented in this encounter Additional Health Concerns Assessment Noted Time PHQ-9 Depression Total Score: 2 09/01/19 24 9:16 AM EDT documented as of this encounter Care Teams Stave Grader Relationship Specialty Start Date End Date Dharmesh Lentz MD [address] [place] [address] PCP - General Internal Medicine 11/22/13 documented as of this encounter
--- OUTSIDE RECORDS SUMMARY | 2025-01-14 17:07 | XMS_ITS | Encounter Summary ---
Author Organization [employer] Address [address] [facility] [address] [place] [address] Care Team Providers Care Oil Derrick Operator Name Role Phone Dharmesh Lentz MD Primary Care Provide r Reason for Visit * Reason Comments Medicare Annual Wellness Visit Initial [place] scheduled Encounter Details Date Type Department Care Team ([facility] st Contact Info) Description 01/10/2025 Patient Outreach [facility] MEDICINE [address] [place] [address] Dharmesh Lentz MD [address] [place] [address] Medicare Annual Wellness Visit Initial (AWV scheduled) Social History Tobacco Use Types Packs/Day Years Used Date Smoking Tobacco: Every Day Cigarettes Passive Smoke Exposure: Current Smokeless Tobacco: Never Depression Answer Date Recorded Patient Health Questionnaire-9 Score 2 09/01/2023 Patient Health Questionnaire-9 Score 2 09/01/2023 Last PHQ-9: Questionnaire Data Not on file 0 09/01/2023 Housing Stability Answer Date Recorded What is your housing situation today? I have azarjesica sullivan 12/13/[address] you [...] AM EDT documented as of this encounter Progress Notes * Nohelia Bowles - 01/10/2025 2:31 PM EDT CC Nohelia placed outbound call to patient for Annual Wellness Visit outreach. Patient's name and were confirmed. Patient educated on the purpose of Medicare Annual Wellness Visits and is agreeable to an appointment with provider. Insurance verified prior to scheduling. Patient scheduled for AWV appointment on 01/14/2025 at 1:00 pm with [employer] Appropriate screenings completed in anticipation ofappointment. Medicare Wellness Visit Health Risk Assessment was completed with the patient over thephone and scanned into patient's chart for review at the visit. Patient advised to bring to appointment a photo id and insurance card. Also advised to bring in all medications, including [id number], vitamins, or supplements and any copies of Advance Directives and Health Care Proxy forms. Patient provided with education on contacting the Health Center with any questions or concerns prior tothe scheduled appointment. Patient educated on extended clinic hours on Tuesday through Tuesday, and Walk- In Urgent Care Located in [facility]. Patient provided with after-hours line for [facility], , which offer night time triage service and option to transfer to health information tech provider if needed. Annual Wellness Visit letter will be mailed out to patient's address. documented in this encounter Plan of Treatment Upcoming Encounters Date Type Department Care Team (Late st Contact Info) Description 02/21/2025 11:15 AM EST Office Visit [facility] MEDICINE [address] [place] [address] Dharmesh Lentz MD [address] [place] [address] documented as of this encounter Visit Diagnoses Not on filedocumented in this encounter Additional Health Concerns Assessment Noted Time PHQ-9 Depression Total Score: 2 09/01/19 24 9:16 AM EDT documented as of this encounter Care Teams Oil Derrick Operator Relationship Specialty Start Date End Date Dharmesh Lentz MD [address] [place], [place] [phone] PCP - General Internal Medicine 11/22/13 documented as of this encounter
--- OUTSIDE RECORDS SUMMARY | 2025-01-14 17:07 | XMS_ITS | Encounter Summary ---
Author Organization [employer] Address [address] [facility] [address] [place] [address] Care Team Providers Care Asparagus Cutter Name Role Phone Dharmesh Lentz MD Primary Care Provide r Reason for Visit * Reason Comments Med Refill Encounter Details Date Type Department Care Team ([facility] st Contact Info) Description 12/19/2024 Refill [facility] MED[facility]INE [address] [place] [address] Dharmesh Lentz MD [address] [place] [address] Mixed hyperlipidemia Social History Tobacco Use Types [...] AM EST Office Visit [facility] MED[facility]INE [address] [place] [address] Dharmesh Lentz MD [address] [place] [address] documented as of this encounter Visit Diagnoses Diagnosis Mixed hyperlipidemia documented in this encounter Additional Health Concerns Assessment Noted Time PHQ-9 Depression Total Score: 2 09/01/19 24 9:16 AM EDT documented as of this encounter Care Teams Asparagus Cutter Relationship Specialty Start Date End Date Dharmesh Lentz MD [address] [place] [address] PCP - General Internal Medicine 11/22/13 documented as of this encounter
--- OUTSIDE RECORDS SUMMARY | 2025-01-14 17:07 | XMS_ITS | Encounter Summary ---
Author Organization [employer] Address 75 [facility] [address] [place] [address] Care Team Providers Care Candle Maker Name Role Phone Dharmesh Lentz MD Primary Care Provide r Reason for Visit * Reason Onset Date Comments Med Refill 01/10/2025 Encounter Details Date Type Department Care Team (Late st Contact Info) Description 01/10/2025 Refill [facility] MED[facility]INE [address] [place] [address] Dharmesh Lentz MD [address] [place] [address] Chronic neck pain Social History Tobacco Use Types Packs/Day Years Used Date Smoking Tobacco: Every Day Cigarettes Passive Smoke Exposure: Current Smokeless Tobacco: Never Depression Answer Date Recorded Patient Health Questionnaire-9 Score 8 01/14/2025 Patient Health Questionnaire-9 Score 8 01/14/2025 Last PHQ-9: Questionnaire Data Not on file 1 Housing Stability Answer Date Recorded What is your housing situation today? I have azar sing 12/13/[address] you li [...] Visit [facility] MEDICINE [address] [place] [address] Dharmesh Lentz MD [address] [place] [address] documented as of this encounter Visit Diagnoses Diagnosis Chronic neck pain Cervicalgia documented in this encounter Additional Health Concerns Assessment Noted Time PHQ-9 Depression Total Score: 2 09/01/19 24 9:16 AM EDT documented as of this encounter Care Teams Candle Maker Relationship Specialty Start Date End Date Dharmesh Lentz MD [address] [place] [id number] PCP - General Internal Medicine 11/22/13 documented as of this encounter
--- OUTSIDE RECORDS SUMMARY | 2025-01-14 17:08 | XMS_ITS | Encounter Summary ---
Author Organization [employer] Address [address] [facility] [address] [place] [address] Care Team Providers Care Dance Costume Designer Name Role Phone Dharmesh Lentz MD Primary Care Provide r Reason for Visit * Reason Comments Med Refill Encounter Details Date Type Department Care Team ([facility] st Contact Info) Description 08/31/2022 Refill [facility]INE [address] [place] [address] Dharmesh Lentz MD [address] [place] [address] Social History Tobacco Use Types Packs/Day Years [...] Description 02/21/2025 11:15 AM EST Office Visit [facility] MED[facility]INE [address] [place] [address] Dharmesh Lentz MD [address] [place] [address] documented as of this encounter Visit Diagnoses Not on filedocumented in this encounter Additional Health Concerns Assessment Noted Time PHQ-9 Depression Total Score: 6 08/27/19 23 1:26 PM EDT documented as of this encounter Care Teams Dance Costume Designer Relationship Specialty Start Date End Date Dharmesh Lentz MD [address] [place] [id number] PCP - General Internal Medicine 11/22/13 documented as of this encounter
--- OUTSIDE RECORDS SUMMARY | 2025-01-14 17:08 | XMS_ITS | Encounter Summary ---
Author Organization [employer] Address 75 [facility] 7 [place] [address] Care Team Providers Care Java Lead Architect Name Role Phone Dharmesh Lentz MD Primary Care Provide r Reason for Visit * Reason Onset Date Comments Med Refill 05/01/2024 Encounter Details Date Type Department Care Team ([facility] st Contact Info) Description 05/01/2024 Telephone [facility] MED[facility]INE [address] [place] [address] Dharmesh Lentz MD [address] [place] [address] Med Refill Social History Tobacco Use Types [...] 8:22 AM EST Medication was sent to [facility] #[id number] on 04/03/24 #30 with 3 refills. * Telephone Encounter - Angelo Paris - 05/01/2024 8:12 AM EST TC from pt requesting medication refill. Medications needing refill : enalapril (Vasotec) 5 MG tablet To be sent to: [id number] - [place] - [address] [place] [address] AT [facility] documented in this encounter Plan of Treatment Upcoming Encounters Date Type Department Care Team (Late st Contact Info) Description 02/21/2025 11:15 AM EST Office Visit [facility]INE [address] [place] [address] Dharmesh Lentz MD [address] [place] [address] documented as of this encounter Visit Diagnoses Not on filedocumented in this encounter Additional Health Concerns Assessment Noted Time PHQ-9 Depression Total Score: 2 09/01/19 24 9:16 AM EDT documented as of this encounter Care Teams Java Lead Architect Relationship Specialty Start Date End Date Dharmesh eLntz MD [address] [place] [address] PCP - General Internal Medicine 11/22/13 documented as of this encounter
--- OUTSIDE RECORDS SUMMARY | 2025-01-14 17:08 | XMS_ITS | Encounter Summary ---
Author Organization [email or web address] Address 75 [facility] 7 [place] [address] Care Team Providers Care Seat Coverer Name Role Phone Dharmesh Lentz MD Primary Care Provide r Reason for Visit * Reason Comments Med Refill Encounter Details Date Type Department Care Team (Late st Contact Info) Description 10/28/2022 Refill [facility] [address] [place] [phone] Maria Esther Case MD [address] [place] [phone] Social History Tobacco Use Types Packs/Day Years [...] Description 02/21/2025 11:15 AM EST Office Visit [facility] [address] [place] [address] [phone] Dharmesh Lentz MD [address] [place], [place] [phone] documented as of this encounter Visit Diagnoses Not on filedocumented in this encounter Additional Health Concerns Assessment Noted Time PHQ-9 Depression Total Score: 6 08/27/19 23 1:26 PM EDT documented as of this encounter Care Teams Seat Coverer Relationship Specialty Start Date End Date Dharmesh Lentz MD [address] [place] [address] PCP - General Internal Medicine 11/22/13 documented as of this encounter
--- OUTSIDE RECORDS SUMMARY | 2025-01-14 17:08 | XMS_ITS | Patient Health Record ---
Author Organization [facility] Address [address] [place] [address] Care Team Providers Care Meter Mechanic Name Role Phone Stefani Guardado MD, Dharmesh Primary Care Provide r Unavailable Jesus Lacey Unavailable [phone] Allergies Allergen (clinical drug ingredient) Drug/Non Drug [...] Problem Screening for malignant neoplasm of colon (031223106) Encounter for screening for malignant neoplasm of colon (Z12.11) Active confirmed Problem History of adenomatous polyp of colon (936389867) History of adenomatous polyp of colon (Z86.010) Active confirmed Problem Diverticular disease of colon (158022513) Diverticulosis (K57.90) Active confirmed Problem 173020186 Gastroesophageal reflux disease without esophagitis (K21.9) Active confirmed Problem Gastroesophageal reflux disease (575337568) GERD (gastroesophageal reflux disease) (K21.9) Active confirmed Problem 35599332 Irritable bowel syndrome with both constipation and diarrhea (K58.2) Active confirmed Plan Of Treatment Future Test Test Name Order Date UPPER GI ENDOSCOPY 04/24/2020 COLONOSCOPY 04/24/2020 Insurance Providers Payer Name Payer Address Payer Phone Subscriber Number Group Number Insured Name Patient Relationship to Insured Coverage Start Date Coverage End Date MEDICARE OF [place] [address] [place]NDEZ [id number] AYDE GOULD Self - patient is the insured [employer] ATT[employer] CLAIMS [address] [place] [phone] [id number] AYDE GOULD Self - patient is the insured Medical (General) History Medical History History ICD Code IDDM Hypertension Tubular adenomas removed in [address] Samson; colonoscopy in 04/2015 with hyperplastic polyps-Dr. Samson Denies [place],CVA,Lung disease,renal disease Diverticulosis-Rx'd with ant ibiotics in [...]
--- OUTSIDE RECORDS SUMMARY | 2025-01-14 17:08 | XMS_ITS | Encounter Summary ---
Author Organization [employer] Address 75 [facility] 7 [place] [address] Care Team Providers Care Medical Front Desk Coordinator Name Role Phone Dharmesh Lentz MD Primary Care Provide r Encounter Details Date Type Department Care Team (Late st Contact Info) Description 08/12/2022 Abstract [facility] MEDICINE [address] [place] [phone] Dharmesh Lentz MD [address] [place] [address] [phone] Social History Tobacco Use Types Packs/Day Years [...] Description 02/21/2025 11:15 AM EST Office Visit [facility] MED[facility]INE [address] [place] [phone] Dharmesh Lentz MD [address] [place], [place] [phone] documented as of this encounter Procedures Procedure Name Priority Date/Time Associated Diagnosis Comments HM COLONOSCOPY Routine 05/16/2020 documented in this encounter Results * Colonoscopy (05/16/2020) Colonoscopy Normal Normal 05/16/2020 Diamond Levin - 05/16/2020 8:51 AM EST Recommended 5 year follow up us Historical Provider [facility] Edited Result - Final documented in this encounter Visit Diagnoses Not on filedocumented in this encounter Care Teams Medical Front Desk Coordinator Relationship Specialty Start Date End Date Dharmesh Lentz MD [address] [place] [phone] PCP - General Internal Medicine 11/22/13 documented as of this encounter
--- OUTSIDE RECORDS SUMMARY | 2025-01-14 17:08 | XMS_ITS | Encounter Summary ---
Author Organization [employer] Address 75 [facility] 7 [place] [address] Care Team Providers Care Manager Technical Name Role Phone Dharmesh Lentz MD Primary Care Provide r Reason for Visit * Reason Onset Date Comments Prior Authorization 02/24/2023 Encounter Details Date Type Department Care Team ([facility] st Contact Info) Description 02/24/2023 Telephone [facility]INE [address] [place] [address] Dharmesh Lentz MD [address] [place] [address] Prior Authorization Social History Tobacco Use Types [...] 11:15 AM EST Office Visit [facility] [address] [place] [address] Dharmesh Lentz MD [address] [place] [address] documented as of this encounter Visit Diagnoses Not on filedocumented in this encounter Additional Health Concerns Assessment Noted Time PHQ-9 Depression Total Score: 6 08/27/19 23 1:26 PM EDT documented as of this encounter Care Teams Manager Technical Relationship Specialty Start Date End Date Dharmesh Lentz MD [address] [place], [place] [phone] PCP - General Internal Medicine 11/22/13 documented as of this encounter
--- OUTSIDE RECORDS SUMMARY | 2025-01-14 17:08 | XMS_ITS | Encounter Summary ---
Author Organization [employer] Address 75 [facility] [address] [place] [address] Care Team Providers Care Nanotechnology Engineering Technician Name Role Phone Dharmesh Lentz MD Primary Care Provide r Reason for Visit * Reason Comments Med Refill Encounter Details Date Type Department Care Team (Late st Contact Info) Description 09/02/2022 Refill [facility] MEDICINE [address] [place] [address] Dharmesh Lentz MD [address] [place] [address] Social History Tobacco Use Types Packs/Day Years [...] 11:15 AM EST Office Visit [facility] [address] [facility] [place] [address] Dharmesh Lentz MD [address] [place] [address] documented as of this encounter Visit Diagnoses Not on filedocumented in this encounter Additional Health Concerns Assessment Noted Time PHQ-9 Depression Total Score: 6 08/27/19 23 1:26 PM EDT documented as of this encounter Care Teams Nanotechnology Engineering Technician Relationship Specialty Start Date End Date Dharmesh Lentz MD [address] [facility] [place] [address] PCP - General Internal Medicine 11/22/13 documented as of this encounter
--- OUTSIDE RECORDS SUMMARY | 2025-01-14 17:08 | XMS_ITS | Encounter Summary ---
Author Organization [employer] Address 75 [facility] [address], [place] [address] Care Team Providers Care Calendering Machine Operator Name Role Phone Dharmesh Lentz MD Primary Care Provide r Reason for Visit * Reason Comments Med Refill Encounter Details Date Type Department Care Team (Late st Contact Info) Description 10/16/2022 Refill [facility]INE [address] [place] [address] Dharmesh Lentz MD [address] [place], [place] [phone] Social History Tobacco Use Types Packs/Day Years [...] EST Office Visit [facility] [address] [place], [place] [phone] Dharmesh Lentz MD [address] [place] [address] documented as of this encounter Visit Diagnoses Not on filedocumented in this encounter Additional Health Concerns Assessment Noted Time PHQ-9 Depression Total Score: 6 08/27/19 23 1:26 PM EDT documented as of this encounter Care Teams Calendering Machine Operator Relationship Specialty Start Date End Date Dharmesh Lentz MD 230 [facility] [place] [address] PCP - General Internal Medicine 11/22/13 documented as of this encounter
--- OUTSIDE RECORDS SUMMARY | 2025-01-14 17:08 | XMS_ITS | Encounter Summary ---
Author Organization [employer] Address 75 [facility] 7t [place] [address] Care Team Providers Care Treating Plant Pumper Name Role Phone Dharmesh Lentz MD Primary Care Provide r Encounter Details Date Type Department Care Team (Latest Contact Info) Description 01/14/2025 Travel Social History Tobacco Use Types Packs/Day Years Used Date Smoking Tobacco: Every Day Cigarettes Passive Smoke Exposure: Current Smokeless Tobacco: Never Alcohol Use Standard Drinks/Week Comments Yes 0 [...] AM EDT documented as of this encounter Functional Status * Over the [...] Author Not at all 01/14/2025 1:30 PM NISHAT Maci Duong RN * Trouble concentrating on [...] Hardin RN documented as of this encounter Plan of Treatment Upcoming Encounters Date Type Department Care Team (Late st Contact Info) Description 02/21/2025 11:15 AM EST Office Visit [facility] MEDICINE [address] [place] [address] Dharmesh Lentz MD [address] [place] [address] documented as of this encounter Visit Diagnoses Not on filedocumented in this encounter Additional Health Concerns Assessment Noted Time PHQ-9 Depression Total Score: 8 01/15/20 25 1:30 PM EDT documented as of this encounter Care Teams Treating Plant Pumper Relationship Specialty Start Date End Date Dharmesh Lentz MD [address] [place] [address] PCP - General Internal Medicine 11/22/13 documented as of this encounter
--- OUTSIDE RECORDS SUMMARY | 2025-01-14 17:08 | XMS_ITS | Encounter Summary ---
Author Organization [employer] Address 75 [facility] 7t [place] [address] Care Team Providers Care Motorcycle Police Officer Name Role Phone Dharmesh Lentz MD Primary Care Provide r Encounter Details Date Type Department Care Team ([facility] st Contact Info) Description 01/14/2025 Orders Only [facility] MEDICINE [address] [place] [address] Dharmesh Lentz MD [address] [place] [address] Social History Tobacco Use Types Packs/Day Years [...] Author Not at all 01/14/2025 1:30 PM EDMaci Hurt RN * Trouble concentrating on things, such [...] Description 02/21/2025 11:15 AM EST Office Visit [facility] MEDICINE [address] [place], [place] [phone] Dharmesh Lentz MD [address] [place] [address] documented as of this encounter Procedures Procedure Name Priority Date/Time Associated Diagnosis Comments TSH Routine 01/14/2025 2:58 PM EDT T4, FREE Routine 01/14/2025 2:58 PM EDT LIPID PANEL, STANDARD Routine 01/14/2025 2:58 PM EDT COMPREHENSIVE METABOLIC PANEL Routine 01/14/2025 2:58 PM EDT documented in this encounter Results * (ABNORMAL) TSH (01/14/2025 2:58 PM EDT) Thyroid Stimulating Hormone 0.07(L) 0.32 - 4.0 uIU/mL [facility] Comment:TSH 3rd Generation ( [facility]) 01/14/2025 2:58 PM EDT 01/14/2025 2:58 PM EDT Generic External Data Provider LAB BLOOD ORDERAB LES Final Result Performing Organization Address [facility]/ZIP Co de Phone Number [facility] [address] [place] [phone] * T4, Free (01/14/2025 2:58 PM EDT) Pathologist [facility] Free T4 (Free Thyroxine) 1.29 0.71 - 1.85 ng/dL [facility] 01/14/2025 2:58 PM EDT 01/14/2025 2:58 PM EDT Generic External Data Provider LAB BLOOD ORDERAB LES Final Result Performing Organization Address City/[facility] Co de Phone Number [facility] [address] [place] [phone] * (ABNORMAL) Lipid Panel, Standard (01/14/2025 2:58 PM EDT) Triglycerides 129 <150 mg/dL [facility] Comment:Desirable Triglyceri de: less than 150 mg/dLBorderline High Triglyceride 150-199 mg/dLHigh Triglyceride: 200-499 mg/dLVery High Triglyceride: greater than or equal to 5OO mg/dL Cholesterol 136 <200 mg/dL [facility] Comment:Desirable Cholestero l: less than 200 mg/dLBorderline High Cholesterol: 200-239 mg/dLHigh Cholesterol: greater than 239 mg/dL LDL Cholesterol Calculated 72 <100 mg/dL [facility] Comment:Desirable LDL: less than 100 mg/dLNear Optimal/Above Optimal LDL: 110- 129 mg/dLBorderline High LDL: 130-159 mg/dLHigh LDL: 160-189 mg/dLVery High LDL: greater than or equal to 190 mg/dL HDL Cholesterol 39(L) >40 mg/dL [facility] Comment:Desirable HDL: great er than 40 mg/dL Note: This HDL assay may give artificially low results in patients with liver disease. 01/14/2025 2:58 PM EDT 01/14/2025 2:58 PM EDT us Dharmesh Guardado MD LAB BLOOD ORDERABLES Final Result [facility] [address] [place] [phone] * (ABNORMAL) Comprehensive Metabolic Panel (01/14/2025 2:58 PM EDT) Sodium 140 135 - 145 mmol/L [facility] Potassium 3.4 3.3 - 5.1 mmol/L [facility] Chloride 105 96 - 108 mmol/L [facility] Carbon Dioxide 26 22 - 29 mmol/L [facility] Anion Gap 12 12 - 20 [facility] Urea Nitrogen (BUN) 21(H) 9 - 16 mg/dL [facility] Creatinine, Serum 0.74 0.5 - 1.4 mg/dL [facility] Estimated Glomerular Filt Rate >60 [facility] Comment:Chronic Kidney Disea se: Estimated GFR < 60 mL/min/1.98u1Dtlngd Kidney Disease: Estimated GFR < 15 mL/min/1.73m2 Glucose 85 60 - 115 mg/dL [facility] Calcium 8.7 8.4 - 10.2 mg/dL [facility] Bilirubin, Total 0.8 0.0 - 1.0 mg/dL [facility] Aspartate Amino Transferase 30 5 - 31 U/L [facility] Alanine Aminotransferase 23 0 - 31 U/L [facility] Total Protein 7.4 6.5 - 8.0 g/dL [facility] Albumin Level 4.6 3.5 - 5.0 g/dL [facility] Alkaline Phosphatase 79 39 - 117 U/L [facility] 01/14/2025 2:58 PM EDT 01/14/2025 2:58 PM EDT Dharmesh Guardado MD LAB BLOOD ORDERABLES Final Result [facility] [address] [place] [phone] documented in this encounter Visit Diagnoses Not on filedocumented in this encounter Additional Health Concerns Assessment Noted Time PHQ-9 Depression Total Score: 8 01/15/20 25 1:30 PM EDT documented as of this encounter Care Teams Motorcycle Police Officer Relationship Specialty Start Date End Date Dharmesh Lentz MD [address] [place] [address] PCP - General Internal Medicine 11/22/13 documented as of this encounter
--- OUTSIDE RECORDS SUMMARY | 2025-01-14 17:08 | XMS_ITS | Clinical Summary ---
Author Organization [employer] Address [address] [place] [address] Care Team Providers Care Home Health Rn Name Role Phone Dharmesh Lentz MD Primary Care Provide r Allergies Active Allergy Reactions Criticality Noted Date Comments Metformin 11/15/2011 Other reaction(s): severe diarrhea Medications FreeStyle lancetsIndication s:Type 2 diabetes mellitus without complication, with long-term current use of insulin (HCC) Use 3 times a day 100 each [...] complication, with long-term current use of insulin (HCC) Inject 74 Units under the skin at [...] 2 diabetes mellitus without complication, unspecified whether body trimmer upholsterer insulin use apply 1 unit by intradermal route 3 [...] both constipation and diarrhea 10/23/2024 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 She was seen at [facility], they recommended to start with PT and may recommend injections or further imaging if need be. Her Rheumatoid factor was elevated and I recommended an evaluation by a technology integration specialist Dr Dodson who she saw pt c/o bilateral arm numbness and intermittent weakness. High concern for cervical radiculopathy. I recommended to go back to [facility] for f/u . She was seen and [...] finding. Pt was seen on 03/06/2013 Dr Laecy thought this was an incidental finding and likely congenital and no further work up or imaging was recommended. She was also seen at [facility] Vascular surgery on 10/30/2012 and they recommended she be seen by Surgeon (Dr Espino) who saw pt on 11/06/2012 and was unsure as to what the clinical significance of this would be but he was going to review the exam with the radiologist at [facility] and was going to [...] was recommended. She was also seen at [facility] Vascular surgery on 10/30/2012 and they recommended she be seen by Surgeon (Dr Espino) who saw pt on 11/06/2012 and was unsure as to what the clinical significance of this would be but he was going to review the exam with the radiologist at [facility] and was going to [...] cm with no angio or lymphatic invasion, [id number], she unfortunately had removal of 2 parathyroid [...] cm with no angio or lymphatic invasion, [id number], she unfortunately had removal of 2 parathyroid [...] cm with no angio or lymphatic invasion, [id number], she unfortunately had removal of 2 parathyroid [...] cm with no angio or lymphatic invasion, [id number], she unfortunately had removal of 2 parathyroid [...] cm with no angio or lymphatic invasion, [id number], she unfortunately had removal of 2 parathyroid [...] cm with no angio or lymphatic invasion, [id number], she unfortunately had removal of 2 parathyroid [...] cm with no angio or lymphatic invasion, [id number], she unfortunately had removal of 2 parathyroid [...] of Total Thyroidectomy TFTs 07/23/2021 wnl on [id number] mcg PO daily. lowered by Endocrinology Smoker [...] Encounters Date Type Department Care Team Description 01/14/2025 1:00 PM EDT Office Visit [facility] [address] [place] [address] Camilla Campbell MD Need for vaccination (Primary Dx); Encounter for immunization; Encounter for hearing screening after failed hearing test 01/14/2025 Orders Only [facility] [address] [place] [address] Dharmesh Lentz MD 01/14/2025 Travel 01/10/2025 Travel 01/10/2025 Patient Outreach [facility] [place] [address] Dharmesh Lentz MD Medicare Annual Wellness Visit Initial (AWV scheduled) 01/10/2025 Refill [facility] [address] [place] [address] Dharmesh Lentz MD Chronic neck pain 12/20/2024 11:30 AM EDT Office Visit [facility] [address] [place] [address] Dharmesh Lentz MD Type 2 diabetes mellitus without complication, with long-term current use of insulin (CMS/HCC) (Primary Dx); Primary hypertension; Mixed hyperlipidemia; Malignant tumor of thyroid gland (CMS/HCC); Acute right-sided low back pain without sciatica; Right hip pain; Preventative health care 12/20/2024 Travel 12/19/2024 Telephone [facility] [address] [place] [address] Ana Maria Restrepo [place] 12/19/2024 Refill [facility] [address] [place] [address] Dharmesh Lentz MD Mixed hyperlipidemia 12/13/2024 Patient Outreach [facility] [address] [place] [address] Dharmesh Lentz MD Pre-visit Planning (SDOH negative, Tobacco screening positive.) 11/30/2024 Orders Only GENERIC EXTERNAL DATA DEPARTMENT Provider, Generic External Data 11/22/2024 Orders Only [facility] External Provider, [facility] 11/13/2024 Refill [facility] [address] [place] [address] Dharmesh Lentz MD Primary hypertension 11/08/2024 9:45 AM EDT Office Visit [facility] [address] [place] [address] Camilla Campbell MD Chronic pain of both shoulders (Primary Dx) 11/08/2024 Travel 11/06/2024 1:15 PM EDT Office Visit [facility] [address] [place] [address] Carlota House MD Chronic pain of both shoulders (Primary Dx) 11/06/2024 Refill [facility] [address] [place] [address] Dharmesh Lentz MD Mixed hyperlipidemia 11/06/2024 Travel 11/05/2024 9:45 AM EDT Office Visit [facility] [address] [place] [address] Camilla Campbell MD Chronic pain of both shoulders (Primary Dx) 11/05/2024 Travel 11/01/2024 9:15 AM EDT Office Visit [facility] [address] [place] [address] Camilla Campbell MD Chronic pain of both shoulders (Primary Dx) 11/01/2024 Travel 10/31/2024 Refill [facility] [address] [place] [address] Kenzie Jett ANP Type 2 diabetes mellitus without complication, unspecified whether body trimmer upholsterer insulin use ([facility]); Gastroesophageal reflux disease without esophagitis 10/30/2024 9:15 AM EDT Office Visit [facility] [address] [place] [address] Camilla Campbell MD Chronic pain of both shoulders (Primary Dx) 10/30/2024 Travel 10/29/2024 9:45 AM EDT Office Visit [address] [address] Camilla Campbell MD Chronic pain of both shoulders (Primary Dx) 10/29/2024 Travel 10/25/2024 9:45 AM EDT Office Visit [facility] [address] [place] [address] Camilla Campbell MD Chronic pain of both shoulders (Primary Dx) 10/25/2024 Travel 10/23/2024 1:30 PM EDT Office Visit [facility] [address] [place] [address] Carlota House MD Chronic pain of both shoulders (Primary Dx) 10/23/2024 Travel 10/22/2024 9:00 AM EDT Office Visit [address] [address] Camilla Campbell MD Chronic pain of both shoulders (Primary Dx) 10/22/2024 Travel 10/18/2024 9:15 AM EDT Office Visit [facility] [address] [place] [address] Camilla Campbell MD Chronic pain of both shoulders (Primary Dx) 10/18/2024 Travel 10/17/2024 Refill [facility] [address] [place] [address] Dharmesh Lentz MD Chronic neck pain 10/15/2024 Orders Only [facility] [place] [address] Dharmesh Lentz MD from Last 3 Months Immunizations Immunization Administration Dates Next Due Influenza High-dose Quadriva lent Preservative Free 12/30/2022,01/20/2021 Influenza Quadrivalent Adjuvanted 01/27/2020 Influenza injectable quadriv alent IIV4 with preservative 01/28/2015 Influenza injectable quadriv alent preservative free 12/29/2021,03/30/2016 Influenza, High Dose Seasona l, Preservative Free 01/14/2025,01/03/2024,02/22/2019,01/11 Influenza, IIV3, injectable 12/11/2019, 4 Influenza, Split (incl. angel fied surface antigen) 01/04/2013,01/12/2012 Pneumococcal Conjugate PCV 13 06/17/2016 Pneumococcal Polysaccharide PPSV23 09/19/2013 TD (adult), 2 Lf tetanus tox oid, preservative free, adsorbed 09/17/2011 Tdap 12/29/2021 Tetanus Toxoid, Unspecified 09/17/2011 Zoster, Recombinant 05/03/2023,12/30/2022 Zoster, live 04/24/2015 Family History Medical History Relation Name Comments Cancer Daughter Diabetes Father Kidney failure Father Diabetes Mother htn Mother Diabetes Sister htn Sister Relation Name Status Comments Child Alive Daughter Alive Father Mother Sister Alive Son Alive Social History Tobacco Use Types Packs/Day Years [...] Pulse 74 01/14/2025 1:19 PM EDT Temperature 37.2 C (98.9 F) 12/20/2024 11:32 AM EDT Respiratory Rate 20 12/20/2024 11:32 AM EDT Oxygen Saturation 98% 12/20/2024 11:32 AM EDT Inhaled Oxygen Concentration - - Weight 57.4 kg (126 lb 9.6 oz) 01/14/2025 1:19 P M EDT Height 162.6 cm (5' 4 ) 01/14/2025 1:19 PM EDT Body Mass Index 21.73 01/14/2025 1:19 PM EDT Plan of Treatment Upcoming Encounters Date Type Department Care Team (Late st Contact Info) Description 02/21/2025 11:15 AM EST Office Visit [facility] [address] [place] [address] Dharmesh Lentz MD [address] [place] [address] Health Maintenance Due Date Last Done Comments [...] 02/07/2024, 1 05/12/2013, 08/13/2013, Additional history exists COVID-19 Vaccine ( season) 2024 07/03/2020, 06/05/2020 Dental X-Ray: Bitewings 02/07/2025 02/07/20 24, 01/29/2013, 08/03/2011, Additional history exists Alcohol/Substance Use Screening 04/03/2025 04/03/2024 Diabetes: Urine Protein Screening 04/27/2025 04/27/2024, 08/27/2022, 09/26/2020 Diabetes: Hemoglobin A1C 06/19/2025 025, 04/03/2024, 01/03/2024, Additional history exists Mammogram 10/15/2025 10/15/2024, 09/09, 09/16/2022, Additional history exists SDOH Screening 12/13/2025 12/13/2024 Lipid Panel 12/24/2025 01/14/2025, 12/10, 04/27/2024, Additional history exists Depression Screening 01/14/2026 01/14/2025, 01/15/20 Tobacco Screening 01/14/2026 01/14/2025 Dental X-Ray: Full Mouth 02/07/2027 02/07/2024, 02/04/2009 DTaP/Tdap/Td Vaccines (2 - Td or Tdap) 12/30/2031 12/29/2021, 09/17/2011, 09/17/2011 Pneumococcal Vaccine: 50+ Years Completed 06/17/2016, 09/19/2013 Colonoscopy Discontinued 05/16/2020 Colorectal Cancer Screening Discontinued Hepatitis C Screening Completed 07/23/2021 Zoster Vaccines Completed 05/03/2023, 12/11, 04/24/2015 Influenza Vaccine Completed 01/14/2025, , 12/30/2022, Additional history exists CT Colonography Discontinued FIT DNA/Cologuard Discontinued FIT [...] METABOLIC PANEL Routine 01/14/2025 2:58 PM EDT LDCT LUNG SCREENING Routine 12/28/2024 3 :19 PM EDT CBC WITH AUTO DIFFERENTIAL Routine 12/24/2024 7:22 AM EDT Type 2 diabetes mellitus without complication, with long-term current use of insulin ([facility]/HCC) COMPREHENSIVE METABOLIC PANEL Routine 12/24/2024 7:22 AM EDT Type 2 diabetes mellitus without complication, with long-term current use of insulin ([facility]/HCC) LIPID PANEL, STANDARD Routine 12/24/2024 7:22 AM [...] complication, with long-term current use of insulin ([facility]) POCT GLYCOSYLATED HEMOGLOBIN (HGB A1C) Routine 12/20/2024 12:10 PM EDT Type 2 diabetes mellitus without complication, with long-term current use of insulin ([facility]) TSH Routine 11/30/2024 2:44 [...] to Health Maintenance Results * (ABNORMAL) TSH (01/14/2025 2:58 PM EDT) Only the most recent of2 resultswithin the time period is included. Thyroid Stimulating Hormone 0.07(L) 0.32 - 4.0 uIU/mL [facility] Comment:TSH 3rd Generation ( [facility]) 01/14/2025 2:58 PM EDT 01/14/2025 2:58 PM EDT us Generic External Data Provider LAB BLOOD ORDERAB LES Final Result [facility] [address] [place] [phone] * T4, Free (01/14/2025 2:58 PM EDT) Only the most recent of2 resultswithin the time period is included. Free T4 (Free Thyroxine) 1.29 0.71 - 1.85 ng/dL [facility] 01/14/2025 2:58 PM EDT 01/14/2025 2:58 PM EDT Generic External Data Provider LAB BLOOD ORDERAB LES Final Result Performing Organization Address City/[facility]/ZIP Co de Phone Number [facility] [address] [place] [address] [phone] * (ABNORMAL) Lipid Panel, Standard (01/14/2025 2:58 PM EDT) Only the most recent of2 resultswithin the time period is included. Triglycerides 129 <150 mg/dL [facility] Comment:Desirable Triglyceri de: less than 150 mg/dLBorderline High Triglyceride 150-199 mg/dLHigh Triglyceride: 200-499 mg/dLVery High Triglyceride: greater than or equal to 5OO mg/dL Cholesterol 136 <200 mg/dL [facility] Comment:Desirable Cholestero l: less than 200 mg/dLBorderline High Cholesterol: 200-239 mg/dLHigh Cholesterol: greater than 239 mg/dL LDL Cholesterol Calculated 72 <100 mg/dL [facility] Comment:Desirable LDL: less than 100 mg/dLNear Optimal/Above Optimal LDL: 110- 129 mg/dLBorderline High LDL: 130-159 mg/dLHigh LDL: 160-189 mg/dLVery High LDL: greater than or equal to 190 mg/dL HDL Cholesterol 39(L) >40 mg/dL [facility] Comment:Desirable HDL: great er than 40 mg/dL Note: This HDL assay may give artificially low results in patients with liver disease. 01/14/2025 2:58 PM EDT 01/14/2025 2:58 PM EDT us Dharmesh Guardaod MD LAB BLOOD ORDERABLES Final Result Performing Organization Address City/[facility]/ZIP Co de Phone Number [facility] [address] [place] [address] [phone] * (ABNORMAL) Comprehensive Metabolic Panel (01/14/2025 2:58 PM EDT) Only the most recent of2 resultswithin the time period is included. Sodium 140 135 - 145 mmol/L [facility] Potassium 3.4 3.3 - 5.1 mmol/L [facility] Chloride 105 96 - 108 mmol/L [facility] Carbon Dioxide 26 22 - 29 mmol/L [facility] Anion Gap 12 12 - 20 [facility] Urea Nitrogen (BUN) 21(H) 9 - 16 mg/dL [facility] Creatinine, Serum 0.74 0.5 - 1.4 mg/dL [facility] Estimated Glomerular Filt Rate >60 [facility] Comment:Chronic Kidney Disea se: Estimated GFR < 60 mL/min/1.57h2Ypmrwv Kidney Disease: Estimated GFR < 15 mL/min/1.73m2 Glucose 85 60 - 115 mg/dL [facility] Calcium 8.7 8.4 - 10.2 mg/dL [facility] Bilirubin, Total 0.8 0.0 - 1.0 mg/dL [facility] Aspartate Amino Transferase 30 5 - 31 U/L [facility] Alanine Aminotransferase 23 0 - 31 U/L [facility] Total Protein 7.4 6.5 - 8.0 g/dL [facility] Albumin Level 4.6 3.5 - 5.0 g/dL [facility] Alkaline Phosphatase 79 39 - 117 U/L [facility] 01/14/2025 2:58 PM EDT 01/14/2025 2:58 PM EDT us Dharmesh Guardado MD LAB BLOOD ORDERABLES Final Result [facility] [address] [place] [phone] * CT Lung Screening Low dose (12/28/2024 3:19 PM EDT) Anatomical Region Laterality Modality Lung Computed Tomogra phy 12/28/2024 3:19 PM EDT Narrative 12/31/2024 7:24 AM EDT [address] [address] [address] Scan Report Signed Patient: Zeina Ramírez MR#: [id number] : 1950 Acct:[id number] Age/Sex: 74 / F ADM Date: 12/28/24 Loc: .CT Attending Dr: Cherelle Nguyen PA-C Ordering Physician: Cherelle Nguyen PA-C Date of Service: 12/28/24 Procedure(s): CT lung screening Accession Number(s): [id number] cc: Dharmesh Luther MD; Cherelle Nguyen PA-C Report Number: [id number]: Total DLP = 39.00 mGy-cm Reason for Exam: F17.210 - Nicotine dependence, cigarettes, uncomplicated EXAMINATION: CT LUNG SCREENING HISTORY: F17.210 - Nicotine dependence, cigarettes, uncomplicated TECHNIQUE: Low dose axial images were obtained from the sternal notch to upper abdomen without IV contrast per standard departmental protocol. Sagittal and coronal reformatted images were also obtained and reviewed. One or more of the following techniques was used for dose reduction: Automated exposure control, adjustment of the mA and/or kV according to patient size, use of iterative reconstruction technique. DLP: 39 mGy-cm COMPARISON: Comparison is made with the prior examination dated 10/10/2023. FINDINGS: Lung nodules: Again seen are scattered 1-2 mm nodules at the lung apices. There is a triangular nodule along the right major fissure (series 4, image 74), compatible with an intrapulmonary lymph node. Emphysema: mild Coronary Calcification: none Aortic Arch Calcification: mild Potentially Significant Incidentals : none Additional Chest Findings: There is no pleural or pericardial effusion. No mediastinal or axillary lymphadenopathy is identified. Visualized upper abdomen: The visualized portions of the liver and adrenals have an unremarkable unenhanced appearance. The spleen is borderline enlarged. CT/CT lung screening IMPRESSION: No suspicious pulmonary nodules are identified. LUNG-RADS ASSESSMENT: Lung-RADS 2: Benign MANAGEMENT: Continue annual screening with LDCT in 12 months Category S: N/A Electronically signed by: Jesus Douglass MD 12/31/2024 07:21 AM EDT RP Dictated By: Jesus Douglass MD Signed By: <Electronically signed by Jesus Douglass MD in OV> 12/31/24 0721 DD/ 1519 TD/TT: 12/28/24 1533 Computer Systems Integrator: Procedure Note Donotuseinterpreter, Image - 12/31/[address] [address] [address] Scan Report Signed Patient: Taylor Ramírez#: [id number] : 8Acct:[id number] Age/Sex: 74 / FADM Date: 12/28/24 Loc: HO.CT Attending Dr: Cherelle Nguyen PA-C Ordering Physician: Cherelle Nguyen PA-C Date of Service: 12/28/24 Procedure(s): CT lung screening Accession Number(s): [id number] cc: Dharmesh Luther MD; Cherlele Nguyen PA-C Report Number: [id number]: Total DLP = 39.00 mGy-cm Reason for Exam: F17.210 - Nicotine dependence, cigarettes, uncomplicated EXAMINATION: CT LUNG SCREENING HISTORY: F17.210 - Nicotine dependence, cigarettes, uncomplicated TECHNIQUE: Low dose axial images were obtained from the sternal notch to upper abdomen without IV contrast per standard departmental protocol. Sagittal and coronal reformatted images were also obtained and reviewed. One or more of the following techniques was used for dose reduction: Automated exposure control, adjustment of the mA and/or kV according to patient size, use of iterative reconstruction technique. DLP: 39 mGy-cm COMPARISON: Comparison is made with the prior examination dated 10/10/2023. FINDINGS: Lung nodules: Again seen are scattered 1-2 mm nodules at the lung apices. There is a triangular nodule along the right major fissure (series 4, image 74), compatible with an intrapulmonary lymph node. Emphysema: mild Coronary Calcification: none Aortic Arch Calcification: mild Potentially Significant Incidentals : none Additional Chest Findings: There is no pleural or pericardial effusion. No mediastinal or axillary lymphadenopathy is identified. Visualized upper abdomen: The visualized portions of the liver and adrenals have an unremarkable unenhanced appearance. The spleen is borderline enlarged. CT/CT lung screening IMPRESSION: No suspicious pulmonary nodules are identified. LUNG-RADS ASSESSMENT: Lung-RADS 2: Benign MANAGEMENT: Continue annual screening with LDCT in 12 months Category S: N/A Electronically signed by: Jesus Douglass MD 12/31/2024 07:21 AM EDT RP Dictated By: Jesus Douglass MD Signed By: <Electronically signed by Jesus Douglass MD in OV> 12/31/24 0721 DD/ 1519 TD/TT: 12/28/24 1533 Computer Systems Integrator: [facility] External Provider IMG CT PROCEDURES Edited Result - Final * (ABNORMAL) CBC auto differential (12/24/2024 7:22 AM EDT) White Blood Count 8.7 4.8 - 10.8 X10*3/uL [facility] Red Blood Count 4.07(L) 4.20 - 5.50 X10*6/uL [facility] Hemoglobin 12.7 12.0 - 16.0 g/dl [facility] Hematocrit 38.1 37.0 - 47.0 % [facility] Mean Corpuscular Volume 93.6 80.0 - 98.0 fL [facility] Mean Corpuscular Hemoglobin 31.2 27.0 - 33.0 pg [facility] Mean Corpuscular HGB Conc 33.3 31.0 - 35.0 g/dl [facility] Red Cell Distribution Width 15.1 11.0 - 16.0 % [facility] Platelet Count 213 160 - 400 X10*3/uL [facility] Mean Platelet Volume 12.9(H) 9.4 - 12.3 fL [facility] Neutrophils Percent Auto 58.9 45 - 73 % [facility] Imm Gran Pct Auto 0.5(H) 0.0 - 0.4 % [facility] Lymphocytes Percent Auto 29.0 20 - 40 % [facility] Monocytes Percent Auto 6.9 2 - 11 % [facility] Eosinophils Percent Auto 3.7 0 - 4 % [facility] Basophils Percent Auto 1.0 0 - 2 % [facility] NRBC Pct Auto 0.0 0.0 - 0.2 /100WBC [facility] Neutrophils Absolute Auto 5.1 2.0 - 8.3 x10*3/uL [facility] Imm Gran Abs Auto 0.04(H) 0.00 - 0.03 X10*3/uL [facility] Lymphocytes Absolute Auto 2.5 1.2 - 4.9 X10*3/uL [facility] Monocytes Absolute Auto 0.6 0.1 - 1.2 X10*3/uL [facility] Eosinophils Absolute Auto 0.3 0.0 - 0.4 X10*3/uL [facility] Basophils Absolute Auto 0.1 0.0 - 0.2 X10*3/uL [facility] NRBC Abs Auto 0.000 0.0 - 0.012 X10*3/uL [facility] Blood Venous blood specimen / Unknown 12/24/2024 7:22 AM EDT 12/24/2024 7:22 AM EDT us Dharmesh Guardado MD LAB BLOOD ORDERABLES Final Result [facility] [address] [place] [phone] * XR Hip 2 or 3 Views Right (12/20/2024 12:45 PM EDT) Anatomical Region Laterality Modality Lower Extremities, Hip Right Radiograp hic Imaging 12/20/2024 12:4 5 PM EDT Narrative 12/20/2024 12:54 PM EDT [place] [address] [address] XRay Report Signed Patient: Zeina Ramírez MR#: [id number] : 1950 Acct:[id number] Age/Sex: 74 / F ADM Date: 12/20/24 [facility] Attending Dr: Dharmesh Luther MD Ordering Physician: Dharmesh Luther MD Date of Service: 12/20/24 Procedure(s): XR hip RT min 2V Accession Number(s): [id number] cc: Dharmesh Luther MD Reason for Exam: [...] 12/20/24 1251 DD/ 1245 TD/TT: 12/20/24 1246 Computer Systems Integrator: Procedure Note Donotuseinterpreter, Image - 12/20/[address] [address] XRay Report Signed Patient: Eli RamírezsMR#: [id number] : 1950cct:[id number] Age/Sex: 74 / FADM Date: 12/20/24 Loc: HO.HHX Attending Dr: Dharmesh Luther MD Ordering Physician: Dharmesh Luther MD Date of Service: 12/20/24 Procedure(s): XR hip RT min 2V Accession Number(s): [id number] cc: Dharmesh Luther MD Reason for Exam: [...] 12/20/24 1251 DD/ 1245 TD/TT: 12/20/24 1246 Computer Systems Integrator: us Dharemsh Guardado MD IMG XR PROCEDURES Fin al Result * XR Lumbar Spine 2-3 Views (12/20/2024 12:45 PM EDT) Anatomical Region Laterality Modality Spine, L-spine Radiographic Rekha ging 12/20/2024 12:4 5 PM EDT Narrative 12/20/2024 12:56 [place] [address] XRay Report Signed Patient: Zeina Ramírez MR#: [id number] : 1950 Acct:[id number] Age/Sex: 74 / F ADM Date: 12/20/24 Loc: HO.HHCX Attending Dr: Dharmesh Luther MD Ordering Physician: Dharmesh Luther MD Date of Service: 12/20/24 Procedure(s): XR lumbar spine 2-3V Accession Number(s): [id number] cc: Dharmesh Luther MD Reason for Exam: [...] changes, stable. Atherosclerotic disease. Electronically signed by: oTny Pimentel MD 12/20/2024 12:54 PM EDT RP Dictated By: Tony Pimentel MD Signed By: <Electronically signed by Tony Pimentel MD in OV> 12/20/24 1254 DD/ 1245 TD/TT: 12/20/24 1246 Computer Systems Integrator: Procedure Note Donotuseinterpreter, Image - 12/20/[address] [address] XRay Report Signed Patient: Taylor Ramírez#: [id number] : 8Acct:[id number] Age/Sex: 74 / FADM Date: 12/20/24 Loc: HO.HHCX Attending Dr: Dharmesh Luther MD Ordering Physician: Dharmesh Luther MD Date of Service: 12/20/24 Procedure(s): XR lumbar spine 2-3V Accession Number(s): [id number] cc: Dharmesh Luther MD Reason for Exam: [...] 12/20/24 1254 DD/ 1245 TD/TT: 12/20/24 1246 Computer Systems Integrator: Dharmesh Guardado MD IMG XR PROCEDURES Fin [...] Media Lot # [id number] Lot# Expiration Date ,162,027 Blood Capillary blood specimen / Unknown 12/20/2024 12:10 PM EDT Dharmesh Guardado MD POINT OF CARE TEST EN TER/EDIT ORDERABLES Final Result * (ABNORMAL) Thyroglobulin, LC/MS/MS (11/30/2024 2:43 PM EDT) Pathologist [facility] Thyroglobulin, LC/MS/MS <0.1(A) ng/mL [facility] Comment:Reference Range: Int act Thyroid 2.8-40.9 Athyrotic <0.1 Note: Abnormal flagging is based on the reference interval for patients with intact thyroid.This test was performed using the Samson Coulterchemiluminescent method. Values obtained fromdifferent assay methods cannot be usedinterchangeably. Thyroglobulin levels, regardlessof value, should not be interpreted as absoluteevidence of the presence or absence of disease. Thyroglobulin Comment See Below [facility] Comment:Thyroglobulin antibo dies (TGAB) interfere withthyroglobulin (TG) assays; therefore, TGAB assayshould always be performed in conjunction with aTG assay.For additional information, please refer tohttp://education.[employer]/faq/UPF555(This link is being provided for informational/educational purposes only.)THIS TEST WAS PERFORMED AT:[employer] [place] [id number] GUIDRY MD 11/30/2024 2:43 PM EDT 11/30/2024 2:43 PM EDT us Generic External Data Provider LAB BLOOD ORDERAB LES Final Result [facility] [address] [place] [phone] * Thyroblobulin, Tumor Marker w/Reflex (11/30/2024 2:43 PM EDT) Pathologist [facility] Thyroglobulin Antibody <1 <=1 IU/mL [facility] Comment:This Thyroglobulin a ntibody test was performedusing the Samson [place] Chemiluminescent method.Values obtained from different assay methods cannot beused interchangeably. Thyroglobulin antibody levels,regardless of value, should not be interpreted asabsolute evidence of the presence or absence ofdisease. Thyroglobulin, LC/MS/MS TNP [facility] Thyroglobulin Level <0.1 ng/mL [facility] Comment:Reference Range: Ath yrotic: <0.1 ng/mLReference range applies to differentiated thyroidcancer patients following treatment. The presence ofmeasurable thyroglobulin indicates the presence ofthyroglobulin-producing thyroid tissue. Clinicalcorrelation is advised.This Thyroglobulin test was performed using thewavecatch [place] Chemiluminescent method. Valuesobtained from different assay methods cannot beused interchangeably. Thyroglobulin levels, regardlessof value, should not be interpreted as absoluteevidence of the presence or absence of disease.THIS TEST WAS PERFORMED AT:[facility]/[id number] [place] [address]SWHXYNMWENDY CANO MD,PHD 11/30/2024 2:43 PM EDT 11/30/2024 2:43 PM EDT Generic External Data Provider LAB BLOOD ORDERAB LES Final Result Performing Organization Address [facility]/ZIP Co de Phone Number [facility] [address] [place] [phone] * Thyroglobulin Antibodies (11/30/2024 2:43 PM EDT) Thyroglobulin Antibodies <1 < or = 1 IU/mL [facility] Comment:THIS TEST WAS PERFOR MED AT:[facility] [address] [id number] GUIDRY MD 11/30/2024 2:43 PM EDT 11/30/2024 2:43 PM EDT Generic External Data Provider LAB BLOOD ORDERAB LES Final Result Performing Organization Address [facility]/[employer] Co de Phone Number [facility] [address] [place] [phone] * US Head Neck Soft Tissue (11/22/2024 1:07 PM EDT) Anatomical Region Laterality Modality Head, Neck Ultrasound 11/22/2024 1:07 PM EDT Narrative 11/22/2024 2:31 PM EDT [address] [address] Ultrasound Report Signed Patient: Zeina Ramríez MR#: [id number] : 1950 Acct:[id number] Age/Sex: 74 / F ADM Date: 11/22/24 Loc: HO.US Attending Dr: Agata Maier MD Ordering Physician: gAata Maier MD Date of Service: 11/22/24 Procedure(s): US soft tiss head and/or neck Accession Number(s): [id number] cc: Dharmesh Luther MD; Agata Maier MD [...] 11/22/24 1428 DD/ 1307 TD/TT: 11/22/24 1315 Computer Systems Integrator: Procedure Note Donotuseinterpreter, Image - 11/22/[address] [address] Ultrasound Report Signed Patient: Taylor Ramírez#: [id number] : 8Acct:[id number] Age/Sex: 74 / FADM Date: 11/22/24 Loc: HO.US Attending Dr: Agata Maier MD Ordering Physician: Agata Maier MD Date of Service: 11/22/24 Procedure(s): US soft tiss head and/or neck Accession Number(s): [id number] cc: Dharmesh Luther MD; Agata Maier MD [...] 11/22/2024 02:28 PM EDT Dictated By: Dion Pedroaz MD Signed By: <Electronically signed by Dion Pedroza MD in OV> 11/22/24 1428 DD/ 1307 TD/TT: 11/22/24 1315 Computer Systems Integrator: us [facility] External Provider IMG US PROCEDURES Final Result * BI Mammogram Screening Tomosynthesis Bilateral (10/15/2024 8:55 AM EDT) Anatomical Region Laterality Modality Breast Bilateral Mammography 10/15/2024 8:55 AM EDT Narrative 10/24/2024 9:03 PM EDT [facility] [address] [place], [place] [address] Mammography Report Signed Patient: Zeina Ramírez MR#: [id number] : 1950 Acct:[id number] Age/Sex: 74 / F ADM Date: 10/15/24 Loc: HO.MAMMO Attending Dr: Dharmesh Luther MD Ordering Physician: Dharmesh Luther MD Resu lts: 1Negative Date of Service: 10/15/24 Follow Up: 1 Year From Orig ina Mammogram Procedure(s): MM tomosynthesis screening BI Accession Number(s): [id number] cc: Dharmesh Luther MD EXAMINATION: MM SCREENING [...] 10/24/24 2100 DD/ 0855 TD/TT: 10/15/24 0910 Computer Systems Integrator: Procedure Note Donotuseinterpreter, Image - 10/24/2024 [facility] [address] [place] [address] Mammography Report Signed Patient: Adonis RamírezR#: [id number] : 8Acct:[id number] Age/Sex: 74 / FADM Date: 10/15/24 Loc: HO.MAMMO Attending Dr: Dharmesh Luther MD Ordering Physician: Dharmesh Luther MDResu lts: 1Negative Date of Service: 10/15/24Follow Up: 1 Year From Orig inal Mammogram Procedure(s): MM tomosynthesis screening BI Accession Number(s): [id number] cc: Dharmesh Luther MD EXAMINATION: MM SCREENING [...] 10/24/24 2100 DD/ 0855 TD/TT: 10/15/24 0910 Computer Systems Integrator: Dharmesh Guardado MD IMG BI PROCEDURES Maximilian noel Result - Final * Albumin, Random Urine W/Creatinine (04/27/2024 9:54 AM EST) Creatinine, Urine 77.61 mg/dL [facility] Microalbumin Urine 9.0 mg/L [facility] Microalbum Creatinine Ratio Ur 11.5 <30 ug/mg cr [facility] Comment:Albumin/Creatinine R atio Reference Ranges: Normal: < 30 ug/mg creatinine Microalbuminuria: 30 - 300 ug/mg creatinineClinical Albuminuria: > 300 ug/mg creatinine Urine (Urine, Random) 04/27/2024 9:54 AM EST 04/27/2024 10:39 AM EST Dharmesh Guardado MD LAB URINE ORDERABLES Final Result [facility] [address] [place] [phone] * HEPATITIS C ANTIBODY RFLX (07/23/2021 6:58 AM EDT) Pathologist [facility] Hepatitis C Antibody Nonreactive Nonreactive [facility] Comment: Antibodies to HCV not detected; does not exclude early acute HCV infection. 07/23/2021 6:58 AM EDT Dharmesh Guardado MD HISTORICAL/NON ORDERA BLE LABS Final Result Performing Organization Address City/[facility]/ZIP Co de Phone Number [facility] [address] [place] [address], * Hm Colonoscopy (05/16/2020) Colonoscopy Normal Normal 05/16/2020 Diamond Levin - 05/16/2020 8:51 AM EST Recommended 5 year follow up us Historical Provider MD HEALTH MAINTENANCE Edited Result - Final from Last 3 Months or Most Recently Relevant to Health Maintenance Insurance MEDICARE Member Subscriber Plan / Payer (Ef fective 2022-Present) Name:Zeina Ramírez Member ID:[id number] Relation to Subscriber:Self Name:Zeina Ramírez Subscriber ID:[id number] Payer ID:STATE Group ID:Not on file Type:Medicare Address: [facility] [address] [phone] [facility] MEDEX CARE Care Teams Home Health Rn Relationship Specialty Start Date End Date Dharmesh Lentz MD [address] [place] [phone] PCP - General Internal Medicine 11/22/13
[2025-01-15 08:18] LABS: HBS Num1 1.31 mIU/mL (0-7.99); HBc Num1 0.05 S/CO (0.00-0.79); HBsAGNum1 0.41 S/CO (0.00-0.99); Hepatitis B Surface Antigen Negative (Negative); ~Hepatitis B Surface Antibody NONREACTIVE (Nonreactive)
[2025-01-15 09:44] LABS: Rubeola IgG (Measles) 112.00 AU/mL
== END 2025-01-14 14:41 | disposition home or self-care (01) ==
LOC: HO.LAB 14:40
PROVIDERS: Absent Provider Internal Medicine; PCP Internal Medicine; Visit Provider Student in an Organized Health Care Education/Training Program
DX: Z01.84 Encounter for antibody response examination (principal); Z11.59 Encounter for screening for other viral diseases; E89.0 Postprocedural hypothyroidism; I10 Essential (primary) hypertension; E78.2 Mixed hyperlipidemia; Z85.850 Personal history of malignant neoplasm of thyroid; Z72.89 Other problems related to lifestyle
CPT/HCPCS: 36415; 80053; 80061; 84439; 84443; 86704; 86706; 86735; 86762; 86765; 86787; 87340

== ENCOUNTER 2025-02-04 11:03 | Outpatient (RCR) | payer MEDICARE, SELFPAY | END 2025-03-04 15:30 | disposition home or self-care (01) | LOC: HO.PT 11:03 | PROVIDERS: PCP Internal Medicine; Visit Provider Internal Medicine | DX: M25.551 Pain in right hip (principal); M54.50 Low back pain, unspecified | CPT/HCPCS: 97110; 97162; 97530; 97535 ==

== ENCOUNTER 2025-03-05 12:35 | Outpatient (REF) | payer MEDICARE, SELFPAY ==
[2025-03-05 13:53] LABS: Free T4 (Free Thyroxine) 1.25 ng/dL (0.71-1.85); Thyroid Stimulating Hormone 0.62 uIU/mL (0.32-4.0)
--- OUTSIDE RECORDS SUMMARY | 2025-03-05 16:10 | XMS_ITS | Encounter Summary ---
Author Organization [employer] Address [address] [place] [address] 7 [place] [address] Care Team Providers Care Security Control Center Operator Name Role Phone Dharmesh Lentz MD Primary Care Provide r Reason for Visit * Reason Onset Date Comments Med Refill 05/01/2024 Encounter Details Date Type Department Care Team ([facility] st Contact Info) Description 05/01/2024 Telephone [facility] MEDICINE [address] [place] [address] Dharmesh Lentz MD [address] [place] [address] Med Refill Social History Tobacco Use Types [...] 8:22 AM EST Medication was sent to [facility] #[id number] on 04/03/24 #30 with 3 refills. * Telephone Encounter - Angelo Paris - 05/01/2024 8:12 AM EST TC from pt requesting medication refill. Medications needing refill : enalapril (Vasotec) 5 MG tablet To be sent to: [facility] #[id number] [address] documented in this encounter Plan of Treatment Not on file documented as of this encounter Visit Diagnoses Not on filedocumented in this encounter Additional Health Concerns Assessment Noted Time PHQ-9 Depression Total Score: 2 09/01/19 24 9:16 AM EDT documented as of this encounter Care Teams Security Control Center Operator Relationship Specialty Start Date End Date Dharmesh Lentz MD [address] [place] [phone] PCP - General Internal Medicine 11/22/13 documented as of this encounter
--- OUTSIDE RECORDS SUMMARY | 2025-03-05 16:10 | XMS_ITS | Encounter Summary ---
Author Organization [employer] Address [address] [place] [address] 7 [place] [address] Care Team Providers Care Signal System Testing Maintainer Name Role Phone Dharmesh Lentz MD Primary Care Provide r Reason for Visit * Reason Onset Date Comments Med Refill 01/10/2025 Encounter Details Date Type Department Care Team (Late st Contact Info) Description 01/10/2025 Refill [facility] MEDICINE [address] [place] [address] Dharmesh Lentz MD [address] [place] [address] Chronic neck pain Social History Tobacco Use [...] as of this encounter Plan of Treatment Not on file documented as of this encounter Visit Diagnoses Diagnosis Chronic neck pain Cervicalgia documented in this encounter Additional Health Concerns Assessment Noted Time PHQ-9 Depression Total Score: 2 09/01/19 24 9:16 AM EDT documented as of this encounter Care Teams Signal System Testing Maintainer Relationship Specialty Start Date End Date Dharmesh Lentz MD [address] [place] [address] PCP - General Internal Medicine 11/22/13 documented as of this encounter
--- OUTSIDE RECORDS SUMMARY | 2025-03-05 16:10 | XMS_ITS | Encounter Summary ---
Author Organization [employer] Address [address] [place] [address] 7 [place] [address] Care Team Providers Care Audio Video Mechanic Name Role Phone Dharmesh Lentz MD Primary Care Provide r Reason for Visit * Reason Onset Date Comments Med Refill 10/07/2023 Encounter Details Date Type Department Care Team ([facility] st Contact Info) Description 10/07/2023 Telephone [facility] MEDICINE [address] [place] [address] Dharmesh Lentz MD [address] [place] [address] Med Refill Social History Tobacco Use Types [...] 11:49 AM EDT Medication was sent to [facility] #[id number] on 09/01/23 with 1 refill. * Telephone Encounter - Carlton Hoffmann - 10/07/2023 11:46 AM EDT TC from pt requesting medication refill. Medications needing refill: naproxen (Naprosyn) 500 MG tablet To be sent to: [facility] #[id number] documented in this encounter Plan of Treatment Not on file documented as of this encounter Visit Diagnoses Not on filedocumented in this encounter Additional Health Concerns Assessment Noted Time PHQ-9 Depression Total Score: 2 09/01/19 24 9:16 AM EDT documented as of this encounter Care Teams Audio Video Mechanic Relationship Specialty Start Date End Date Dharmesh Lentz MD [address] [place] [phone] PCP - General Internal Medicine 11/22/13 documented as of this encounter
--- OUTSIDE RECORDS SUMMARY | 2025-03-05 16:10 | XMS_ITS | Encounter Summary ---
Author Organization [employer] Address [address] [place] [address] 7t [place] [address] Care Team Providers Care Glassworker Name Role Phone Dharmesh Lentz MD Primary Care Provide r Encounter Details Date Type Department Care Team (Late st Contact Info) Description 03/05/2025 Orders Only GENERIC EXTERNAL DATA DEPARTMENT Provider, Generic External Data Social History Tobacco Use Types Packs/Day Years Used Date Smoking Tobacco: Every Day Cigarettes Passive Smoke Exposure: Current Smokeless Tobacco: Never Alcohol Use Standard Drinks/Week Comments Yes 0 (1 standard drink = 0.6 oz pur e alcohol) Socially 1-2 glasses per year. Alcohol Answer Date Recorded How often do you have a drink containing alcohol ? 0 02/21/2025 How many drinks containing a lcohol do you have on a typical day when you are drinking? 0 02/21/2025 How often do you have six or more drinks on one occasion? 0 02/21/2025 Depression Answer Date Recorded Patient Health Questionnaire-9 [...] on file documented as of this encounter Goals Goal Patient Goal Type Associated Problems Recent Progress Patient-Stated? Author Help patients manage their type 2 diabetes Care Plan Help patients manage their type 2 diabetes No Arun Marrero MA Weekly blood pressure task Care Plan Weekly blood pressure task No Arun Marrero MA Help patients manage their type 2 diabetes Care Plan Help patients manage their type 2 diabetes No Arun Marrero [place] Patient has chronic kidney disease Care Plan Patient has chronic kidney disease No Arun Marrero MA Weekly blood pressure task Care Plan Weekly blood pressure task No Arun Marrero MA Patient has chronic kidney disease Care Plan Patient has chronic kidney disease No Arun Marrero MA Weekly blood pressure task Care Plan Weekly blood pressure task No Nubia Evans MA Weekly blood pressure task Care Plan Weekly blood pressure task No Nubia Evans [place] Patient has chronic kidney disease Care Plan Patient has chronic kidney disease No Nubia Evans [place] Patient has chronic kidney disease Care Plan Patient has chronic kidney disease No Nubia Evans MA documented as of this encounter Procedures Procedure Name Priority Date/Time Associated Diagnosis Comments TSH Routine 03/05/2025 12:45 PM EST T4, FREE Routine 03/05/2025 12:45 PM EST documented in this encounter Results * TSH (03/05/2025 12:45 PM EST) Thyroid Stimulating Hormone 0.62 0.32 - 4.0 uIU/mL [facility] Comment:TSH 3rd Generation ( [facility]) 03/05/2025 12:4 5 PM EST 03/05/2025 12:45 PM EST us Generic External Data Provider LAB BLOOD ORDERAB LES Final Result Performing Organization Address City/[facility]/ZIP Co de Phone Number [facility] [address] [place] [phone] * T4, Free (03/05/2025 12:45 PM EST) Free T4 (Free Thyroxine) 1.25 0.71 - 1.85 ng/dL [facility] 03/05/2025 12:4 5 PM EST 03/05/2025 12:45 PM EST Generic External Data Provider LAB BLOOD ORDERAB LES Final Result Performing Organization Address City/[facility] Co de Phone Number [facility] [address] [place] [phone] documented in this encounter Visit Diagnoses Not on filedocumented in this encounter Additional Health Concerns Active Problems Noted Date Diagnosed Date Help patients manage their type 2 diabetes 02/20 Weekly blood pressure task 02/20/2025 Help patients manage their type 2 diabetes 02/20 Patient has chronic kidney disease 02/20/2025 Weekly blood pressure task 02/20/2025 Patient has chronic kidney disease 02/20/2025 Weekly blood pressure task 02/21/2025 Weekly blood pressure task 02/21/2025 Patient has chronic kidney disease 02/21/2025 Patient has chronic kidney disease 02/21/2025 Assessment Noted Time PHQ-9 Depression Total Score: 8 01/15/20 25 1:30 PM EDT documented as of this encounter Care Teams Glassworker Relationship Specialty Start Date End Date Dharmesh Lentz MD [address] [place] [address] PCP - General Internal Medicine 11/22/13 documented as of this encounter
--- OUTSIDE RECORDS SUMMARY | 2025-03-05 16:10 | XMS_ITS | Encounter Summary ---
Author Organization [employer] Address [address] [place] [address] 7 [place] [address] Care Team Providers Care Sales Marketing Manager Name Role Phone Dharmesh Lentz MD Primary Care Provide r Reason for Visit * Reason Comments Med Refill Encounter Details Date Type Department Care Team ([facility] st Contact Info) Description 12/19/2024 Refill [facility] MEDICINE [address] [place] [address] Dharmesh Lentz MD [address] [place] [address] Mixed hyperlipidemia Social History Tobacco Use Types [...] documented as of this encounter Care Teams Sales Marketing Manager Relationship Specialty Start Date End Date Dharmesh Lentz MD [address] [place] [address] PCP - General Internal Medicine 11/22/13 documented as of this encounter
--- OUTSIDE RECORDS SUMMARY | 2025-03-05 16:10 | XMS_ITS | Encounter Summary ---
Author Organization [employer] Address [address] [place] [address] [place] [address] Care Team Providers Care Ticketing Clerk Name Role Phone Dharmesh Lentz MD Primary Care Provide r Reason for Visit * Reason Comments Med Refill Encounter Details Date Type Department Care Team ([facility] st Contact Info) Description 10/16/2022 Refill [facility] MEDICINE [address] [place] [address] Dharmesh Lentz MD [address] [place] [address] Social History Tobacco Use Types Packs/Day Years [...] documented as of this encounter Care Teams Ticketing Clerk Relationship Specialty Start Date End Date Dharmesh Lentz MD [address] [place] [address] PCP - General Internal Medicine 11/22/13 documented as of this encounter
--- OUTSIDE RECORDS SUMMARY | 2025-03-05 16:10 | XMS_ITS | Encounter Summary ---
Author Organization [employer] Address [address] [place] [address] 7 [place] [address] Care Team Providers Care Banquet Pilot Name Role Phone Dharmesh Lentz MD Primary Care Provide r Reason for Visit * Reason Comments Med Refill Encounter Details Date Type Department Care Team ([facility] st Contact Info) Description 10/28/2022 Refill [facility] MEDICINE [address] [place] [address] Maria Esther Case MD [address] [place] [address] Social History Tobacco Use Types Packs/Day Years [...] documented as of this encounter Care Teams Banquet Pilot Relationship Specialty Start Date End Date Dharmesh Lentz MD [address] [place] [address] PCP - General Internal Medicine 11/22/13 documented as of this encounter
--- OUTSIDE RECORDS SUMMARY | 2025-03-05 16:10 | XMS_ITS | Encounter Summary ---
Author Organization [employer] Address [address] [place] [address] 7 [place] [address] Care Team Providers Care Forest Fire Management Officer Name Role Phone Dharmesh Lentz MD Primary Care Provide r Reason for Visit * Reason Comments Med Refill Encounter Details Date Type Department Care Team ([facility] st Contact Info) Description 09/02/2022 Refill [facility] MEDICINE [address] [place] [address] Dharmesh Lentz MD [address] [place] [address] Social History Tobacco Use Types Packs/Day Years [...] documented as of this encounter Care Teams Forest Fire Management Officer Relationship Specialty Start Date End Date Dharmesh Lentz MD [address] [place] [address] PCP - General Internal Medicine 11/22/13 documented as of this encounter
--- OUTSIDE RECORDS SUMMARY | 2025-03-05 16:10 | XMS_ITS | Patient Health Record ---
Author Organization [facility] Address [address] [place] [address] Care Team Providers Care Celery Stripper Name Role Phone Stefani Guardado MD, Dharmesh Primary Care Provide r Jesus Solares Unavailable [phone] Allergies Allergen (clinical drug ingredient) Drug/Non Drug Allergy documented on EMR Reaction Allergy Type Onset Date Status metformin Metformin HCl gi issues Drug Allergy Act bouchra Reason For Referral No Information Medications Medication SIG (Take, Route, Frequency, Duration) Notes Start Date End Date Status Fish Oil 500 MG Capsule 1 capsule Orally Twice a day; Duration: 30 day(s) Active Aspirin 81 81 MG Tablet Theresa yed Release 1 tablet Orally Once a day; Duration: 30 day(s) Active Dicyclomine HCl 10 MG Capsule 1 or 2 cap sules Orally Every 6 hours as needed for lower abdominal cramps and discomfort; Duration: 30 day(s) 02/15/2023 Active Atorvastatin Calcium 20 MG Tablet TK 1 T PO QD Oral; Duration: 90 Active Lantus 100 UNIT/ML Solution ADMINISTER 7 4 UNITS UNDER THE SKIN 1 TIME Subcutaneous; Duration: 40 Active Omeprazole 20 MG Capsule Delayed Release 1 capsule 30 minutes before morning meal Orally Once a day; Duration: 30 day(s) Active Levothyroxine Sodium 100 MCG Tablet TAKE 1 TABLET BY MOUTH EVERY DAY Oral; Duration: 30 Active Vitamin C 500 MG Capsule as directed Orally Active Probiotic 1-250 BILLION-MG Capsule as directed Orally once a day Active Multivitamin Adult A ctive Verapamil HCl ER 300 MG Caps ule Extended Release 24 Hour TK 1 C PO QD HS Oral; Duration: 90 Active hydroCHLOROthiazide 25 MG Tablet TK 1 T PO QD Oral; Duration: 90 Active Calcitriol 0.25 MCG Capsule TAKE ONE CAP MARYANN BY MOUTH EVERY DAY Oral; Duration: 10 Active Moexipril HCl 15 MG Tablet TAKE 1 TABLET BY MOUTH EVERY DAY Oral; Duration: 90 Active Immunizations Vaccine Route Administration Date Status Comme nts Influenza Unknown 12/11/2019 Administered Social History Tobacco Use: Social History Observation Description Date Details (start date - stop date) Current Smoker NA - NA Social History Drugs/Alcohol: Social Info Question Answer Notes Alcohol Screen Did you have a drink containing alcohol in the past year? Yes How often did you have a drink containing alcohol in the past year? Never (0 point) How many drinks did you have on a typical day when you were drinking in the past year? 1 or 2 drinks (0 point) How often did you have 6 or more drinks on one occasion in the past year? Never (0 point) Points 0 Interpretation Negative Tobacco Use: Social Info Question Answer Notes Tobacco Use/Smoking Patient is a current smoker How often do you smoke cigarettes? every day How many cigarettes a day do you smoke? 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 Section Notes: Nonsmoker > 10 yrs; no sig a lcohol Smoker 1/2-1 ppd; no sig alc ohol Smoker 1/2-1 ppd; no sig alc ohol Problems Problem Type SNOMED Code ICD Code Onset Dates Problem Status W/U Status Risk Notes Problem Screening for malignant neoplasm of colon (119945062) Encounter for screening for malignant neoplasm of colon (Z12.11) Active confirmed Problem History of adenomatous polyp of colon (780380679) History of adenomatous polyp of colon (Z86.010) Active confirmed Problem Diverticular disease of colon (179427235) Diverticulosis (K57.90) Active confirmed Problem Gastroesophageal reflux disease without esophagitis (354299788) Gastroesophageal reflux disease without esophagitis (K21.9) Active confirmed Problem Gastroesophageal reflux disease (860709662) GERD (gastroesophageal reflux disease) (K21.9) Active confirmed Problem Irritable bowel syndrome (17373210) Irritable bowel syndrome with both constipation and diarrhea (K58.2) Active confirmed Plan Of Treatment Future Test Test Name Order Date UPPER GI ENDOSCOPY 04/24/2020 COLONOSCOPY 04/24/2020 Insurance Providers Payer Name Payer Address Payer Phone Subscriber Number Group Number Insured Name Patient Relationship to Insured Coverage Start Date Coverage End Date MEDICARE [place] [address] [place] [address] [phone] [id number] AYDE GOULD Self - patient is the insured [employer] ATT[employer] CLAIMS [address] [place] [phone] [id number] AYDE GOULD Self - patient is the insured Medical (General) History Medical History History ICD Code IDDM Hypertension Tubular adenomas removed in [address] Samson; colonoscopy in 04/2015 with hyperplastic polyps-Dr. Samson Denies [place],CVA,Lung disease,renal disease Diverticulosis-Rx'd with ant ibiotics in 12/2019 for ? diverticulitis-had a neg. CT in 11/2019; descending colon diverticulitis [place] [address] scan Back pain Hyperlipidemia Arthritis [...]
--- OUTSIDE RECORDS SUMMARY | 2025-03-05 16:10 | XMS_ITS | Encounter Summary ---
Author Organization [facility] Address [address] [place] [address] [address] [place] [address] Care Team Providers Care Transmission Rebuilder Name Role Phone Dharmesh Lentz MD Primary Care Provide r Reason for Visit * Reason Comments Med Refill Encounter Details Date Type Department Care Team ([facility] st Contact Info) Description 08/31/2022 Refill [facility] [address] [place] [address] Dharmesh Lentz MD [address] [place] [address] Social History Tobacco Use Types Packs/Day Years [...] documented as of this encounter Care Teams Transmission Rebuilder Relationship Specialty Start Date End Date Dharmesh Lentz MD [address] [place] [address] PCP - General Internal Medicine 11/22/13 documented as of this encounter
--- OUTSIDE RECORDS SUMMARY | 2025-03-05 16:10 | XMS_ITS | Encounter Summary ---
Author Organization [facility] Address [address] [place] [address] [address] [place] [address] Care Team Providers Care Telehealth Coordinator Name Role Phone Dharmesh Lentz MD Primary Care Provide r Encounter Details Date Type Department Care Team ([facility] st Contact Info) Description 08/12/2022 Abstract [facility] [address] [place] [address] Dharmesh Lentz MD [address] [place] [address] Social History Tobacco Use Types Packs/Day Years [...] on file documented as of this encounter Procedures Procedure Name Priority Date/Time Associated Diagnosis Comments COLONOSCOPY Routine 05/16/2020 documented in this encounter Results * Colonoscopy (05/16/2020) Colonoscopy Normal Normal 05/16/2020 Narrative Marcy Diamond - 05/16/2020 8:51 AM EST Recommended 5 year follow up us Historical Provider HEALTH MAINTENANCE Edited Result - Final documented in this encounter Visit Diagnoses Not on filedocumented in this encounter Care Teams Telehealth Coordinator Relationship Specialty Start Date End Date Dharmesh Lentz MD [address] [place] [address] PCP - General Internal Medicine 11/22/13 documented as of this encounter
--- OUTSIDE RECORDS SUMMARY | 2025-03-05 16:10 | XMS_ITS | Encounter Summary ---
Author Organization [facility] Address [address] [place] [address] [address] [place] [address] Care Team Providers Care Chain Pegger Name Role Phone Dharmesh Lentz MD Primary Care Provide r Reason for Visit * Reason Onset Date Comments Prior Authorization 02/24/2023 Encounter Details Date Type Department Care Team ([facility] st Contact Info) Description 02/24/2023 Telephone [facility] [address] [place] [address] Dharmesh Lentz MD [address] [place] [address] Prior Authorization Social History Tobacco Use Types [...] documented as of this encounter Care Teams Chain Pegger Relationship Specialty Start Date End Date Dharmesh Lentz MD [address] [place] [address] PCP - General Internal Medicine 11/22/13 documented as of this encounter
--- OUTSIDE RECORDS SUMMARY | 2025-03-05 16:10 | XMS_ITS | Clinical Summary ---
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 Active Ascorbic Acid (Vitamin C) 500 MG capsule as directed Active aspirin (ASPIR) 81 MG EC tablet daily. 02/29/20 14 Active Diclofenac Sodium 1 % gelIndications:Rig ht hip pain Apply BID right hip or affected area 50 g 01/03/20 24 Active insulin glargine (Basaglar KwikPen) 100 UNIT/ML penIndications:Typ e 2 diabetes mellitus without complication, with long-term current use of insulin (HCC) Inject 74 Units under the skin at bedtime. 27 mL 3 06/04/19 25 Active verapamil ER (Verelan PM) 300 MG 24 hr capsuleIndications :Primary hypertension TAKE 1 CAPSULE(300 MG) BY MOUTH AT BEDTIME. DO NOT CRUSH OR CHEW 90 capsule 1 10/03/19 25 Active naproxen (Naprosyn) 500 MG tabletIndications: Chronic neck pain TAKE 1 TABLET BY MOUTH TWICE DAILY WITH FOOD NEEDED FOR PAIN 30 tablet 3 10/19/19 25 Active glucose blood (FREESTYLE LITE) test stripIndications:T ype 2 diabetes mellitus without complication, unspecified whether shelter insulin use apply 1 unit by intradermal route 3 times every day 150 each 11 11/02/19 25 Active omeprazole (PriLOSEC) [address] capsuleIndications :Gastroesophageal reflux disease without esophagitis Take 1 capsule (20 mg) by mouth before breakfast. Do not crush or chew.TAKE 1 CAPSULE(20 MG) BY MOUTH IN THE MORNING. DO NOT CRUSH OR CHEW 90 capsule 1 11/02/19 25 Active atorvastatin (Lipitor) 20 MG tabletIndications: Mixed hyperlipidemia TAKE 1 TABLET(20 MG) BY MOUTH IN THE MORNING 90 tablet 1 11/09/19 25 Active enalapril (Vasotec) 5 MG tabletIndications: Primary hypertension Take 1 tablet (5 mg) by mouth Once per day. 30 tablet 6 11/14/19 25 026 Active hydroCHLOROthiazid e (HYDRODiuril) 25 MG tabletIndications: Primary hypertension Take 1 tablet (25 mg) by mouth Once per day. 90 tablet 1 12/21/19 25 Active levothyroxine (Tirosint) 112 MCG capsule Take 112 mcg by mouth before breakfast. Active levothyroxine (Synthroid, Levoxyl) 125 MCG tablet Take 1 tablet by mouth Once per day. 12/07/19 25 025 Discontin ued(Dose adjustmen t) Active Problems Problem Noted Date Diagnosed Date Irritable bowel syndrome wit h both constipation and diarrhea 10/23/2024 Fractured dental yazidism with loss of materi al 03/01/2024 Generalized gingival recession 02/07/2024 Unspecified lesions of oral mucosa 02/07/2024 Bilateral shoulder pain 01/03/2024 Assessment & Plan (01/03/2024 1:42 PM EDT): Pt with c/o bilateral shoulder pain x 1 month. Pt reports heavy lifting with groceries Right hip pain 09/01/2023 Assessment & Plan (02/21/2025 11:38 AM EST): Patient with recurrent right sided hip pain, radiates to her right leg and foot. Only associated with walking. No Hx of trauma. Previous work up included Plain films right hip showed mild hip arthritis . Today she is agreeable for a PT eval d Previously she was referred to Ortho. Pt told me she did not go because the pain went away completely. Repeat x-ray hip 12/20/2024 showed: Mild joint space narrowing. Pt rescheduled her Ortho appointment for 04/19/2024 Assessment & Plan (12/20/2024 4:03 PM EDT): [...] rate and Urinalysis. She was seen at [facility], they recommended to start with PT and may recommend injections or further imaging if need be. Her Rheumatoid factor was elevated and I recommended an evaluation by a laboratory specialist Dr Dodson who she saw pt c/o bilateral arm numbness and intermittent weakness. High concern for cervical radiculopathy. I recommended to go back to [facility] for f/u . She was seen and [...] was recommended. She was also seen at [facility] on 10/30/2012 and they recommended she be seen by Surgeon (Dr Espino) who saw pt on 11/06/2012 and was unsure as to what the clinical significance of this would be but he was going to review the exam with the radiologist at [facility] and was going to get back to [...] was recommended. She was also seen at [facility] on 10/30/2012 and they recommended she be seen by Surgeon (Dr Espino) who saw pt on 11/06/2012 and was unsure as to what the clinical significance of this would be but he was going to review the exam with the radiologist at [facility] and was going to get back to the pt after that. [facility] health care 08/26/2022 Assessment & Plan (02/21/2025 11:39 AM EST): Mammogram: 10/15/2024 was negative. Pap Smear: 03/13/2010 s/p Hysterectomy Colonoscopy: 05/16/2020 Dr Lacey showed colon polyp and diverticulosis Lung cancer screen: 12/31/2024 Normal Assessment & Plan (12/20/2024 12:02 PM EDT): [...] pain without sciatica 08/26/2022 Assessment & Plan (02/21/2025 11:37 AM EST): Pt here for a follow up Previously she had c/o right sided low back pain She denies any injury Exam back then was unremarkable Plain films of LS spine 12/20/2024 showed: No acute abnormality. Multilevel degenerative changes, stable. Pt already taking NSAIDS. On exam she has full ROM Pt completed PT evaluation Assessment & Plan (12/20/2024 3:54 PM EDT): [...] cm with no angio or lymphatic invasion, [id number], she unfortunately had removal of 2 parathyroid [...] cm with no angio or lymphatic invasion, [id number], she unfortunately had removal of 2 parathyroid [...] cm with no angio or lymphatic invasion, [id number], she unfortunately had removal of 2 parathyroid [...] cm with no angio or lymphatic invasion, [id number], she unfortunately had removal of 2 parathyroid [...] cm with no angio or lymphatic invasion, [id number], she unfortunately had removal of 2 parathyroid [...] cm with no angio or lymphatic invasion, [id number], she unfortunately had removal of 2 parathyroid [...] cm with no angio or lymphatic invasion, [id number], she unfortunately had removal of 2 parathyroid [...] of Total Thyroidectomy TFTs 07/23/2021 wnl on [id number] mcg PO daily. lowered by Endocrinology Smoker [...] 2 diabetes mellitus 08/25/2011 Assessment & Plan (02/21/2025 11:50 AM EST): Pt is here for a f/u visit A1c 02/21/2025: 6.6 from 6.8 She is on a regimen of: Lantus 74 units sc q pm. Off Actos. Pt developed diarrhea even with a low dose of Metformin of 2 tabs po q pm. Eye exam was last done on: 01/21/2020 Microalbumin checked on: 04/27/2024 was: 9 Pt on an ARB. Foot check risk of zero Pt reports compliance with Asa 81 mg po daily. For now I have recommended to continue current regimen Pt advised to: adhere to diabetic diet check your blood sugars regularly check your feet on a daily basis Assessment & Plan (12/20/2024 4:01 PM EDT): [...] adenoma 09/14/2006 Hypertension 04/11/1961 Assessment & Plan (02/21/2025 11:48 AM EST): Pt here for a f/u BP elevated, pt tells me her BP at home is normal She is on a regimen of: Enalapril 5 mg po daily, Verelan PM 300 mg po q pm and Hctz 25 mg po daily Most recent electrolytes, Bun and Creatinine done on: Lab Results Component Value Date NA 140 01/14/2025 NA 143 12/24/2024 K 3.4 01/14/2025 K 3.6 12/24/2024 CL 105 01/14/2025 CL 107 12/24/2024 BUN 21 (H) 01/14/2025 BUN 16 12/24/2024 CREATININE 0.74 01/14/2025 CREATININE 0.75 12/24/2024 were wnl. patient advised to adhere to a low sodium diet, encouraged about medication compliance, counseled about weight loss Plan: Continue current regimen Follow up with me in 4 months Assessment & Plan (12/20/2024 11:53 AM EDT): [...] current regimen Hyperlipidemia 04/11/1961 Assessment & Plan (02/21/2025 11:35 AM EST): Patient with elevated lipids. Most recent lipid profile from: Lab Results Component Value Date TRIG 129 01/14/2025 TRIG 150 (H) 12/24/2024 CHOL 136 01/14/2025 CHOL 122 12/24/2024 LDLCHOLCAL 72 01/14/2025 LDLCHOLCAL 57 12/24/2024 HDL 39 (L) 01/14/2025 HDL 35 (L) 12/24/2024 Currently on a regimen of: Atorvastatin 20 mg po daily. and Fish Oil 1000 mg po TID Plan: Continue with current regimen. advised to try to adhere to a low cholesterol diet, counseled and educated about diet Assessment & Plan (12/20/2024 3:51 PM EDT): [...] Encounters Date Type Department Care Team Description 03/05/2025 Orders Only GENERIC EXTERNAL DATA DEPARTMENT Provider, Generic External Data 02/21/2025 11:15 AM EST Office Visit [facility] [place] [address] Dharmesh Lentz MD Type 2 diabetes mellitus without complication, with long-term current use of insulin (HCC) (Primary Dx); Primary hypertension; Mixed hyperlipidemia; Acute right-sided low back pain without sciatica; Right hip pain; Preventative health care 02/21/2025 Travel 02/20/2025 Telephone [facility] [place] [address] Dharmesh Lentz MD Chart prep 02/14/2025 Travel 01/14/2025 1:00 PM EDT Office Visit [facility] [place] [address] Camilla Campbell MD Need for vaccination (Primary Dx); Encounter for immunization; Encounter for hearing screening after failed hearing test 01/14/2025 Orders Only [facility] [place] [address] Dharmesh Lentz MD 01/14/2025 Travel 01/10/2025 Travel 01/10/2025 Patient Outreach [facility] [place] [address] Dharmesh Lentz MD Medicare Annual Wellness Visit Initial (AWV scheduled) 01/10/2025 Refill [facility] [address] [place] [address] Dharmesh Lentz MD Chronic neck pain 12/20/2024 11:30 AM EDT Office Visit [facility] [address] [place], [place] [phone] Dharmesh Lentz MD Type 2 diabetes mellitus without complication, with long-term current use of insulin ([facility]) (Primary Dx); Primary hypertension; Mixed hyperlipidemia; Malignant tumor of thyroid gland ([facility]/HCC); Acute right-sided low back pain without sciatica; Right hip pain; Preventative health care 12/20/2024 Travel 12/19/2024 Telephone [facility] [address] [place], [place] [phone] Lauro Ana Maria [place] 12/19/2024 Refill [facility] [address] [place], [place] [phone] Dharmesh Lentz MD Mixed hyperlipidemia 12/13/2024 Patient Outreach [facility] [address], [place] [phone] Dharmesh Lentz MD Pre-visit Planning (SDOH negative, Tobacco screening positive.) from Last 3 Months Immunizations Immunization Administration [...] Sign Reading Time Taken Comments Blood Pressure 150/70 02/21/2025 11:25 AM EST Pulse 89 02/21/2025 11:25 AM EST Temperature 35.9 C (96.7 F) 02/21/2025 11:25 AM EST Respiratory Rate 20 02/21/2025 11:25 AM EST Oxygen Saturation 98% 02/21/2025 11:25 AM EST Inhaled Oxygen Concentration - - Weight 58.2 kg (128 lb 3.2 oz) 02/21/2025 11:25 AM EST Height 162.6 cm (5' 4 ) 02/21/2025 11:25 AM EST Body Mass Index 22.01 02/21/2025 11:25 AM EST Plan of Treatment Health Maintenance Due Date Last Done Comments [...] 02/07/20 24, 01/29/2013, 08/03/2011, Additional history exists Diabetes: Urine Protein Screening 04/27/2025 04/27/2024, 08/27/2022, 08/27/2022, Additional history exists Diabetes: Hemoglobin A1C 06/19/2025 025, 04/03/2024, 01/03/2024, Additional history exists Mammogram 10/15/2025 10/15/2024, 09/09, 09/16/2022, Additional history exists SDOH Screening 12/13/2025 12/13/2024 Depression Screening 01/14/2026 01/14/2025, 01/15/20 25 Lipid Panel 01/14/2026 01/14/2025, 12/10, 04/27/2024, Additional history exists Tobacco Screening 01/14/2026 01/14/2025 Alcohol/Substance Use Screening 02/21/2026 02/21/2025 Dental X-Ray: Full Mouth 02/07/2027 02/07/2024, 04/2009 [...] age to complete this topic Sigmoidoscopy Discontinued Goals Goal Patient Goal Type Associated Problems [...] chronic kidney disease No Nubia Evans MA Procedures Procedure Name Priority Date/Time Associated Diagnosis Comments TSH Routine 03/05/2025 12:45 PM EST T4, FREE Routine 03/05/2025 12:45 PM EST TSH Routine 01/14/2025 2:58 PM EDT T4, FREE Routine 01/14/2025 2:58 PM EDT LIPID PANEL, STANDARD Routine 01/14/2025 2:58 PM EDT COMPREHENSIVE METABOLIC PANEL Routine 01/14/2025 2:58 PM EDT VARICELLA ZOSTER ANTIBODY, IGG Routine 01/14/2025 2:58 PM EDT Immunity status testing MEASLES, MUMPS, AND RUBELLA (MMR) AB (IGG) PANEL, IMMUNE STATUS Routine 01/14/2025 2:58 PM EDT Immunity status testing HEPATITIS B SURFACE ANTIGEN, EIA Routine 01/14/2025 2:58 PM EDT Immunity status testing HEPATITIS B CORE AB TOTAL Routine 01/14/2025 2:58 PM EDT Immunity status testing HEPATITIS B SURFACE ANTIBODY, QUALITATIVE Routine 01/14/2025 2:58 PM EDT Immunity status testing LDCT LUNG SCREENING Routine 12/28/2024 3 :19 [...] with long-term current use of insulin (CMS/HCC) BI MAMMOGRAM SCREENING TOMOSYNTHESIS BILATERAL Routine 10/15/2024 [...] Recently Relevant to Health Maintenance Results * TSH (03/05/2025 12:45 PM EST) Only the most recent of2 resultswithin the time period is included. Thyroid Stimulating Hormone 0.62 0.32 - 4.0 uIU/mL [facility] Comment:TSH 3rd Generation ( [employer]) 03/05/2025 12:4 5 PM EST 03/05/2025 12:45 PM EST us Generic External Data Provider LAB BLOOD ORDERAB LES Final Result Performing Organization Address City/[facility]/ZIP Co de Phone Number [facility] [address] [place] [phone] * T4, Free (03/05/2025 12:45 PM EST) Only the most recent of2 resultswithin the time period is included. Free T4 (Free Thyroxine) 1.25 0.71 - 1.85 ng/dL [facility] 03/05/2025 12:4 5 PM EST 03/05/2025 12:45 PM EST us Generic External Data Provider LAB BLOOD ORDERAB LES Final Result Performing Organization Address City/[facility]/ZIP Co de Phone Number [facility] [address] [place] [phone] * Measles, Mumps, and Rubella (MMR) Antibodies??(IgG) Panel, Immune Status (01/14/2025 2:58 PM EDT) Mumps Virus IgG Antibody 175.00 AU/mL [facility] Comment:AU/mL Interpretation ------- <9.00 Not consistent with immunity9.00-10.99 Equivocal>10.99 Consistent with immunityThe presence of mumps IgG antibody suggests immunizationor past or current infection with mumps virus. Rubella IgG Antibody 11.60 Index [facility] Comment:Index Interpretation ----- <0.90 Not consistent with immunity 0.90-0.99 Equivocal > or = 1.00 Consistent with immunityThe presence of rubella IgG antibody suggestsimmunization or past or current infection withrubella virus.THIS TEST WAS PERFORMED AT:[facility] [place] [phone] GUIDRY MD Rubeola IgG (Measles) 112.00 AU/mL [facility] Comment:AU/mL Interpretation ----- <13.50 Not consistent with aipacgbx81.50-16.49 Equivocal>16.49 Consistent with immunityThe presence of measles IgG suggests immunization orpast or current infection with measles virus.For additional information, please refer tohttp://education.[employer]/faq/BPZ470(This link is being provided for informational/educational purposes only.) Blood Venous blood specimen / Unknown 01/14/2025 2:58 PM EDT 01/14/2025 2:58 PM EDT us Dharmesh Guardado MD LAB BLOOD ORDERABLES Final Result [facility] [address] [place] [phone] * Hepatitis B surface antigen, EIA (01/14/2025 2:58 PM EDT) Hepatitis B Surface Ag Negative Negative [facility] Blood Venous blood specimen / Unknown 01/14/2025 2:58 PM EDT 01/14/2025 2:58 PM EDT us Dharmesh Guardado MD LAB BLOOD ORDERABLES Final Result Performing Organization Address [facility] de Phone Number [facility] [address] [place] [phone] * Hepatitis B Core Antibody, Total (01/14/2025 2:58 PM EDT) Hepatitis B Core Antibody Nonreactive Nonreactive [facility] Blood Venous blood specimen / Unknown 01/14/2025 2:58 PM EDT 01/14/2025 2:58 PM EDT us Dharmesh Guardado MD LAB BLOOD ORDERABLES Final Result Performing Organization Address [facility] de Phone Number [facility] [address] [place] [phone] * Hepatitis B Surface Antibody, Qualitative (01/14/2025 2:58 PM EDT) ~Hepatitis B Surface Antibody NONREACTIVE Nonreactive [facility] Comment:Nonreactive: < 8.00 mIU/mL Blood Venous blood specimen / Unknown 01/14/2025 2:58 PM EDT 01/14/2025 2:58 PM EDT us Dharmesh Guardado MD LAB BLOOD ORDERABLES Final Result Performing Organization Address [facility] de Phone Number [facility] [address] [place] [phone] * Varicella Zoster Antibody, IgG (01/14/2025 2:58 PM EDT) Varicella IgG Antibody 28.70 S/CO [facility] Comment:Signal to Cut-off S/ CO Interpretation --------- <1.00 Negative - Antibody not detected > or = 1.00 Positive - Antibody detected A positive result indicates that the patient has antibody to VZV but does not differentiate between an active or past infection. The clinical diagnosis must be interpreted in conjunction with the clinical signs and symptoms of the patient. This assay reliably measures immunity due to previous infection but may not be sensitive enough to detect antibodies induced by vaccination. Thus, a negative result in a vaccinated individual does not necessarily indicate susceptibility to VZV infection. A more sensitive test for vaccination-induced immunity is Varicella Zoster Virus Antibody Immunity Screen, ACIF.THIS TEST WAS PERFORMED AT:[facility] [place] [phone] GUIDRY MD Blood Venous blood specimen / Unknown 01/14/2025 2:58 PM EDT 01/14/2025 2:58 PM EDT Dharmesh Guardado MD LAB BLOOD ORDERABLES Final Result [facility] [address] [place] [phone] * (ABNORMAL) Lipid Panel, Standard (01/14/2025 2:58 PM EDT) Only the most recent of2 resultswithin the time period is included. Triglycerides 129 <150 mg/dL [facility] Comment:Desirable Triglyceri de: less than 150 mg/dLBorderline High Triglyceride 150-199 mg/dLHigh Triglyceride: 200-499 mg/dLVery High Triglyceride: greater than or equal to 5OO mg/dL Cholesterol 136 <200 mg/dL [facility] Comment:Desirable Cholestero l: less than 200 mg/dLBorderline High Cholesterol: 200-239 mg/dLHigh Cholesterol: greater than 239 mg/dL LDL Cholesterol Calculated 72 <100 mg/dL [facility] Comment:Desirable LDL: less than 100 mg/dLNear Optimal/Above Optimal LDL: 110- 129 mg/dLBorderline High LDL: 130-159 mg/dLHigh LDL: 160-189 mg/dLVery High LDL: greater than or equal to 190 mg/dL HDL Cholesterol 39(L) >40 mg/dL [facility] Comment:Desirable HDL: great er than 40 mg/dL Note: This HDL assay may give artificially low results in patients with liver disease. 01/14/2025 2:58 PM EDT 01/14/2025 2:58 PM EDT us Dharmesh Guardado MD LAB BLOOD ORDERABLES Final Result [facility] [address] [place] [phone] * (ABNORMAL) Comprehensive Metabolic Panel (01/14/2025 2:58 PM EDT) Only the most recent of2 resultswithin the time period is included. Sodium 140 135 - 145 mmol/L [facility] Potassium 3.4 3.3 - 5.1 mmol/L [facility] Chloride 105 96 - 108 mmol/L [facility] Carbon Dioxide 26 22 - 29 mmol/L [facility] Anion Gap 12 12 - 20 [facility] Urea Nitrogen (BUN) 21(H) 9 - 16 mg/dL [facility] Creatinine, Serum 0.74 0.5 - 1.4 mg/dL [facility] Estimated Glomerular Filt Rate >60 [facility] Comment:Chronic Kidney Disea se: Estimated GFR < 60 mL/min/1.58k2Oxkwrl Kidney Disease: Estimated GFR < 15 mL/min/1.73m2 Glucose 85 60 - 115 mg/dL [facility] Calcium 8.7 8.4 - 10.2 mg/dL [facility] Bilirubin, Total 0.8 0.0 - 1.0 mg/dL [facility] Aspartate Amino Transferase 30 5 - 31 U/L [facility] Alanine Aminotransferase 23 0 - 31 U/L [facility] Total Protein 7.4 6.5 - 8.0 g/dL [facility] Albumin Level 4.6 3.5 - 5.0 g/dL [facility] Alkaline Phosphatase 79 39 - 117 U/L [facility] 01/14/2025 2:58 PM EDT 01/14/2025 2:58 PM EDT Dharmesh Guardado MD LAB BLOOD ORDERABLES Final Result Performing Organization Address City/State/[facility] Co de Phone Number [facility] [address] [place] [phone] * CT Lung Screening Low dose (12/28/2024 3:19 PM EDT) Anatomical Region Laterality Modality Lung Computed Tomogra phy 12/28/2024 3:19 PM EDT Narrative 12/31/2024 7:24 AM EDT [address] [address] [address] Scan Report Signed Patient: Zeina Ramírez MR#: [id number] : 1950 Acct:[id number] Age/Sex: 74 / F ADM Date: 12/28/24 Loc: HO.CT Attending Dr: Cherelle Nguyen PA-C Ordering Physician: Cherelle Nguyen PA-C Date of Service: 12/28/24 Procedure(s): CT lung screening Accession Number(s): [id number] cc: Dharmesh Luther MD; Cherelle Nguyen PA-C Report Number: [id number]: Total DLP = 39.00 mGy-cm Reason for [...] 12/31/24 0721 DD/ 1519 TD/TT: 12/28/24 1533 Client Experience Manager: Procedure Note Donotuseinterpreter, Image - 12/31/[address] [place] [address] [address] Scan Report Signed Patient: Adonis RamírezR#: [id number] : 8Acct:[id number] Age/Sex: 74 / FADM Date: 12/28/24 Loc: HO.CT Attending Dr: Cherelle Nguyen PA-C Ordering Physician: Cherelle Nguyen PA-C Date of Service: 12/28/24 Procedure(s): CT lung screening Accession Number(s): [id number] cc: Dharmesh Luther MD; Cherelle Nguyen PA-C Report Number: [id number]: Total DLP = 39.00 mGy-cm Reason for [...] Jesus Douglass MD 12/31/2024 07:21 AM EDT Dictated By: Jesus Douglass MD Signed By: <Electronically signed by Jesus Douglass MD in OV> 12/31/24 0721 DD/ 1519 TD/TT: 12/28/24 1533 Client Experience Manager: [facility] External Provider IMG CT PROCEDURES Edited Result - Final * (ABNORMAL) CBC auto differential (12/24/2024 7:22 AM EDT) White Blood Count 8.7 4.8 - 10.8 X10*3/uL [facility] Red Blood Count 4.07(L) 4.20 - 5.50 X10*6/uL [facility] Hemoglobin 12.7 12.0 - 16.0 g/dl [facility] Hematocrit 38.1 37.0 - 47.0 % [facility] Mean Corpuscular Volume 93.6 80.0 - 98.0 fL [facility] Mean Corpuscular Hemoglobin 31.2 27.0 - 33.0 pg [facility] Mean Corpuscular HGB Conc 33.3 31.0 - 35.0 g/dl [facility] Red Cell Distribution Width 15.1 11.0 - 16.0 % [facility] Platelet Count 213 160 - 400 X10*3/uL [facility] Mean Platelet Volume 12.9(H) 9.4 - 12.3 fL [facility] Neutrophils Percent Auto 58.9 45 - 73 % [facility] Imm Gran Pct Auto 0.5(H) 0.0 - 0.4 % [facility] Lymphocytes Percent Auto 29.0 20 - 40 % [facility] Monocytes Percent Auto 6.9 2 - 11 % [facility] Eosinophils Percent Auto 3.7 0 - 4 % [facility] Basophils Percent Auto 1.0 0 - 2 % [facility] NRBC Pct Auto 0.0 0.0 - 0.2 /100WBC [facility] Neutrophils Absolute Auto 5.1 2.0 - 8.3 x10*3/uL [facility] Imm Gran Abs Auto 0.04(H) 0.00 - 0.03 X10*3/uL [facility] Lymphocytes Absolute Auto 2.5 1.2 - 4.9 X10*3/uL [facility] Monocytes Absolute Auto 0.6 0.1 - 1.2 X10*3/uL [facility] Eosinophils Absolute Auto 0.3 0.0 - 0.4 X10*3/uL [facility] Basophils Absolute Auto 0.1 0.0 - 0.2 X10*3/uL [facility] NRBC Abs Auto 0.000 0.0 - 0.012 X10*3/uL [facility] Blood Venous blood specimen / Unknown 12/24/2024 7:22 AM EDT 12/24/2024 7:22 AM EDT us Dharmesh Guardado MD LAB BLOOD ORDERABLES Final Result [facility] [address] [place] [address] [phone] * XR Hip 2 or 3 Views Right (12/20/2024 12:45 PM EDT) Anatomical Region Laterality Modality Lower Extremities, Hip Right Radiograp hic Imaging 12/20/2024 12:4 5 PM EDT Narrative 12/20/2024 12:54 PM EDT [address] [address] XRay Report Signed Patient: Zeina Ramírez MR#: [id number] : 1950 Acct:[id number] Age/Sex: 74 / F ADM Date: 12/20/24 Loc: HO.HHCX Attending Dr: Dharmesh Luther MD Ordering Physician: Dharmesh Luther MD Date of Service: 12/20/24 Procedure(s): XR hip RT min 2V Accession Number(s): [id number] cc: Dharmesh Luther MD Reason for Exam: [...] 12/20/24 1251 DD/ 1245 TD/TT: 12/20/24 1246 Client Experience Manager: Procedure Note Donotuseinterpreter, Image - 12/20/[address] [address] XRay Report Signed Patient: Adonis RamírezR#: [id number] : 8Acct:[id number] Age/Sex: 74 / FADM Date: 12/20/24 Loc: HO.HHCX Attending Dr: Dharmesh Luther MD Ordering Physician: Dharmesh Luther MD Date of Service: 12/20/24 Procedure(s): XR hip RT min 2V Accession Number(s): [id number] cc: Dharmesh Luther MD Reason for Exam: [...] Jesus Douglass MD 12/20/2024 12:51 PM EDT Dictated By: Jesus Douglass MD Signed By: <Electronically signed by Jesus Douglass MD in OV> 12/20/24 1251 DD/ 1245 TD/TT: 12/20/24 1246 Client Experience Manager: us Dharmesh Guardado MD IMG XR PROCEDURES Fin al Result * XR Lumbar Spine 2-3 Views (12/20/2024 12:45 PM EDT) Anatomical Region Laterality Modality Spine, L-spine Radiographic Rekha ging 12/20/2024 12:4 5 PM EDT Narrative 12/20/2024 12:56 PM EDT [facility] [address] [place] [address] XRay Report Signed Patient: Zeina Ramírez MR#: [id number] : 1950 Acct:[id number] Age/Sex: 74 / F ADM Date: 12/20/24 Loc: HO.HHCX Attending Dr: Dharmesh Luther MD Ordering Physician: Dharmesh Luther MD Date of Service: 12/20/24 Procedure(s): XR lumbar spine 2-3V Accession Number(s): [id number] cc: Dharmesh Luther MD Reason for Exam: [...] 12/20/24 1254 DD/ 1245 TD/TT: 12/20/24 1246 Client Experience Manager: Procedure Note Donotuseinterpreter, Image - 12/20/[address] [address] XRay Report Signed Patient: Adonis RamírezR#: [id number] : 8Acct:[id number] Age/Sex: 74 / FADM Date: 12/20/24 Loc: HO.HHCX Attending Dr: Dharmesh Luther MD Ordering Physician: Dharmesh Luther MD Date of Service: 12/20/24 Procedure(s): XR lumbar spine 2-3V Accession Number(s): [id number] cc: Dharmesh Luther MD Reason for Exam: [...] 12/20/24 1254 DD/ 1245 TD/TT: 12/20/24 1246 Client Experience Manager: us Dharmesh Guardado MD IMG XR PROCEDURES Fin al Result * POCT glucose manually resulted (12/20/2024 12:12 PM EDT) Glucose Blood, POC 177 60 - 200 mg/dL QC Media Lot # [id number] Lot# Expiration Date Blood Capillary blood specimen / Unknown 12/20/2024 12:12 PM EDT Dharmesh Guardado MD POINT OF CARE TEST EN TER/EDIT ORDERABLES Final Result * (ABNORMAL) POCT glycosylated hemoglobin (Hgb A1c) (12/20/2024 12:10 PM EDT) Hemoglobin A1C 6.8(A) 4.0 - 5.7 % QC Media Lot # [id number] Lot# Expiration Date ,579,326 Blood Capillary blood specimen / Unknown 12/20/2024 12:10 PM EDT Dharmesh Guardado MD POINT OF CARE TEST EN TER/EDIT ORDERABLES Final Result * BI Mammogram Screening Tomosynthesis Bilateral (10/15/2024 8:55 AM EDT) Anatomical Region Laterality Modality Breast Bilateral Mammography 10/15/2024 8:55 AM EDT Narrative 10/24/2024 9:03 PM EDT [facility] [address] [place] [address] Mammography Report Signed Patient: Zeina Ramírez MR#: [id number] : 1950 Acct:[id number] Age/Sex: 74 / F ADM Date: 10/15/24 Loc: HO.MAMMO Attending Dr: Dharmesh Luther MD Ordering Physician: hDarmesh Luther MD Resu lts: 1Negative Date of Service: 10/15/24 Follow Up: 1 Year From Orig inal Mammogram Procedure(s): MM tomosynthesis screening BI Accession Number(s): [id number] cc: Dharmesh Luther MD EXAMINATION: MM SCREENING [...] 10/24/2024 09:00 PM EDT RP Dictated By: eNly Humphries DO Signed By: <Electronically signed by Nely Humphries DO in OV> 10/24/24 2100 DD/ 0855 TD/TT: 10/15/24 0910 Client Experience Manager: Procedure Note Donotuseinterpreter, Image - 10/24/2024 [facility] [address] [place] [address] Mammography Report Signed Patient: Taylor Ramírez#: [id number] : 8Acct:[id number] Age/Sex: 74 / FADM Date: 10/15/24 Loc: HO.MAMMO Attending Dr: Dharmesh Luther MD Ordering Physician: Dharmesh Luther MDResu lts: 1Negative Date of Service: 10/15/24Follow Up: 1 Year From Orig inal Mammogram Procedure(s): MM tomosynthesis screening BI Accession Number(s): [id number] cc: Dharmesh Luther MD EXAMINATION: MM SCREENING [...] 10/24/24 2100 DD/ 0855 TD/TT: 10/15/24 0910 Client Experience Manager: Dharmesh Guardado MD IMG BI PROCEDURES Maximilian noel Result - Final * Albumin, Random Urine W/Creatinine (04/27/2024 9:54 AM EST) Creatinine, Urine 77.61 mg/dL [facility] Microalbumin Urine 9.0 mg/L [facility] Microalbum Creatinine Ratio Ur 11.5 <30 ug/mg cr [facility] Comment:Albumin/Creatinine R atio Reference Ranges: Normal: < 30 ug/mg creatinine Microalbuminuria: 30 - 300 ug/mg creatinineClinical Albuminuria: > 300 ug/mg creatinine Urine (Urine, Random) 04/27/2024 9:54 AM EST 04/27/2024 10:39 AM EST Dharmesh Guardado MD LAB URINE ORDERABLES Final Result [facility] [address] [place] [phone] * HEPATITIS C ANTIBODY RFLX (07/23/2021 6:58 AM EDT) Hepatitis C Antibody Nonreactive Nonreactive [facility] Comment: Antibodies to HCV not detected; does not exclude early acute HCV infection. 07/23/2021 6:58 AM EDT Dharmesh Guardado MD HISTORICAL/NON ORDERA BLE LABS Final Result [facility] [address] [place] [address], * Colonoscopy (05/16/2020) Colonoscopy Normal Normal 05/16/2020 Narrative Diamond Vidal - 05/16/2020 8:51 AM EST Recommended 5 year follow up Historical Provider HEALTH MAINTENANCE Edited Result - Final from Last 3 Months or Most Recently Relevant to Health Maintenance Additional Health Concerns Active Problems Noted Date [...] 02/21/2025 Patient has chronic kidney disease 02/21/[address] [place] [place] [address] [place] [phone] [facility] [employer] MEDICARE SUPPLEMENT Care Teams [employer] Relationship Specialty Start Date End Date Dharmesh Lentz MD [address] [place] [phone] PCP - General Internal Medicine 11/22/13
== END 2025-03-05 12:36 | disposition home or self-care (01) ==
LOC: HO.LAB 12:35
PROVIDERS: PCP Internal Medicine; Visit Provider Student in an Organized Health Care Education/Training Program
DX: E89.0 Postprocedural hypothyroidism (principal); Z85.850 Personal history of malignant neoplasm of thyroid
CPT/HCPCS: 36415; 84439; 84443